=== PATIENT | male | born 1955 | race African-American/Black ===

== ENCOUNTER → 2017-03-20 | Outpatient (CLI) | payer OTHER ==
[2014-09-29 11:47] VITALS: BP 117/74
[~2017-03-20] MED LIST: AMLO10TA2 PO; GLIP5TAB10 PO; HYDR12.53 PO; carvedilol
--- NOTE | 2017-03-20 08:59 | RAD ---
Indication: Hepatitis C. Technique: Ultrasound of the abdomen was performed. No comparison is available. Findings: Visualized pancreas is unremarkable. Aorta and IVC are patent. Liver is normal in size and echogenicity without discrete mass. There is no surface nodularity. Gallbladder is absent. Common bile duct measures 6 mm. This is within normal limits for age postcholecystectomy. Kidneys are without hydronephrosis or solid mass. There is a simple cyst in the superior pole of the right kidney measuring 2.1 cm. Spleen is not enlarged. Impression: 1. No acute abdominal findings. 2. Prior cholecystectomy. 3. Simple cyst right kidney.
== END | disposition home or self-care (01) ==
LOC: US 06:39
PROVIDERS: ATTEND Internal Medicine Gastroenterology
DX: B19.20 Unspecified viral hepatitis C without hepatic coma (principal); N28.1 Cyst of kidney, acquired; Z90.49 Acquired absence of other specified parts of digestive tract
CPT/HCPCS: 76700

== ENCOUNTER → 2018-03-28 | Outpatient (CLI) | payer OTHER ==
[2014-09-29 11:47] VITALS: BP 117/74
[~2018-03-28] MED LIST changes: -AMLO10TA2 PO; +AMLO10TA6 PO; +CARV25TA PO; +DOXY100T9 PO; +FLUT1DIS3 IH; +LOSA1TAB25 PO; +PRED50TA PO; +TIOT18CA IH
--- NOTE | 2018-03-28 10:46 | RAD ---
CT scan of the chest without IV contrast compared to similar study dated April 27, 2015 for shortness of air wheezing for 4 weeks. TECHNIQUE: Contiguous helical 5 mm axial images are obtained from the thoracic inlet to the base of the diaphragm. Sagittal and coronal reformations are evaluated. FINDINGS: There is a large infiltrating spiculated right hilar mass measuring 7.6 x 3.8 x 7.2 cm, encasing the right upper, middle, and lower lobar bronchi, resulting in significant narrowing of the right lower lobar bronchus. There is some patchy atelectasis in the right lung base, and there is airspace disease and tree-in-bud opacification of the medial aspect of the right middle lobe, possibly representing area of active infection. No segmental atelectasis is present. There is a satellite 1.3 cm abnormality within the right upper lobe seen best on axial image #32, with a groundglass halo. This could be infectious, inflammatory, or neoplastic. Also within the right upper lobe are smooth areas of interstitial thickening particularly near the apex, which could reflect interstitial edema or inflammation from obstructive pathology but could also reflect lymphangitic carcinomatosis. The left lung is clear. There are large right hilar and mediastinal lymph nodes, with subcarinal lymph node measuring 3.4 x 3.9 cm and a right paratracheal lymph node measuring 3.6 x 4.1 cm. Other lymph nodes in the pretracheal and AP window are noted. Also seen are several suspicious subcentimeter lymph nodes in the left axilla and subcutaneous tissues of the left chest wall on axial image 41 and 44. Similar chest wall nodule is seen on the right axillary region were 39. There is a 2.3 x 1.7 cm suspicious for a right axillary lymph node. Evaluation of the upper abdominal organs is limited by lack of IV contrast, however no gross morphologic abnormalities of the visualized organs are identified. There is been a prior cholecystectomy. No suspicious osteoblastic or osteolytic bone lesions are seen. IMPRESSION: 1. Large infiltrating right hilar mass consistent with malignancy. There is a satellite nodule in the right upper lobe, as well as multiple axillary and chest wall nodules suspicious for metastatic disease. There is also focal smooth interstitial thickening in the right upper lobe which could reflect lymphangitic carcinomatosis. Numerous mediastinal and hilar lymph nodes are also identified and markedly enlarged consistent with metastatic disease. Findings were called to Dr. Myrick's office immediately upon interpretation of the examination. Electronically signed by: Marc Pope MD (03/28/2018 10:43 AM) [id number]
== END | disposition home or self-care (01) ==
LOC: CT 07:57
PROVIDERS: ATTEND Family Medicine
DX: R06.00 Dyspnea, unspecified (principal); J45.41 Moderate persistent asthma with (acute) exacerbation; R91.1 Solitary pulmonary nodule
CPT/HCPCS: 71250

== ENCOUNTER → 2018-04-05 | Day surgery (SDC) | payer OTHER ==
[~2018-04-05] MED LIST changes: +0.9 % SODIUM CHLORIDE 10 ML DISP.SYRIN. IV PRN; +ALBUTEROL SULFATE 2.5 MG/3 ML NEBU. NEB PRN; +EPINEPHrine 1 MG/ML VIAL INJ PRN; +IV RINGERS,LACTATED 1000ML 1,000 ML IV SCH; +LIDOCAINE 1% Multi-Dose 50 ML VIAL. INJ PRN; +LIDOCAINE 2% VISCOUS 100 ML BOTTLE. MM PRN; +LIDOCAINE 4% TOPICAL 50 ML SOLUTION. MM PRN; +PROPOFOL 40 ML IV ONE
[2018-04-05 10:49] LABS: BASO % 0 % (0-3); EOS # 0.2 x10^3/uL (0.0-0.7); EOS % 2 % (0-3); HEMATOCRIT 31.4 % (39.0-53.0); HEMOGLOBIN 10.6 g/dL (13.0-17.5); LYMPH % 10 % (24-48); MEAN CORPUSCULAR HEMOGLOBIN 30 pg (25-35); MEAN CORPUSCULAR HGB CONC 34 g/dL (31-37); MEAN CORPUSCULAR VOLUME 90 fL (79-100); MONO # 0.8 x10^3/uL (0.0-1.1); MONO % 8 % (0-9); NEUT # 7.7 x10^3uL (1.8-7.7); NEUT % 79 % (31-73); PLATELET COUNT 168 x10^3/uL (140-400); RED BLOOD COUNT 3.51 x10^6/uL (4.30-5.70); RED CELL DISTRIBUTION WIDTH 15.1 % (11.5-14.5); WHITE BLOOD COUNT 9.7 x10^3/uL (4.0-11.0)
[2018-04-05 11:07] LABS: PROTHROMBIN TIME PATIENT 13.7 SEC (11.7-14.0)
[2018-04-05 12:29] VITALS: BP 136/81
--- NOTE | 2018-04-05 13:01 | OP ---
DATE OF SURGERY: 04/05/2018 PROCEDURE: Bronchoscopy with biopsy. INDICATIONS FOR PROCEDURE: Abnormal CT scan with mass noted on the right. The risk and benefits of the procedure were explained to the patient and he was agreeable. Anesthesia was provided by nurse community liaison officer. Please refer to that note. DICTATION ENDS HERE LAI HAWKINS MD DR: APOORVA/mayra JOB#: [id number] / [id number]
--- NOTE | 2018-04-05 13:03 | OP ---
DATE OF SURGERY: 04/05/2018 PROCEDURE: Bronchoscopy with biopsy. INDICATION FOR PROCEDURE: Abnormal CT with right lung mass. The benefits and risks of the procedure were explained to the patient and he was agreeable. Anesthesia was provided via the nurse offset assistant press operator. Please refer to her note for details. A timeout procedure was performed prior to the initiation of sedation. The bronchoscope was entered through the right side of the nose. The vocal cords were inspected. DICTATION ENDS HERE LAI HAWKINS MD DR: APOORVA/mayra JOB#: [id number] / [id number]
--- NOTE | 2018-04-05 13:13 | OP ---
DATE OF SURGERY: 04/05/2018 PROCEDURE: Bronchoscopy with bronchial biopsy and brushing. INDICATION: Abnormal CT exam with a right lung mass. The indications and risks were explained to the patient and he was agreeable. A timeout procedure was performed. Anesthesia service provided conscious sedation with propofol. Please refer to their note for details of that. DESCRIPTION OF PROCEDURE: The bronchoscope was introduced through the right side of the nose. The vocal cords were inspected. The left vocal cord was deviated but did move. There also was a slight mucosal abnormality on the left vocal cord. 5 mL of 2% lidocaine was instilled directly on the vocal cords. The bronchoscope was introduced through the vocal cords and into the trachea. Another 5 mL of 1% lidocaine was distilled into the right lower lobe bronchus. The left lung airways were inspected to the segmental levels and were without lesions. On the right side, there was a diffusely infiltrating abnormality beginning at the right upper lobe bronchus and extending into the middle lobe and right lower lobe. The thickening of the airways prevented inspection of the segmental bronchi of the right middle lobe and the right lower lobe. The right bronchus intermedius was biopsied x 4. Also, a brushing sample was taken from the right lower lobe. Washings from the right bronchus were obtained and sent for cytology. In addition, the fluid will be sent for fungal and AFB studies. The patient had minimal bleeding throughout the procedure. His total blood loss was less than 5 mL. There was a transient lowering of the oxygen saturation reading, but that occurred when the oximeter had fallen off. When the oximeter was restored, his oxygen saturation was well above 90%. I believe that was an erroneous reading. He tolerated the procedure well. IMPRESSION AND PLAN: Infiltrating tumor of the right upper lobe, right bronchus intermedius, right middle lobe and right lower lobe airways. He will follow up with me in the office next week. LAI HAWKINS MD DR: APOORVA/mayra JOB#: [id number] / [id number] [place]
--- NOTE | 2018-04-08 18:06 | PATHOLOGY ---
Note [facility] Accession Number: [id number] TESTS RESULT FLAG UNITS REF RANGE LAB Clinician Provided Cytology Information No. of containers..01 Slide Source: R BRONCH INTERMEDIUS DIAGNOSIS: BR BRONCH INTERMEDIUS INCONCLUSIVE. RARE ATYPICAL CELLS PRESENT ALONG WITH BENIGN BRONCHIAL CELLS PULMONARY MACROPHAGES (DUST CELLS) ARE PRESENT. Signed out by: 02 Dariel Crockett MD, Pathologist NPI- [id number] Performed by: Vitor Damon, Energy Administrator ([facility]) FLAG LEGEND: L-Low Normal,H-High Normal,LL-Alert Low,HH-Alert High <-Panic Low,>-Panic High,A-Abnormal,AA-Critical Abnormal Performed at: [address] [place] [address] Yobany Dobson MD, 02 [facility] [address] [place] [address] Logan Hamilton MD, Specimen Comment: A courtesy copy of this report has been sent to Specimen Comment: [phone], . Specimen Comment: Report sent to DR SLOAN / DR VELÁZQUEZ Specimen Comment: A duplicate report has been generated due to demographic updates. Performed at: [address] [place] [address] [address], [place], [place] [id number] MD Yobany Dobson MD Phone: [phone]
--- NOTE | 2018-04-08 18:06 | PATHOLOGY ---
Note [facility] Accession Number: [id number] TESTS RESULT FLAG UNITS REF RANGE LAB Clinician Provided Cytology Information No. of containers..01 Other (Miscellaneous) Source: R BRONCH INTER B.T DIAGNOSIS: R BRONCH INTER B.T INCONCLUSIVE. ATYPICAL CELLS PRESENT ALONG WITH BENIGN BRONCHIAL CELLS. PULMONARY MACROPHAGES (DUST CELLS) ARE PRESENT. Signed out by: 02 Dariel Crockett MD, Pathologist NPI- [id number] Performed by: Vitor Damon, Charge Rn ([facility]) FLAG LEGEND: L-Low Normal,H-High Normal,LL-Alert Low,HH-Alert High <-Panic Low,>-Panic High,A-Abnormal,AA-Critical Abnormal Performed at: [address] [place] [address] Yobany Dobson MD, 02 [facility] [address] [place] [address] Logan Hamilton MD, Specimen Comment: A courtesy copy of this report has been sent to Specimen Comment: [phone], . Specimen Comment: Report sent to DR SLOAN / DR VELÁZQUEZ Specimen Comment: A duplicate report has been generated due to demographic updates. Performed at: [address] [place] [address] [address], [place], [place] [id number] MD Yobany Dobson MD Phone: [phone]
--- NOTE | 2018-04-08 18:06 | PATHOLOGY ---
Note [facility] Accession Number: [id number] TESTS RESULT FLAG UNITS REF RANGE LAB Clinician Provided Cytology Information No. of containers..01 Other (Miscellaneous) Source: R BRONCH INTERMEDIUS DIAGNOSIS: R BRONCH INTERMEDIUS INCONCLUSIVE. RARE ATYPICAL CELLS PRESENT ALONG WITH BRNIGN BRONCHIAL CELLS. PULMONARY MACROPHAGES (DUST CELLS) ARE PRESENT. Signed out by: Dariel Crockett MD, Pathologist NPI- [id number] Performed by: Vitor Damon, Guide Dog Instructor ([facility]) Gross description: 01 16ML, RED, CLOUDY /LCS FLAG LEGEND: L-Low Normal,H-High Normal,LL-Alert Low,HH-Alert High <-Panic Low,>-Panic High,A-Abnormal,AA-Critical Abnormal Performed at: [address] [place] [address] Yobany Dobson MD, 02 [facility] [address] [place] [address] Logan Hamilton MD, Specimen Comment: A courtesy copy of this report has been sent to Specimen Comment: [phone]. Specimen Comment: Report sent to Performed at: [address], [place], [place] [id number] MD Yobany Dobson MD Phone: [phone]
--- NOTE | 2018-04-13 09:09 | PATHOLOGY ---
[facility] Accession Number: [id number] . 01 Material submitted: . RIGHT BRONCHUS INTERMEDIUS . 01 Clinical history: . Lung mass . 02 Diagnosis: [id number] Keira Lung mass, right bronchus intermedius, core needle biopsy: - Small cell carcinoma. (Please see comment). . (SKM:at;04/12/2018) QTA/04/13/2018 . 02 Comment: The findings in this case were relayed to Kareen at Dr. Lang's office on 04/12/2018. . The tumor cells are hyperchromatic and exhibit crush artifact. The tumor cells are negative for chromogranin and CD45. The tumor cells are positive for synaptophysin and cytokeratin AE1/3. . This case has also been reviewed by Dr. Meet Obregon M.D. who agrees with the diagnosis. . (SKM:at;04/09/2018) . 02 Electronically signed: . Dariel Crockett MD, Pathologist NPI- [id number] . 01 Gross description: . Received in formalin labeled "Tunley, Juvenal, bronch intermedius," are multiple minute fragments of ji soft tissue measuring 0.4 x 0.2 x 0.1 cm in aggregate dimensions. The specimen is filtered and entirely submitted in cassette A1. (TSD; 04/05/2018) TOB/TOB . 02 Pathologist provided ICD-10: C34.91 . 02 CPT . 102627, P36934, M48365 Specimen Comment: A courtesy copy of this report has been sent to Specimen Comment: [phone], , . Specimen Comment: Report sent to ,DR GALVEZ / DR SLOAN Specimen Comment: A duplicate report has been generated due to demographic update Specimen Comment: of the patient's Date of , Age, Gender, and/or Specimen Date. Specimen Comment: Please review patient results, reference intervals, and calculated Specimen Comment: results that may have been affected by this change. Performed at: 01 [facility] [address] [id number] MD Yobany Dobson MD Phone: [phone] Performed at: 02 [facility] [address] [id number] MD Chago Justice MD Phone: [phone]
== END | disposition home or self-care (01) ==
LOC: SURG 09:38
PROVIDERS: ATTEND Internal Medicine Critical Care Medicine
DX: C34.91 Malignant neoplasm of unspecified part of right bronchus or lung (principal); Z91.010 Allergy to peanuts; Z79.01 Long term (current) use of anticoagulants; M19.90 Unspecified osteoarthritis, unspecified site; F17.210 Nicotine dependence, cigarettes, uncomplicated; Z83.6 Family history of other diseases of the respiratory system
CPT/HCPCS: 31623; 31625; 36415; 85025; 85610; 85730; 87102; 87116; 88104; 88112; 88305; 88341; 88342; 94640; J0171; J2704; J7613; 31622

== ENCOUNTER 2018-04-12 06:58 | Outpatient (CLI) | payer OTHER ==
[~2018-04-12] VITALS: Ht 175.3 cm; Wt 107.0 kg
[~2018-04-12 06:58] MED LIST changes: -0.9 % SODIUM CHLORIDE 10 ML DISP.SYRIN. IV PRN; -ALBUTEROL SULFATE 2.5 MG/3 ML NEBU. NEB PRN; -EPINEPHrine 1 MG/ML VIAL INJ PRN; -IV RINGERS,LACTATED 1000ML 1,000 ML IV SCH; -LIDOCAINE 1% Multi-Dose 50 ML VIAL. INJ PRN; -LIDOCAINE 2% VISCOUS 100 ML BOTTLE. MM PRN; -LIDOCAINE 4% TOPICAL 50 ML SOLUTION. MM PRN; -PRED50TA PO; -PROPOFOL 40 ML IV ONE
[2018-04-12] MEDS ORDERED: PRED50TA PO (07:12)
[2018-04-12 07:28] VITALS: BP 140/87
[2018-04-12 07:53] LABS: BASO # 0.1 x10^3/uL (0.0-0.2); BASO % 1 % (0-3); EOS # 0.1 x10^3/uL (0.0-0.7); EOS % 1 % (0-3); HEMATOCRIT 31.1 % (39.0-53.0); HEMOGLOBIN 10.7 g/dL (13.0-17.5); LYMPH # 0.8 x10^3/uL (1.0-4.8); LYMPH % 8 % (24-48); MEAN CORPUSCULAR HEMOGLOBIN 31 pg (25-35); MEAN CORPUSCULAR HGB CONC 35 g/dL (31-37); MEAN CORPUSCULAR VOLUME 89 fL (79-100); MONO # 0.7 x10^3/uL (0.0-1.1); MONO % 7 % (0-9); NEUT # 8.1 x10^3uL (1.8-7.7); NEUT % 83 % (31-73); PLATELET COUNT 195 x10^3/uL (140-400); RED BLOOD COUNT 3.51 x10^6/uL (4.30-5.70); RED CELL DISTRIBUTION WIDTH 15.3 % (11.5-14.5); WHITE BLOOD COUNT 9.8 x10^3/uL (4.0-11.0)
[2018-04-12 07:55] LABS: CREATININE 1.6 mg/dL (0.7-1.3); GFR 52.9; POTASSIUM 3.8 mmol/L (3.5-5.1)
[2018-04-12 08:02] LABS: ALBUMIN 2.4 g/dL (3.4-5.0); ALBUMIN/GLOBULIN RATIO 0.5 (1.0-1.7); TOTAL BILIRUBIN 0.2 mg/dL (0.2-1.0); TOTAL PROTEIN 7.3 g/dL (6.4-8.2)
[2018-04-12] MEDS ORDERED: MIDAZOLAM HCL/PF 2 MG/2 ML VIAL. ONE (08:12)
[2018-04-12] MEDS ORDERED: fentaNYL PF VIAL 100 MCG/2 ML VIAL ONE (08:12)
[2018-04-12] MEDS ORDERED: LIDOCAINE WITH 8.4% SOD BICARB 3 ML DISP.SYRIN. ONE (08:13)
[2018-04-12] MEDS ORDERED: LIDOCAINE WITH 8.4% SOD BICARB 3 ML DISP.SYRIN. IJ ONE (08:30)
[2018-04-12 08:40] LABS: PROTHROMBIN TIME PATIENT 13.5 SEC (11.7-14.0)
[2018-04-12 08:53] VITALS: BP 153/87
[2018-04-12 09:08] VITALS: BP 154/92
--- NOTE | 2018-04-13 14:12 | PATHOLOGY ---
[facility] Accession Number: [id number] . 01 Material submitted: . RIGHT AXILLARY NODE BIOPSY . 01 Clinical history: . Right axillary enlarged lymph node . 02 Diagnosis: "RT axillary node biopsy", excisional biopsy: - FIBROADIPOSE CONNECTIVE TISSUE WITH METASTATIC SMALL CELL CARCINOMA (SEE COMMENT). . (CLW:mm; 04/13/18) [facility]/04/13/2018 . 02 Comment: No background lymph node architecture is present for evaluation. The patient has a history of "small cell carcinoma" from a lung mass - right bronchus intermedius, needle core biopsy ([id number]). Clinical and radiographic correlation is recommended. . (CLW:mm; 04/13/18) . 02 Electronically signed: . Oneyda Obregon MD, Pathologist NPI- [id number] . 01 Gross description: . Received in formalin labeled "Juvenal Nichols, right lymph node BX axillary," are multiple fragments of needle cores of ji soft tissue measuring 1.1 x 0.5 x 0.1 cm in aggregate dimensions. The specimen is filtered and entirely submitted in cassette A1. (TSD; 04/12/2018) TOB/TOB . 02 Pathologist provided ICD-10: C77.3 . 02 CPT . 211389 Specimen Comment: A courtesy copy of this report has been sent to Specimen Comment: [phone], . Specimen Comment: Report sent to ,DR HAWKINS / DR SLOAN Specimen Comment: A duplicate report has been generated due to demographic updates. Performed at: [address], [place] [id number] MD Yobany Dobson MD Phone: [phone] Performed at: [address] [id number] MD Logan Hamilton MD Phone: [phone]
--- NOTE | 2018-04-13 15:29 | RAD ---
Ultrasound-guided biopsy, right axillary lymph node 04/13/2018 Indication: The patient is a 62-year-old male with a large mediastinal and right hilar lung mass tube presents for biopsy of axillary adenopathy which could reflect metastatic disease. Largest axillary lymph node is seen on the right. The risks and benefits of the procedure were discussed the patient. Informed consent was obtained. A timeout procedure was performed. The right axilla was prepped and draped using sterile barrier technique. 1% lidocaine without epinephrine was administered for local anesthesia. Ultrasound evaluation demonstrates a mildly enlarged lymph node in the right axilla measuring 1.7 x 1.4 cm. This is consistent with the largest axillary lymph node seen on prior CT scan. Small fatty hilum does appear to be retained. Cortical thickening is noted. Overlying skin was anesthetized with 1% lidocaine. Under direct ultrasound guidance multiple 18-gauge core biopsy samples were obtained which were divided amongst formalin and RPMI fluid. Manual pressure was held. Sterile dressings were applied. Impression: Ultrasound-guided biopsy of mildly enlarged, and mildly abnormal appearing lymph node in the right axilla.
== END 2018-04-12 09:19 | disposition home or self-care (01) ==
LOC: INTRAD 06:58
PROVIDERS: ATTEND Internal Medicine Pulmonary Disease
DX: C77.3 Secondary and unspecified malignant neoplasm of axilla and upper limb lymph nodes (principal); C34.91 Malignant neoplasm of unspecified part of right bronchus or lung; Z91.010 Allergy to peanuts; Z79.899 Other long term (current) drug therapy; Z79.01 Long term (current) use of anticoagulants
CPT/HCPCS: 36415; 38505; 76942; 80053; 85025; 85610; 88305

== ENCOUNTER 2018-04-20 07:11 | Outpatient (CLI) | payer OTHER ==
[~2018-04-20] VITALS: Ht 175.3 cm; Wt 107.5 kg
[2018-04-20] VITALS (7 sets, daily range): BP systolic 142–162; BP diastolic 86–93
[~2018-04-20 07:11] MED LIST changes: +PRED50TA PO
[2018-04-20] MEDS ORDERED: PROAIR HFA8.5 GM INH (07:51)
[2018-04-20] MEDS ORDERED: [UNRECOGNIZED DRUG - OTHER] PO (07:51)
[2018-04-20] MEDS ORDERED: ALBU2.5V5 NEB (07:51)
[2018-04-20] MEDS ORDERED: BUDE10.2 IH (07:51)
[2018-04-20] MEDS ORDERED: HEPARIN PF 500 UNIT/5 ML DISP.SYRIN. IV ONE (08:15)
[2018-04-20] MEDS ORDERED: LIDOCAINE 1%/EPI 1:100,000 20 ML VIAL. ONE (08:16)
[2018-04-20] MEDS ORDERED: MIDAZOLAM HCL/PF 2 MG/2 ML VIAL. ONE (08:34)
[2018-04-20] MEDS ORDERED: fentaNYL PF VIAL 100 MCG/2 ML VIAL ONE (08:34)
[2018-04-20] MEDS ORDERED: fentaNYL PF VIAL 100 MCG/2 ML VIAL IV ONE (09:00)
[2018-04-20] MEDS ORDERED: MIDAZOLAM HCL/PF 2 MG/2 ML VIAL. IV ONE (09:00)
[2018-04-20] MEDS ORDERED: LIDOCAINE 1%/EPI 1:100,000 20 ML VIAL. INJ ONE (09:00)
--- NOTE | 2018-04-20 16:38 | RAD ---
Procedure: Ultrasound and fluoroscopically guided placement of left internal jugular power port.. 04/20/2018 4:33 PM Clinical Indication: Lung adenocarcinoma Sedation: Conscious sedation was administered for 30 minutes. The patient was monitored by a qualified independent observer throughout the time of sedation. Please refer to the medical record for exact doses of medications utilized to achieve moderate sedation. Fluoroscopy time 0.9 minutes. Dose area product: [id number] Consent: The procedure was explained in its entirety to the patient or the patients designated shipping services sales representative by a member of the treatment team, including a discussion of the risks, benefits and commonly accepted alternatives to the procedure, as well as the expected consequences of no therapy whatsoever. Discussion of the risks included, but was not limited to, those that are most frequent and those that are rare but possibly severe or life-threatening, as well as the possibility of unforeseen complications. Technique and Findings: All elements of maximal sterile barrier technique including the use of a cap, mask, sterile gown, sterile gloves, large sterile sheet, appropriate hand hygiene, and 2% chlorhexidine for cutaneous antisepsis (or acceptable alternative antiseptic per current guidelines) were followed for this procedure. Following informed consent, and a timeout procedure, the patient was prepped and draped in the usual sterile fashion. Ultrasound interrogation of the left neck revealed patency and compressibility of the left internal jugular vein. A 21-gauge micropuncture was then used to gain access to this vein under ultrasound guidance. A hard copy ultrasound image was recorded. The needle was exchanged over a wire for a sheath. A 1 inch incision was made several centimeters inferior to the venotomy site. A catheter was tunneled from this site dermatotomy site in the neck. Catheter was advanced through peel-away sheath such that its tip was in the proximal right atrium with the patient supine. The catheter was trimmed to length and connected to the port reservoir. The port was found to flush and aspirate normally. The wound was closed in layers using 4-0 Vicryl suture. Sterile dressings were applied. Impression: Successful ultrasound and fluoroscopically guided placement of a left internal jugular PowerPort
== END 2018-04-20 10:30 | disposition home or self-care (01) ==
LOC: INTRAD 07:11
PROVIDERS: ATTEND Internal Medicine Hematology & Oncology
DX: C34.90 Malignant neoplasm of unspecified part of unspecified bronchus or lung (principal); Z91.010 Allergy to peanuts; I10 Essential (primary) hypertension; F17.200 Nicotine dependence, unspecified, uncomplicated; J44.9 Chronic obstructive pulmonary disease, unspecified
CPT/HCPCS: 36561; 76937; 77001; 99152; 99153; C1788; C1892; J0690; J2250; J3010; J3490; C1751

== ENCOUNTER → 2018-06-21 | Outpatient (CLI) | payer MEDICARE, OTHER ==
[~2018-06-21] MED LIST changes: +ACETAMINOPHEN 325 MG TABLET. PO PRN; +ALBU2.5V5 NEB; +ALBU2.5V8 INH; +BUDE10.2 IH; +BUSP5TAB PO; +CARV25TA2 PO; +FLUT1BLS3 IH; +HEPARIN PF 500 UNIT/5 ML DISP.SYRIN. IV ONE; +HYDR-2761 PO; -HYDR12.53 PO; +HYDR12.575 PO; +LEVO250T7 PO; +PANT20TA2 PO; +[UNRECOGNIZED DRUG - OTHER] PO; +diphenhydrAMINE HCL 25 MG CAPSULE PO PRN
[2018-06-21 09:24] VITALS: BP 133/81
[2018-06-21 09:38] LABS: HEMATOCRIT 18.5 % (39.0-53.0); HEMOGLOBIN 6.1 g/dL (13.0-17.5)
[2018-06-21 10:47] VITALS: BP 123/63
[2018-06-21 11:47] VITALS: BP 134/69
[2018-06-21 12:32] VITALS: BP 140/69
== END ==
LOC: OPS 08:45
PROVIDERS: ATTEND Internal Medicine Hematology & Oncology
DX: D64.9 Anemia, unspecified (principal); C34.90 Malignant neoplasm of unspecified part of unspecified bronchus or lung; I12.9 Hypertensive chronic kidney disease with stage 1 through stage 4 chronic kidney disease, or unspecified chronic kidney disease; N18.3 Chronic kidney disease, stage 3 (moderate); F41.9 Anxiety disorder, unspecified; J44.9 Chronic obstructive pulmonary disease, unspecified; K57.90 Diverticulosis of intestine, part unspecified, without perforation or abscess without bleeding; K21.9 Gastro-esophageal reflux disease without esophagitis; E78.5 Hyperlipidemia, unspecified; E11.22 Type 2 diabetes mellitus with diabetic chronic kidney disease; G40.909 Epilepsy, unspecified, not intractable, without status epilepticus; M19.90 Unspecified osteoarthritis, unspecified site; B19.20 Unspecified viral hepatitis C without hepatic coma; Z87.891 Personal history of nicotine dependence; Z85.89 Personal history of malignant neoplasm of other organs and systems; Z79.01 Long term (current) use of anticoagulants; Z79.899 Other long term (current) drug therapy
CPT/HCPCS: 36415; 36430; 85014; 85018; 86850; 86900; 86901; 86920; P9016; Q0163

== ENCOUNTER 2018-08-11 19:07 | Inpatient (IN) | payer OTHER ==
[~2018-08-11] VITALS: Ht 177.8 cm; Wt 108.5 kg
[~2018-08-11 19:07] MED LIST changes: -ACETAMINOPHEN 325 MG TABLET. PO PRN; -AMLO10TA6 PO; +AMLO10TA8 PO; -HEPARIN PF 500 UNIT/5 ML DISP.SYRIN. IV ONE; +LEVO500T59 PO; -diphenhydrAMINE HCL 25 MG CAPSULE PO PRN
[2018-08-11] MEDS ORDERED: IV NORMAL SALINE 1000ML BAG 1,000 ML IV ONE (19:45)
[2018-08-11 20:11] LABS: BASO # 0.1 x10^3/uL (0.0-0.2); BASO % 1 % (0-3); EOS # 1.4 x10^3/uL (0.0-0.7); EOS % 15 % (0-3); HEMATOCRIT 26.7 % (39.0-53.0); HEMOGLOBIN 8.7 g/dL (13.0-17.5); LYMPH # 0.8 x10^3/uL (1.0-4.8); LYMPH % 8 % (24-48); MEAN CORPUSCULAR HEMOGLOBIN 28 pg (25-35); MEAN CORPUSCULAR HGB CONC 33 g/dL (31-37); MEAN CORPUSCULAR VOLUME 87 fL (79-100); MONO # 0.8 x10^3/uL (0.0-1.1); MONO % 9 % (0-9); NEUT # 6.4 x10^3uL (1.8-7.7); NEUT % 67 % (31-73); PLATELET COUNT 200 x10^3/uL (140-400); RED BLOOD COUNT 3.09 x10^6/uL (4.30-5.70); RED CELL DISTRIBUTION WIDTH 19.5 % (11.5-14.5); WHITE BLOOD COUNT 9.5 x10^3/uL (4.0-11.0)
[2018-08-11] MEDS ORDERED: methylPREDNISolone SOD SUCC PF 125 MG/2 ML VIAL. IV ONE (20:15)
[2018-08-11] MEDS ORDERED: ALBUTEROL SULFATE 2.5 MG/3 ML NEBU. CONT NEB ONE (20:15)
[2018-08-11 20:19] LABS: PROTHROMBIN TIME PATIENT 15.2 SEC (11.7-14.0)
[2018-08-11 20:26] LABS: CALCIUM 8.1 mg/dL (8.5-10.1); CREATININE 1.8 mg/dL (0.7-1.3); POTASSIUM 3.9 mmol/L (3.5-5.1)
[2018-08-11 20:29] LABS: INFLUENZA A PATIENT NEGATIVE (NEGATIVE); INFLUENZA B PATIENT NEGATIVE (NEGATIVE)
[2018-08-11 20:38] LABS: % BASOS 1 % (0-3); % EOS 16 % (0-5); % LYMPHS 10 % (24-48); % MONOS 6 % (0-10); % SEGS 67 % (35-66)
[2018-08-11 20:40] LABS: ALBUMIN 2.4 g/dL (3.4-5.0); ALBUMIN/GLOBULIN RATIO 0.5 (1.0-1.7); PLT ESTIMATE ADEQUATE (ADEQUATE); TOTAL BILIRUBIN 0.2 mg/dL (0.2-1.0); TOTAL PROTEIN 6.9 g/dL (6.4-8.2)
--- NOTE | 2018-08-11 20:46 | RAD ---
PORTABLE CHEST 1V History: FEVER. COUGH. . Heart size is stable. Mild increase in interstitial opacities in both lungs greatest in the bases. Small right pleural effusion, slightly greater. No evidence of pneumothorax. Left chest wall port identified with tip overlying the cavoatrial junction. IMPRESSION: Mild worsening of predominantly interstitial infiltrate or edema, greatest in the bases. Mild increase in vascular congestion, compatible with congestive failure. Increase in small right pleural effusion. Electronically signed by: Victoriano Morin MD (08/11/2018 8:43 PM) [facility]
--- NOTE | 2018-08-11 20:56 | PHYS DOC ---
Past Medical History Past Medical History: COPD, Hypertension Additional Past Medical Histor: STAGE 4 LUNG CANCER LAST CHEMO TREATMENT 07/24 Past Surgical History: Cholecystectomy Alcohol Use: None Drug Use: None Adult General Chief Complaint Chief Complaint: SHORTNESS OF BREATH HPI HPI Patient is a 63 year old male who presents with sob, chills, and a non- productive cough. He has active stage 4 small cell lung carcinoma, with his last treatment being 07/24. He reports onset of cough 3 to 4 days ago that progressed to chills and fever with SOB, fatigue, and generalized weakness. Today (08/11/18) his home O2 reading was 84% on room air and this is what prompted him to visit the ED. His cough causes him to have syncopal symptoms but he denies passing out. Yesterday he had new onset n/v, but denies diarrhea, constipation, and blood in stool. He has received a flu vaccination this year. He has been around his grandson who is sick with similar symptoms. He had a recent stay in the hospital 07/18/18 for similar symptoms and was diagnosed w/ pneumonia and was treated successfully per pt. Review of Systems Review of Systems Constitutional: Admits fever, chills, fatigue, and generalized weakness. Eyes: Denies change in visual acuity, redness, or eye pain HENT: Denies nasal congestion or sore throat Respiratory: Admits cough or shortness of breath Cardiovascular: No additional information not addressed in HPI GI: Admits nausea, vomiting. Denies bloody stools or diarrhea : Denies dysuria or hematuria Musculoskeletal: Denies back pain or joint pain Integument: Denies rash or skin lesions Neurologic: Denies headache, focal weakness or sensory changes Current Medications Current Medications Current Medications Medications (Trade) Dose Ordered Sig/Precious Start Time Stop Time Status Last Admin Dose Admin Albuterol Sulfate (Ventolin Neb Soln) 10 mg 1X ONCE 08/11/18 20:15 08/11/18 20:16 DC 08/11/18 20:27 10 MG Furosemide (Lasix) 20 mg 1X ONCE 08/11/18 21:30 08/11/18 21:31 DC Methylprednisolone Sodium Succinate (SOLU-Medrol 125MG VIAL) 125 mg 1X ONCE 08/11/18 20:15 08/11/18 20:16 DC 08/11/18 20:13 125 MG Piperacillin Sod/ Tazobactam Sod (Zosyn Per Pharmacy) 1 each PRN DAILY PRN 08/11/18 21:30 UNV Piperacillin Sod/ Tazobactam Sod 3.375 gm/Sodium Chloride 50 ml @ 100 mls/hr 1X ONCE 08/11/18 21:45 08/11/18 22:14 08/11/18 21:40 100 MLS/HR Sodium Chloride 1,000 ml @ 1,000 mls/hr 1X ONCE 08/11/18 19:45 08/11/18 20:44 DC 08/11/18 20:06 1,000 MLS/HR Vancomycin HCl (Vanco Per Pharmacy) 1 each PRN DAILY PRN 08/11/18 21:30 UNV Vancomycin HCl 2 gm/Sodium Chloride 500 ml @ 250 mls/hr 1X ONCE 08/11/18 22:00 08/11/18 23:59 Allergies Allergies Allergies Coded Allergies Type Severity Reaction Last Updated Verified chocolate flavor Allergy Intermediate 07/16/18 Yes peanut Allergy Intermediate HIVES 07/16/18 Yes Physical Exam Physical Exam Constitutional: Well developed, well nourished, MILD distress, ill-appearing HENT: Normocephalic, atraumatic, bilateral external ears normal, oropharynx moist, no oral exudates, nose normal. Eyes: PERRLA, EOMI, conjunctiva normal, no discharge. Neck: Normal range of motion, no tenderness, supple, no stridor. Cardiovascular:Heart rate regular rhythm, no murmur Lungs & Thorax: Scattered expiratory wheezes b/l, rhonci b/l but more prominent on the left. Skin: Warm, dry, no erythema, no rash. Back: No tenderness, no CVA tenderness. Extremities: No tenderness Neurologic: Alert and oriented X 3, normal motor function, normal sensory function, no focal deficits noted. Psychologic: Affect normal, judgement normal, mood normal. Current Patient Data Vital Signs Vital Signs Date Time Temp Pulse Resp B/P (MAP) Pulse Ox O2 Delivery O2 Flow Rate FiO2 08/11/18 20:25 93 Room Air 08/11/18 19:30 98.4 98 22 151/79 (103) 98.4 Lab Values Laboratory Tests Test 08/11/18 19:25 08/11/18 19:50 08/11/18 21:00 Influenza Type A Antigen Negative (NEGATIVE) Influenza Type B Antigen Negative (NEGATIVE) White Blood Count 9.5 x10^3/uL (4.0-11.0) Red Blood Count 3.09 x10^6/uL (4.30-5.70) L Hemoglobin 8.7 g/dL (13.0-17.5) L Hematocrit 26.7 % (39.0-53.0) L Mean Corpuscular Volume 87 fL (79-100) Mean Corpuscular Hemoglobin 28 pg (25-35) Mean Corpuscular Hemoglobin Concent 33 g/dL (31-37) Red Cell Distribution Width 19.5 % (11.5-14.5) H Platelet Count 200 x10^3/uL (140-400) Neutrophils (%) (Auto) 67 % (31-73) Lymphocytes (%) (Auto) 8 % (24-48) L Monocytes (%) (Auto) 9 % (0-9) Eosinophils (%) (Auto) 15 % (0-3) H Basophils (%) (Auto) 1 % (0-3) Neutrophils # (Auto) 6.4 x10^3uL (1.8-7.7) Lymphocytes # (Auto) 0.8 x10^3/uL (1.0-4.8) L Monocytes # (Auto) 0.8 x10^3/uL (0.0-1.1) Eosinophils # (Auto) 1.4 x10^3/uL (0.0-0.7) H Basophils # (Auto) 0.1 x10^3/uL (0.0-0.2) Segmented Neutrophils % 67 % (35-66) H Lymphocytes % 10 % (24-48) L Monocytes % 6 % (0-10) Eosinophils % 16 % (0-5) H Basophils % 1 % (0-3) Platelet Estimate Adequate (ADEQUATE) Prothrombin Time 15.2 SEC (11.7-14.0) H Prothrombin Time INR 1.2 (0.8-1.1) H Sodium Level 143 mmol/L (136-145) Potassium Level 3.9 mmol/L (3.5-5.1) Chloride Level 105 mmol/L (98-107) Carbon Dioxide Level 26 mmol/L (21-32) Anion Gap 12 (6-14) Blood Urea Nitrogen 22 mg/dL (8-26) Creatinine 1.8 mg/dL (0.7-1.3) H Estimated GFR (Cockcroft-Gault) 46.0 BUN/Creatinine Ratio 12 (6-20) Glucose Level 156 mg/dL (70-99) H Lactic Acid Level 1.6 mmol/L (0.4-2.0) Calcium Level 8.1 mg/dL (8.5-10.1) L Total Bilirubin 0.2 mg/dL (0.2-1.0) Aspartate Amino Transferase (AST) 20 U/L (15-37) Alanine Aminotransferase (ALT) 12 U/L (16-63) L Alkaline Phosphatase 86 U/L (46-116) Troponin I Quantitative 0.281 ng/mL (0.000-0.055) PL-Aex-W-Type Natriuretic Peptide 2582 pg/mL (0-124) H Total Protein 6.9 g/dL (6.4-8.2) Albumin 2.4 g/dL (3.4-5.0) L Albumin/Globulin Ratio 0.5 (1.0-1.7) L Procalcitonin 4.11 ng/mL (0.00-0.10) H Urine Collection Type Unknown Urine Color Yellow Urine Clarity Clear Urine pH 6.5 Urine Specific [place] 1.015 Urine Protein >=300 mg/dL (NEG-TRACE) Urine Glucose (UA) Negative mg/dL (NEG) Urine Ketones (Stick) Negative mg/dL (NEG) Urine Blood Small (NEG) Urine Nitrite Negative (NEG) Urine Bilirubin Negative (NEG) Urine Urobilinogen Dipstick 1.0 mg/dL (0.2 mg/dL) Urine Leukocyte Esterase Negative (NEG) Urine RBC 3-5 /HPF (0-2) Urine WBC 1-4 /HPF (0-4) Urine Squamous Epithelial Cells Few /LPF Urine Bacteria 0 /HPF (0-FEW) Laboratory Tests 08/11/18 19:50 Laboratory Tests 08/11/18 19:50 EKG EKG NSR RBBB V3 NOT INTERPRETEABLE But other than that no definite STEMI was identified.[] Radiology/Procedures Radiology/Procedures CXR (08/11/18) IMPRESSION: Mild worsening of predominantly interstitial infiltrate or edema, greatest in the bases. Mild increase in vascular congestion, compatible with congestive failure. Increase in small right pleural effusion. Course & Med Decision Making Course & Med Decision Making Patient is a 63 year old male with active stage 4 small cell lung carcinoma with recent sick contacts who presents with sob, chills, non productive cough, fatigue, and generalized weakness. B/l wheezes and rhonci appreciated on auscultation. Today (08/11/18) his home O2 reading was 84% on room air and this is what prompted him to visit the ED. Yesterday he had new onset n/v, but denies diarrhea, constipation, and blood in stool. He has received a flu vaccination this year. He has been around his grandson who is sick with similar symptoms. He had a recent stay in the hospital 07/18/18 for similar symptoms and was diagnosed w/ pneumonia and was treated successfully per pt. Ddx: Influenza Pneumonia CHF Workup CXR, 2 blood cultures, lactic acid, procalcitonin, CMP, CBC, respiratory treatments, IV fluids, Influenza swab. FINAL PLAN CXR SUGGESTIVE OF PNA COUDL BE CHF GIVEN LAB TESTS BUT ALSO PROCALCITONIN IS ELEVATED. COULD BE BOTH D/W ELVA ADMIT, PULM CONSULT. ABX BROAD SPECTRUM LASIX GIVEN Dragon Disclaimer Dragon Disclaimer This electronic medical record was generated, in whole or in part, using a voice recognition dictation system. Departure Departure Impression: Primary Impression: Pneumonia Additional Impression: CHF (congestive heart failure) Disposition: ADMITTED INPATIENT Admitting Physician: Johnnie Viveros Condition: STABLE Referrals: SHERRIE SLOAN (PCP) Problem Qualifiers OLE MONROY MD Aug 11, 2018 20:56
[2018-08-11 21:10] LABS: BILIRUBIN,URINE NEGATIVE (NEG); CLARITY,URINE CLEAR; COLOR,URINE YELLOW; NITRITE,URINE NEGATIVE (NEG); PH,URINE 6.5; PROTEIN,URINE >=300 mg/dL (NEG-TRACE)
[2018-08-11 21:19] LABS: BACTERIA,URINE 0 /HPF (0-FEW); SQUAMOUS EPITHELIAL CELL,UR FEW /LPF
[2018-08-11] MEDS ORDERED: FUROSEMIDE 20 MG/2 ML VIAL. IVP ONE (21:30)
[2018-08-11] MEDS ORDERED: PIP/TAZO PER PHARMACY MC PRN (21:30)
[2018-08-11] MEDS ORDERED: PIPERACILLIN/TAZOBACTAM 3.375 GM in IV NORMAL SALINE 50ML 50 ML IV ONE (21:45)
[2018-08-11] MEDS ORDERED: VANCOMYCIN 2 GM in IV NORMAL SALINE 500ML BAG 500 ML IV ONE (22:00)
[2018-08-11] MEDS ORDERED: ASPIRIN CHEWABLE 81 MG TABLET. PO ONE (22:15)
[2018-08-11 22:26] VITALS: BP 125/69
[2018-08-11] MEDS: VANCOMYCIN PER PHARMACY MC PRN (23:25)
--- NOTE | 2018-08-11 23:28 | NUR ---
Pharmacy Vancomycin Dosing Note S:Consulted to monitor and dose vancomycin started 08/11/18. O:JESSICA MEDINA is a 63 year old M with Pneumonia . Height: 5 feet, 10 inches Weight: 106.589000 kg [place] Body Weight: 73.00 Adjusted Body Weight: 86.28 Dosing Weight: Actual Other Antibiotics: ZOSYN 3.375GM IV Q6H LABS: Last BUN: 22 Last Creatinine: 1.8 Creatinine Clearance: 50 mL/min Last WBC: 9.5 Last Procalcitonin: 4.11 Tmax (past 24 hours): Microbiology: I/O: Drug Levels: Last level: on at Last dose given at Vancomycin Dosing: Loading Dose: 2000 mg x1 08/11/180 Dosing Weight: Actual Target Trough: 15-20 A: Based on: Actual Wt and CrCl P: 1. 08/12/18 2200 Vancomycin 1500 mg IV q24h 2. Follow up Trough level on 08/13/18 at 2130 3. Pharmacy will continue to monitor, follow and adjust therapy as needed. LAI MANRIQUE RPH, 08/11/18 2328 Signed: 08/11/18 at 2329 by LAI MANRIQUE RPH PHA
[2018-08-11] MEDS ORDERED: ALBUTEROL SULFATE 2.5 MG/3 ML NEBU. NEB PRN ×2 (23:45)
[2018-08-11] MEDS ORDERED: ALBUTEROL SULFATE 2.5 MG/3 ML NEBU. INH PRN (23:45)
[2018-08-11] MEDS ORDERED: NON FORMULARY ITEM (Fluticasone/Umeclidin/Vilanter (Trelegy Ellipta 100-62.5-25) 1 EACH) IH PRN (23:45)
[2018-08-11] MEDS ORDERED: BUDESONIDE 0.5 MG/2 ML NEBU. NEB PRN (23:45)
[2018-08-11] MEDS ORDERED: busPIRone 5 MG TABLET. PO ONE (23:45)
[2018-08-12 03:00] VITALS: BP 141/77
[2018-08-12 06:08] LABS: CREATININE 1.8 mg/dL (0.7-1.3)
[2018-08-12] MEDS: PIPERACILLIN/TAZOBACTAM 3.375 GM in IV NORMAL SALINE 50ML 50 ML IV SCH ×3 (06:21→17:23)
[2018-08-12 07:21] VITALS: BP 147/84
[2018-08-12] MEDS: busPIRone 5 MG TABLET. PO SCH ×2 (08:23→20:26)
[2018-08-12] MEDS: HYDROcodone/APAP 5/325MG 1 TAB TABLET PO PRN ×3 (08:23→20:27)
[2018-08-12] MEDS: CARVEDILOL 12.5 MG TABLET. PO SCH ×2 (08:23→17:23)
[2018-08-12] MEDS: amLODIPine BESYLATE 10 MG TABLET PO SCH (08:23)
[2018-08-12] MEDS: IPRATRPIUM/ALBUTEROL 0.5/2.5MG 3 ML NEBU. NEB SCH ×4 (09:00→20:10)
[2018-08-12] MEDS: BUDESONIDE 0.5 MG/2 ML NEBU. NEB SCH ×2 (09:00→20:10)
--- NOTE | 2018-08-12 09:03 | PDOC ---
Provider Note Provider Note [id number] acute on chronic resp fail ae of copd acute bronchitis vs pneumonia ? chf, ? nstemi see orders, ? cardiology consult MARGARET VALADEZ MD Aug 12, 2018 09:03
[2018-08-12] MEDS ORDERED: PANTOPRAZOLE 40 MG TABLET.DR. PO ONE (09:15)
[2018-08-12] MEDS: ENOXAPARIN 40 MG/0.4 ML SYRINGE. SQ SCH (09:44)
[2018-08-12] MEDS: methylPREDNISolone SOD SUCC PF 40 MG/ML VIAL. IV SCH ×2 (09:44→20:27)
--- NOTE | 2018-08-12 09:58 | CONS ---
DATE OF CONSULTATION: 08/12/2018 I was asked to see this 63-year-old gentleman for [id number]-[id number] respiratory failure. HISTORY OF PRESENT ILLNESS: He has history of 29-lnyp-lgan smoking, continues to smoke a few cigarettes here and there. He does have COPD. He is on nocturnal oxygen 2 liters per minute via nasal cannula. He has a stage 4 small cell lung cancer and receiving immunotherapy. He started to have increased shortness of breath, cough with yellow sputum production, fever, chills and wheezing 3-4 days ago. In the Emergency Room, his O2 saturation was 84%. He is now on oxygen. His influenza A and B are negative. He has been around his grandson who has similar symptoms. He denies diarrhea, but has had a runny nose. PAST MEDICAL HISTORY: COPD, stage 4 small cell lung cancer, on immunotherapy now. Hypertension. ALLERGIES: CHOCOLATE, PEANUTS. MEDICATIONS: Currently, he is on vancomycin, Zosyn, BuSpar, Norvasc, albuterol and budesonide p.r.n. SOCIAL HISTORY: History of 59-chnv-lcaq smoking, continues to smoke a few cigarettes here and there. FAMILY HISTORY: Hypertension. REVIEW OF SYSTEMS: As mentioned as above. He has had a right lower extremity edema. Other systems are otherwise negative. PHYSICAL EXAMINATION: VITAL SIGNS: His O2 saturation on 2 liters of oxygen 94%, respiratory rate 22, heart rate 77, blood pressure 147/84, temperature 98.3. HEENT: Normocephalic, atraumatic. Pupils equal, round, reactive to light. Throat is clear. Nose: There is inflamed mucosa. NECK: There is no lymphadenopathy or thyromegaly. CARDIOVASCULAR: Regular rate and rhythm. PMI is nondisplaced. CHEST: Inspection is normal. LUNGS: Coarse breath sounds and expiratory wheezing, dullness at right base. ABDOMEN: Soft. Bowel sounds are good. There is no mass. EXTREMITIES: There is lower extremity edema, right more than left. LYMPHATICS: There is no lymphadenopathy. SKIN: Chronic changes. NEUROLOGIC: Alert and oriented. LABORATORY DATA: I reviewed the following lab data: Chest x-ray shows increased vascular marking, small right pleural effusion, question right hilar infiltrate/mass. WBC 9.5, hemoglobin 8.7, platelet 200. Troponin 0.28, 0.27, 0.22. Procalcitonin 4.11. Sodium 143, potassium 3.9, chloride 105, CO2 of 26. Lactic acid 1.6, BUN 23, creatinine 1.8. BNP 2582. IMPRESSION: 1. Acute on chronic respiratory failure, multifactorial in etiology including acute bronchitis versus pneumonia, acute exacerbation of chronic obstructive pulmonary disease, ?congestive heart failure, ?non-ST elevation myocardial infarction versus others. 2. Abnormal chest x-ray. 3. Acute bronchitis versus pneumonia. 4. Acute exacerbation of chronic obstructive pulmonary disease. 5. ?non-ST elevation myocardial infarction. 6. ? congestive heart failure. 7. Tobacco habituation. 8. Small cell lung cancer, stage 4, on immunotherapy. 9. Immunocompromised. 10. Anemia. 11. Acute on chronic kidney disease. PLAN AND RECOMMENDATIONS: 1. Titrate FiO2 to keep O2 saturation 92%. 2. Start bronchodilator. 3. Start Pulmicort b.i.d. 4. Solu-Medrol 40 mg IV every 12 hours. 5. Continue antibiotic. 6. Echocardiogram. 7. Lower extremity venous Doppler. 8. I do recommend cardiology consultation. 9. Monitor respiratory status very closely. 10. Lovenox for DVT prophylaxis. 11. Protonix for stress ulcer prophylaxis. Thank you very much for allowing me to participate in care of this very nice gentleman. The findings and recommendations were discussed with the patient. He understood and agreed to proceed with the plan. MARGARET VALADEZ M.D. DR: ED/mayra JOB#: [id number] / [id number] [place]
[2018-08-12] MEDS: VANCOMYCIN PER PHARMACY MC PRN (10:22)
--- NOTE | 2018-08-12 10:43 | RAD ---
Bilateral lower extremity venous ultrasound: History: Bilateral lower extremity edema Sonographic evaluation including grayscale, color flow and spectral Doppler analysis of the deep veins of the lower extremities was performed. The femoral and popliteal veins demonstrate normal compressibility and normal responses to distal augmentation maneuvers. Color imaging of those vessels shows no evidence of intraluminal clot. The visualized deep veins in both calves are patent. IMPRESSION: There is no sonographic evidence of deep vein thrombosis in either lower extremity. Electronically signed by: Herve Wright MD (08/12/2018 10:40 AM) [facility]
[2018-08-12 10:55] VITALS: BP 137/85
--- NOTE | 2018-08-12 12:48 | PDOC2 ---
CARDIOLOGY CONSULT NOTE CHEIF COMPLAINT: Coughing and chest discomfort HPI: 63-year-old man coming into the hospital in the setting of worsening coughing and discomfort related to his coughing. He was incidentally noted to have an elevated troponin and cardiology was asked to evaluate him. In speaking with the patient he has chronic dyspnea related to his lung cancer issues but denies any chest pain or prior cardiac interventions. No syncope or palpitations. Since arrival he's been struggling with significant wheezing has been treated with nebulizer therapies. He was admitted for similar complaints in May 2018 at which time an echocardiogram revealed normal LV function without any significant valvular abnormalities with expected moderate pulmonary hypertension. PMHX: 1. Lung cancer 2. Diastolic dysfunction and pulmonary hypertension secondary 3. Hypertension SOCHX: He denies any significant illicit drug use. Occasionally smokes. FAMHX: Noncontributory. CURRENT MEDS: Current Medications Medications (Trade) Dose Ordered Sig/Precious Start Time Stop Time Status Last Admin Dose Admin Acetaminophen/ Hydrocodone Bitart (Lortab 5/325) 1 tab PRN Q6HRS PRN 08/11/18 23:45 08/12/18 08:23 1 TAB Albuterol Sulfate (Ventolin Neb Soln) 2.5 mg PRN QHS PRN 08/11/18 23:45 08/12/18 09:02 DC Albuterol/ Ipratropium (Duoneb) 3 ml RTQID 08/12/18 09:00 Amlodipine Besylate (Norvasc) 10 mg DAILY 08/12/18 09:00 08/12/18 08:23 10 MG Aspirin (Children'S Aspirin) 324 mg 1X ONCE 08/11/18 22:15 08/11/18 22:16 DC 08/11/18 23:26 324 MG Budesonide (Pulmicort) 0.5 mg RTBID 08/12/18 09:00 Buspirone HCl (Buspar) 5 mg 1X ONCE 08/11/18 23:45 08/11/18 23:47 DC 08/11/18 23:54 5 MG Carvedilol (Coreg) 12.5 mg BIDWMEALS 08/12/18 08:00 08/12/18 08:23 12.5 MG Enoxaparin Sodium (Lovenox 40mg Syringe) 40 mg Q24H 08/12/18 10:00 08/12/18 09:44 40 MG Furosemide (Lasix) 20 mg 1X ONCE 08/11/18 21:30 08/11/18 21:31 DC Methylprednisolone Sodium Succinate (SOLU-Medrol 40MG VIAL) 40 mg Q12HR 08/12/18 09:00 08/12/18 09:44 40 MG Methylprednisolone Sodium Succinate (SOLU-Medrol 125MG VIAL) 125 mg 1X ONCE 08/11/18 20:15 08/11/18 20:16 DC 08/11/18 20:13 125 MG Non-Formulary Medication (Fluticasone/ Umeclidin/ Vilanter (Trelegy Ellipta 100-62.5-25)) 1 each QHS PRN 08/11/18 23:45 UNV Pantoprazole Sodium (Protonix) 40 mg 1X ONCE 08/12/18 09:15 08/12/18 09:16 DC 08/12/18 09:44 40 MG Piperacillin Sod/ Tazobactam Sod (Zosyn Per Pharmacy) 1 each PRN DAILY PRN 08/11/18 21:30 Piperacillin Sod/ Tazobactam Sod 3.375 gm/Sodium Chloride 50 ml @ 100 mls/hr Q6HRS 08/12/18 06:00 08/12/18 06:21 100 MLS/HR Sodium Chloride 1,000 ml @ 1,000 mls/hr 1X ONCE 08/11/18 19:45 08/11/18 20:44 DC 08/11/18 20:06 1,000 MLS/HR Vancomycin HCl (Vanco Per Pharmacy) 1 each PRN DAILY PRN 08/11/18 21:30 08/12/18 10:22 1 EACH Vancomycin HCl (Vancomycin Trough Level) 1 each 1X ONCE 08/13/18 21:30 08/13/18 21:31 Vancomycin HCl 1.5 gm/Sodium Chloride 500 ml @ 250 mls/hr Q24H 08/12/18 22:00 Vancomycin HCl 2 gm/Sodium Chloride 500 ml @ 250 mls/hr 1X ONCE 08/11/18 22:00 08/11/18 23:59 DC 08/11/18 22:00 250 MLS/HR ALLERGIES: Allergies Coded Allergies Type Severity Reaction Last Updated Verified chocolate flavor Allergy Intermediate 07/16/18 Yes peanut Allergy Intermediate HIVES 07/16/18 Yes ROS: Negative for 10 out of 14 systems reviewed unless otherwise mentioned above in history of present illness. PHYSICAL EXAM: Vital Signs: Vital Signs Date Time Temp Pulse Resp B/P (MAP) Pulse Ox O2 Delivery O2 Flow Rate FiO2 08/12/18 10:55 98.0 82 18 137/85 (102) 97 Nasal Cannula 2.0 98.0 I & O Intake and Output 08/12/18 06:59 Intake Total 600 ml Output Total 750 ml Balance -150 ml IV Total 600 ml Output Urine Total 750 ml Physical Exam: On examination he is in bed but has significant coughing. Lungs are notable for diffuse severe wheezing Heart tones are regular without any obvious murmurs Abdomen is soft Lower extremities are notable for trace edema. No focal neurologic deficits. DIAGNOSTIC TESTING: EKG unremarkable. Minimally elevated troponin at 0.25. Echocardiogram is noted above. ASSESSMENT: 1. Acute on chronic diastolic HF, likely related to URI 2. Anemia of chronic disease 3. Elevated troponin likely secondary to 1 and 2 4. Stage IV lung cancer PLAN: 1. Continue home blood pressure medications. Will defer aggressive diuresis given possibility of underlying sepsis. 2. Suspect based on examination that this is mostly pulmonary in etiology. Continue aggressive treatment for his severe wheezing and COPD issues. No further cardiac testing necessary at this time. If after aggressive pulmonary treatment he continues to have symptoms good at that time consider repeat echocardiogram depending on patient wishes. Thank you kindly for this consultation. We will follow along. SHIRLEY PORTILLO MD Aug 12, 2018 12:48
[2018-08-12] MEDS ORDERED: FUROSEMIDE 20 MG/2 ML VIAL. IVP ONE (13:00)
[2018-08-12] MEDS ORDERED: ENOXAPARIN 40 MG/0.4 ML SYRINGE. SQ SCH (13:30)
--- NOTE | 2018-08-12 13:32 | PDOC ---
Provider Note Provider Note Pt seen.H&P dictated. #[id number]. IZAIAH STEVENSON MD Aug 12, 2018 13:32
--- NOTE | 2018-08-12 14:37 | RAD ---
PA and lateral chest. HISTORY: Productive cough, follow-up CHF PA and lateral views were taken of the chest. Comparison is made with a study from July 16. There is a right pleural effusion which has worsened since the prior exam. Heart is upper normal in size. The aorta is tortuous. Port-A-Cath is unchanged. There are mild right lung infiltrates posterior to the hilum on the lateral view. There is mild vascular congestion. IMPRESSION: 1. Increased right pleural effusion. 2. Right lower lobe infiltrates possible pneumonia. 3. Mild vascular congestion. Electronically signed by: Herve Wright MD (08/12/2018 2:34 PM) [facility]
[2018-08-12 14:42] VITALS: BP 118/69
--- NOTE | 2018-08-12 17:18 | HP ---
ADMIT DATE: 08/11/2018 LOCATION: 248. REASON FOR ADMISSION TO THE HOSPITAL: Pneumonia, congestive heart failure. HISTORY OF PRESENT ILLNESS: The patient is a 63-year-old male patient known to me, has history of lung cancer, small cell, had chemotherapy, is getting immune treatment. Last chemo a year ago. He also has a history of hepatitis C, renal insufficiency, questionable seizures. He was having cough, short of breath, came to the Emergency Room. Has elevated procalcitonin. Chest x-ray, infiltrate in the lung and CHF. Troponin was borderline elevated, was admitted to the hospital and started on broad-spectrum antibiotic. PAST MEDICAL HISTORY: As mentioned above, small cell lung cancer stage 4, had completed chemotherapy, is getting immune treatment every 2 weeks, last chemo was one month ago. Hepatitis C, renal insufficiency, COPD. PAST SURGICAL HISTORY: Gallbladder surgery, had a lung biopsy, catheter for chemo. ALLERGIES: ALLERGIC TO PEANUTS AND CHOCOLATE. FAMILY HISTORY: Positive for coronary artery disease, hypertension. SOCIAL HISTORY: Ex-smoker, denies alcohol, drug abuse. MEDICATIONS: Albuterol 2 puffs 4 times daily, nebulizer at home. Amlodipine 10 mg daily, buspirone 5 mg twice a day, Coreg 25 mg twice a day, Trelegy Ellipta 1 daily, hydrocodone for pain. REVIEW OF SYMPTOMS: Complains of shortness of breath, has some cough, yellow sputum. GASTROINTESTINAL: No nausea or vomiting. Rest of 14-system was reviewed and negative. PHYSICAL EXAMINATION: VITAL SIGNS: Temperature 98, pulse 98, respirations 22, blood pressure 150/80, 93 on room air. HEENT: Head is atraumatic. Pupils equal. Oral cavity, slight congestion. NECK: Supple. Thyroid not enlarged. JVD not elevated CHEST: Symmetrical, has a Port-A-Cath, left side of chest. CARDIOVASCULAR: S1, S2. LUNGS: Few crackles at the bases. Occasional wheezing. ABDOMEN: Soft, bowel sounds present, no mass palpable. EXTERNAL GENITALIA: No Contreras. RECTAL: Deferred. EXTREMITIES: No calf tenderness. No edema. Pulses 1+. NEUROLOGIC: Moving all extremities. No focal deficits noted. LABORATORY DATA: White count 9, hemoglobin 8.7, platelets 200. INR 1.2. Electrolytes show sodium 143, potassium 3.9, chloride 105, bicarbonate 26, BUN 22, creatinine 1.8. Lactic acid 1.6. LFTs were normal. ProBNP 2582. Procalcitonin was 4.1. Troponin 0.27. Urine was negative. Influenza was negative. Doppler negative for DVT. Chest x-ray shows interstitial infiltrates, pneumonia versus lung infiltrates. FINAL IMPRESSION: 1. Pneumonia. The patient is immune compromised secondary to his chemotherapy for lung cancer, small cell. 2. Small cell lung carcinoma. 3. Congestive heart failure. 4. Elevated troponin. 5. Chronic kidney disease stage 3. 6. Hypertension. 7. Chronic obstructive pulmonary disease. 8. Ex-smoker. PLAN: At this time, admit to hospital after sputum and blood cultures. Broad-spectrum antibiotic, vancomycin, Zosyn. Pulmonary consult and also will have Cardiology see the patient because of elevated troponin and chest x-ray: CHF, may need echocardiogram. IZAIAH STEVENSON MD DR: CHRIS/mayra JOB#: [id number] / [id number]
[2018-08-12 18:55] VITALS: BP 132/67
[2018-08-12] MEDS ORDERED: VANCOMYCIN 1.5 GM in IV NORMAL SALINE 500ML BAG 500 ML IV SCH (22:00)
[2018-08-12 22:45] VITALS: BP 146/76
[2018-08-13] MEDS: PIPERACILLIN/TAZOBACTAM 3.375 GM in IV NORMAL SALINE 50ML 50 ML IV SCH ×4 (00:04→18:17)
[2018-08-13 03:05] VITALS: BP 144/75
--- NOTE | 2018-08-13 04:22 | NUR ---
I have reviewed the notes, assessment, and/or procedures performed by Kaorl leonardo and concur with her documentation unless otherwise noted.
[2018-08-13 06:42] LABS: BASO % 0 % (0-3); EOS % 0 % (0-3); HEMATOCRIT 22.8 % (39.0-53.0); HEMOGLOBIN 7.1 g/dL (13.0-17.5); LYMPH # 0.4 x10^3/uL (1.0-4.8); LYMPH % 2 % (24-48); MEAN CORPUSCULAR HEMOGLOBIN 27 pg (25-35); MEAN CORPUSCULAR HGB CONC 31 g/dL (31-37); MEAN CORPUSCULAR VOLUME 87 fL (79-100); MONO # 0.6 x10^3/uL (0.0-1.1); MONO % 3 % (0-9); NEUT # 18.2 x10^3uL (1.8-7.7); NEUT % 95 % (31-73); PLATELET COUNT 213 x10^3/uL (140-400); RED BLOOD COUNT 2.62 x10^6/uL (4.30-5.70); RED CELL DISTRIBUTION WIDTH 19.5 % (11.5-14.5); WHITE BLOOD COUNT 19.3 x10^3/uL (4.0-11.0)
[2018-08-13 07:00] VITALS: BP 148/87
[2018-08-13 07:01] LABS: CALCIUM 8.3 mg/dL (8.5-10.1); GFR 40.8; POTASSIUM 4.7 mmol/L (3.5-5.1)
[2018-08-13] MEDS: IPRATRPIUM/ALBUTEROL 0.5/2.5MG 3 ML NEBU. NEB SCH ×4 (07:42→20:19)
[2018-08-13] MEDS: BUDESONIDE 0.5 MG/2 ML NEBU. NEB SCH ×2 (07:44→20:19)
[2018-08-13] MEDS: ENOXAPARIN 40 MG/0.4 ML SYRINGE. SQ SCH (08:19)
[2018-08-13] MEDS: methylPREDNISolone SOD SUCC PF 40 MG/ML VIAL. IV SCH ×2 (08:19→21:00)
[2018-08-13] MEDS: amLODIPine BESYLATE 10 MG TABLET PO SCH (08:20)
[2018-08-13] MEDS: PANTOPRAZOLE 40 MG TABLET.DR. PO SCH (08:20)
[2018-08-13] MEDS: busPIRone 5 MG TABLET. PO SCH ×2 (08:20→20:59)
[2018-08-13] MEDS: CARVEDILOL 12.5 MG TABLET. PO SCH ×2 (08:20→17:09)
[2018-08-13] MEDS: NICOTINE 14MG PATCH. TD SCH (09:18)
--- NOTE | 2018-08-13 10:24 | PDOC ---
PROGRESS NOTES Subjective Subjective feels better today Objective Objective Vital Signs Date Time Temp Pulse Resp B/P (MAP) Pulse Ox O2 Delivery O2 Flow Rate FiO2 08/13/18 08:20 81 08/13/18 08:00 Nasal Cannula 2.0 08/13/18 07:44 98 08/13/18 07:00 97.8 20 148/87 (107) 97.8 Intake and Output 08/13/18 07:00 Intake Total 3080 ml Output Total 200 ml Balance 2880 ml Intake Oral 3080 ml Output Urine Total 200 ml Physical Exam Abdomen: Normal bowel sounds, Soft Heart: Regular rate, Normal S1 Extremities: No clubbing General: Alert HEENT: Atraumatic Lungs: Other (crackes at bases) MUSCULOSKELETAL: No deformity Neck: Supple Neuro: Normal speech Psych/Mental Status: Mental status NL Skin: No breakdown Diagnosis Problem List Problems Medical Problems: (1) Pneumonia Status: Acute Assessment Assessment Problems Medical Problems: (1) Pneumonia Status: Acute FINAL IMPRESSION: 1. Pneumonia. The patient is immune compromised secondary to his chemotherapy for lung cancer, small cell. 2. Small cell lung carcinoma stage 4. 3. Congestive heart failure.New onset 4. Elevated troponin. 5. Chronic kidney disease stage 3. 6. Hypertension. 7. Chronic obstructive pulmonary disease. 8. Ex-smoker. PLAN: seen by cardiology ECHO done in may 2018. iv antibiotics wbc 19 inc due to steroids. vanco+zosyn. At this time, admit to hospital after sputum and blood cultures. Broad-spectrum antibiotic, vancomycin, Zosyn. Pulmonary consult and also will have Cardiology see the patient because of elevated troponin and chest x-ray: CHF, may need echocardiogram. Plan Plan of Care Problems Medical Problems: (1) Pneumonia Status: Acute Comment Review of Relevant I have reviewed the following items nayana (where applicable) has been applied. Labs Laboratory Tests Test 08/13/18 06:17 White Blood Count 19.3 x10^3/uL (4.0-11.0) Red Blood Count 2.62 x10^6/uL (4.30-5.70) Hemoglobin 7.1 g/dL (13.0-17.5) Hematocrit 22.8 % (39.0-53.0) Mean Corpuscular Volume 87 fL (79-100) Mean Corpuscular Hemoglobin 27 pg (25-35) Mean Corpuscular Hemoglobin Concent 31 g/dL (31-37) Red Cell Distribution Width 19.5 % (11.5-14.5) Platelet Count 213 x10^3/uL (140-400) Neutrophils (%) (Auto) 95 % (31-73) Lymphocytes (%) (Auto) 2 % (24-48) Monocytes (%) (Auto) 3 % (0-9) Eosinophils (%) (Auto) 0 % (0-3) Basophils (%) (Auto) 0 % (0-3) Neutrophils # (Auto) 18.2 x10^3uL (1.8-7.7) Lymphocytes # (Auto) 0.4 x10^3/uL (1.0-4.8) Monocytes # (Auto) 0.6 x10^3/uL (0.0-1.1) Eosinophils # (Auto) 0.0 x10^3/uL (0.0-0.7) Basophils # (Auto) 0.0 x10^3/uL (0.0-0.2) Sodium Level 143 mmol/L (136-145) Potassium Level 4.7 mmol/L (3.5-5.1) Chloride Level 106 mmol/L (98-107) Carbon Dioxide Level 25 mmol/L (21-32) Anion Gap 12 (6-14) Blood Urea Nitrogen 32 mg/dL (8-26) Creatinine 2.0 mg/dL (0.7-1.3) Estimated GFR (Cockcroft-Gault) 40.8 Glucose Level 166 mg/dL (70-99) Calcium Level 8.3 mg/dL (8.5-10.1) Microbiology 08/12/18 Blood Culture - Preliminary, Resulted NO GROWTH AFTER 1 DAY Medications Current Medications Enoxaparin Sodium (Lovenox 40mg Syringe) 40 mg Q24H SQ ; Start 08/12/18 at 13:30 ; Status UNV Furosemide (Lasix) 20 mg 1X ONCE IVP Last administered on 08/12/18at 13:56; Start 08/12/18 at 13:00; Stop 08/12/18 at 13:01; Status DC Nicotine (Nicoderm Cq 14mg) 1 patch DAILY TD Last administered on 08/13/18at 09: 18; Start 08/13/18 at 10:00 Pantoprazole Sodium (Protonix) 40 mg DAILYAC PO Last administered on 08/13/18at 08:20; Start 08/13/18 at 07:30 Vancomycin HCl (Vancomycin Trough Level) 1 each 1X ONCE MC ; Start 08/13/18 at 21:30; Stop 08/13/18 at 21:31 Vancomycin HCl 1.5 gm/Sodium Chloride 500 ml @ 250 mls/hr Q24H IV Last administered on 08/12/18at 21:42; Start 08/12/18 at 22:00 Vitals/I & O Vital Sign - Last 24 Hours 08/12/18 08/12/18 08/12/18 08/12/18 10:55 13:56 14:42 14:55 Temp 98.0 98.1 98.0 98.1 Pulse 82 88 Resp 18 18 B/P (MAP) 137/85 (102) 118/69 (85) Pulse Ox 97 97 94 94 O2 Delivery Nasal Cannula Nasal Cannula Nasal Cannula O2 Flow Rate 2.0 2.0 2.0 08/12/18 08/12/18 08/12/18 08/12/18 16:28 17:23 18:55 20:00 Temp 97.6 97.6 Pulse 88 90 Resp 18 B/P (MAP) 118/69 132/67 (88) Pulse Ox 96 98 O2 Delivery Nasal Cannula Room Air Nasal Cannula O2 Flow Rate 2.0 2.0 08/12/18 08/12/18 08/12/18 08/12/18 20:12 20:27 21:27 22:45 Temp 97.9 97.9 Pulse 82 Resp 20 20 20 B/P (MAP) 146/76 (99) Pulse Ox 100 92 O2 Delivery Nasal Cannula Nasal Cannula Nasal Cannula Room Air O2 Flow Rate 2.0 2.0 2.0 08/13/18 08/13/18 08/13/18 08/13/18 03:05 07:00 07:44 08:00 Temp 97.8 97.8 97.8 97.8 Pulse 82 78 Resp 20 20 B/P (MAP) 144/75 (98) 148/87 (107) Pulse Ox 93 95 98 O2 Delivery Room Air Room Air Nasal Cannula Nasal Cannula O2 Flow Rate 2.0 2.0 08/13/18 08/13/18 08:20 08:20 Pulse 80 81 Intake and Output 08/12/18 08/12/18 08/13/18 15:00 23:00 07:00 Intake Total 780 ml 1200 ml 1100 ml Output Total 200 ml Balance 780 ml 1200 ml 900 ml IZAIAH STEVENSON MD Aug 13, 2018 10:24
[2018-08-13 10:42] VITALS: BP 137/75
--- NOTE | 2018-08-13 11:50 | CARD ---
MR#: [id number] Date of Study: 08/13/2018 Ordering Physician: MARGARET VALADEZ, Referring Physician: IZAIAH STEVENSON Tech: Madalyn Sanchez RDCS APPROVED REPORT EXAM: Two-dimensional and M-mode echocardiogram with Doppler and color Doppler. Other Information Quality : Good INDICATION Dyspnea Lung Cancer 2D DIMENSIONS RVDd3.0 (2.9-3.5cm)Left Atrium(2D)4.7 (1.6-4.0cm) IVSd1.6 (0.7-1.1cm)Aortic Root(2D)2.8 (2.0-3.7cm) LVDd6.0 (3.9-5.9cm)LVOT Diameter2.1 (1.8-2.4cm) PWd1.7 (0.7-1.1cm)LVDs4.5 (2.5-4.0cm) FS (%) 25.6 %SV89.8 ml LVEF(%)50.0 (>50%) Aortic Valve AoV Peak Luc.146.5cm/sAoV VTI26.1cm AO Peak GR.8.6mmHgLVOT Peak Luc.135.4cm/s AO Mean GR.5mmHgAVA (VMAX)3.23cm2 DEE DEE (VTI)3.00cm2 Mitral Valve MV E Iruxrwpj581.6cm/sMV DECEL [id number] MV A Wufssedy39.4cm/sE/A Ratio1.4 Tricuspid Valve TR P. Smbfrdfu838bv/sRAP VDQBYAFR7zoSh TR Peak Gr.99lgNiCDBO49qbHy Pulmonary Vein S1 Qeunwxwy33.2cm/sD2 Rhlsbbku51.7cm/s LEFT VENTRICLE The left ventricle is normal size. There is mild to moderate concentric left ventricular hypertrophy. Left ventricle systolic function is normal. The Ejection Fraction is 55%. There is normal LV segment al wall motion. Transmitral Doppler flow pattern is Grade II-pseudonormal filling dynamics. RIGHT VENTRICLE The right ventricle is normal size. There is normal right ventricular wall thickness. The right ventr icular systolic function is normal. ATRIA The left atrium is mildly dilated. The right atrium size is normal. The interatrial septum is intact with no evidence for an atrial septal defect or patent foramen ovale as noted on 2-D or Doppler imagi ng. AORTIC VALVE The aortic valve is calcified but opens well. Doppler and Color Flow revealed no significant aortic r egurgitation. There is no significant aortic valvular stenosis. MITRAL VALVE The mitral valve is calcified but opens well. There is no evidence of mitral valve prolapse. There is no mitral valve stenosis. Doppler and Color-flow revealed mild mitral regurgitation. TRICUSPID VALVE The tricuspid valve is normal in structure and function. Doppler and Color Flow revealed mild tricusp id regurgitation. There is severe pulmonary hypertension. The PA pressure was estimated at 71 mmHg. T here is no tricuspid valve stenosis. PULMONIC VALVE The pulmonic valve is not well visualized. Doppler and Color Flow revealed trace pulmonic valvular re gurgitation. There is no pulmonic valvular stenosis. GREAT VESSELS The aortic root is normal in size. The ascending aorta is normal in size. The IVC is dilated and refugio apses >50% with inspiration. PERICARDIAL EFFUSION There is no evidence of significant pericardial effusion. Critical Notification Critical Value: No <Conclusion> Left ventricle systolic function is normal. The Ejection Fraction is 55%. There is normal LV segmental wall motion. Mild mitral regurgitation. Mild tricuspid regurgitation. The PA pressure was estimated at 71 mmHg. There is no evidence of significant pericardial effusion. Signed by : Brando Carpio, Electronically Approved : 08/13/2018 11:50:08
--- NOTE | 2018-08-13 12:02 | RAD ---
CT of the chest without contrast, 03/28/2018: HISTORY: Shortness of breath, wheezing, lung cancer, pneumonia Noncontrast scans were obtained and compared to a study from 03/28/2018. A left Port-A-Cath extends into the superior vena cava. A 3.2 cm mediastinal lymph node previously evident along anterior aspect of the proximal right main bronchus on the previous study has regressed, now measuring 2.4 cm. Subcarinal adenopathy has also improved. Several other lymph nodes such as a node along the lateral aspect of the AP window are unchanged. A small to moderate volume of right-sided pleural fluid has developed. There are increasing patchy right lung infiltrates which are most prominent in the lower lobe. Infiltrates partially obscure the patient's known right hilar mass. There is persistent narrowing of the right lower lobe bronchus. There is moderate persistent interlobular septal thickening on the right which may be due to a component of central venous obstruction or lymphangitic metastatic spread. There are minimal streaky and groundglass opacities as well as mild interlobular septal thickening in the left base. No left-sided pleural fluid is seen. A mildly enlarged right axillary lymph node evident on the previous study has regressed. There are mild scattered degenerative changes in the spine. Several patchy sclerotic foci are now evident in the thoracic vertebral bodies raising possibility of osseous metastatic disease. IMPRESSION: 1. Persistent right hilar mass with worsening patchy right lung infiltrates suggesting superimposed pneumonia. 2. Interlobular septal thickening on the right may represent edema due to central venous obstruction versus lymphangitic spread of tumor, with a new small right pleural effusion. 3. Improving mediastinal adenopathy. 4. Possible developing blastic osseous metastatic disease. PQRS Compliance Statement: One or more of the following individualized dose reduction techniques were utilized for this examination: 1. Automated exposure control 2. Adjustment of the mA and/or kV according to patient size 3. Use of iterative reconstruction technique Electronically signed by: Jack Conroy MD (08/13/2018 12:00 PM) [facility]
--- NOTE | 2018-08-13 12:14 | PDOC ---
PULMONARY PROGRESS NOTES Subjective less soa Vitals Vital Signs Date Time Temp Pulse Resp B/P (MAP) Pulse Ox O2 Delivery O2 Flow Rate FiO2 08/13/18 11:58 99 Nasal Cannula 2.0 08/13/18 10:42 98.0 75 18 137/75 (95) 98.0 General: Alert, No acute distress Lungs: Clear Cardiovascular: S1, S2 Abdomen: Soft Neuro Exam: Alert Extremities: No Edema Skin: Warm Labs Laboratory Tests Test 08/11/18 19:25 08/11/18 19:50 08/11/18 21:00 08/12/18 01:15 Influenza Type A Antigen Negative (NEGATIVE) Influenza Type B Antigen Negative (NEGATIVE) White Blood Count 9.5 x10^3/uL (4.0-11.0) Red Blood Count 3.09 x10^6/uL (4.30-5.70) Hemoglobin 8.7 g/dL (13.0-17.5) Hematocrit 26.7 % (39.0-53.0) Mean Corpuscular Volume 87 fL (79-100) Mean Corpuscular Hemoglobin 28 pg (25-35) Mean Corpuscular Hemoglobin Concent 33 g/dL (31-37) Red Cell Distribution Width 19.5 % (11.5-14.5) Platelet Count 200 x10^3/uL (140-400) Neutrophils (%) (Auto) 67 % (31-73) Lymphocytes (%) (Auto) 8 % (24-48) Monocytes (%) (Auto) 9 % (0-9) Eosinophils (%) (Auto) 15 % (0-3) Basophils (%) (Auto) 1 % (0-3) Neutrophils # (Auto) 6.4 x10^3uL (1.8-7.7) Lymphocytes # (Auto) 0.8 x10^3/uL (1.0-4.8) Monocytes # (Auto) 0.8 x10^3/uL (0.0-1.1) Eosinophils # (Auto) 1.4 x10^3/uL (0.0-0.7) Basophils # (Auto) 0.1 x10^3/uL (0.0-0.2) Segmented Neutrophils % 67 % (35-66) Lymphocytes % 10 % (24-48) Monocytes % 6 % (0-10) Eosinophils % 16 % (0-5) Basophils % 1 % (0-3) Platelet Estimate Adequate (ADEQUATE) Prothrombin Time 15.2 SEC (11.7-14.0) Prothromb Time International Ratio 1.2 (0.8-1.1) Sodium Level 143 mmol/L (136-145) Potassium Level 3.9 mmol/L (3.5-5.1) Chloride Level 105 mmol/L (98-107) Carbon Dioxide Level 26 mmol/L (21-32) Anion Gap 12 (6-14) Blood Urea Nitrogen 22 mg/dL (8-26) Creatinine 1.8 mg/dL (0.7-1.3) Estimated GFR (Cockcroft-Gault) 46.0 BUN/Creatinine Ratio 12 (6-20) Glucose Level 156 mg/dL (70-99) Lactic Acid Level 1.6 mmol/L (0.4-2.0) Calcium Level 8.1 mg/dL (8.5-10.1) Total Bilirubin 0.2 mg/dL (0.2-1.0) Aspartate Amino Transf (AST/SGOT) 20 U/L (15-37) Alanine Aminotransferase (ALT/SGPT) 12 U/L (16-63) Alkaline Phosphatase 86 U/L (46-116) Troponin I Quantitative 0.281 ng/mL (0.000-0.055) 0.271 ng/mL (0.000-0.055) UO-Ogy-Z-Type Natriuretic Peptide 2582 pg/mL (0-124) Total Protein 6.9 g/dL (6.4-8.2) Albumin 2.4 g/dL (3.4-5.0) Albumin/Globulin Ratio 0.5 (1.0-1.7) Procalcitonin 4.11 ng/mL (0.00-0.10) Urine Collection Type Unknown Urine Color Yellow Urine Clarity Clear Urine pH 6.5 Urine Specific [place] 1.015 Urine Protein >=300 mg/dL (NEG-TRACE) Urine Glucose (UA) Negative mg/dL (NEG) Urine Ketones (Stick) Negative mg/dL (NEG) Urine Blood Small (NEG) Urine Nitrite Negative (NEG) Urine Bilirubin Negative (NEG) Urine Urobilinogen Dipstick 1.0 mg/dL (0.2 mg/dL) Urine Leukocyte Esterase Negative (NEG) Urine RBC 3-5 /HPF (0-2) Urine WBC 1-4 /HPF (0-4) Urine Squamous Epithelial Cells Few /LPF Urine Bacteria 0 /HPF (0-FEW) Test 08/12/18 05:30 08/13/18 06:17 Blood Urea Nitrogen 23 mg/dL (8-26) 32 mg/dL (8-26) Creatinine 1.8 mg/dL (0.7-1.3) 2.0 mg/dL (0.7-1.3) Estimated GFR (Cockcroft-Gault) 46.0 40.8 Troponin I Quantitative 0.224 ng/mL (0.000-0.055) White Blood Count 19.3 x10^3/uL (4.0-11.0) Red Blood Count 2.62 x10^6/uL (4.30-5.70) Hemoglobin 7.1 g/dL (13.0-17.5) Hematocrit 22.8 % (39.0-53.0) Mean Corpuscular Volume 87 fL (79-100) Mean Corpuscular Hemoglobin 27 pg (25-35) Mean Corpuscular Hemoglobin Concent 31 g/dL (31-37) Red Cell Distribution Width 19.5 % (11.5-14.5) Platelet Count 213 x10^3/uL (140-400) Neutrophils (%) (Auto) 95 % (31-73) Lymphocytes (%) (Auto) 2 % (24-48) Monocytes (%) (Auto) 3 % (0-9) Eosinophils (%) (Auto) 0 % (0-3) Basophils (%) (Auto) 0 % (0-3) Neutrophils # (Auto) 18.2 x10^3uL (1.8-7.7) Lymphocytes # (Auto) 0.4 x10^3/uL (1.0-4.8) Monocytes # (Auto) 0.6 x10^3/uL (0.0-1.1) Eosinophils # (Auto) 0.0 x10^3/uL (0.0-0.7) Basophils # (Auto) 0.0 x10^3/uL (0.0-0.2) Sodium Level 143 mmol/L (136-145) Potassium Level 4.7 mmol/L (3.5-5.1) Chloride Level 106 mmol/L (98-107) Carbon Dioxide Level 25 mmol/L (21-32) Anion Gap 12 (6-14) Glucose Level 166 mg/dL (70-99) Calcium Level 8.3 mg/dL (8.5-10.1) Laboratory Tests Test 08/13/18 06:17 White Blood Count 19.3 x10^3/uL (4.0-11.0) Red Blood Count 2.62 x10^6/uL (4.30-5.70) Hemoglobin 7.1 g/dL (13.0-17.5) Hematocrit 22.8 % (39.0-53.0) Mean Corpuscular Volume 87 fL (79-100) Mean Corpuscular Hemoglobin 27 pg (25-35) Mean Corpuscular Hemoglobin Concent 31 g/dL (31-37) Red Cell Distribution Width 19.5 % (11.5-14.5) Platelet Count 213 x10^3/uL (140-400) Neutrophils (%) (Auto) 95 % (31-73) Lymphocytes (%) (Auto) 2 % (24-48) Monocytes (%) (Auto) 3 % (0-9) Eosinophils (%) (Auto) 0 % (0-3) Basophils (%) (Auto) 0 % (0-3) Neutrophils # (Auto) 18.2 x10^3uL (1.8-7.7) Lymphocytes # (Auto) 0.4 x10^3/uL (1.0-4.8) Monocytes # (Auto) 0.6 x10^3/uL (0.0-1.1) Eosinophils # (Auto) 0.0 x10^3/uL (0.0-0.7) Basophils # (Auto) 0.0 x10^3/uL (0.0-0.2) Sodium Level 143 mmol/L (136-145) Potassium Level 4.7 mmol/L (3.5-5.1) Chloride Level 106 mmol/L (98-107) Carbon Dioxide Level 25 mmol/L (21-32) Anion Gap 12 (6-14) Blood Urea Nitrogen 32 mg/dL (8-26) Creatinine 2.0 mg/dL (0.7-1.3) Estimated GFR (Cockcroft-Gault) 40.8 Glucose Level 166 mg/dL (70-99) Calcium Level 8.3 mg/dL (8.5-10.1) Medications Active Scripts Medications Dose Route/Sig Max Daily Dose Days Date Category Levaquin (Levofloxacin) 500 Mg Tablet 1 Tab PO DAILY 07/18/18 Rx Hydrocodone-Apap 5-325 (Hydrocodone Bit/Acetaminophen) 1 Tab Tablet 1 Tab PO PRN Q6HRS PRN 05/25/18 Reported Buspirone Hcl 5 Mg Tablet 1 Tab PO BID 05/25/18 Reported Trelegy Ellipta 100-62.5-25 (Fluticasone/Umeclidin/Vilanter) 1 Each Blst.w.dev 1 Each IH QHS PRN 05/16/18 Reported Carvedilol 25 Mg Tablet 12.5 Mg PO BIDWMEALS 05/16/18 Reported Proair Hfa Inhaler (Albuterol Sulfate) 8.5 Gm Hfa.aer.ad 1 Puff INH PRN Q6HRS PRN 04/20/18 Reported Albuterol Sulfate Neb Soln (Albuterol Sulfate) 2.5 Mg/3 Ml Vial.neb 1 Vial NEB PRN Q4HRS 04/20/18 Reported Amlodipine Besylate 10 Mg Tablet 10 Mg PO DAILY 04/05/18 Reported Impression . 1. Acute on chronic respiratory failure, multifactorial in etiology including RUL pneumonia, acute exacerbation of chronic obstructive pulmonary disease, ?congestive heart failure, ?non-ST elevation myocardial infarction 2. Abnormal chest x-ray. 3. Acute pneumonia. 4. Acute exacerbation of chronic obstructive pulmonary disease. 5. ?non-ST elevation myocardial infarction. 6. ? congestive heart failure. Rt effusion / ? metastatic 7. Tobacco habituation. 8. Small cell lung cancer, stage 4, on immunotherapy. 9. Immunocompromised. 10. Anemia. 11. Acute on chronic kidney disease. Plan . 1. Titrate FiO2 to keep O2 saturation 92%. 2. bronchodilator. 3. Pulmicort b.i.d. 4. Solu-Medrol 5. Continue antibiotic. 6. Echocardiogram done, await report 7. Lower extremity venous Doppler. 8. cardiology consultation. 9. ct chest reviewed. Rt hilar mass, bony lesions, likely metastatic. Small right effusion ? malignant 10. Lovenox for DVT prophylaxis. 11. Protonix for stress ulcer prophylaxis. 12. Oncology rec MARIOLA VELÁZQUEZ MD Aug 13, 2018 12:14
--- NOTE | 2018-08-13 13:00 | PDOC ---
CARDIO Progress Notes Date and Time Date of Service 08/13/18 Time of Evaluation 1220 Subjective Subjective: No Chest Pain, No Palpitations, Other (breathing improved) Vitals Vitals Vital Signs Date Time Temp Pulse Resp B/P (MAP) Pulse Ox O2 Delivery O2 Flow Rate FiO2 08/13/18 11:58 99 Nasal Cannula 2.0 08/13/18 10:42 98.0 75 18 137/75 (95) 98.0 Weight Weight [ ] Input and Output Intake and Output Intake and Output 08/13/18 06:59 Intake Total 3080 ml Output Total 200 ml Balance 2880 ml Intake Oral 3080 ml Output Urine Total 200 ml Laboratory Labs Laboratory Tests Test 08/13/18 06:17 White Blood Count 19.3 x10^3/uL (4.0-11.0) Red Blood Count 2.62 x10^6/uL (4.30-5.70) Hemoglobin 7.1 g/dL (13.0-17.5) Hematocrit 22.8 % (39.0-53.0) Mean Corpuscular Volume 87 fL (79-100) Mean Corpuscular Hemoglobin 27 pg (25-35) Mean Corpuscular Hemoglobin Concent 31 g/dL (31-37) Red Cell Distribution Width 19.5 % (11.5-14.5) Platelet Count 213 x10^3/uL (140-400) Neutrophils (%) (Auto) 95 % (31-73) Lymphocytes (%) (Auto) 2 % (24-48) Monocytes (%) (Auto) 3 % (0-9) Eosinophils (%) (Auto) 0 % (0-3) Basophils (%) (Auto) 0 % (0-3) Neutrophils # (Auto) 18.2 x10^3uL (1.8-7.7) Lymphocytes # (Auto) 0.4 x10^3/uL (1.0-4.8) Monocytes # (Auto) 0.6 x10^3/uL (0.0-1.1) Eosinophils # (Auto) 0.0 x10^3/uL (0.0-0.7) Basophils # (Auto) 0.0 x10^3/uL (0.0-0.2) Sodium Level 143 mmol/L (136-145) Potassium Level 4.7 mmol/L (3.5-5.1) Chloride Level 106 mmol/L (98-107) Carbon Dioxide Level 25 mmol/L (21-32) Anion Gap 12 (6-14) Blood Urea Nitrogen 32 mg/dL (8-26) Creatinine 2.0 mg/dL (0.7-1.3) Estimated GFR (Cockcroft-Gault) 40.8 Glucose Level 166 mg/dL (70-99) Calcium Level 8.3 mg/dL (8.5-10.1) Microbiology Micro Microbiology 08/12/18 Blood Culture - Preliminary, Resulted NO GROWTH AFTER 1 DAY Physical Exam HEENT: Neck Supple W Full Motion Chest: Symmetric LUNGS: Other (diminihsed bases) Heart: S1S2, RRR, murmurs (2/6 systolic murmur ) Abdomen: Soft N/T Extremities: Other (1+ RLE ad trace LLE edema ) Neurology: alert, oriented, follow commands Assessment Assessment 1. Acute on chronic diastolic HF; Echo showed LVEF 55% with no WMA. better compensated 2. Mild troponin elevation; peak 0.281. most probably type II, demand ischemia in the setting of a/c HF, probable PNA, USAMA, and anemia. CP free 3. Anemia, chronic. Hgb down to 7.1 4. USAMA on CKD; Cr trended up following lasix 5. Leukocytosis; steroid induced 6. Stage IV lung cancer. CT chest with right hilar mass- possible metastatic disease 7. Severe pulmonary HTN; PAP 71 mmHG Recommendations Hold off on ASA given hgb drop and history of anemia requiring transfusions. Continue BB Diuresis PRN Lung optimization Supportive care from a CV standpoint KENNA FRIEDMAN APRN Aug 13, 2018 13:00
--- NOTE | 2018-08-13 13:31 | EKG ---
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
--- NOTE | 2018-08-13 13:32 | NUR ---
SS following for discharge planning. SS reviewed pt chart. Pt is from home and is currently requiring oxygen. No discharge needs noted at this time. SS will continue to follow for pending discharge needs.
[2018-08-13 13:33] LABS: CHOLESTEROL/HDL RATIO 3.6
[2018-08-13] MEDS ORDERED: ASPIRIN ENTERIC COATED 81 MG TABLET.DR. PO SCH (14:00)
[2018-08-13 14:46] VITALS: BP 140/70
[2018-08-13] MEDS: VANCOMYCIN PER PHARMACY MC PRN ×2 (15:10→23:03)
[2018-08-13 19:13] VITALS: BP 148/79
[2018-08-13] MEDS: HYDROcodone/APAP 5/325MG 1 TAB TABLET PO PRN (21:03)
[2018-08-13 21:32] LABS: VANC TR 13.2 mcg/mL (10.0-20.0)
[2018-08-13] MEDS: VANCOMYCIN 1.75 GM in IV NORMAL SALINE 500ML BAG 500 ML IV SCH (22:11)
--- NOTE | 2018-08-13 23:04 | NUR ---
Pharmacy Vancomycin Dosing Note S: Consulted to monitor and dose vancomycin started 08/11/18. O: JESSICA MEDINA is a 63 year old M with Pneumonia, . Other Antibiotics: ZOSYN 3.375GM IV Q6H LABS: Last BUN: 32 Last Creatinine: 2.0 Creatinine Clearance: 45 mL/min Last WBC: 19.3 Last Procalcitonin: 4.11 Tmax (past 24 hours): 98.4 Microbiology: 08/13 08/11 BCX NGTD I/O: 3080/200 Drug Levels: Last Trough level: 13.2 on 08/13/18 at 2110 Last dose given 08/11/18 at 2200 Vancomycin Dosing: Dosing Weight: Actual Target Trough: 15-20 A: Based on: Trough, Updated Actual Wt and CrCl P: 1. 08/13/180 Vancomycin 1750 mg IV q24h 2. Follow up Trough level on 08/15/18 at 2130 3. Pharmacy will continue to monitor, follow and adjust therapy as needed. LAI MANRIQUE RPH, 08/13/18 2304 Signed: 08/13/18 at 2306 by LAI MANRIQUE RPH PHA
[2018-08-13 23:12] VITALS: BP 141/80
[2018-08-14] VITALS (8 sets, daily range): BP systolic 136–158; BP diastolic 71–89
[2018-08-14] MEDS: PIPERACILLIN/TAZOBACTAM 3.375 GM in IV NORMAL SALINE 50ML 50 ML IV SCH ×5 (00:14→23:27)
[2018-08-14 06:05] LABS: BASO % 0 % (0-3); EOS % 0 % (0-3); HEMATOCRIT 22.9 % (39.0-53.0); HEMOGLOBIN 7.1 g/dL (13.0-17.5); LYMPH # 0.3 x10^3/uL (1.0-4.8); LYMPH % 2 % (24-48); MEAN CORPUSCULAR HEMOGLOBIN 27 pg (25-35); MEAN CORPUSCULAR HGB CONC 31 g/dL (31-37); MEAN CORPUSCULAR VOLUME 86 fL (79-100); MONO # 0.6 x10^3/uL (0.0-1.1); MONO % 3 % (0-9); NEUT # 16.5 x10^3uL (1.8-7.7); NEUT % 95 % (31-73); PLATELET COUNT 221 x10^3/uL (140-400); RED BLOOD COUNT 2.66 x10^6/uL (4.30-5.70); RED CELL DISTRIBUTION WIDTH 19.4 % (11.5-14.5); WHITE BLOOD COUNT 17.4 x10^3/uL (4.0-11.0)
[2018-08-14 06:13] LABS: CALCIUM 8.1 mg/dL (8.5-10.1); GFR 40.8; POTASSIUM 4.5 mmol/L (3.5-5.1)
[2018-08-14] MEDS: IPRATRPIUM/ALBUTEROL 0.5/2.5MG 3 ML NEBU. NEB SCH ×4 (07:27→18:50)
[2018-08-14] MEDS: BUDESONIDE 0.5 MG/2 ML NEBU. NEB SCH ×2 (07:27→18:50)
[2018-08-14] MEDS: CARVEDILOL 12.5 MG TABLET. PO SCH ×2 (07:53→17:05)
[2018-08-14] MEDS: amLODIPine BESYLATE 10 MG TABLET PO SCH (07:53)
[2018-08-14] MEDS: busPIRone 5 MG TABLET. PO SCH ×2 (07:53→20:47)
[2018-08-14] MEDS: PANTOPRAZOLE 40 MG TABLET.DR. PO SCH (07:53)
[2018-08-14] MEDS: methylPREDNISolone SOD SUCC PF 40 MG/ML VIAL. IV SCH ×2 (07:54→20:47)
[2018-08-14] MEDS: NICOTINE 14MG PATCH. TD SCH (07:54)
--- NOTE | 2018-08-14 09:53 | CONS ---
DATE OF CONSULTATION: 08/13/2018 REQUESTING PHYSICIAN: Dr. Ronald Lang. REASON FOR CONSULTATION: Small cell lung cancer, on chemotherapy. HISTORY OF PRESENT ILLNESS: The patient is a 63-year-old gentleman who was diagnosed with small cell lung cancer involving the right upper lobe on 04/05/2018. He has a stage 4 lung cancer with metastatic disease to the hilar lymph nodes, multiple mediastinal lymph nodes, bilateral axillary lymph nodes, subcutaneous metastatic nodules, widespread abdominal metastasis. He was started on palliative chemotherapy with carboplatin and etoposide and nivolumab under a clinical trial on 05/02/2018. He completed 4 cycles of chemotherapy on 07/06/2018. CT scan after completion of chemotherapy on 07/24/2018 revealed improvement in the lung mass and stable lymph node metastasis and stable abdominal metastasis and decreased and scattered subcutaneous metastasis. He was then started on maintenance treatment with nivolumab on 07/25/2018, given every 2 weeks, with the most recent dose completed on 08/08/2018. He was admitted to [facility] on 08/11/2018 with worsening shortness of breath, cough with yellow sputum production, fever, chills and wheezing of 3-4 days' duration. He underwent a chest x-ray on 08/11/2018 that revealed worsening infiltrate in the bases. CT scan on 08/13/2018 revealed persistent right hilar mass with patchy lung infiltrates suggesting superimposed pneumonia. Mediastinal lymphadenopathy has improved, and there is evidence of blastic osseous metastatic disease. Pulmonary Medicine was consulted, and he was started on treatment for pneumonia and COPD. I was asked to see the patient for management of lung cancer. PAST MEDICAL HISTORY: COPD, arthritis, back pain, diabetes mellitus, GERD, hypertension. FAMILY HISTORY: Father had colon cancer and prostate cancer. Sister had breast cancer. SOCIAL HISTORY: Continues to smoke cigarettes. He has a history of smoking since the age of 13. REVIEW OF SYSTEMS: A 12-point review of system was performed. Pertinent positives are mentioned in the history of present illness. Rest of the system review is negative. PHYSICAL EXAMINATION: GENERAL APPEARANCE: The patient is a 63-year-old gentleman who is in no acute cardiorespiratory distress. VITAL SIGNS: Blood pressure 140/70, temperature 97.8. HEENT: Head atraumatic, normocephalic. Eyes: No icterus. NECK: Supple. CHEST: Bilaterally symmetrical. HEART: S1, S2 normal. ABDOMEN: Soft, nontender. CENTRAL NERVOUS SYSTEM: No focal deficits. LYMPHATICS: No lymphadenopathy. SKIN: No rashes. LABORATORY DATA: WBC 19.3, hemoglobin 7.1, platelet count 213. Creatinine 2.0. IMPRESSION AND PLAN: 1. T4 N2 M1C, stage 4 small cell lung cancer with metastasis to multiple lymph nodes in the chest and abdomen. The most recent CT scan also reveals evidence of bone metastasis. He has completed 4 cycles of chemotherapy with carboplatin and etoposide along with nivolumab under a clinical trial and a CT revealed response to treatment, and hence, he was started on maintenance treatment with nivolumab. He has received 2 cycles so far with the second cycle given on 08/08/2018. He will receive the next cycle on 08/22/2018. I have advised him to follow up with me upon discharge. 2. Pneumonia. I discussed with Dr. Ronald Lang. Continue current management. 3. Chronic obstructive pulmonary disease. Continue management per Dr. Ronald Lang. DANIELLE BURNETT MD DR: VIKASH/nts JOB#: [id number] / [id number] UASTIN
--- NOTE | 2018-08-14 09:53 | PDOC ---
PROGRESS NOTES Subjective Subjective feeling better today Objective Objective Vital Signs Date Time Temp Pulse Resp B/P (MAP) Pulse Ox O2 Delivery O2 Flow Rate FiO2 08/14/18 08:00 Nasal Cannula 2.0 08/14/18 07:58 73 143/76 (98) 08/14/18 07:28 98 08/14/18 07:00 98.2 18 98.2 Intake and Output 08/14/18 07:00 Intake Total 1880 ml Output Total 1000 ml Balance 880 ml Intake Oral 1880 ml Output Urine Total 1000 ml Physical Exam Abdomen: Normal bowel sounds, Soft Heart: Regular rate, Normal S1 Extremities: No clubbing General: Alert HEENT: Atraumatic Lungs: Other (crackes at bases) MUSCULOSKELETAL: No deformity Neck: Supple Neuro: Normal speech Psych/Mental Status: Mental status NL Skin: No breakdown Diagnosis Problem List Problems Medical Problems: (1) Pneumonia Status: Acute Assessment Assessment Problems Medical Problems: (1) Pneumonia Status: Acute FINAL IMPRESSION: 1. Pneumonia post obstructive. The patient is immune compromised secondary to his chemotherapy for lung cancer, small cell. 2. Small cell lung carcinoma stage 4. 3. Congestive heart failure.New onset 4. Elevated troponin. 5. Chronic kidney disease stage 3. 6. Hypertension. 7. Chronic obstructive pulmonary disease. 8. Ex-smoker. PLAN: CT chest: 1. Persistent right hilar mass with worsening patchy right lung infiltrates suggesting superimposed pneumonia. 2. Interlobular septal thickening on the right may represent edema due to central venous obstruction versus lymphangitic spread of tumor, with a new small right pleural effusion. 3. Improving mediastinal adenopathy. 4. Possible developing blastic osseous metastatic disease. seen by cardiology ECHO Good lvf ,PA pressures high. iv antibiotics wbc 17 inc due to steroids. vanco+zosyn. At this time, admit to hospital after sputum and blood cultures. Broad-spectrum antibiotic, vancomycin, Zosyn. Pulmonary consult and also will have Cardiology see the patient because of elevated troponin and chest x-ray: CHF, may need echocardiogram. Plan Plan of Care Problems Medical Problems: (1) Pneumonia Status: Acute Comment Review of Relevant I have reviewed the following items nayana (where applicable) has been applied. Labs Laboratory Tests Test 08/13/18 21:10 08/14/18 05:50 Vancomycin Level Trough 13.2 mcg/mL (10.0-20.0) Vancomycin Last Dose Date Vancomycin Last Dose Time 2200 White Blood Count 17.4 x10^3/uL (4.0-11.0) Red Blood Count 2.66 x10^6/uL (4.30-5.70) Hemoglobin 7.1 g/dL (13.0-17.5) Hematocrit 22.9 % (39.0-53.0) Mean Corpuscular Volume 86 fL (79-100) Mean Corpuscular Hemoglobin 27 pg (25-35) Mean Corpuscular Hemoglobin Concent 31 g/dL (31-37) Red Cell Distribution Width 19.4 % (11.5-14.5) Platelet Count 221 x10^3/uL (140-400) Neutrophils (%) (Auto) 95 % (31-73) Lymphocytes (%) (Auto) 2 % (24-48) Monocytes (%) (Auto) 3 % (0-9) Eosinophils (%) (Auto) 0 % (0-3) Basophils (%) (Auto) 0 % (0-3) Neutrophils # (Auto) 16.5 x10^3uL (1.8-7.7) Lymphocytes # (Auto) 0.3 x10^3/uL (1.0-4.8) Monocytes # (Auto) 0.6 x10^3/uL (0.0-1.1) Eosinophils # (Auto) 0.0 x10^3/uL (0.0-0.7) Basophils # (Auto) 0.0 x10^3/uL (0.0-0.2) Sodium Level 143 mmol/L (136-145) Potassium Level 4.5 mmol/L (3.5-5.1) Chloride Level 107 mmol/L (98-107) Carbon Dioxide Level 25 mmol/L (21-32) Anion Gap 11 (6-14) Blood Urea Nitrogen 33 mg/dL (8-26) Creatinine 2.0 mg/dL (0.7-1.3) Estimated GFR (Cockcroft-Gault) 40.8 Glucose Level 154 mg/dL (70-99) Calcium Level 8.1 mg/dL (8.5-10.1) Procalcitonin 4.39 ng/mL (0.00-0.10) Microbiology 08/12/18 Blood Culture - Preliminary, Resulted NO GROWTH AFTER 2 DAYS Medications Current Medications Aspirin (Ecotrin) 81 mg DAILYWBKFT PO Last administered on 08/13/18at 15:43; Start 08/13/18 at 14:00; Stop 08/13/18 at 15:52; Status DC Nicotine (Nicoderm Cq 14mg) 1 patch DAILY TD Last administered on 08/14/18at 07: 54; Start 08/13/18 at 10:00 Vancomycin HCl (Vancomycin Trough Level) 1 each 1X ONCE MC Last administered on 08/13/18at 21:30; Start 08/13/18 at 21:30; Stop 08/13/18 at 21:31; Status DC Vancomycin HCl (Vancomycin Trough Level) 1 each 1X ONCE MC ; Start 08/15/18 at 21:30; Stop 08/15/18 at 21:31 Vancomycin HCl 1.75 gm/Sodium Chloride 500 ml @ 250 mls/hr Q24H IV Last administered on 08/13/18at 22:11; Start 08/13/18 at 22:00 Vitals/I & O Vital Sign - Last 24 Hours 08/13/18 08/13/18 08/13/18 08/13/18 10:42 11:58 14:46 16:06 Temp 98.0 97.8 98.0 97.8 Pulse 75 80 Resp 18 20 B/P (MAP) 137/75 (95) 140/70 (93) Pulse Ox 94 99 96 98 O2 Delivery Nasal Cannula Nasal Cannula Room Air Nasal Cannula O2 Flow Rate 2.0 2.0 2.0 08/13/18 08/13/18 08/13/18 08/13/18 17:09 19:13 20:00 20:21 Temp 98.3 98.3 Pulse 85 80 Resp 20 B/P (MAP) 148/79 (102) Pulse Ox 93 92 O2 Delivery Room Air Nasal Cannula Room Air O2 Flow Rate 2.0 08/13/18 08/13/18 08/13/18 08/14/18 20:21 21:03 23:12 02:47 Temp 98.0 98.0 Pulse 77 Resp 18 20 B/P (MAP) 141/80 (100) Pulse Ox 92 95 O2 Delivery Room Air Nasal Cannula Room Air Nasal Cannula O2 Flow Rate 2.0 2.0 08/14/18 08/14/18 08/14/1808/14/19 03:03 07:00 07:28 07:53 Temp 97.9 98.2 97.9 98.2 Pulse 73 76 73 Resp 20 18 B/P (MAP) 140/79 (99) 143/76 (98) 140/79 Pulse Ox 92 95 98 O2 Delivery Room Air Nasal Cannula Nasal Cannula O2 Flow Rate 2.0 2.0 08/14/18 08/14/18 08/14/18 07:53 07:58 08:00 Pulse 73 73 B/P (MAP) 140/79 143/76 (98) O2 Delivery Nasal Cannula O2 Flow Rate 2.0 Intake and Output 08/13/18 08/13/18 08/14/18 15:00 23:00 07:00 Intake Total 480 ml 800 ml 600 ml Output Total 500 ml 500 ml Balance 480 ml 300 ml 100 ml IZAIAH STEVENSON MD Aug 14, 2018 09:53
--- NOTE | 2018-08-14 10:36 | PDOC ---
PULMONARY PROGRESS NOTES Subjective less soa Vitals Vital Signs Date Time Temp Pulse Resp B/P (MAP) Pulse Ox O2 Delivery O2 Flow Rate FiO2 08/14/18 08:00 Nasal Cannula 2.0 08/14/18 07:58 73 143/76 (98) 08/14/18 07:28 98 08/14/18 07:00 98.2 18 98.2 General: Alert, No acute distress Lungs: Clear Cardiovascular: S1, S2 Abdomen: Soft Neuro Exam: Alert Extremities: No Edema Skin: Warm Labs Laboratory Tests Test 08/13/18 06:17 08/13/18 21:10 08/14/18 05:50 White Blood Count 19.3 x10^3/uL (4.0-11.0) 17.4 x10^3/uL (4.0-11.0) Red Blood Count 2.62 x10^6/uL (4.30-5.70) 2.66 x10^6/uL (4.30-5.70) Hemoglobin 7.1 g/dL (13.0-17.5) 7.1 g/dL (13.0-17.5) Hematocrit 22.8 % (39.0-53.0) 22.9 % (39.0-53.0) Mean Corpuscular Volume 87 fL (79-100) 86 fL (79-100) Mean Corpuscular Hemoglobin 27 pg (25-35) 27 pg (25-35) Mean Corpuscular Hemoglobin Concent 31 g/dL (31-37) 31 g/dL (31-37) Red Cell Distribution Width 19.5 % (11.5-14.5) 19.4 % (11.5-14.5) Platelet Count 213 x10^3/uL (140-400) 221 x10^3/uL (140-400) Neutrophils (%) (Auto) 95 % (31-73) 95 % (31-73) Lymphocytes (%) (Auto) 2 % (24-48) 2 % (24-48) Monocytes (%) (Auto) 3 % (0-9) 3 % (0-9) Eosinophils (%) (Auto) 0 % (0-3) 0 % (0-3) Basophils (%) (Auto) 0 % (0-3) 0 % (0-3) Neutrophils # (Auto) 18.2 x10^3uL (1.8-7.7) 16.5 x10^3uL (1.8-7.7) Lymphocytes # (Auto) 0.4 x10^3/uL (1.0-4.8) 0.3 x10^3/uL (1.0-4.8) Monocytes # (Auto) 0.6 x10^3/uL (0.0-1.1) 0.6 x10^3/uL (0.0-1.1) Eosinophils # (Auto) 0.0 x10^3/uL (0.0-0.7) 0.0 x10^3/uL (0.0-0.7) Basophils # (Auto) 0.0 x10^3/uL (0.0-0.2) 0.0 x10^3/uL (0.0-0.2) Sodium Level 143 mmol/L (136-145) 143 mmol/L (136-145) Potassium Level 4.7 mmol/L (3.5-5.1) 4.5 mmol/L (3.5-5.1) Chloride Level 106 mmol/L (98-107) 107 mmol/L (98-107) Carbon Dioxide Level 25 mmol/L (21-32) 25 mmol/L (21-32) Anion Gap 12 (6-14) 11 (6-14) Blood Urea Nitrogen 32 mg/dL (8-26) 33 mg/dL (8-26) Creatinine 2.0 mg/dL (0.7-1.3) 2.0 mg/dL (0.7-1.3) Estimated GFR (Cockcroft-Gault) 40.8 40.8 Glucose Level 166 mg/dL (70-99) 154 mg/dL (70-99) Calcium Level 8.3 mg/dL (8.5-10.1) 8.1 mg/dL (8.5-10.1) Triglycerides Level 128 mg/dL (0-150) Cholesterol Level 89 mg/dL (0-200) LDL Cholesterol, Calculated 38 mg/dL (0-100) VLDL Cholesterol, Calculated 26 mg/dL (0-40) Non-HDL Cholesterol Calculated 64 mg/dL (0-129) HDL Cholesterol 25 mg/dL (40-60) Cholesterol/HDL Ratio 3.6 Vancomycin Level Trough 13.2 mcg/mL (10.0-20.0) Vancomycin Last Dose Date Vancomycin Last Dose Time 2199 Procalcitonin 4.39 ng/mL (0.00-0.10) Laboratory Tests Test 08/13/18 21:10 08/14/18 05:50 Vancomycin Level Trough 13.2 mcg/mL (10.0-20.0) Vancomycin Last Dose Date Vancomycin Last Dose Time 2199 White Blood Count 17.4 x10^3/uL (4.0-11.0) Red Blood Count 2.66 x10^6/uL (4.30-5.70) Hemoglobin 7.1 g/dL (13.0-17.5) Hematocrit 22.9 % (39.0-53.0) Mean Corpuscular Volume 86 fL (79-100) Mean Corpuscular Hemoglobin 27 pg (25-35) Mean Corpuscular Hemoglobin Concent 31 g/dL (31-37) Red Cell Distribution Width 19.4 % (11.5-14.5) Platelet Count 221 x10^3/uL (140-400) Neutrophils (%) (Auto) 95 % (31-73) Lymphocytes (%) (Auto) 2 % (24-48) Monocytes (%) (Auto) 3 % (0-9) Eosinophils (%) (Auto) 0 % (0-3) Basophils (%) (Auto) 0 % (0-3) Neutrophils # (Auto) 16.5 x10^3uL (1.8-7.7) Lymphocytes # (Auto) 0.3 x10^3/uL (1.0-4.8) Monocytes # (Auto) 0.6 x10^3/uL (0.0-1.1) Eosinophils # (Auto) 0.0 x10^3/uL (0.0-0.7) Basophils # (Auto) 0.0 x10^3/uL (0.0-0.2) Sodium Level 143 mmol/L (136-145) Potassium Level 4.5 mmol/L (3.5-5.1) Chloride Level 107 mmol/L (98-107) Carbon Dioxide Level 25 mmol/L (21-32) Anion Gap 11 (6-14) Blood Urea Nitrogen 33 mg/dL (8-26) Creatinine 2.0 mg/dL (0.7-1.3) Estimated GFR (Cockcroft-Gault) 40.8 Glucose Level 154 mg/dL (70-99) Calcium Level 8.1 mg/dL (8.5-10.1) Procalcitonin 4.39 ng/mL (0.00-0.10) Medications Active Scripts Medications Dose Route/Sig Max Daily Dose Days Date Category Levaquin (Levofloxacin) 500 Mg Tablet 1 Tab PO DAILY 07/18/18 Rx Hydrocodone-Apap 5-325 (Hydrocodone Bit/Acetaminophen) 1 Tab Tablet 1 Tab PO PRN Q6HRS PRN 05/25/18 Reported Buspirone Hcl 5 Mg Tablet 1 Tab PO BID 05/25/18 Reported Trelegy Ellipta 100-62.5-25 (Fluticasone/Umeclidin/Vilanter) 1 Each Blst.w.dev 1 Each IH QHS PRN 05/16/18 Reported Carvedilol 25 Mg Tablet 12.5 Mg PO BIDWMEALS 05/16/18 Reported Proair Hfa Inhaler (Albuterol Sulfate) 8.5 Gm Hfa.aer.ad 1 Puff INH PRN Q6HRS PRN 04/20/18 Reported Albuterol Sulfate Neb Soln (Albuterol Sulfate) 2.5 Mg/3 Ml Vial.neb 1 Vial NEB PRN Q4HRS 04/20/18 Reported Amlodipine Besylate 10 Mg Tablet 10 Mg PO DAILY 04/05/18 Reported Impression . 1. Acute on chronic respiratory failure, multifactorial in etiology including RUL pneumonia, acute exacerbation of chronic obstructive pulmonary disease, ?congestive heart failure, ?non-ST elevation myocardial infarction 2. Abnormal chest x-ray. 3. Acute pneumonia. 4. Acute exacerbation of chronic obstructive pulmonary disease. 5. ?non-ST elevation myocardial infarction. 6. ? congestive heart failure. Rt effusion / ? metastatic 7. Tobacco habituation. 8. Small cell lung cancer, stage 4, on immunotherapy. 9. Immunocompromised. 10. Anemia. 11. Acute on chronic kidney disease. Plan . 1. Titrate FiO2 to keep O2 saturation 92%. 2. bronchodilator. 3. Pulmicort b.i.d. 4. Solu-Medrol taper 5. Continue antibiotic. 6. Echocardiogram reviewed. secondary pulmonary HTN 7. Lower extremity venous Doppler neg 8. cardiology rec 9. ct chest reviewed. Rt hilar mass, bony lesions, likely metastatic. Small right effusion ? malignant, need to monitor closely for increase 10. Lovenox for DVT prophylaxis. 11. Protonix for stress ulcer prophylaxis. 12. Oncology rec MARIOLA VELÁZQUEZ MD Aug 14, 2018 10:36
[2018-08-14] MEDS: VANCOMYCIN PER PHARMACY MC PRN (11:10)
[2018-08-14] MEDS: ENOXAPARIN 40 MG/0.4 ML SYRINGE. SQ SCH (11:29)
[2018-08-14] MEDS: HYDROcodone/APAP 5/325MG 1 TAB TABLET PO PRN (15:44)
[2018-08-14] MEDS: guaiFENesin/CODEINE 100mg/10mg 5 ML LIQUID PO PRN (17:05)
[2018-08-14] MEDS: VANCOMYCIN 1.75 GM in IV NORMAL SALINE 500ML BAG 500 ML IV SCH (20:47)
[2018-08-15] MEDS: guaiFENesin/CODEINE 100mg/10mg 5 ML LIQUID PO PRN (00:19)
[2018-08-15] MEDS: HYDROcodone/APAP 5/325MG 1 TAB TABLET PO PRN (00:19)
[2018-08-15 03:05] VITALS: BP 165/91
[2018-08-15 04:30] LABS: BASO % 0 % (0-3); EOS % 0 % (0-3); HEMATOCRIT 23.8 % (39.0-53.0); HEMOGLOBIN 7.4 g/dL (13.0-17.5); LYMPH # 0.3 x10^3/uL (1.0-4.8); LYMPH % 2 % (24-48); MEAN CORPUSCULAR HEMOGLOBIN 27 pg (25-35); MEAN CORPUSCULAR HGB CONC 31 g/dL (31-37); MEAN CORPUSCULAR VOLUME 87 fL (79-100); MONO # 0.7 x10^3/uL (0.0-1.1); MONO % 4 % (0-9); NEUT # 16.1 x10^3uL (1.8-7.7); NEUT % 94 % (31-73); PLATELET COUNT 229 x10^3/uL (140-400); RED BLOOD COUNT 2.75 x10^6/uL (4.30-5.70); RED CELL DISTRIBUTION WIDTH 19.6 % (11.5-14.5); WHITE BLOOD COUNT 17.1 x10^3/uL (4.0-11.0)
[2018-08-15 04:49] LABS: CALCIUM 8.2 mg/dL (8.5-10.1); CREATININE 2.2 mg/dL (0.7-1.3); GFR 36.5; POTASSIUM 4.4 mmol/L (3.5-5.1)
[2018-08-15] MEDS: PIPERACILLIN/TAZOBACTAM 3.375 GM in IV NORMAL SALINE 50ML 50 ML IV SCH (05:29)
[2018-08-15 07:37] VITALS: BP 148/92
[2018-08-15] MEDS: IPRATRPIUM/ALBUTEROL 0.5/2.5MG 3 ML NEBU. NEB SCH ×2 (07:45→11:51)
[2018-08-15] MEDS: BUDESONIDE 0.5 MG/2 ML NEBU. NEB SCH (07:45)
[2018-08-15] MEDS: busPIRone 5 MG TABLET. PO SCH (08:17)
[2018-08-15] MEDS: PANTOPRAZOLE 40 MG TABLET.DR. PO SCH (08:17)
[2018-08-15] MEDS: amLODIPine BESYLATE 10 MG TABLET PO SCH (08:17)
[2018-08-15] MEDS: CARVEDILOL 12.5 MG TABLET. PO SCH (08:18)
[2018-08-15] MEDS: NICOTINE 14MG PATCH. TD SCH (08:18)
[2018-08-15] MEDS: methylPREDNISolone SOD SUCC PF 40 MG/ML VIAL. IV SCH (08:18)
[2018-08-15] MEDS: ENOXAPARIN 40 MG/0.4 ML SYRINGE. SQ SCH ×2 (10:00→11:47)
--- NOTE | 2018-08-15 10:07 | PDOC ---
PROGRESS NOTES Subjective Subjective want to go home Objective Objective Vital Signs Date Time Temp Pulse Resp B/P (MAP) Pulse Ox O2 Delivery O2 Flow Rate FiO2 08/15/18 08:18 74 148/92 08/15/18 07:45 97 Nasal Cannula 2.0 08/15/18 07:37 98.0 18 98.0 Intake and Output 08/15/18 06:59 Intake Total 1920 ml Output Total 700 ml Balance 1220 ml Intake Oral 1920 ml Output Urine Total 700 ml # Voids 2 Physical Exam Abdomen: Normal bowel sounds, Soft Heart: Regular rate, Normal S1 Extremities: No clubbing General: Alert HEENT: Atraumatic Lungs: Other (crackes at bases) MUSCULOSKELETAL: No deformity Neck: Supple Neuro: Normal speech Psych/Mental Status: Mental status NL Skin: No breakdown Diagnosis Problem List Problems Medical Problems: (1) Pneumonia Status: Acute Assessment Assessment Problems Medical Problems: (1) Pneumonia Status: Acute FINAL IMPRESSION: 1. Pneumonia post obstructive. The patient is immune compromised secondary to his chemotherapy for lung cancer, small cell. 2. Small cell lung carcinoma stage 4. 3. Congestive heart failure.New onset 4. Elevated troponin. 5. Chronic kidney disease stage 3. 6. Hypertension. 7. Chronic obstructive pulmonary disease. 8. Ex-smoker. PLAN: d/c home today oral antibiotics doxy for 10 days po prednisone 50 mg daily for 5 days f/u pulmonary in 1 week f/u oncology in 2 weeks pcp in 1 week cr 2.2, baseline CT chest: 1. Persistent right hilar mass with worsening patchy right lung infiltrates suggesting superimposed pneumonia. 2. Interlobular septal thickening on the right may represent edema due to central venous obstruction versus lymphangitic spread of tumor, with a new small right pleural effusion. 3. Improving mediastinal adenopathy. 4. Possible developing blastic osseous metastatic disease. seen by cardiology ECHO Good lvf ,PA pressures high. iv antibiotics wbc 17 inc due to steroids. vanco+zosyn. At this time, admit to hospital after sputum and blood cultures. Broad-spectrum antibiotic, vancomycin, Zosyn. Pulmonary consult and also will have Cardiology see the patient because of elevated troponin and chest x-ray: CHF, may need echocardiogram. Plan Plan of Care Problems Medical Problems: (1) Pneumonia Status: Acute Comment Review of Relevant I have reviewed the following items nayana (where applicable) has been applied. Labs Laboratory Tests Test 08/15/18 04:15 White Blood Count 17.1 x10^3/uL (4.0-11.0) Red Blood Count 2.75 x10^6/uL (4.30-5.70) Hemoglobin 7.4 g/dL (13.0-17.5) Hematocrit 23.8 % (39.0-53.0) Mean Corpuscular Volume 87 fL (79-100) Mean Corpuscular Hemoglobin 27 pg (25-35) Mean Corpuscular Hemoglobin Concent 31 g/dL (31-37) Red Cell Distribution Width 19.6 % (11.5-14.5) Platelet Count 229 x10^3/uL (140-400) Neutrophils (%) (Auto) 94 % (31-73) Lymphocytes (%) (Auto) 2 % (24-48) Monocytes (%) (Auto) 4 % (0-9) Eosinophils (%) (Auto) 0 % (0-3) Basophils (%) (Auto) 0 % (0-3) Neutrophils # (Auto) 16.1 x10^3uL (1.8-7.7) Lymphocytes # (Auto) 0.3 x10^3/uL (1.0-4.8) Monocytes # (Auto) 0.7 x10^3/uL (0.0-1.1) Eosinophils # (Auto) 0.0 x10^3/uL (0.0-0.7) Basophils # (Auto) 0.0 x10^3/uL (0.0-0.2) Sodium Level 143 mmol/L (136-145) Potassium Level 4.4 mmol/L (3.5-5.1) Chloride Level 107 mmol/L (98-107) Carbon Dioxide Level 24 mmol/L (21-32) Anion Gap 12 (6-14) Blood Urea Nitrogen 32 mg/dL (8-26) Creatinine 2.2 mg/dL (0.7-1.3) Estimated GFR (Cockcroft-Gault) 36.5 Glucose Level 227 mg/dL (70-99) Calcium Level 8.2 mg/dL (8.5-10.1) Microbiology 08/12/18 Blood Culture - Preliminary, Resulted NO GROWTH AFTER 3 DAYS Medications Current Medications Guaifenesin/ Codeine Phosphate (Robitussin Ac) 5 ml PRN Q6HRS PRN PO COUGH Last administered on 08/15/18at 00:19; Start 08/14/18 at 16:45 Vancomycin HCl (Vancomycin Trough Level) 1 each 1X ONCE MC ; Start 08/15/18 at 21:30; Stop 08/15/18 at 21:31 Vitals/I & O Vital Sign - Last 24 Hours 08/14/18 08/14/18 08/14/18 08/14/18 11:17 11:19 14:30 15:02 Temp 98.0 98.3 98.0 98.3 Pulse 78 82 Resp 18 18 B/P (MAP) 150/89 (109) 136/71 (92) 140/77 (98) Pulse Ox 99 93 94 O2 Delivery Nasal Cannula Nasal Cannula Nasal Cannula O2 Flow Rate 2.0 2.0 2.0 08/14/18 08/14/18 08/14/18 08/14/18 15:29 15:44 16:44 17:05 Pulse 82 Resp 20 20 B/P (MAP) 140/77 Pulse Ox 98 O2 Delivery Nasal Cannula O2 Flow Rate 2.0 08/14/18 08/14/18 08/14/18 08/14/18 18:51 19:35 20:00 22:55 Temp 98.0 97.8 98.0 97.8 Pulse 81 86 Resp 18 20 B/P (MAP) 154/81 (105) 158/89 (112) Pulse Ox 98 96 96 O2 Delivery Nasal Cannula Nasal Cannula Nasal Cannula Nasal Cannula O2 Flow Rate 2.0 2.0 2.0 2.0 08/15/18 08/15/18 08/15/18 08/15/18 03:05 07:37 07:45 08:17 Temp 97.8 98.0 97.8 98.0 Pulse 78 74 74 Resp 18 18 B/P (MAP) 165/91 (115) 148/92 (110) 148/92 Pulse Ox 96 94 97 O2 Delivery Nasal Cannula Nasal Cannula Nasal Cannula O2 Flow Rate 2.0 2.0 2.0 08/15/18 08:18 Pulse 74 B/P (MAP) 148/92 Intake and Output 08/14/18 08/14/18 08/15/18 14:59 22:59 06:59 Intake Total 440 ml 240 ml 1240 ml Output Total 400 ml 300 ml Balance 440 ml -160 ml 940 ml IZAIAH STEVENSON MD Aug 15, 2018 10:07
[2018-08-15] MEDS ORDERED: PRED50TA PO (10:23)
[2018-08-15] MEDS ORDERED: DOXY100C14 PO (10:23)
[2018-08-15 10:50] VITALS: BP 153/94
[2018-08-15] MEDS ORDERED: ENOXAPARIN 30 MG/0.3 ML SYRINGE. SQ ONE (11:00)
--- NOTE | 2018-08-15 11:05 | PDOC ---
PULMONARY PROGRESS NOTES Subjective less soa Vitals Vital Signs Date Time Temp Pulse Resp B/P (MAP) Pulse Ox O2 Delivery O2 Flow Rate FiO2 08/15/18 10:50 98.0 78 18 153/94 (113) 95 Nasal Cannula 2.0 98.0 General: Alert, No acute distress Lungs: Clear Cardiovascular: S1, S2 Abdomen: Soft Neuro Exam: Alert Extremities: No Edema Skin: Warm Labs Laboratory Tests Test 08/13/18 21:10 08/14/18 05:50 08/15/18 04:15 Vancomycin Level Trough 13.2 mcg/mL (10.0-20.0) Vancomycin Last Dose Date Vancomycin Last Dose Time 2200 White Blood Count 17.4 x10^3/uL (4.0-11.0) 17.1 x10^3/uL (4.0-11.0) Red Blood Count 2.66 x10^6/uL (4.30-5.70) 2.75 x10^6/uL (4.30-5.70) Hemoglobin 7.1 g/dL (13.0-17.5) 7.4 g/dL (13.0-17.5) Hematocrit 22.9 % (39.0-53.0) 23.8 % (39.0-53.0) Mean Corpuscular Volume 86 fL (79-100) 87 fL (79-100) Mean Corpuscular Hemoglobin 27 pg (25-35) 27 pg (25-35) Mean Corpuscular Hemoglobin Concent 31 g/dL (31-37) 31 g/dL (31-37) Red Cell Distribution Width 19.4 % (11.5-14.5) 19.6 % (11.5-14.5) Platelet Count 221 x10^3/uL (140-400) 229 x10^3/uL (140-400) Neutrophils (%) (Auto) 95 % (31-73) 94 % (31-73) Lymphocytes (%) (Auto) 2 % (24-48) 2 % (24-48) Monocytes (%) (Auto) 3 % (0-9) 4 % (0-9) Eosinophils (%) (Auto) 0 % (0-3) 0 % (0-3) Basophils (%) (Auto) 0 % (0-3) 0 % (0-3) Neutrophils # (Auto) 16.5 x10^3uL (1.8-7.7) 16.1 x10^3uL (1.8-7.7) Lymphocytes # (Auto) 0.3 x10^3/uL (1.0-4.8) 0.3 x10^3/uL (1.0-4.8) Monocytes # (Auto) 0.6 x10^3/uL (0.0-1.1) 0.7 x10^3/uL (0.0-1.1) Eosinophils # (Auto) 0.0 x10^3/uL (0.0-0.7) 0.0 x10^3/uL (0.0-0.7) Basophils # (Auto) 0.0 x10^3/uL (0.0-0.2) 0.0 x10^3/uL (0.0-0.2) Sodium Level 143 mmol/L (136-145) 143 mmol/L (136-145) Potassium Level 4.5 mmol/L (3.5-5.1) 4.4 mmol/L (3.5-5.1) Chloride Level 107 mmol/L (98-107) 107 mmol/L (98-107) Carbon Dioxide Level 25 mmol/L (21-32) 24 mmol/L (21-32) Anion Gap 11 (6-14) 12 (6-14) Blood Urea Nitrogen 33 mg/dL (8-26) 32 mg/dL (8-26) Creatinine 2.0 mg/dL (0.7-1.3) 2.2 mg/dL (0.7-1.3) Estimated GFR (Cockcroft-Gault) 40.8 36.5 Glucose Level 154 mg/dL (70-99) 227 mg/dL (70-99) Calcium Level 8.1 mg/dL (8.5-10.1) 8.2 mg/dL (8.5-10.1) Procalcitonin 4.39 ng/mL (0.00-0.10) Laboratory Tests Test 08/15/18 04:15 White Blood Count 17.1 x10^3/uL (4.0-11.0) Red Blood Count 2.75 x10^6/uL (4.30-5.70) Hemoglobin 7.4 g/dL (13.0-17.5) Hematocrit 23.8 % (39.0-53.0) Mean Corpuscular Volume 87 fL (79-100) Mean Corpuscular Hemoglobin 27 pg (25-35) Mean Corpuscular Hemoglobin Concent 31 g/dL (31-37) Red Cell Distribution Width 19.6 % (11.5-14.5) Platelet Count 229 x10^3/uL (140-400) Neutrophils (%) (Auto) 94 % (31-73) Lymphocytes (%) (Auto) 2 % (24-48) Monocytes (%) (Auto) 4 % (0-9) Eosinophils (%) (Auto) 0 % (0-3) Basophils (%) (Auto) 0 % (0-3) Neutrophils # (Auto) 16.1 x10^3uL (1.8-7.7) Lymphocytes # (Auto) 0.3 x10^3/uL (1.0-4.8) Monocytes # (Auto) 0.7 x10^3/uL (0.0-1.1) Eosinophils # (Auto) 0.0 x10^3/uL (0.0-0.7) Basophils # (Auto) 0.0 x10^3/uL (0.0-0.2) Sodium Level 143 mmol/L (136-145) Potassium Level 4.4 mmol/L (3.5-5.1) Chloride Level 107 mmol/L (98-107) Carbon Dioxide Level 24 mmol/L (21-32) Anion Gap 12 (6-14) Blood Urea Nitrogen 32 mg/dL (8-26) Creatinine 2.2 mg/dL (0.7-1.3) Estimated GFR (Cockcroft-Gault) 36.5 Glucose Level 227 mg/dL (70-99) Calcium Level 8.2 mg/dL (8.5-10.1) Medications Active Scripts Medications Dose Route/Sig Max Daily Dose Days Date Category Levaquin (Levofloxacin) 500 Mg Tablet 1 Tab PO DAILY 07/18/18 Rx Hydrocodone-Apap 5-325 (Hydrocodone Bit/Acetaminophen) 1 Tab Tablet 1 Tab PO PRN Q6HRS PRN 05/25/18 Reported Buspirone Hcl 5 Mg Tablet 1 Tab PO BID 05/25/18 Reported Trelegy Ellipta 100-62.5-25 (Fluticasone/Umeclidin/Vilanter) 1 Each Blst.w.dev 1 Each IH QHS PRN 05/16/18 Reported Carvedilol 25 Mg Tablet 12.5 Mg PO BIDWMEALS 05/16/18 Reported Proair Hfa Inhaler (Albuterol Sulfate) 8.5 Gm Hfa.aer.ad 1 Puff INH PRN Q6HRS PRN 04/20/18 Reported Albuterol Sulfate Neb Soln (Albuterol Sulfate) 2.5 Mg/3 Ml Vial.neb 1 Vial NEB PRN Q4HRS 04/20/18 Reported Amlodipine Besylate 10 Mg Tablet 10 Mg PO DAILY 04/05/18 Reported Impression . 1. Acute on chronic respiratory failure, multifactorial in etiology including RUL pneumonia, acute exacerbation of chronic obstructive pulmonary disease, ?congestive heart failure, ?non-ST elevation myocardial infarction 2. Abnormal chest x-ray. 3. Acute pneumonia. 4. Acute exacerbation of chronic obstructive pulmonary disease. 5. ?non-ST elevation myocardial infarction. 6. ? congestive heart failure. Rt effusion / ? metastatic 7. Tobacco habituation. 8. Small cell lung cancer, stage 4, on immunotherapy. 9. Immunocompromised. 10. Anemia. 11. Acute on chronic kidney disease. Plan . 1. Titrate FiO2 to keep O2 saturation 92%. 2. bronchodilator. 3. Pulmicort b.i.d. 4. Solu-Medrol taper 5. Continue antibiotic. 6. Echocardiogram reviewed. secondary pulmonary HTN 7. Lower extremity venous Doppler neg 8. cardiology rec 9. ct chest reviewed. Rt hilar mass, bony lesions, likely metastatic. Small right effusion ? malignant, need to monitor closely for increase 10. Lovenox for DVT prophylaxis. 11. Protonix for stress ulcer prophylaxis. 12. Oncology rec ok with MARIOLA Plasencia MD Aug 15, 2018 11:05
[2018-08-15] MEDS ORDERED: HEPARIN PF 500 UNIT/5 ML DISP.SYRIN. IV ONE (11:15)
--- NOTE | 2018-08-15 12:14 | NUR ---
Discharge Note: JESSICA MEDINA [address] [place] [address] Discharge instructions and discharge home medications reviewed with patient and a copy given. All questions have been answered and understanding verbalized. The following instructions and handouts were given: CHF, new script, folow up information. Discontinued lines and drains: left chest port heparinized and deaccessed. Patient discharged to home with family via wheelchair.
--- NOTE | 2018-08-16 12:10 | PDOC ---
Provider Note Provider Note Discharge summary dictated.#[id number] IZAIAH STEVENSON MD Aug 16, 2018 12:10
--- NOTE | 2018-08-16 13:25 | DS ---
DATE OF DISCHARGE: 08/15/2018 REASON FOR ADMISSION TO THE HOSPITAL: 1. Postobstructive pneumonia. 2. History of lung cancer. 3. Mild heart failure. CONSULTATIONS: Dr. Leavitt, Dr. Bartlett and Dr. Lang. PROCEDURES DONE: 1. Echocardiogram. 2. CT of the chest. HOSPITAL COURSE: The patient is a 63-year-old male with a history of small cell lung cancer stage IV. The patient was getting chemotherapy. He has developed cough, sputum with shortness of breath, came to the Emergency Room as combination of postobstructive pneumonia as well as mild congestive heart failure. White count was 9. Procalcitonin was high at 4.3. Troponin was 0.2, creatinine 1.8. BNP 2582. The patient was seen by Cardiology. Echo shows 55% ejection fraction, PA pressure was high at 75. Recommended medical treatment, may be outpatient stress test. Borderline troponin 0.2. Could be just from demand ischemia. The patient was seen by Pulmonology. CT of the chest shows postobstructive pneumonitis and a small cell lung CA and also developing osteoblastic lesions in the skeletal system. The patient was followed by Dr. Bartlett, Oncology. The patient had completed 4 cycles of chemotherapy and a CT showed some improvement. So started on maintenance chemotherapy. His next chemo is in 2 weeks. The patient was feeling better. He has home oxygen and he was anxious to go home. DISCHARGE MEDICATIONS: The patient was discharged on doxycycline 100 mg twice daily for 10 days and prednisone 50 mg daily for 5 days. FOLLOWUP: Follow up with Pulmonary, Dr. Vines, Dr. Lang and Dr. Bartlett. LABORATORY DATA: Blood culture was negative. Influenza test was negative. His creatinine went up to 2.2 while he was in the hospital. We will monitor kidney function outpatient. IZAIAH STEVENSON MD DR: CHRIS/mayra JOB#: [id number] / [id number]
== END 2018-08-15 12:00 | disposition home or self-care (01) | DRG 871 ==
LOC: ER 19:07 → 2 SOUTH 21:20
PROVIDERS: ADMIT Internal Medicine; ATTEND Internal Medicine
DX: A41.9 Sepsis, unspecified organism (principal); I50.33 Acute on chronic diastolic (congestive) heart failure; J96.20 Acute and chronic respiratory failure, unspecified whether with hypoxia or hypercapnia; J18.9 Pneumonia, unspecified organism; N17.9 Acute kidney failure, unspecified; J44.0 Chronic obstructive pulmonary disease with (acute) lower respiratory infection; C34.00 Malignant neoplasm of unspecified main bronchus; C77.9 Secondary and unspecified malignant neoplasm of lymph node, unspecified; C79.51 Secondary malignant neoplasm of bone; C79.89 Secondary malignant neoplasm of other specified sites; I13.0 Hypertensive heart and chronic kidney disease with heart failure and stage 1 through stage 4 chronic kidney disease, or unspecified chronic kidney disease; J44.1 Chronic obstructive pulmonary disease with (acute) exacerbation; I24.8 Other forms of acute ischemic heart disease; D63.8 Anemia in other chronic diseases classified elsewhere; E11.22 Type 2 diabetes mellitus with diabetic chronic kidney disease; F17.210 Nicotine dependence, cigarettes, uncomplicated; I27.20 Pulmonary hypertension, unspecified; K21.9 Gastro-esophageal reflux disease without esophagitis; M19.90 Unspecified osteoarthritis, unspecified site; N18.3 Chronic kidney disease, stage 3 (moderate); T38.0X5A Adverse effect of glucocorticoids and synthetic analogues, initial encounter; T45.1X5A Adverse effect of antineoplastic and immunosuppressive drugs, initial encounter; Z80.3 Family history of malignant neoplasm of breast; Z80.42 Family history of malignant neoplasm of prostate; Z82.49 Family history of ischemic heart disease and other diseases of the circulatory system; Z85.118 Personal history of other malignant neoplasm of bronchus and lung; Z99.81 Dependence on supplemental oxygen; Z80.0 Family history of malignant neoplasm of digestive organs; Y92.89 Other specified places as the place of occurrence of the external cause; Z91.010 Allergy to peanuts; Z91.018 Allergy to other foods; Z92.21 Personal history of antineoplastic chemotherapy
CPT/HCPCS: 36415; 71045; 71046; 71250; 80048; 80053; 80061; 80202; 81001; 82565; 83605; 83880; 84145; 84484; 84520; 85007; 85025; 85610; 87040; 87804; 93005; 93306; 93970; 94640; 94644; 94760; 96374; 96375; J1650; J1940; J2543; J2920; J2930; J3370; J7030; J7040; J7613; J7620; J7626; 99285-25

== ENCOUNTER 2018-09-15 17:32 | Inpatient (IN) | payer OTHER ==
[~2018-09-15] VITALS: Ht 177.8 cm; Wt 106.1 kg
[~2018-09-15 17:32] MED LIST changes: +DOXY100C14 PO
[2018-09-15] MEDS ORDERED: methylPREDNISolone SOD SUCC PF 125 MG/2 ML VIAL. IV ONE (17:45)
[2018-09-15] MEDS ORDERED: IPRATRPIUM/ALBUTEROL 0.5/2.5MG 3 ML NEBU. NEB ONE (17:45)
[2018-09-15] MEDS ORDERED: 0.9 % SOD CHL for STERILE FIELD 10 ML DISP.SYRIN. ONE (17:45)
[2018-09-15 18:26] LABS: BASO % 1 % (0-3); EOS # 0.3 x10^3/uL (0.0-0.7); EOS % 4 % (0-3); HEMATOCRIT 23.9 % (39.0-53.0); HEMOGLOBIN 7.7 g/dL (13.0-17.5); LYMPH # 0.5 x10^3/uL (1.0-4.8); LYMPH % 6 % (24-48); MEAN CORPUSCULAR HEMOGLOBIN 26 pg (25-35); MEAN CORPUSCULAR HGB CONC 32 g/dL (31-37); MEAN CORPUSCULAR VOLUME 81 fL (79-100); MONO # 0.8 x10^3/uL (0.0-1.1); MONO % 10 % (0-9); NEUT # 6.4 x10^3uL (1.8-7.7); NEUT % 80 % (31-73); PLATELET COUNT 314 x10^3/uL (140-400); RED BLOOD COUNT 2.96 x10^6/uL (4.30-5.70)
[2018-09-15 18:37] LABS: CALCIUM 8.6 mg/dL (8.5-10.1); CREATININE 1.9 mg/dL (0.7-1.3); GFR 43.3; POTASSIUM 4.1 mmol/L (3.5-5.1)
--- NOTE | 2018-09-15 18:37 | PHYS DOC ---
Past Medical History Past Medical History: Cancer, COPD, Diabetes-Type II, Hypertension Additional Past Medical Histor: STAGE 4 LUNG CANCER LAST CHEMO TREATMENT 07/24 (JEREL MEDEL APRN) Past Surgical History: Cholecystectomy Additional Past Surgical Histo: L knee, power port L chest for chemo (JEREL MEDEL APRN) Alcohol Use: None Drug Use: None (JEREL MEDEL APRN) Adult General Chief Complaint Chief Complaint: SHORTNESS OF BREATH HPI HPI 63-year-old male presents to ER via EMS from his home for respiratory distress. EMS reports patient is O2 dependent with history of lung cancer. Patient on arrival has labored respirations and is speaking in fragmented sentences. Patient is on 3 L O2 via nasal cannula. Patient is afebrile. Patient is not providing a lot of information during initial encounter. (JEREL MEDEL APRN) Review of Systems Review of Systems Constitutional: Denies fever or chills [] Eyes: Denies change in visual acuity, redness, or eye pain [] HENT: Denies nasal congestion or sore throat [] Respiratory: Denies cough. Reports SOA/labored breathing Cardiovascular: Denies CP GI: Denies abdominal pain, nausea, vomiting, bloody stools or diarrhea [] : Denies dysuria or hematuria [] Musculoskeletal: Denies back/neck pain or joint pain [] Integument: Denies rash or skin lesions [] Neurologic: Denies headache, focal weakness or sensory changes [] Endocrine: Denies polyuria or polydipsia [] All other systems were reviewed and found to be within normal limits, except as documented in this note. (JEREL MEDEL APRN) Current Medications Current Medications Current Medications Medications (Trade) Dose Ordered Sig/Precious Start Time Stop Time Status Last Admin Dose Admin Albuterol/ Ipratropium (Duoneb) 3 ml 1X ONCE 09/15/18 17:45 09/15/18 17:48 DC 09/15/18 18:08 3 ML Methylprednisolone Sodium Succinate (SOLU-Medrol 125MG VIAL) 125 mg 1X ONCE 09/15/18 17:45 09/15/18 17:48 DC 09/15/18 17:20 125 MG Piperacillin Sod/ Tazobactam Sod (Zosyn Per Pharmacy) 1 each PRN DAILY PRN 09/15/18 18:45 Sodium Chloride (NORMAL SALINE FLUSH for STERILE FIELD) 10 ml STK-MED ONCE 09/15/18 17:45 09/15/18 17:46 DC Vancomycin HCl (Vanco Per Pharmacy) 1 each PRN DAILY PRN 09/15/18 18:45 09/17/18 12:21 DC 09/16/18 09:42 1 EACH (OLE KOCH MD) Allergies Allergies Allergies Coded Allergies Type Severity Reaction Last Updated Verified chocolate flavor Allergy Intermediate 07/16/18 Yes peanut Allergy Intermediate HIVES 07/16/18 Yes (OLE KOCH MD) Physical Exam Physical Exam Constitutional: Well developed, well nourished, moderate distress, non-toxic appearance. [] HENT: Normocephalic, atraumatic, bilateral external ears normal, oropharynx moist, no oral exudates, nose normal. [] Eyes: Pupils equal, conjunctiva normal, no discharge. [] Neck: Normal range of motion, no tenderness, supple, no stridor. Trachea midline - no crepitus Cardiovascular: Tachycardic heart rate regular rhythm, no murmur [] Lungs & Thorax: Labored resp. effort with moderate resp. distress. Diminished air movement throughout all lung aparicio. Speaking in fragmented sentences. Port a Cath lt subclav. chest- no swelling/erythema at site Abdomen: Bowel sounds normal, soft, no tenderness, no masses, no pulsatile masses. [] Skin: Warm, dry, no erythema, no rash. [] Back: No tenderness, no CVA tenderness. [] Extremities: No tenderness, no cyanosis, no clubbing, ROM intact, no edema. [] Neurologic: Alert and oriented X 3, normal motor function, normal sensory function, no focal deficits noted. [] Psychologic: Affect normal, judgement normal, mood normal. [] (REFFITT,JEREL Long APRN) Current Patient Data Vital Signs Vital Signs Date Time Temp Pulse Resp B/P (MAP) Pulse Ox O2 Delivery O2 Flow Rate FiO2 09/15/18 18:10 Nasal Cannula 4.0 09/15/18 18:05 96 22 174/78 (110) 97 09/15/18 17:45 99.2 99.2 (OLE KCOH MD) Lab Values Laboratory Tests Test 09/15/18 18:05 09/15/18 18:30 White Blood Count 8.0 x10^3/uL (4.0-11.0) Red Blood Count 2.96 x10^6/uL (4.30-5.70) L Hemoglobin 7.7 g/dL (13.0-17.5) L Hematocrit 23.9 % (39.0-53.0) L Mean Corpuscular Volume 81 fL (79-100) Mean Corpuscular Hemoglobin 26 pg (25-35) Mean Corpuscular Hemoglobin Concent 32 g/dL (31-37) Red Cell Distribution Width 20.0 % (11.5-14.5) H Platelet Count 314 x10^3/uL (140-400) Neutrophils (%) (Auto) 80 % (31-73) H Lymphocytes (%) (Auto) 6 % (24-48) L Monocytes (%) (Auto) 10 % (0-9) H Eosinophils (%) (Auto) 4 % (0-3) H Basophils (%) (Auto) 1 % (0-3) Neutrophils # (Auto) 6.4 x10^3uL (1.8-7.7) Lymphocytes # (Auto) 0.5 x10^3/uL (1.0-4.8) L Monocytes # (Auto) 0.8 x10^3/uL (0.0-1.1) Eosinophils # (Auto) 0.3 x10^3/uL (0.0-0.7) Basophils # (Auto) 0.0 x10^3/uL (0.0-0.2) Sodium Level 142 mmol/L (136-145) Potassium Level 4.1 mmol/L (3.5-5.1) Chloride Level 104 mmol/L (98-107) Carbon Dioxide Level 30 mmol/L (21-32) Anion Gap 8 (6-14) Blood Urea Nitrogen 23 mg/dL (8-26) Creatinine 1.9 mg/dL (0.7-1.3) H Estimated GFR (Cockcroft-Gault) 43.3 BUN/Creatinine Ratio 12 (6-20) Glucose Level 148 mg/dL (70-99) H Lactic Acid Level 1.1 mmol/L (0.4-2.0) Calcium Level 8.6 mg/dL (8.5-10.1) Magnesium Level 1.8 mg/dL (1.8-2.4) Total Bilirubin 0.1 mg/dL (0.2-1.0) L Aspartate Amino Transferase (AST) 18 U/L (15-37) Alanine Aminotransferase (ALT) 10 U/L (16-63) L Alkaline Phosphatase 82 U/L (46-116) Troponin I Quantitative 0.260 ng/mL (0.000-0.055) WU-Wgw-M-Type Natriuretic Peptide 2993 pg/mL (0-124) H Total Protein 7.5 g/dL (6.4-8.2) Albumin 2.0 g/dL (3.4-5.0) L Albumin/Globulin Ratio 0.4 (1.0-1.7) L Influenza Type A Antigen Negative (NEGATIVE) Influenza Type B Antigen Negative (NEGATIVE) Laboratory Tests 09/15/18 18:05 Laboratory Tests 09/15/18 18:05 (OLE KOCH MD) EKG EKG Initial EKG obtained on pt's arrival at 1754- tracing with artifact poor quality on reading SR Ltward axis Rate 97 No STEMI- will repeat after pt's condition stabilizes Repeat EKG obtained after pt's breathing improved Obtained 09/12/18 at [address] Koch Sinus rhythm Rt BBB Rate 90 No STEMI (JEREL MEDEL APRN) Radiology/Procedures Radiology/Procedures [] (JEREL MEDEL APRN) Course & Med Decision Making Course & Med Decision Making Pertinent Labs and Imaging studies reviewed. (See chart for details) 1825: Following DuoNeb treatment patient reports he has had significant improvement in shortness of air. Patient has increased air movement in all lung aparicio still remains diminished in bases. Respirations are equal and nonlabored. Patient is speaking in full sentences. Vital signs have improved her pressure 177/86 respirations 22 heart rate 90 O2 saturation 98% on 3 L via nasal cannula. RN is at bedside to administer Solu Medrol 125 mg IV. Family is at bedside. Patient was able to provide additional information now that his breathing has improved-he states this morning around 9 AM he became increasingly short of air and throughout the day symptoms worsen. He denies fever. He states he was feeling fine up until 9 AM when his breathing became labored. Patient states he is due to start chemotherapy again for lung cancer on Monday. Pt at this time is denying any chest pain and states shortness of air significantly improved. Discussed admission for further monitoring and care he is agreeable with this plan. Will admit to hospitalist services with consult to his oncologist Dr. Bartlett and pulmonology. Chest xray viewed by Dr. Koch moderate to lg pleural effusion on rt side. 1900: Spoke with Dr. Chen, hospitalist and discussed pt's case and admit plan. Pt had blood cultures obtained and with imaging and discussed patient's case with Dr. Koch. Orders placed for IV Zosyn and vancomycin. Patient had slightly elevated troponin compared to last him his records at 0.260. Repeat EKG has been obtained as initial EKG was mostly artifact and poor tracing. Will place order for serial cardiac enzymes. WBCs were NL at 8.0 with lactic acid NL 1.1. Patient's chest x-ray Dr. Koch recommended ICU. (JEREL MEDEL APRN) Course & Med Decision Making Staff Physician Addendum: I was working in the ER during the course of this patient's visit. I was available for consultation as needed, but I was not directly involved in the care of this patient. (OLE KOCH MD) Dragon Disclaimer Dragon Disclaimer This electronic medical record was generated, in whole or in part, using a voice recognition dictation system. (JEREL MEDEL APRN) Departure Departure Disposition: 09 ADMITTED INPATIENT Admitting Physician: Hermilo Santiago (JEREL MEDEL APRN) Condition: GUARDED Referrals: SHERRIE SLOAN (PCP) JEREL MEDEL APRN Sep 15, 2018 18:37 OLE KOCH MD Sep 19, 2018 19:55
[2018-09-15 18:44] LABS: ALBUMIN/GLOBULIN RATIO 0.4 (1.0-1.7); MAGNESIUM 1.8 mg/dL (1.8-2.4); TOTAL BILIRUBIN 0.1 mg/dL (0.2-1.0); TOTAL PROTEIN 7.5 g/dL (6.4-8.2)
[2018-09-15] MEDS ORDERED: PIP/TAZO PER PHARMACY MC PRN (18:45)
[2018-09-15 19:00] LABS: INFLUENZA A PATIENT NEGATIVE (NEGATIVE); INFLUENZA B PATIENT NEGATIVE (NEGATIVE)
[2018-09-15] MEDS ORDERED: VANCOMYCIN 2 GM in IV NORMAL SALINE 500ML BAG 500 ML IV ONE (19:00)
[2018-09-15] MEDS ORDERED: PIPERACILLIN/TAZOBACTAM 4.5 GM in IV NORMAL SALINE 100ML 100 ML IV ONE (19:00)
[2018-09-15] MEDS ORDERED: ACETAMINOPHEN 325 MG TABLET. PO PRN (19:00)
[2018-09-15 19:35] VITALS: BP 156/81
--- NOTE | 2018-09-15 19:35 | NUR ---
pt admitted to room 110 from ED at this time. alert and oriented x4, VSS stable on 4L/NC which pt wears at home. able to answer all of admission questions without difficulty. pt reports that Dr Viveros is his primary doctor, requesting to switch to him from Dr Chen. Dr English monument carver for Dr Viveros, he was paged to report pt's admission, current status and to start home medications. waiting for return call. pt oriented to room, call light, plan of care and unit routines; verbalizes understanding. will pass on in report, will continue to closely monitor.
[2018-09-15] MEDS ORDERED: IPRATRPIUM/ALBUTEROL 0.5/2.5MG 3 ML NEBU. NEB SCH (20:00)
--- NOTE | 2018-09-15 20:07 | PDOC1 ---
History and Physical Date of Admission Date of Admission DATE: 09/15/18 TIME: 20:07 Identification/Chief Complaint Chief Complaint 63-year-old male presents to ER via EMS from his home for respiratory distress. EMS reports patient is O2 dependent with history of lung cancer. Patient on arrival has labored respirations, NOW IN ICU LESS DYSPNEA NOTED, mild inc troponin i noted Past Medical History Past Medical History Past Medical History Past Medical History Past Medical History: Cancer, COPD, Diabetes-Type II, Hypertension Additional Past Medical Histor: STAGE 4 LUNG CANCER LAST CHEMO TREATMENT Past Surgical History: Cholecystectomy Additional Past Surgical Histo: L knee, power port L chest for chemo Alcohol Use: None Drug Use: None family hx COPD Cardiovascular: HTN Pulmonary: Bronchitis, COPD, Pneumonia GI: Diverticulosis, GERD, Other Heme/Onc: Cancer Psych: Anxiety Musculoskeletal: Osteoarthritis Endocrine: Diabetes Past Surgical History Past Surgical History: Cholecystectomy, Other Family History Family History: Hypertension Social History Smoke: <1 pack per day ALCOHOL: none Drugs: None Current Medications Current Medications Current Medications Albuterol/ Ipratropium (Duoneb) 3 ml 1X ONCE NEB Last administered on at 18:08; Start 09/15/18 at 17:45; Stop 09/15/18 at 17:48; Status DC Methylprednisolone Sodium Succinate (SOLU-Medrol 125MG VIAL) 125 mg 1X ONCE IV Last administered on 09/15/18at 17:20; Start 09/15/18 at 17:45; Stop 09/15/18 at 17:48; Status DC Sodium Chloride (NORMAL SALINE FLUSH for STERILE FIELD) 10 ml STK-MED ONCE .ROUTE ; Start 09/15/18 at 17:45; Stop 09/15/18 at 17:46; Status DC Vancomycin HCl (Vanco Per Pharmacy) 1 each PRN DAILY PRN [facility] SEE COMMENTS; Start 09/15/18 at 18:45; Status UNV Piperacillin Sod/ Tazobactam Sod (Zosyn Per Pharmacy) 1 each PRN DAILY PRN MC SEE COMMENTS; Start 09/15/18 at 18:45; Status UNV Vancomycin HCl 2 gm/Sodium Chloride 500 ml @ 250 mls/hr 1X ONCE IV ; Start at 19:00; Stop 09/15/18 at 20:59 Piperacillin Sod/ Tazobactam Sod 4.5 gm/Sodium Chloride 100 ml @ 200 mls/hr 1X ONCE IV Last administered on 09/15/18at 19:04; Start 09/15/18 at 19:00; Stop 09/15/18 at 19:29; Status DC Acetaminophen (Tylenol) 650 mg PRN Q4HRS PRN PO FEVER; Start 09/15/18 at 19:00 ; Stop 09/16/18 at 18:59 Albuterol/ Ipratropium (Duoneb) 3 ml RTQID NEB ; Start 09/15/18 at 20:00; Stop 09/16/18 at 19:59 Active Scripts Active Prednisone 50 Mg Tablet 1 Tab PO DAILY Doxycycline Monohydrate 100 Mg Capsule 1 Cap PO BID Reported Hydrocodone-Apap 5-325 (Hydrocodone Bit/Acetaminophen) 1 Tab Tablet 1 Tab PO PRN Q6HRS PRN Buspirone Hcl 5 Mg Tablet 1 Tab PO BID Trelegy Ellipta 100-62.5-25 (Fluticasone/Umeclidin/Vilanter) 1 Each Blst.w.dev 1 Each IH QHS PRN Carvedilol 25 Mg Tablet 12.5 Mg PO BIDWMEALS Proair Hfa Inhaler (Albuterol Sulfate) 8.5 Gm Hfa.aer.ad 1 Puff INH PRN Q6HRS PRN Albuterol Sulfate Neb Soln (Albuterol Sulfate) 2.5 Mg/3 Ml Vial.neb 1 Vial NEB PRN Q4HRS Amlodipine Besylate 10 Mg Tablet 10 Mg PO DAILY Allergies Allergies: Coded Allergies: chocolate flavor (Verified Allergy, Intermediate, 07/16/18) patient states he is allergic to chocolate not just chocolate flavor peanut (Verified Allergy, Intermediate, HIVES, 07/16/18) ROS Review of System Review of Systems Review of Systems Constitutional: Denies fever or chills [] Eyes: Denies change in visual acuity, redness, or eye pain [] HENT: Denies nasal congestion or sore throat [] Respiratory: Denies cough. Reports SOA/labored breathing, LESS IN ICU Cardiovascular: Denies CP GI: Denies abdominal pain, nausea, vomiting, bloody stools or diarrhea [] : Denies dysuria or hematuria [] Musculoskeletal: Denies back/neck pain or joint pain [] Integument: Denies rash or skin lesions [] Neurologic: Denies headache, focal weakness or sensory changes [] Endocrine: Denies polyuria or polydipsia [] 14 PT systems were reviewed and found to be within normal limits, except as documented Respiratory: YES: Shortness of breath, SOB with excertion Gastrointestinal: No Nausea, No Vomiting, No Abdominal Pain, No Diarrhea, No Constipation, No Melena, No Hematochezia, No Other Musculoskeletal: Yes Joint Stiffness Physical Exam Physical Exam Physical Exam Physical Exam Constitutional: Well developed, well nourished, MILD- moderate distress, non- toxic appearance. [] HENT: Normocephalic, atraumatic, bilateral external ears normal, oropharynx moist, no oral exudates, nose normal. [] Eyes: Pupils equal, conjunctiva normal, no discharge. [] Neck: Normal range of motion, no tenderness, supple, no stridor. Trachea midline - no crepitus Cardiovascular: Tachycardic heart rate regular rhythm, no murmur [] Lungs & Thorax: Labored resp. effort with moderate resp. distress. RLL CRACKLES Port a Cath lt subclav. chest- no swelling/erythema at site Abdomen: Bowel sounds normal, soft, no tenderness, no masses, no pulsatile masses. [] Skin: Warm, dry, no erythema, no rash. [] Back: No tenderness, no CVA tenderness. [] Extremities: No tenderness, no cyanosis, no clubbing, ROM intact, no edema. [] Neurologic: Alert and oriented X 3, normal motor function, normal sensory function, no focal deficits noted. [] Psychologic: Affect normal, judgement normal, mood normal. [] General: Alert, Oriented X3, Cooperative, mild distress HEENT: Atraumatic Heart: S1S2, RRR, no murmurs Breasts: Not examined Abdomen: Soft Rectal Exam: not examined Extremities: No cyanosis Neuro: Normal speech, Cranial nerves 3-12 NL Psych/Mental Status: Mental status NL, Mood NL Vitals Vitals Vital Signs Date Time Temp Pulse Resp B/P (MAP) Pulse Ox O2 Delivery O2 Flow Rate FiO2 09/15/18 19:00 91 20 177/86 (116) 98 Nasal Cannula 4.0 09/15/18 17:45 99.2 99.2 Labs Labs Diagnosis: "RT axillary node biopsy", excisional biopsy: - FIBROADIPOSE CONNECTIVE TISSUE WITH METASTATIC SMALL CELL CARCINOMA (SEE COMMENT). . ([facility]; 04/13/18) [facility]/04/13/2018 . 02 Comment: No background lymph node architecture is present for evaluation. The patient has a history of "small cell carcinoma" from a lung mass - right bronchus intermedius, needle core biopsy ([id number]). Clinical and radiographic correlation is recommended. . ([facility]; 04/13/18) Laboratory Tests Test 09/15/18 18:05 09/15/18 18:30 White Blood Count 8.0 x10^3/uL (4.0-11.0) Red Blood Count 2.96 x10^6/uL (4.30-5.70) Hemoglobin 7.7 g/dL (13.0-17.5) Hematocrit 23.9 % (39.0-53.0) Mean Corpuscular Volume 81 fL (79-100) Mean Corpuscular Hemoglobin 26 pg (25-35) Mean Corpuscular Hemoglobin Concent 32 g/dL (31-37) Red Cell Distribution Width 20.0 % (11.5-14.5) Platelet Count 314 x10^3/uL (140-400) Neutrophils (%) (Auto) 80 % (31-73) Lymphocytes (%) (Auto) 6 % (24-48) Monocytes (%) (Auto) 10 % (0-9) Eosinophils (%) (Auto) 4 % (0-3) Basophils (%) (Auto) 1 % (0-3) Neutrophils # (Auto) 6.4 x10^3uL (1.8-7.7) Lymphocytes # (Auto) 0.5 x10^3/uL (1.0-4.8) Monocytes # (Auto) 0.8 x10^3/uL (0.0-1.1) Eosinophils # (Auto) 0.3 x10^3/uL (0.0-0.7) Basophils # (Auto) 0.0 x10^3/uL (0.0-0.2) Sodium Level 142 mmol/L (136-145) Potassium Level 4.1 mmol/L (3.5-5.1) Chloride Level 104 mmol/L (98-107) Carbon Dioxide Level 30 mmol/L (21-32) Anion Gap 8 (6-14) Blood Urea Nitrogen 23 mg/dL (8-26) Creatinine 1.9 mg/dL (0.7-1.3) Estimated GFR (Cockcroft-Gault) 43.3 BUN/Creatinine Ratio 12 (6-20) Glucose Level 148 mg/dL (70-99) Lactic Acid Level 1.1 mmol/L (0.4-2.0) Calcium Level 8.6 mg/dL (8.5-10.1) Magnesium Level 1.8 mg/dL (1.8-2.4) Total Bilirubin 0.1 mg/dL (0.2-1.0) Aspartate Amino Transf (AST/SGOT) 18 U/L (15-37) Alanine Aminotransferase (ALT/SGPT) 10 U/L (16-63) Alkaline Phosphatase 82 U/L (46-116) Troponin I Quantitative 0.260 ng/mL (0.000-0.055) EJ-Qaa-F-Type Natriuretic Peptide 2993 pg/mL (0-124) Total Protein 7.5 g/dL (6.4-8.2) Albumin 2.0 g/dL (3.4-5.0) Albumin/Globulin Ratio 0.4 (1.0-1.7) Influenza Type A Antigen Negative (NEGATIVE) Influenza Type B Antigen Negative (NEGATIVE) Laboratory Tests Test 09/15/18 18:05 09/15/18 18:30 White Blood Count 8.0 x10^3/uL (4.0-11.0) Red Blood Count 2.96 x10^6/uL (4.30-5.70) Hemoglobin 7.7 g/dL (13.0-17.5) Hematocrit 23.9 % (39.0-53.0) Mean Corpuscular Volume 81 fL (79-100) Mean Corpuscular Hemoglobin 26 pg (25-35) Mean Corpuscular Hemoglobin Concent 32 g/dL (31-37) Red Cell Distribution Width 20.0 % (11.5-14.5) Platelet Count 314 x10^3/uL (140-400) Neutrophils (%) (Auto) 80 % (31-73) Lymphocytes (%) (Auto) 6 % (24-48) Monocytes (%) (Auto) 10 % (0-9) Eosinophils (%) (Auto) 4 % (0-3) Basophils (%) (Auto) 1 % (0-3) Neutrophils # (Auto) 6.4 x10^3uL (1.8-7.7) Lymphocytes # (Auto) 0.5 x10^3/uL (1.0-4.8) Monocytes # (Auto) 0.8 x10^3/uL (0.0-1.1) Eosinophils # (Auto) 0.3 x10^3/uL (0.0-0.7) Basophils # (Auto) 0.0 x10^3/uL (0.0-0.2) Sodium Level 142 mmol/L (136-145) Potassium Level 4.1 mmol/L (3.5-5.1) Chloride Level 104 mmol/L (98-107) Carbon Dioxide Level 30 mmol/L (21-32) Anion Gap 8 (6-14) Blood Urea Nitrogen 23 mg/dL (8-26) Creatinine 1.9 mg/dL (0.7-1.3) Estimated GFR (Cockcroft-Gault) 43.3 BUN/Creatinine Ratio 12 (6-20) Glucose Level 148 mg/dL (70-99) Lactic Acid Level 1.1 mmol/L (0.4-2.0) Calcium Level 8.6 mg/dL (8.5-10.1) Magnesium Level 1.8 mg/dL (1.8-2.4) Total Bilirubin 0.1 mg/dL (0.2-1.0) Aspartate Amino Transf (AST/SGOT) 18 U/L (15-37) Alanine Aminotransferase (ALT/SGPT) 10 U/L (16-63) Alkaline Phosphatase 82 U/L (46-116) Troponin I Quantitative 0.260 ng/mL (0.000-0.055) VX-Sgz-P-Type Natriuretic Peptide 2993 pg/mL (0-124) Total Protein 7.5 g/dL (6.4-8.2) Albumin 2.0 g/dL (3.4-5.0) Albumin/Globulin Ratio 0.4 (1.0-1.7) Influenza Type A Antigen Negative (NEGATIVE) Influenza Type B Antigen Negative (NEGATIVE) VTE Prophylaxis Ordered VTE Prophylaxis Devices: Yes VTE Pharmacological Prophylaxi: Yes Assessment/Plan Assessment/Plan IMPRESSION 1. Postobstructive pneumonia. 2. History of lung cancer.,METASTATIC SMALL CELL CARCINOMA has completed 4 cycles of chemotherapy with carboplatin and etoposide along with nivolumab under a clinical trial and a CT revealed response to treatment, 3. Mild heart failure. 4. Right pleural effusion/ infiltrate/ PNEUMONIA 5. Acute hypoxic resp failure 6. COPD 7, Tobacco abuse 8. diabetes 9. hypertension 10. inc troponin i 11. anemia, cytopenia on chemotherapy plan icu bed consult pulm consult Dr BURNETT emperic iv antibiotics, zosyn, vancomycin blood cult o2 support dvt prophylaxis consult cardiology serial troponin i accuchecks am labs 36 min cc time DANIEL UGALDE MD Sep 15, 2018 20:07
[2018-09-15] MEDS ORDERED: ALBUTEROL SULFATE 2.5 MG/3 ML NEBU. NEB PRN (20:30)
[2018-09-15 21:00] VITALS: BP 168/86
[2018-09-15] MEDS: VANCOMYCIN PER PHARMACY MC PRN (21:01)
--- NOTE | 2018-09-15 21:07 | NUR ---
Pharmacy Vancomycin Dosing Note S:Consulted to monitor and dose vancomycin started 09/15/18. O:JESSICA MEDINA is a 63 year old M with Pneumonia . Height: 5 feet, 10 inches Weight: 106.775907 kg Eunice Body Weight: 73.00 Adjusted Body Weight: 86.24 Dosing Weight: Actual Other Antibiotics: zOSYN LABS: Last BUN: 23 Last Creatinine: 1.9 Creatinine Clearance: 47.3 mL/min Last WBC: 8.0 Last Procalcitonin: Tmax (past 24 hours): 99.2 Microbiology: I/O: Drug Levels: Last level: on at Last dose given 09/15/18 at 2043 Vancomycin Dosing: Loading Dose: 2000 mg x1 Dosing Weight: Actual Target Trough: 15-20 A: Based on weight and est. CrCl: P: 1. Vancomycin 2000mg, followed by Vancomycin 1500 mg IV q24h. 2. Follow up Trough level on 09/17/18 at 2030. 3. Pharmacy will continue to monitor, follow and adjust therapy as needed. Berhane Vo [facility], 09/15/18 [id number]
[2018-09-15] MEDS: busPIRone 5 MG TABLET. PO SCH (21:21)
--- NOTE | 2018-09-15 21:31 | RAD ---
AP chest. HISTORY: Short of air AP view was taken of the chest. The heart is enlarged. There is pulmonary vascular congestion suggesting heart failure. Port-A-Cath on the left is unchanged. There is a large right pleural effusion. There is right basilar atelectasis or infiltrate. IMPRESSION: 1. Cardiomegaly with vascular congestion. 2. Large right pleural effusion with right basilar atelectasis or infiltrate with worsening compared to August 12. Electronically signed by: Herve Wright MD (09/15/2018 9:28 PM) [id number]
[2018-09-15 22:00] VITALS: BP 156/89
[2018-09-15 23:00] VITALS: BP 149/83
--- NOTE | 2018-09-15 23:30 | NUR ---
Dr English reached by phone at home and given update on pt condition as well as his request to change physician from Gustavo to Felice, Dr English approves this at this time. registration notified. will pass on in report.
[2018-09-15] MEDS: PIPERACILLIN/TAZOBACTAM 4.5 GM in IV NORMAL SALINE 100ML 100 ML IV SCH (23:59)
[2018-09-16] VITALS (18 sets, daily range): BP systolic 140–162; BP diastolic 71–96
[2018-09-16] MEDS: PIPERACILLIN/TAZOBACTAM 4.5 GM in IV NORMAL SALINE 100ML 100 ML IV SCH ×3 (05:47→18:10)
[2018-09-16 06:09] LABS: BASO % 0 % (0-3); EOS % 0 % (0-3); HEMOGLOBIN 7.6 g/dL (13.0-17.5); LYMPH # 0.2 x10^3/uL (1.0-4.8); LYMPH % 3 % (24-48); MEAN CORPUSCULAR HEMOGLOBIN 26 pg (25-35); MEAN CORPUSCULAR HGB CONC 32 g/dL (31-37); MEAN CORPUSCULAR VOLUME 81 fL (79-100); MONO # 0.1 x10^3/uL (0.0-1.1); MONO % 1 % (0-9); NEUT # 6.2 x10^3uL (1.8-7.7); NEUT % 96 % (31-73); PLATELET COUNT 299 x10^3/uL (140-400); RED BLOOD COUNT 2.94 x10^6/uL (4.30-5.70); RED CELL DISTRIBUTION WIDTH 19.5 % (11.5-14.5); WHITE BLOOD COUNT 6.4 x10^3/uL (4.0-11.0)
[2018-09-16 06:28] LABS: ALBUMIN/GLOBULIN RATIO 0.4 (1.0-1.7); ALK PHOS 74 U/L (46-116); ANION GAP 10 (6-14); AST (SGOT) 15 U/L (15-37); BLOOD UREA NITROGEN 24 mg/dL (8-26); BUN/CREATININE RATIO 13 (6-20); CALCIUM 8.7 mg/dL (8.5-10.1); CARBON DIOXIDE 25 mmol/L (21-32); CHLORIDE 104 mmol/L (98-107); CREATININE 1.9 mg/dL (0.7-1.3); GFR 43.3; GLUCOSE 183 mg/dL (70-99); POTASSIUM 4.8 mmol/L (3.5-5.1); SODIUM 139 mmol/L (136-145); TOTAL BILIRUBIN 0.1 mg/dL (0.2-1.0); TOTAL PROTEIN 7.6 g/dL (6.4-8.2)
[2018-09-16 06:29] LABS: ALT (SGPT) < 6 U/L (16-63)
--- NOTE | 2018-09-16 07:20 | PDOC ---
Provider Note Provider Note [id number] acute on chronic resp fail abnl cxr, infil, effusion,atelectasis ae copd acute bronchitis vs post obs pneumonia see orders MARGARET VALADEZ MD Sep 16, 2018 07:20
[2018-09-16] MEDS: PANTOPRAZOLE 40 MG TABLET.DR. PO SCH (08:28)
[2018-09-16] MEDS: busPIRone 5 MG TABLET. PO SCH ×2 (08:28→20:54)
[2018-09-16] MEDS: methylPREDNISolone SOD SUCC PF 40 MG/ML VIAL. IV SCH ×3 (08:28→21:57)
[2018-09-16] MEDS: CARVEDILOL 12.5 MG TABLET. PO SCH ×2 (08:30→18:10)
[2018-09-16] MEDS: amLODIPine BESYLATE 10 MG TABLET PO SCH (08:32)
[2018-09-16] MEDS: NICOTINE 14MG PATCH. TD SCH (08:33)
--- NOTE | 2018-09-16 08:34 | CONS ---
DATE OF CONSULTATION: 09/16/2018 I was asked to see this 63-year-old gentleman for [id number] respiratory failure. HISTORY OF PRESENT ILLNESS: He has a history of [id number] smoking, smoking a few cigarettes here and there. He is on oxygen 2 liters per minute via nasal cannula. He has a stage 4 small cell lung cancer with mets to multiple lymph nodes in chest and abdomen. He was on immunotherapy, it was stopped and he was going to get chemotherapy today. He is under the care of Dr. Bartlett. He started to have increased shortness of breath yesterday. He did not have cough, but he has cough now. He denied chest pain. He denies fever or chills. He has occasional runny nose, but denies gastroesophageal reflux symptoms or diarrhea. He was brought to the Emergency Room via EMS and was treated with antibiotic and steroids and bronchodilator. His respiratory status did improve. He was transferred to ICU for further treatment. He is currently in ICU. PAST MEDICAL HISTORY: COPD, stage 4 small cell lung cancer, diabetes mellitus, gastroesophageal reflux disease, hypertension, diastolic CHF. ALLERGIES: CHOCOLATE AND PEANUTS. MEDICATIONS: Currently is on Zosyn, vancomycin, DuoNeb. SOCIAL HISTORY: History of [id number] smoking, continues to smoke a few cigarettes here and there. FAMILY HISTORY: Hypertension. REVIEW OF SYSTEMS: As mentioned above, he has had increased lower extremity edema. Other systems are otherwise negative. PHYSICAL EXAMINATION: GENERAL: This is an elderly gentleman. VITAL SIGNS: His O2 saturation on 4 liters of oxygen is 98%, respiratory rate 15, heart rate 84, blood pressure 155/92, temperature 98.4. In the Emergency Room, his temperature was 99.2. HEENT: Normocephalic, atraumatic. Pupils equal, round, reactive to light. Throat is clear. Nose is clear. NECK: There is no thyromegaly. There is no lymphadenopathy. CARDIOVASCULAR: Regular rate and rhythm. Distant heart sounds. CHEST: Inspection is normal. LUNGS: There is end expiratory wheezing, right basilar crackles, and dullness at the right base. ABDOMEN: Soft. Bowel sounds are good. There is no mass. EXTREMITIES: There is 1+ edema. NEUROLOGIC: Alert and oriented. SKIN: Chronic changes. LABORATORY AND DIAGNOSTIC DATA: I reviewed the following lab data: Sodium 139, potassium 4.8, chloride 104, CO2 of 25, glucose 183, BUN 24, creatinine 1.9, lactic acid 1.1, troponin 0.26 and 0.299. BNP 2993. Chest x-ray shows right hilar mass, right infiltrates/atelectasis/effusion. Influenza A and B negative. IMPRESSION: 1. Acute on chronic respiratory failure secondary to acute exacerbation of chronic obstructive pulmonary disease, acute bronchitis versus pneumonia, progressing lung cancer, acute diastolic congestive heart failure versus others. 2. Abnormal chest x-ray. Chest x-ray showed right hilar mass with right lower lobe infiltrate/atelectasis/effusion. His heart is not shifted to the left, so I suspect most of his chest x-ray abnormality is secondary to atelectasis probably secondary to progressing lung cancer and endobronchial lesion, he may have postobstructive pneumonia versus others. 3. Stage 4 small cell lung cancer, progressing. 4. Chronic kidney disease. 5. Hypertension. 6. Elevated troponin? non-ST elevation myocardial infarction. 7. Tobacco habituation. 8. Acute exacerbation of chronic obstructive pulmonary disease. 9. Acute bronchitis versus pneumonia. 10. Anemia. PLAN AND RECOMMENDATIONS: 1. Titrate FiO2 to keep O2 saturation 92%. 2. Continue bronchodilator. 3. Add Solu-Medrol 40 mg IV every 8 hours. 4. Continue Rocephin and vancomycin. 5. Protonix for stress ulcer prophylaxis. 6. I will do a CT of the chest without contrast to have a better look at his abnormal chest x-ray. If there is enough pleural fluid, he will require ultrasound-guided thoracentesis. 7. Cardiology is consulted. Suspect his elevated troponin is secondary to demand ischemia. 8. Lower extremity venous Doppler. 9. Monitor respiratory status very closely in ICU. 10. The findings and recommendations were discussed with the patient and RN. He understood and agreed to proceed with the plan. I have answered all of his questions. Thank you very much for allowing me to participate in care of this very nice gentleman. MARGARET VALADEZ M.D. : DE/mayra JOB#: [id number] / [id number] [place]
[2018-09-16] MEDS: IPRATRPIUM/ALBUTEROL 0.5/2.5MG 3 ML NEBU. NEB SCH ×4 (08:42→20:01)
[2018-09-16] MEDS: BUDESONIDE 0.5 MG/2 ML NEBU. NEB SCH ×2 (08:42→20:01)
--- NOTE | 2018-09-16 08:42 | RAD ---
Bilateral lower extremity venous ultrasound: History: Bilateral lower extremity edema Sonographic evaluation including grayscale, color flow and spectral Doppler analysis of the deep veins of the lower extremities was performed. The femoral and popliteal veins demonstrate normal compressibility and normal responses to distal augmentation maneuvers. Color imaging of those vessels shows no evidence of intraluminal clot. The visualized deep veins in both calves are patent. IMPRESSION: There is no sonographic evidence of deep vein thrombosis in either lower extremity. Electronically signed by: Herve Wright MD (09/16/2018 8:39 AM) [facility]
[2018-09-16 09:30] LABS: % BANDS 11 % (0-9); % LYMPHS 2 % (24-48); % MONOS 1 % (0-10); % SEGS 86 % (35-66)
[2018-09-16 09:32] LABS: ANISOCYTOSIS SLIGHT; HYPOCHROMIA SLIGHT; MICROCYTOSIS SLIGHT; PLT ESTIMATE ADEQUATE (ADEQUATE); POIKILOCYTOSIS SLIGHT
[2018-09-16] MEDS: VANCOMYCIN PER PHARMACY MC PRN (09:42)
--- NOTE | 2018-09-16 11:02 | PDOC ---
IM PROGRESS NOTES- Subjective Subjective Dyspnea is improving. No complaints of her chest pains, palpitations or dizziness. Cough is improving. Objective Vitals Vital Signs Date Time Temp Pulse Resp B/P (MAP) Pulse Ox O2 Delivery O2 Flow Rate FiO2 09/16/18 10:00 79 18 160/84 (109) 95 Nasal Cannula 4.0 09/16/18 07:00 98.2 98.2 Input & Output Intake and Output 09/16/18 07:00 Intake Total 1100 ml Output Total 450 ml Balance 650 ml Intake Oral 500 ml IV Total 600 ml Output Urine Total 450 ml Physical Exam Physical Exam General appearance - alert,ill appearing, and in mild distress and oriented to person, place, and time Mental Status - alert, oriented to person, place, and time, affect appropriate to mood Head - normal Chest - clear to auscultation, no wheezes, rales or rhonchi, symmetric air entry Heart - S1 and S2 normal in moderate distress with decreased breath sounds at bases more on the right side. Abdomen - soft, nontender, nondistended, no masses or organomegaly Neurological - alert and oriented, very weak Musculoskeletal - no muscular tenderness noted Extremities - no pedal edema Skin - warm and dry Labs Laboratory Tests Test 09/15/18 18:05 09/15/18 18:30 09/16/18 00:00 09/16/18 05:50 White Blood Count 8.0 x10^3/uL (4.0-11.0) 6.4 x10^3/uL (4.0-11.0) Red Blood Count 2.96 x10^6/uL (4.30-5.70) 2.94 x10^6/uL (4.30-5.70) Hemoglobin 7.7 g/dL (13.0-17.5) 7.6 g/dL (13.0-17.5) Hematocrit 23.9 % (39.0-53.0) 24.0 % (39.0-53.0) Mean Corpuscular Volume 81 fL (79-100) 81 fL (79-100) Mean Corpuscular Hemoglobin 26 pg (25-35) 26 pg (25-35) Mean Corpuscular Hemoglobin Concent 32 g/dL (31-37) 32 g/dL (31-37) Red Cell Distribution Width 20.0 % (11.5-14.5) 19.5 % (11.5-14.5) Platelet Count 314 x10^3/uL (140-400) 299 x10^3/uL (140-400) Neutrophils (%) (Auto) 80 % (31-73) 96 % (31-73) Lymphocytes (%) (Auto) 6 % (24-48) 3 % (24-48) Monocytes (%) (Auto) 10 % (0-9) 1 % (0-9) Eosinophils (%) (Auto) 4 % (0-3) 0 % (0-3) Basophils (%) (Auto) 1 % (0-3) 0 % (0-3) Neutrophils # (Auto) 6.4 x10^3uL (1.8-7.7) 6.2 x10^3uL (1.8-7.7) Lymphocytes # (Auto) 0.5 x10^3/uL (1.0-4.8) 0.2 x10^3/uL (1.0-4.8) Monocytes # (Auto) 0.8 x10^3/uL (0.0-1.1) 0.1 x10^3/uL (0.0-1.1) Eosinophils # (Auto) 0.3 x10^3/uL (0.0-0.7) 0.0 x10^3/uL (0.0-0.7) Basophils # (Auto) 0.0 x10^3/uL (0.0-0.2) 0.0 x10^3/uL (0.0-0.2) Sodium Level 142 mmol/L (136-145) 139 mmol/L (136-145) Potassium Level 4.1 mmol/L (3.5-5.1) 4.8 mmol/L (3.5-5.1) Chloride Level 104 mmol/L (98-107) 104 mmol/L (98-107) Carbon Dioxide Level 30 mmol/L (21-32) 25 mmol/L (21-32) Anion Gap 8 (6-14) 10 (6-14) Blood Urea Nitrogen 23 mg/dL (8-26) 24 mg/dL (8-26) Creatinine 1.9 mg/dL (0.7-1.3) 1.9 mg/dL (0.7-1.3) Estimated GFR (Cockcroft-Gault) 43.3 43.3 BUN/Creatinine Ratio 12 (6-20) 13 (6-20) Glucose Level 148 mg/dL (70-99) 183 mg/dL (70-99) Lactic Acid Level 1.1 mmol/L (0.4-2.0) Calcium Level 8.6 mg/dL (8.5-10.1) 8.7 mg/dL (8.5-10.1) Magnesium Level 1.8 mg/dL (1.8-2.4) Total Bilirubin 0.1 mg/dL (0.2-1.0) 0.1 mg/dL (0.2-1.0) Aspartate Amino Transf (AST/SGOT) 18 U/L (15-37) 15 U/L (15-37) Alanine Aminotransferase (ALT/SGPT) 10 U/L (16-63) < 6 U/L (16-63) Alkaline Phosphatase 82 U/L (46-116) 74 U/L (46-116) Troponin I Quantitative 0.260 ng/mL (0.000-0.055) 0.299 ng/mL (0.000-0.055) VA-Viz-M-Type Natriuretic Peptide 2993 pg/mL (0-124) Total Protein 7.5 g/dL (6.4-8.2) 7.6 g/dL (6.4-8.2) Albumin 2.0 g/dL (3.4-5.0) 2.0 g/dL (3.4-5.0) Albumin/Globulin Ratio 0.4 (1.0-1.7) 0.4 (1.0-1.7) Influenza Type A Antigen Negative (NEGATIVE) Influenza Type B Antigen Negative (NEGATIVE) Segmented Neutrophils % 86 % (35-66) Band Neutrophils % 11 % (0-9) Lymphocytes % 2 % (24-48) Monocytes % 1 % (0-10) Platelet Estimate Adequate (ADEQUATE) Hypochromasia Slight Poikilocytosis Slight Anisocytosis Slight Microcytosis Slight Procalcitonin 20.34 ng/mL (0.00-0.10) Laboratory Tests Test 09/15/18 18:05 09/15/18 18:30 4/14/19 00:00 09/16/18 05:50 White Blood Count 8.0 x10^3/uL (4.0-11.0) 6.4 x10^3/uL (4.0-11.0) Red Blood Count 2.96 x10^6/uL (4.30-5.70) 2.94 x10^6/uL (4.30-5.70) Hemoglobin 7.7 g/dL (13.0-17.5) 7.6 g/dL (13.0-17.5) Hematocrit 23.9 % (39.0-53.0) 24.0 % (39.0-53.0) Mean Corpuscular Volume 81 fL (79-100) 81 fL (79-100) Mean Corpuscular Hemoglobin 26 pg (25-35) 26 pg (25-35) Mean Corpuscular Hemoglobin Concent 32 g/dL (31-37) 32 g/dL (31-37) Red Cell Distribution Width 20.0 % (11.5-14.5) 19.5 % (11.5-14.5) Platelet Count 314 x10^3/uL (140-400) 299 x10^3/uL (140-400) Neutrophils (%) (Auto) 80 % (31-73) 96 % (31-73) Lymphocytes (%) (Auto) 6 % (24-48) 3 % (24-48) Monocytes (%) (Auto) 10 % (0-9) 1 % (0-9) Eosinophils (%) (Auto) 4 % (0-3) 0 % (0-3) Basophils (%) (Auto) 1 % (0-3) 0 % (0-3) Neutrophils # (Auto) 6.4 x10^3uL (1.8-7.7) 6.2 x10^3uL (1.8-7.7) Lymphocytes # (Auto) 0.5 x10^3/uL (1.0-4.8) 0.2 x10^3/uL (1.0-4.8) Monocytes # (Auto) 0.8 x10^3/uL (0.0-1.1) 0.1 x10^3/uL (0.0-1.1) Eosinophils # (Auto) 0.3 x10^3/uL (0.0-0.7) 0.0 x10^3/uL (0.0-0.7) Basophils # (Auto) 0.0 x10^3/uL (0.0-0.2) 0.0 x10^3/uL (0.0-0.2) Sodium Level 142 mmol/L (136-145) 139 mmol/L (136-145) Potassium Level 4.1 mmol/L (3.5-5.1) 4.8 mmol/L (3.5-5.1) Chloride Level 104 mmol/L (98-107) 104 mmol/L (98-107) Carbon Dioxide Level 30 mmol/L (21-32) 25 mmol/L (21-32) Anion Gap 8 (6-14) 10 (6-14) Blood Urea Nitrogen 23 mg/dL (8-26) 24 mg/dL (8-26) Creatinine 1.9 mg/dL (0.7-1.3) 1.9 mg/dL (0.7-1.3) Estimated GFR (Cockcroft-Gault) 43.3 43.3 BUN/Creatinine Ratio 12 (6-20) 13 (6-20) Glucose Level 148 mg/dL (70-99) 183 mg/dL (70-99) Lactic Acid Level 1.1 mmol/L (0.4-2.0) Calcium Level 8.6 mg/dL (8.5-10.1) 8.7 mg/dL (8.5-10.1) Magnesium Level 1.8 mg/dL (1.8-2.4) Total Bilirubin 0.1 mg/dL (0.2-1.0) 0.1 mg/dL (0.2-1.0) Aspartate Amino Transf (AST/SGOT) 18 U/L (15-37) 15 U/L (15-37) Alanine Aminotransferase (ALT/SGPT) 10 U/L (16-63) < 6 U/L (16-63) Alkaline Phosphatase 82 U/L (46-116) 74 U/L (46-116) Troponin I Quantitative 0.260 ng/mL (0.000-0.055) 0.299 ng/mL (0.000-0.055) GH-Une-H-Type Natriuretic Peptide 2993 pg/mL (0-124) Total Protein 7.5 g/dL (6.4-8.2) 7.6 g/dL (6.4-8.2) Albumin 2.0 g/dL (3.4-5.0) 2.0 g/dL (3.4-5.0) Albumin/Globulin Ratio 0.4 (1.0-1.7) 0.4 (1.0-1.7) Influenza Type A Antigen Negative (NEGATIVE) Influenza Type B Antigen Negative (NEGATIVE) Segmented Neutrophils % 86 % (35-66) Band Neutrophils % 11 % (0-9) Lymphocytes % 2 % (24-48) Monocytes % 1 % (0-10) Platelet Estimate Adequate (ADEQUATE) Hypochromasia Slight Poikilocytosis Slight Anisocytosis Slight Microcytosis Slight Procalcitonin 20.34 ng/mL (0.00-0.10) Meds Current Medications Acetaminophen (Tylenol) 650 mg PRN Q4HRS PRN PO FEVER; Start 09/15/18 at 19:00 ; Stop 09/16/18 at 18:59 Acetaminophen/ Hydrocodone Bitart (Lortab 5/325) 1 tab PRN Q6HRS PRN PO MODERATE PAIN; Start 09/15/18 at 20:30 Albuterol Sulfate (Ventolin Neb Soln) 2.5 mg PRN Q4HRS PRN NEB SHORTNESS OF BREATH; Start 09/15/18 at 20:30 Albuterol/ Ipratropium (Duoneb) 3 ml 1X ONCE NEB Last administered on at 18:08; Start 09/15/18 at 17:45; Stop 09/15/18 at 17:48; Status DC Albuterol/ Ipratropium (Duoneb) 3 ml RTQID NEB Last administered on 09/15/18at 20:22; Start 09/15/18 at 20:00; Stop 09/15/18 at 21:08; Status DC Albuterol/ Ipratropium (Duoneb) 3 ml RTQID NEB Last administered on 09/16/18at 08:42; Start 09/16/18 at 08:00 Amlodipine Besylate (Norvasc) 10 mg DAILY PO Last administered on 09/16/18 08: 32; Start 09/16/18 at 09:00 Budesonide (Pulmicort) 0.5 mg RTBID NEB Last administered on 09/16/18 08:42; Start 09/16/18 at 08:00 Buspirone HCl (Buspar) 5 mg BID PO Last administered on 09/16/18 08:28; Start 09/15/18 at 21:00 Carvedilol (Coreg) 12.5 mg BIDWMEALS PO Last administered on 09/16/18 08:30; Start 09/16/18 at 08:00 Heparin Sodium (Porcine) (Heparin Sodium) 5,000 unit Q12HR SQ ; Start 09/16/18 at 21:00 Methylprednisolone Sodium Succinate (SOLU-Medrol 40MG VIAL) 40 mg Q8HRS IV Last administered on 09/16/18 08:28; Start 09/16/18 at 07:30 Methylprednisolone Sodium Succinate (SOLU-Medrol 125MG VIAL) 125 mg 1X ONCE IV Last administered on 09/15/18 17:20; Start 09/15/18 at 17:45; Stop 09/15/18 at 17:48; Status DC Nicotine (Nicoderm Cq 14mg) 1 patch DAILY TD Last administered on 09/16/18 08: 33; Start 09/16/18 at 09:00 Pantoprazole Sodium (Protonix) 40 mg DAILYAC PO Last administered on 09/16/18 08:28; Start 09/16/18 at 07:30 Piperacillin Sod/ Tazobactam Sod (Zosyn Per Pharmacy) 1 each PRN DAILY PRN MC SEE COMMENTS; Start 09/15/18 at 18:45 Piperacillin Sod/ Tazobactam Sod 4.5 gm/Sodium Chloride 100 ml @ 200 mls/hr 1X ONCE IV Last administered on 09/15/18 19:04; Start 09/15/18 at 19:00; Stop 09/15/18 at 19:29; Status DC Piperacillin Sod/ Tazobactam Sod 4.5 gm/Sodium Chloride 100 ml @ 200 mls/hr Q6HRS IV Last administered on 09/16/18at 05:47; Start 09/16/18 at 00:00 Sodium Chloride (NORMAL SALINE FLUSH for STERILE FIELD) 10 ml STK-MED ONCE .ROUTE ; Start 09/15/18 at 17:45; Stop 09/15/18 at 17:46; Status DC Vancomycin HCl (Vanco Per Pharmacy) 1 each PRN DAILY PRN MC SEE COMMENTS Last administered on 09/16/18at 09:42; Start 09/15/18 at 18:45 Vancomycin HCl (Vancomycin Trough Level) 1 each 1X ONCE MC ; Start 09/17/18 at 20:30; Stop 09/17/18 at 20:31 Vancomycin HCl 1.5 gm/Sodium Chloride 500 ml @ 250 mls/hr Q24H IV ; Start 09/16 at 21:00 Vancomycin HCl 2 gm/Sodium Chloride 500 ml @ 250 mls/hr 1X ONCE IV Last administered on 09/15/18at 20:43; Start 09/15/18 at 19:00; Stop 09/15/18 at 20:59 ; Status DC Assessment Assessment 1. Postobstructive pneumonia. 2. History of lung cancer.,METASTATIC SMALL CELL CARCINOMA has completed 4 cycles of chemotherapy with carboplatin and etoposide along with nivolumab under a clinical trial and a CT revealed response to treatment, 3. Mild heart failure. 4. Right pleural effusion/ infiltrate/ PNEUMONIA 5. Acute hypoxic resp failure 6. COPD 7, Tobacco abuse 8. diabetes 9. hypertension 10. inc troponin i 11. anemia, cytopenia on chemotherapy Plan- continue breathing treatment, IV vancomycin and Zosyn. Judie Bartlett and Dr. Vines has been consulted. Transfer to ICU. Check labs in a.m. Prognosis is very poor due to multiple medical problems and cancer of the lung. Chronic kidney disease. Creatinine is 1.9. Continue to monitor. Sepsis- pro-calcitonin and level is 20.34 Plan Plan For more details regarding further plans, please refer to the orders. RONNA RENO MD Sep 16, 2018 11:01
--- NOTE | 2018-09-16 11:27 | PDOC ---
CARDIOLOGY PROGRESS NOTE SUBJECTIVE: Please see full consult note from Aug 2018. 63 y.o male with Lung CA presenting with dyspnea and mildly elevated troponin. Denies any angina. No syncope or palpitations. OBJECTIVE: Vital SIgns: Vital Signs Date Time Temp Pulse Resp B/P (MAP) Pulse Ox O2 Delivery O2 Flow Rate FiO2 09/16/18 10:00 79 18 160/84 (109) 95 Nasal Cannula 4.0 09/16/18 07:00 98.2 98.2 I & O Intake and Output 09/16/18 07:00 Intake Total 1100 ml Output Total 450 ml Balance 650 ml Intake Oral 500 ml IV Total 600 ml Output Urine Total 450 ml Objective: Severely decreased breath sounds bilaterally. 1+ edema in the LE normal heart tones. CURRENT MEDICATIONS: Current Medications Medications (Trade) Dose Ordered Sig/Precious Start Time Stop Time Status Last Admin Dose Admin Acetaminophen (Tylenol) 650 mg PRN Q4HRS PRN 09/15/18 19:00 09/16/18 18:59 Acetaminophen/ Hydrocodone Bitart (Lortab 5/325) 1 tab PRN Q6HRS PRN 09/15/18 20:30 Albuterol Sulfate (Ventolin Neb Soln) 2.5 mg PRN Q4HRS PRN 09/15/18 20:30 Albuterol/ Ipratropium (Duoneb) 3 ml RTQID 09/16/18 08:00 09/16/18 08:42 3 ML Amlodipine Besylate (Norvasc) 10 mg DAILY 09/16/18 09:00 09/16/18 08:32 10 MG Budesonide (Pulmicort) 0.5 mg RTBID 09/16/18 08:00 09/16/18 08:42 0.5 MG Buspirone HCl (Buspar) 5 mg BID 09/15/18 21:00 09/16/18 08:28 5 MG Carvedilol (Coreg) 12.5 mg BIDWMEALS 09/16/18 08:00 09/16/18 08:30 12.5 MG Heparin Sodium (Porcine) (Heparin Sodium) 5,000 unit Q12HR 09/16/18 21:00 Methylprednisolone Sodium Succinate (SOLU-Medrol 40MG VIAL) 40 mg Q8HRS 09/16/18 07:30 09/16/18 08:28 40 MG Methylprednisolone Sodium Succinate (SOLU-Medrol 125MG VIAL) 125 mg 1X ONCE 09/15/18 17:45 09/15/18 17:48 DC 09/15/18 17:20 125 MG Nicotine (Nicoderm Cq 14mg) 1 patch DAILY 09/16/18 09:00 09/16/18 08:33 1 PATCH Pantoprazole Sodium (Protonix) 40 mg DAILYAC 09/16/18 07:30 09/16/18 08:28 40 MG Piperacillin Sod/ Tazobactam Sod (Zosyn Per Pharmacy) 1 each PRN DAILY PRN 09/15/18 18:45 Piperacillin Sod/ Tazobactam Sod 4.5 gm/Sodium Chloride 100 ml @ 200 mls/hr Q6HRS 09/16/18 00:00 09/16/18 05:47 200 MLS/HR Sodium Chloride (NORMAL SALINE FLUSH for STERILE FIELD) 10 ml STK-MED ONCE 09/15/18 17:45 09/15/18 17:46 DC Vancomycin HCl (Vanco Per Pharmacy) 1 each PRN DAILY PRN 09/15/18 18:45 09/16/18 09:42 1 EACH Vancomycin HCl (Vancomycin Trough Level) 1 each 1X ONCE 09/17/18 20:30 09/17/18 20:31 Vancomycin HCl 1.5 gm/Sodium Chloride 500 ml @ 250 mls/hr Q24H 09/16/18 21:00 Vancomycin HCl 2 gm/Sodium Chloride 500 ml @ 250 mls/hr 1X ONCE 09/15/18 19:00 09/15/18 20:59 DC 09/15/18 20:43 250 MLS/HR DIAGNOSTIC TESTING: CXR with large pleural effusion. Prior echo wnl. Echo with severe pulmonary HTN and normal EF in 08/2018 ASSESSMENT: 1. Dyspnea - secondary to p. HTN from lung CA and probable PNA 2. HTN 3. Elevated troponin - Type 2 NSTEMI. PLAN: 1. Continue treatment for PNA/Ca. 2. Start hydralazine 25mg bid and uptitrate. 3. Start Lasix 20mg IVP Diuresis as tolerated. LE edema due to pulmonary HTN. Supportive care. Thanks. SHIRLEY PORTILLO MD Sep 16, 2018 11:27
[2018-09-16] MEDS ORDERED: FUROSEMIDE 20 MG/2 ML VIAL. IVP ONE (11:30)
[2018-09-16] MEDS: HYDROcodone/APAP 5/325MG 1 TAB TABLET PO PRN (14:23)
--- NOTE | 2018-09-16 14:45 | NUR ---
Patient transferred to room 660 from ICU. He was transported by wheelchair. Pt was stand by assist with transfer to bed. Gait was slow but steady. Pt instructed to call for assistance prior to getting up. Pt verbalized understanding.
[2018-09-16] MEDS: hydrALAZINE 25 MG TABLET PO SCH (20:53)
[2018-09-16] MEDS: SENNOSIDES/DOCUSATE 8.6/50MG TABLET. PO SCH (20:54)
[2018-09-16] MEDS ORDERED: VANCOMYCIN 1.5 GM in IV NORMAL SALINE 500ML BAG 500 ML IV SCH (21:00)
[2018-09-16] MEDS: HEPARIN for SUB-Q USE 5,000 UNIT/ML VIAL. SQ SCH (21:01)
[2018-09-16] MEDS: MORPHINE SULFATE 2 MG/ML VIAL. IV PRN (21:54)
[2018-09-17] MEDS: PIPERACILLIN/TAZOBACTAM 4.5 GM in IV NORMAL SALINE 100ML 100 ML IV SCH ×2 (00:42→06:39)
[2018-09-17] MEDS: MORPHINE SULFATE 2 MG/ML VIAL. IV PRN ×3 (01:51→20:12)
[2018-09-17 03:30] VITALS: BP 153/86
[2018-09-17] MEDS: methylPREDNISolone SOD SUCC PF 40 MG/ML VIAL. IV SCH ×3 (06:39→21:09)
[2018-09-17 07:00] VITALS: BP 131/92
[2018-09-17] MEDS: BUDESONIDE 0.5 MG/2 ML NEBU. NEB SCH ×2 (07:22→19:48)
[2018-09-17] MEDS: IPRATRPIUM/ALBUTEROL 0.5/2.5MG 3 ML NEBU. NEB SCH ×4 (07:22→19:48)
--- NOTE | 2018-09-17 07:43 | EKG ---
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
--- NOTE | 2018-09-17 08:50 | RAD ---
Examination: CT CHEST WO CONTRAST History: ABNORMAL CHEST X-RAY
PREVIOUS Comparison/Correlation: 08/13/2018 CT chest without contrast, 09/15/2018 frontal view chest Findings: Axial images of chest were obtained without contrast. Left-sided infusion port is present with catheter terminating within the superior vena cava. Moderate to large right pleural effusion is present. Significant right lower lobe ectatic consolidation is present. Large right hilar mass noted with circumferential encasement and obliteration of the lumen of the right lower lobe. The mass measures up to 5.5 cm on axial image 38 but the mass from adjacent atelectasis is somewhat limited. Interstitial thickening about the mass which is concerning for lymphangitic involvement is increased. Multiple right upper and mid thoracic level pulmonary nodules are again noted. These measure up to 1.5 cm diameter at the right mid thoracic level best seen on axial image 28 of series 3. This finding is identified in the interval. Interval development of right middle lobe postobstructive atelectasis also is seen. Left lung field is unremarkable. Increase in size of precarinal lymphadenopathy is notable. Largest of the precarinal lymph nodes measures 3.3 cm x 5.4 cm transverse on axial image 28. Smaller right paratracheal and pretracheal lymph nodes are present but these are also significantly increased in size measuring up to 2.7 cm in diameter on axial image 22. Enlarged right lower axillary lymph node in the interval has increased in size measuring up to 2.0 cm. Extensive osteoblastic lesions involving bony structures are noted with particular involvement of the spine Right glenohumeral joint degenerative remodeling is present. Impression: Right hilar mass is increase in size in the interval. New right pulmonary nodules. Increased size of pulmonary nodules. Marked increase in right pleural effusion and atelectasis. Marked increase in superior mediastinal and right axillary lymphadenopathy. Extensive osseous metastases. PQRS Compliance Statement: One or more of the following individualized dose reduction techniques were utilized for this examination: 1. Automated exposure control 2. Adjustment of the mA and/or kV according to patient size 3. Use of iterative reconstruction technique Electronically signed by: Scar Renteria MD (09/17/2018 8:47 AM) [id number]
[2018-09-17] MEDS: hydrALAZINE 25 MG TABLET PO SCH ×2 (09:24→20:08)
[2018-09-17] MEDS: PANTOPRAZOLE 40 MG TABLET.DR. PO SCH (09:24)
[2018-09-17] MEDS: busPIRone 5 MG TABLET. PO SCH ×2 (09:24→20:08)
[2018-09-17] MEDS: amLODIPine BESYLATE 10 MG TABLET PO SCH (09:25)
[2018-09-17] MEDS: CARVEDILOL 12.5 MG TABLET. PO SCH ×2 (09:25→18:19)
[2018-09-17] MEDS: HEPARIN for SUB-Q USE 5,000 UNIT/ML VIAL. SQ SCH ×2 (09:25→20:08)
[2018-09-17] MEDS: NICOTINE 14MG PATCH. TD SCH (09:27)
--- NOTE | 2018-09-17 09:52 | PDOC ---
PROGRESS NOTES Subjective Subjective feels ok today Objective Objective Vital Signs Date Time Temp Pulse Resp B/P (MAP) Pulse Ox O2 Delivery O2 Flow Rate FiO2 09/17/18 09:25 110 131/92 09/17/18 07:23 96 Nasal Cannula 5.0 09/17/18 07:00 98.0 20 98.0 Intake and Output 09/17/18 07:00 Intake Total 1300 ml Output Total 1050 ml Balance 250 ml Intake Oral 700 ml IV Total 600 ml Output Urine Total 1050 ml Physical Exam Abdomen: Soft Heart: Regular rate Extremities: No cyanosis, Other (leg swelling) General: Alert, Oriented X3, Cooperative, mild distress HEENT: Atraumatic Lungs: Other (dec breath sounds) MUSCULOSKELETAL: No deformity Neuro: Normal speech, Cranial nerves 3-12 NL Psych/Mental Status: Mental status NL, Mood NL Diagnosis Problem List Problems Medical Problems: (1) Pleural effusion Status: Acute Assessment Assessment 1. Postobstructive pneumonia. 2. History of lung cancer.,METASTATIC SMALL CELL CARCINOMA,stage 4 has completed 4 cycles of chemotherapy with carboplatin and etoposide along with nivolumab under a clinical trial and a CT revealed response to treatment, 3. Mild heart failure. 4. Right pleural effusion/ infiltrate/ PNEUMONIA 5. Acute hypoxic resp failure 6. COPD 7, Tobacco abuse 8. diabetes 9. hypertension 10. inc troponin i 11. anemia, cytopenia on chemotherapy Plan- CT chest today. continue breathing treatment, IV vancomycin and Zosyn. bllod c/s neg venous doppler neg procalcitonin high 20 lactic acid down 1.0. crf stage 3 ,cr 1.9. spoke with cardiology. Judie Bartlett and Dr. Vines has been consulted. Transfer to ICU. Check labs in a.m. Prognosis is very poor due to multiple medical problems and cancer of the lung. Chronic kidney disease. Creatinine is 1.9. Continue to monitor. Sepsis- pro-calcitonin and level is 20.34 Plan Plan of Care Problems Medical Problems: (1) Pleural effusion Status: Acute Comment Review of Relevant I have reviewed the following items nayana (where applicable) has been applied. Labs Microbiology 09/16/18 Blood Culture - Preliminary, Resulted NO GROWTH AFTER 1 DAY Medications Current Medications Acetaminophen/ Hydrocodone Bitart (Lortab 7.5/325) 1 tab PRN Q6HRS PRN PO SEVER PAIN; Start 09/16/18 at 21:45 Furosemide (Lasix) 20 mg 1X ONCE IVP Last administered on 09/16/18 12:56; Start 09/16/18 at 11:30; Stop 09/16/18 at 11:31; Status DC Heparin Sodium (Porcine) (Heparin Sodium) 5,000 unit Q12HR SQ Last administered on 09/16/18 21:01; Start 09/16/18 at 21:00 Hydralazine HCl (Apresoline) 25 mg BID PO Last administered on 09/17/18 09:24 ; Start 09/16/18 at 21:00 Morphine Sulfate (Morphine Sulfate) 2 mg PRN Q4HRS PRN IV SEVERE PAIN Last administered on 09/17/18 01:51; Start 09/16/18 at 21:45 Senna/Docusate Sodium (Senna Plus) 2 tab HS PO Last administered on 09/16/18at 20:54; Start 09/16/18 at 21:00 Vancomycin HCl (Vancomycin Trough Level) 1 each 1X ONCE MC ; Start 09/17/18 at 20:30; Stop 09/17/18 at 20:31 Vancomycin HCl 1.5 gm/Sodium Chloride 500 ml @ 250 mls/hr Q24H IV Last administered on 09/16/18 21:54; Start 09/16/18 at 21:00 Vitals/I & O Vital Sign - Last 24 Hours 09/16/18 09/16/18 09/16/18 09/16/18 10:00 11:29 12:00 12:00 Pulse 79 80 81 Resp 18 16 22 B/P (MAP) 160/84 (109) 142/81 (101) 148/84 (105) Pulse Ox 95 95 96 O2 Delivery Nasal Cannula Nasal Cannula Nasal Cannula Nasal Cannula O2 Flow Rate 4.0 4.0 4.0 4.0 09/16/18 09/16/18 09/16/18 09/16/18 12:37 13:33 14:18 14:23 Pulse 92 89 Resp 24 24 24 B/P (MAP) 157/80 (105) 160/86 (110) Pulse Ox 98 96 98 98 O2 Delivery Nasal Cannula Nasal Cannula Nasal Cannula Nasal Cannula O2 Flow Rate 3.0 4.0 4.0 4.0 09/16/18 09/16/18 09/16/18 09/16/18 15:00 15:23 16:08 17:07 Temp 98.2 98.2 98.2 98.2 Pulse 89 89 Resp 21 18 21 B/P (MAP) 140/71 (94) 140/71 (94) Pulse Ox 98 98 98 O2 Delivery Room Air Nasal Cannula Room Air Nasal Cannula O2 Flow Rate 4.0 3.0 09/16/18 09/16/18 09/16/18 09/16/18 18:10 19:25 20:00 20:02 Temp 98.5 98.5 Pulse 89 87 Resp 18 B/P (MAP) 140/71 151/77 (101) Pulse Ox 98 O2 Delivery Nasal Cannula Nasal Cannula Nasal Cannula O2 Flow Rate 3.5 4.0 09/16/18 09/16/18 09/16/18 09/16/18 20:03 20:53 21:54 22:24 Pulse 87 Resp 22 20 B/P (MAP) 151/77 O2 Delivery Nasal Cannula Nasal Cannula 09/17/18 09/17/18 09/17/18 09/17/18 01:51 02:21 03:30 03:37 Temp 98.8 98.8 Pulse 81 Resp 18 B/P (MAP) 153/86 (108) Pulse Ox 98 98 98 O2 Delivery Nasal Cannula Nasal Cannula Nasal Cannula Nasal Cannula O2 Flow Rate 3.5 4.0 4.0 09/17/18 09/17/18 09/17/18 09/17/18 07:00 07:23 09:24 09:25 Temp 98.0 98.0 Pulse 110 110 110 Resp 20 B/P (MAP) 131/92 (105) 131/92 131/92 Pulse Ox 99 96 O2 Delivery Nasal Cannula Nasal Cannula O2 Flow Rate 4.0 5.0 09/17/18 09:25 Pulse 110 B/P (MAP) 131/92 Intake and Output 09/16/18 09/16/18 09/17/18 15:00 23:00 07:00 Intake Total 400 ml 900 ml Output Total 300 ml 550 ml 200 ml Balance -300 ml -150 ml 700 ml IZAIAH STEVENSON MD Sep 17, 2018 09:52
--- NOTE | 2018-09-17 09:59 | EKG ---
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
[2018-09-17 10:33] LABS: CALCIUM 8.6 mg/dL (8.5-10.1); GFR 40.8; POTASSIUM 4.5 mmol/L (3.5-5.1)
[2018-09-17 10:35] LABS: BASO % 0 % (0-3); EOS % 0 % (0-3); HEMATOCRIT 24.3 % (39.0-53.0); HEMOGLOBIN 7.6 g/dL (13.0-17.5); LYMPH # 0.2 x10^3/uL (1.0-4.8); LYMPH % 1 % (24-48); MEAN CORPUSCULAR HEMOGLOBIN 26 pg (25-35); MEAN CORPUSCULAR HGB CONC 31 g/dL (31-37); MEAN CORPUSCULAR VOLUME 82 fL (79-100); MONO # 0.5 x10^3/uL (0.0-1.1); MONO % 3 % (0-9); NEUT # 17.6 x10^3uL (1.8-7.7); NEUT % 96 % (31-73); PLATELET COUNT 315 x10^3/uL (140-400); RED BLOOD COUNT 2.97 x10^6/uL (4.30-5.70); RED CELL DISTRIBUTION WIDTH 19.8 % (11.5-14.5); WHITE BLOOD COUNT 18.4 x10^3/uL (4.0-11.0)
[2018-09-17 10:45] VITALS: BP 137/93
[2018-09-17 12:03] LABS: % BANDS 2 % (0-9); % EOS 1 % (0-5); % LYMPHS 2 % (24-48); % SEGS 95 % (35-66)
[2018-09-17 12:04] LABS: PLT ESTIMATE ADEQUATE (ADEQUATE)
--- NOTE | 2018-09-17 12:26 | PDOC ---
Provider Note Provider Note Pt seen and examined ID Consult dictated [id number] IMP Acute resp failure Leucocytosis Postobstructive Pneumonia Progressive metastatic small lung ca Stage 4 Lt chestwall florecita cath in place CKD DM COPD on home O2 Rt Pleural effusion REC Cont zosyn add levaquin dc vanc, zyvox f/u c/s awaiting thoracocentesis D/W ALCIDES NOGUEIRA MD Sep 17, 2018 12:26
[2018-09-17] MEDS: PIPERACILLIN/TAZOBACTAM 3.375 GM in IV NORMAL SALINE 100ML 100 ML IV SCH ×2 (12:39→18:20)
--- NOTE | 2018-09-17 13:09 | PDOC ---
CARDIO Progress Notes Date and Time Date of Service 09/17/18 Time of Evaluation 1155 Subjective Subjective: Other (JULIEN at rest. LE edema persists) Vitals Vitals Vital Signs Date Time Temp Pulse Resp B/P (MAP) Pulse Ox O2 Delivery O2 Flow Rate FiO2 09/17/18 12:38 20 100 Nasal Cannula 4.0 09/17/18 10:45 99.1 118 137/93 (108) 99.1 Weight Weight [ ] Input and Output Intake and Output Intake and Output 09/17/18 07:00 Intake Total 1300 ml Output Total 1050 ml Balance 250 ml Intake Oral 700 ml IV Total 600 ml Output Urine Total 1050 ml Laboratory Labs Laboratory Tests Test 09/17/18 09:55 White Blood Count 18.4 x10^3/uL (4.0-11.0) Red Blood Count 2.97 x10^6/uL (4.30-5.70) Hemoglobin 7.6 g/dL (13.0-17.5) Hematocrit 24.3 % (39.0-53.0) Mean Corpuscular Volume 82 fL (79-100) Mean Corpuscular Hemoglobin 26 pg (25-35) Mean Corpuscular Hemoglobin Concent 31 g/dL (31-37) Red Cell Distribution Width 19.8 % (11.5-14.5) Platelet Count 315 x10^3/uL (140-400) Neutrophils (%) (Auto) 96 % (31-73) Lymphocytes (%) (Auto) 1 % (24-48) Monocytes (%) (Auto) 3 % (0-9) Eosinophils (%) (Auto) 0 % (0-3) Basophils (%) (Auto) 0 % (0-3) Neutrophils # (Auto) 17.6 x10^3uL (1.8-7.7) Lymphocytes # (Auto) 0.2 x10^3/uL (1.0-4.8) Monocytes # (Auto) 0.5 x10^3/uL (0.0-1.1) Eosinophils # (Auto) 0.0 x10^3/uL (0.0-0.7) Basophils # (Auto) 0.0 x10^3/uL (0.0-0.2) Segmented Neutrophils % 95 % (35-66) Band Neutrophils % 2 % (0-9) Lymphocytes % 2 % (24-48) Eosinophils % 1 % (0-5) Platelet Estimate Adequate (ADEQUATE) Sodium Level 141 mmol/L (136-145) Potassium Level 4.5 mmol/L (3.5-5.1) Chloride Level 106 mmol/L (98-107) Carbon Dioxide Level 25 mmol/L (21-32) Anion Gap 10 (6-14) Blood Urea Nitrogen 29 mg/dL (8-26) Creatinine 2.0 mg/dL (0.7-1.3) Estimated GFR (Cockcroft-Gault) 40.8 Glucose Level 179 mg/dL (70-99) Calcium Level 8.6 mg/dL (8.5-10.1) Microbiology Micro Microbiology 09/16/18 Blood Culture - Preliminary, Resulted NO GROWTH AFTER 1 DAY Physical Exam HEENT: Neck Supple W Full Motion Chest: Symmetric LUNGS: Other (crackles ) Heart: S1S2, RRR Assessment Assessment 1. Acute respiratory failure; multifactorial given lung CA, pulm HTN, probably PNA, and mild a/c diastolic HF 2. Lung CA, stage IV; CT chest with increasing right hilar mass and pulmonary nodules and new right pulmonary nodules. 3. Mild acute on chronic diastolic HF; LVEF 55% per recent echo 4. Elevated troponin; highest 0.299 5. Pulmonary HTN; PAP 71 mmHg. 6. Leukocytosis, PNA 7. Anemia 8. USAMA Recommendations Lasix IV x1 Thoracentesis as per pulm Ongoing antibiotic therapy for PNA Supportive care. KENNA FRIEDMAN APRN Sep 17, 2018 13:09
--- NOTE | 2018-09-17 13:22 | PDOC ---
PULMONARY PROGRESS NOTES Subjective NO SOA Vitals Vital Signs Date Time Temp Pulse Resp B/P (MAP) Pulse Ox O2 Delivery O2 Flow Rate FiO2 09/17/18 12:38 20 100 Nasal Cannula 4.0 09/17/18 10:45 99.1 118 137/93 (108) 99.1 General: Alert, Oriented X4, No acute distress Lungs: Other (decrease bs right) Cardiovascular: S1, S2 Abdomen: Soft Extremities: No Edema Skin: Warm Labs Laboratory Tests Test 09/15/18 18:05 09/15/18 18:30 09/15/18 19:35 09/16/18 00:00 White Blood Count 8.0 x10^3/uL (4.0-11.0) Red Blood Count 2.96 x10^6/uL (4.30-5.70) Hemoglobin 7.7 g/dL (13.0-17.5) Hematocrit 23.9 % (39.0-53.0) Mean Corpuscular Volume 81 fL (79-100) Mean Corpuscular Hemoglobin 26 pg (25-35) Mean Corpuscular Hemoglobin Concent 32 g/dL (31-37) Red Cell Distribution Width 20.0 % (11.5-14.5) Platelet Count 314 x10^3/uL (140-400) Neutrophils (%) (Auto) 80 % (31-73) Lymphocytes (%) (Auto) 6 % (24-48) Monocytes (%) (Auto) 10 % (0-9) Eosinophils (%) (Auto) 4 % (0-3) Basophils (%) (Auto) 1 % (0-3) Neutrophils # (Auto) 6.4 x10^3uL (1.8-7.7) Lymphocytes # (Auto) 0.5 x10^3/uL (1.0-4.8) Monocytes # (Auto) 0.8 x10^3/uL (0.0-1.1) Eosinophils # (Auto) 0.3 x10^3/uL (0.0-0.7) Basophils # (Auto) 0.0 x10^3/uL (0.0-0.2) Sodium Level 142 mmol/L (136-145) Potassium Level 4.1 mmol/L (3.5-5.1) Chloride Level 104 mmol/L (98-107) Carbon Dioxide Level 30 mmol/L (21-32) Anion Gap 8 (6-14) Blood Urea Nitrogen 23 mg/dL (8-26) Creatinine 1.9 mg/dL (0.7-1.3) Estimated GFR (Cockcroft-Gault) 43.3 BUN/Creatinine Ratio 12 (6-20) Glucose Level 148 mg/dL (70-99) Lactic Acid Level 1.1 mmol/L (0.4-2.0) Calcium Level 8.6 mg/dL (8.5-10.1) Magnesium Level 1.8 mg/dL (1.8-2.4) Total Bilirubin 0.1 mg/dL (0.2-1.0) Aspartate Amino Transf (AST/SGOT) 18 U/L (15-37) Alanine Aminotransferase (ALT/SGPT) 10 U/L (16-63) Alkaline Phosphatase 82 U/L (46-116) Troponin I Quantitative 0.260 ng/mL (0.000-0.055) 0.299 ng/mL (0.000-0.055) XN-Xth-J-Type Natriuretic Peptide 2993 pg/mL (0-124) Total Protein 7.5 g/dL (6.4-8.2) Albumin 2.0 g/dL (3.4-5.0) Albumin/Globulin Ratio 0.4 (1.0-1.7) Influenza Type A Antigen Negative (NEGATIVE) Influenza Type B Antigen Negative (NEGATIVE) Nasal Screen MRSA (PCR) Negative (Negative) Test 09/16/18 05:50 09/17/18 09:55 White Blood Count 6.4 x10^3/uL (4.0-11.0) 18.4 x10^3/uL (4.0-11.0) Red Blood Count 2.94 x10^6/uL (4.30-5.70) 2.97 x10^6/uL (4.30-5.70) Hemoglobin 7.6 g/dL (13.0-17.5) 7.6 g/dL (13.0-17.5) Hematocrit 24.0 % (39.0-53.0) 24.3 % (39.0-53.0) Mean Corpuscular Volume 81 fL (79-100) 82 fL (79-100) Mean Corpuscular Hemoglobin 26 pg (25-35) 26 pg (25-35) Mean Corpuscular Hemoglobin Concent 32 g/dL (31-37) 31 g/dL (31-37) Red Cell Distribution Width 19.5 % (11.5-14.5) 19.8 % (11.5-14.5) Platelet Count 299 x10^3/uL (140-400) 315 x10^3/uL (140-400) Neutrophils (%) (Auto) 96 % (31-73) 96 % (31-73) Lymphocytes (%) (Auto) 3 % (24-48) 1 % (24-48) Monocytes (%) (Auto) 1 % (0-9) 3 % (0-9) Eosinophils (%) (Auto) 0 % (0-3) 0 % (0-3) Basophils (%) (Auto) 0 % (0-3) 0 % (0-3) Neutrophils # (Auto) 6.2 x10^3uL (1.8-7.7) 17.6 x10^3uL (1.8-7.7) Lymphocytes # (Auto) 0.2 x10^3/uL (1.0-4.8) 0.2 x10^3/uL (1.0-4.8) Monocytes # (Auto) 0.1 x10^3/uL (0.0-1.1) 0.5 x10^3/uL (0.0-1.1) Eosinophils # (Auto) 0.0 x10^3/uL (0.0-0.7) 0.0 x10^3/uL (0.0-0.7) Basophils # (Auto) 0.0 x10^3/uL (0.0-0.2) 0.0 x10^3/uL (0.0-0.2) Segmented Neutrophils % 86 % (35-66) 95 % (35-66) Band Neutrophils % 11 % (0-9) 2 % (0-9) Lymphocytes % 2 % (24-48) 2 % (24-48) Monocytes % 1 % (0-10) Platelet Estimate Adequate (ADEQUATE) Adequate (ADEQUATE) Hypochromasia Slight Poikilocytosis Slight Anisocytosis Slight Microcytosis Slight Sodium Level 139 mmol/L (136-145) 141 mmol/L (136-145) Potassium Level 4.8 mmol/L (3.5-5.1) 4.5 mmol/L (3.5-5.1) Chloride Level 104 mmol/L (98-107) 106 mmol/L (98-107) Carbon Dioxide Level 25 mmol/L (21-32) 25 mmol/L (21-32) Anion Gap 10 (6-14) 10 (6-14) Blood Urea Nitrogen 24 mg/dL (8-26) 29 mg/dL (8-26) Creatinine 1.9 mg/dL (0.7-1.3) 2.0 mg/dL (0.7-1.3) Estimated GFR (Cockcroft-Gault) 43.3 40.8 BUN/Creatinine Ratio 13 (6-20) Glucose Level 183 mg/dL (70-99) 179 mg/dL (70-99) Calcium Level 8.7 mg/dL (8.5-10.1) 8.6 mg/dL (8.5-10.1) Total Bilirubin 0.1 mg/dL (0.2-1.0) Aspartate Amino Transf (AST/SGOT) 15 U/L (15-37) Alanine Aminotransferase (ALT/SGPT) < 6 U/L (16-63) Alkaline Phosphatase 74 U/L (46-116) Total Protein 7.6 g/dL (6.4-8.2) Albumin 2.0 g/dL (3.4-5.0) Albumin/Globulin Ratio 0.4 (1.0-1.7) Procalcitonin 20.34 ng/mL (0.00-0.10) Eosinophils % 1 % (0-5) Laboratory Tests Test 09/17/18 09:55 White Blood Count 18.4 x10^3/uL (4.0-11.0) Red Blood Count 2.97 x10^6/uL (4.30-5.70) Hemoglobin 7.6 g/dL (13.0-17.5) Hematocrit 24.3 % (39.0-53.0) Mean Corpuscular Volume 82 fL (79-100) Mean Corpuscular Hemoglobin 26 pg (25-35) Mean Corpuscular Hemoglobin Concent 31 g/dL (31-37) Red Cell Distribution Width 19.8 % (11.5-14.5) Platelet Count 315 x10^3/uL (140-400) Neutrophils (%) (Auto) 96 % (31-73) Lymphocytes (%) (Auto) 1 % (24-48) Monocytes (%) (Auto) 3 % (0-9) Eosinophils (%) (Auto) 0 % (0-3) Basophils (%) (Auto) 0 % (0-3) Neutrophils # (Auto) 17.6 x10^3uL (1.8-7.7) Lymphocytes # (Auto) 0.2 x10^3/uL (1.0-4.8) Monocytes # (Auto) 0.5 x10^3/uL (0.0-1.1) Eosinophils # (Auto) 0.0 x10^3/uL (0.0-0.7) Basophils # (Auto) 0.0 x10^3/uL (0.0-0.2) Segmented Neutrophils % 95 % (35-66) Band Neutrophils % 2 % (0-9) Lymphocytes % 2 % (24-48) Eosinophils % 1 % (0-5) Platelet Estimate Adequate (ADEQUATE) Sodium Level 141 mmol/L (136-145) Potassium Level 4.5 mmol/L (3.5-5.1) Chloride Level 106 mmol/L (98-107) Carbon Dioxide Level 25 mmol/L (21-32) Anion Gap 10 (6-14) Blood Urea Nitrogen 29 mg/dL (8-26) Creatinine 2.0 mg/dL (0.7-1.3) Estimated GFR (Cockcroft-Gault) 40.8 Glucose Level 179 mg/dL (70-99) Calcium Level 8.6 mg/dL (8.5-10.1) Medications Active Scripts Medications Dose Route/Sig Max Daily Dose Days Date Category Prednisone 50 Mg Tablet 1 Tab PO DAILY 08/15/18 Rx Doxycycline Monohydrate 100 Mg Capsule 1 Cap PO BID 08/15/18 Rx Hydrocodone-Apap 5-325 (Hydrocodone Bit/Acetaminophen) 1 Tab Tablet 1 Tab PO PRN Q6HRS PRN 05/25/18 Reported Buspirone Hcl 5 Mg Tablet 1 Tab PO BID 05/25/18 Reported Trelegy Ellipta 100-62.5-25 (Fluticasone/Umeclidin/Vilanter) 1 Each Blst.w.dev 1 Each IH QHS PRN 05/16/18 Reported Carvedilol 25 Mg Tablet 12.5 Mg PO BIDWMEALS 05/16/18 Reported Proair Hfa Inhaler (Albuterol Sulfate) 8.5 Gm Hfa.aer.ad 1 Puff INH PRN Q6HRS PRN 04/20/18 Reported Albuterol Sulfate Neb Soln (Albuterol Sulfate) 2.5 Mg/3 Ml Vial.neb 1 Vial NEB PRN Q4HRS 04/20/18 Reported Amlodipine Besylate 10 Mg Tablet 10 Mg PO DAILY 04/05/[address] CHEST Impression: Right hilar mass is increase in size in the interval. New right pulmonary nodules. Increased size of pulmonary nodules. Marked increase in right pleural effusion and atelectasis. Marked increase in superior mediastinal and right axillary lymphadenopathy. Extensive osseous metastases. Impression . 1. Acute on chronic respiratory failure secondary to acute exacerbation of chronic obstructive pulmonary disease, Post-obstructive pneumonia, progressing lung cancer, acute diastolic congestive heart failure 2. Abnormal chest x-ray. Chest x-ray showed right hilar mass with right lower lobe infiltrate/atelectasis/effusion. His heart is not shifted to the left, so I suspect most of his chest x-ray abnormality is secondary to atelectasis probably secondary to progressing lung cancer and endobronchial lesion, he may have postobstructive pneumonia 3. Stage 4 small cell lung cancer, progressing. 4. Chronic kidney disease. 5. Hypertension. 6. Elevated troponin? non-ST elevation myocardial infarction. 7. Tobacco habituation. 8. Acute exacerbation of chronic obstructive pulmonary disease. 9. Acute bronchitis versus pneumonia. 10. Anemia. Plan . 1. Titrate FiO2 to keep O2 saturation 92%. 2. Continue bronchodilator. 3. Solu-Medrol 40 mg IV every 8 hours. 4. Continue Rocephin and vancomycin. 5. Protonix for stress ulcer prophylaxis. 6. CT of the chest reviewed. Progressive right hilar mass, increase adenopathy , increase right effusion and increase nodules.there is enough pleural fluid, he will require thoracentesis first before any pleurodesis to see if lung expands 7. Cardiology is consulted. Suspect his elevated troponin is secondary to demand ischemia. 8. Lower extremity venous Doppler.neg 9. Monitor respiratory status 10. The findings and recommendations were discussed with the patient and RN. IR consult MARIOLA VELÁZQUEZ MD Sep 17, 2018 13:22
[2018-09-17 14:29] LABS: PROTHROMBIN TIME PATIENT 13.7 SEC (11.7-14.0)
[2018-09-17 14:58] VITALS: BP 157/97
[2018-09-17] MEDS ORDERED: FUROSEMIDE 20 MG/2 ML VIAL. IVP ONE (15:00)
--- NOTE | 2018-09-17 16:23 | NUR ---
[facility] following pt for anticipated dc needs. Chart reviewed and FELECIA RN. PT/OT recommends SNU. Spoke with pt about SNU options and insurance coverage. [facility] phoned and faxed referral to [facility]. Pt acceptance and admission pending. FELECIA RN.
[2018-09-17 19:43] VITALS: BP 159/88
[2018-09-17] MEDS: SENNOSIDES/DOCUSATE 8.6/50MG TABLET. PO SCH (20:07)
[2018-09-17 23:37] VITALS: BP 174/97
[2018-09-18] VITALS (8 sets, daily range): BP systolic 151–176; BP diastolic 93–102
--- NOTE | 2018-09-18 04:40 | CONS ---
DATE OF CONSULTATION: 09/17/2018 REFERRING PHYSICIAN: Dr. Viveros REASON FOR CONSULTATION: Antibiotic management HISTORY OF PRESENT ILLNESS: A 63-year-old male with a history of metastatic small cell right lung CA since April 2018 who had completed chemotherapy in July 2018, presented to the ER via EMS from his home for respiratory distress. The patient is O2 dependent at 2 liters with underlying history of lung CA as above. The patient was afebrile. He has stage 4 small cell lung CA with mets to the multiple lymph nodes in the chest and abdomen. He was on immunotherapy prior, but that was discontinued and he was supposed to start chemotherapy starting today through the Port-A-Cath. He has cough, brings up phlegm, also has chest pain with deep breathing. Denies any fevers or chills, has some nausea, no vomiting, no diarrhea, no abdominal pain. He was started on IV vancomycin and Zosyn and was admitted to ICU and later was transferred to the medical floor. Today, the patient had a CT of the chest, which shows a right hilar mass that is increasing in size, new right pulmonary nodules, increased size of pulmonary nodules, marked increase in right pleural effusion, atelectasis, moderate increase in the superior mediastinal and right axillary lymphadenopathy, extensive osseous metastasis. The patient is awaiting thoracocentesis, which is scheduled for later today. Venous Doppler of both lower extremities was negative for DVT. Today, the patient is eating lunch, says feels okay. Still has chest pain with deep breathing. Cough, brings up some phlegm and leg swelling. PAST MEDICAL HISTORY: Metastatic small cell CA of the right lung diagnosed in 2017, status post chemotherapy and immunotherapy, which he completed in July 2018. Now was scheduled to start chemotherapy on 09/17/2018 through Port-A-Cath. COPD, oxygen dependent; hypertension; hyperlipidemia; chronic kidney disease; GERD; diverticulosis; type 2 diabetes mellitus; polyclonal gammopathy; hepatitis C, status post Harvoni treatment; history of GI bleed; adenomatous polyp; arthritis; pneumonia, which was treated with Levaquin in July 2018. PAST SURGICAL HISTORY: Port-A-Cath placement, cholecystectomy, left rotator cuff repair. SOCIAL HISTORY: Lives at home. History of smoking a 50-year pack history, continues to smoke a few cigarettes here and there. FAMILY HISTORY: As per HPI. REVIEW OF SYSTEMS: Negative except for above in HPI. PHYSICAL EXAMINATION: GENERAL: Alert, oriented x 3. Male sitting in chair, in no acute distress, eating breakfast. VITAL SIGNS: Temperature 99.1, pulse 118, respiratory rate 20, blood pressure 137/93, oxygen saturation 100% on 4 liters. HEENT: Pupils are equal and reactive to light. Extraocular movements intact. No lesions, no thrush. NECK: Supple. LUNGS: Decreased breath sounds. A few expiratory wheezes. HEART: S1, S2. ABDOMEN: Soft, nontender, nondistended, no rebound or guarding. EXTREMITIES: 1+ pedal edema bilaterally. DERMATOLOGIC: Warm, dry, no generalized rash. NEUROLOGIC: Alert and oriented x 3, grossly nonfocal. LINES: Left chest wall Port-A-Cath access without signs of any complications. LABORATORY DATA: WBC 18.4, hemoglobin 7.6, hematocrit 24.3, platelets 315, bands 2. Sodium 141, potassium 4.5, chloride 106, bicarb 25, creatinine 2.0, BUN 29, glucose 176, calcium 8.6. Troponin 0.299. Nasal screen MRSA PCR negative. Influenza screen negative. Microbiology: Blood culture negative so far from 09/15 to 09/16. DIAGNOSTICS: CT chest without contrast, right hilar mass has increased in size in the interval, new right pulmonary nodules, increased size of pulmonary nodules, marked increase in right pleural effusion, atelectasis, marked increase in superior mediastinal and right axillary lymph node extensive osseous metastasis. Lower extremity ultrasound Doppler venous negative. Chest x-ray shows cardiomegaly with vascular congestion, large right pleural effusion with right basilar atelectasis or infiltrate with worsening compared to August 12. IMPRESSION: 1. Acute on chronic respiratory failure secondary to progressive lung cancer with likely postobstructive pneumonia and right pleural effusion. 2. Progressive metastatic small cell carcinoma stage [address] chest today. 3. Mild cardiac failure. 4. Right pleural effusion, could have underlying infiltrate. 5. Chronic obstructive pulmonary disease, oxygen dependent. 6. Tobacco abuse. 7. Diabetes mellitus type 2. 8. Polyclonal gammopathy. 9. Chronic kidney disease. 10. History of seizures. RECOMMENDATIONS: 1. Discontinue IV vancomycin due to USAMA with underlying CKD and start the patient on linezolid.Add empiric levofloxacin. 2. Modify Zosyn with dose due to underlying CKD. 3. Awaiting thoracocentesis. 4. Follow up cultures and lab in a.m. 5. Continue supportive care. 6. Prognosis is very poor due to progressive stage IV metastatic lung CA. Thank you, Dr. Viveros, for consulting Infectious Disease to participate in this patient's care. We will follow along with you. Discussed with RN. ALCIDES CERVANTES MD DR: JOANA/nts JOB#: [id number] / [id number] [place]
[2018-09-18] MEDS: PIPERACILLIN/TAZOBACTAM 3.375 GM in IV NORMAL SALINE 100ML 100 ML IV SCH ×5 (05:14→17:16)
[2018-09-18] MEDS: methylPREDNISolone SOD SUCC PF 40 MG/ML VIAL. IV SCH ×3 (05:14→20:53)
[2018-09-18 05:46] LABS: BASO % 0 % (0-3); EOS % 0 % (0-3); HEMATOCRIT 25.4 % (39.0-53.0); LYMPH # 0.2 x10^3/uL (1.0-4.8); LYMPH % 1 % (24-48); MEAN CORPUSCULAR HEMOGLOBIN 25 pg (25-35); MEAN CORPUSCULAR HGB CONC 31 g/dL (31-37); MEAN CORPUSCULAR VOLUME 81 fL (79-100); MONO # 0.6 x10^3/uL (0.0-1.1); MONO % 3 % (0-9); NEUT # 17.1 x10^3uL (1.8-7.7); NEUT % 95 % (31-73); PLATELET COUNT 319 x10^3/uL (140-400); RED BLOOD COUNT 3.15 x10^6/uL (4.30-5.70); RED CELL DISTRIBUTION WIDTH 20.3 % (11.5-14.5)
[2018-09-18 06:02] LABS: CALCIUM 8.8 mg/dL (8.5-10.1); CREATININE 2.3 mg/dL (0.7-1.3); GFR 34.7; POTASSIUM 4.7 mmol/L (3.5-5.1)
--- NOTE | 2018-09-18 06:15 | CONS ---
DATE OF CONSULTATION: 09/17/2018 MEDICAL ONCOLOGY CONSULTATION CONSULTATION REQUESTED BY: Dr. Johnnie Viveros REASON FOR CONSULTATION: Stage 4 lung cancer, small cell type. HISTORY OF PRESENT ILLNESS: The patient is a 63-year-old gentleman who was diagnosed with small cell lung cancer by bronchoscopy on 04/05/2018, which revealed infiltrating tumor of the right upper lobe, right bronchus intermedius. He also underwent a right axillary lymph node biopsy on 04/12/2018, which revealed metastatic small cell carcinoma. He had evidence of metastatic disease to the hilar lymph nodes, multiple mediastinal lymph nodes, bilateral axillary lymph nodes, subcutaneous metastatic nodules, widespread metastasis in the hepatic, splenic, left adrenal and perinephric metastasis in addition to lymphadenopathy in the florecita hepatis and retroperitoneum and evidence of anterior omental metastatic disease. He was started on palliative chemotherapy with carboplatin and etoposide and nivolumab under a clinical trial on 05/02/2018. After cycle #4, it was completed on 07/06/2018. A CT scan revealed worsening and progressive malignancy. Hence, the chemotherapy was discontinued and he was taken off of the clinical trial. Plan was to start topotecan on 09/17/2018. However, he was admitted to [facility] with worsening shortness of breath. He underwent chest x-ray on 09/15/2018 that revealed cardiomegaly with congestion and large right-sided pleural effusion. CT scan of the chest on 09/17/2018 reveals right hilar mass, which has increased in size with new right pulmonary nodules and increased size of pulmonary nodules, marked increase in the right pleural effusion and worsening mediastinal and axillary lymphadenopathy and extensive osseous metastatic disease. Pulmonary Medicine and Cardiology were consulted. He was thought to have dyspnea due to COPD, pulmonary hypertension, lung cancer and possible pneumonia. PAST MEDICAL HISTORY: Arthritis, back pain, diabetes mellitus, GERD, hypertension. FAMILY HISTORY: Positive for colon cancer, prostate and breast cancer. SOCIAL HISTORY: He has a history of cigarette smoking 2 packs a day. REVIEW OF SYSTEMS: A 12-point review of systems was performed. Pertinent positives are mentioned in the history of present illness. Rest of the system review is negative. PHYSICAL EXAMINATION: GENERAL APPEARANCE: The patient is a 63-year-old gentleman who is in no acute cardiorespiratory distress. VITAL SIGNS: Blood pressure 137/90, sat 93%, temperature 99.1. HEENT: Head: Atraumatic, normocephalic. Eyes: No icterus. NECK: Supple. CHEST: Bilaterally symmetrical. HEART: S1, S2 normal. ABDOMEN: Soft, nontender. CENTRAL NERVOUS SYSTEM: No focal deficits. LYMPHATICS: No lymphadenopathy. SKIN: No rashes. PSYCHOLOGIC: Mood and affect are appropriate. LABORATORY DATA: WBC 18.4, hemoglobin 7.6, platelet count 315. Creatinine 1.9. BNP was 2993. IMPRESSION AND PLAN: 1. Stage 4 small cell lung cancer with extensive metastatic disease as described above. Plan to start him on chemotherapy using topotecan after he is discharged. I discussed in detail with the patient regarding the role of palliative chemotherapy and the risks and benefits. I also discussed the role of best supportive care, but he prefers to proceed with chemotherapy. 2. Dyspnea secondary to chronic obstructive pulmonary disease/pneumonia and pulmonary hypertension and lung cancer. Appreciate Cardiology and Pulmonary management. 3. Pleural effusion. Management per Pulmonary Medicine. DANIELLE BURNETT MD DR: VIKASH/mayra JOB#: [id number] / [id number] [place]
[2018-09-18] MEDS: BUDESONIDE 0.5 MG/2 ML NEBU. NEB SCH ×2 (07:21→19:14)
[2018-09-18] MEDS: IPRATRPIUM/ALBUTEROL 0.5/2.5MG 3 ML NEBU. NEB SCH ×4 (07:21→19:14)
[2018-09-18] MEDS: hydrALAZINE 25 MG TABLET PO SCH ×2 (08:21→20:52)
[2018-09-18] MEDS: amLODIPine BESYLATE 10 MG TABLET PO SCH (08:21)
[2018-09-18] MEDS: busPIRone 5 MG TABLET. PO SCH ×2 (08:21→20:51)
[2018-09-18] MEDS: PANTOPRAZOLE 40 MG TABLET.DR. PO SCH (08:21)
[2018-09-18] MEDS: HYDROcodone/APAP 5/325MG 1 TAB TABLET PO PRN (08:22)
[2018-09-18] MEDS: CARVEDILOL 12.5 MG TABLET. PO SCH ×2 (08:22→17:16)
[2018-09-18] MEDS: NICOTINE 14MG PATCH. TD SCH (08:23)
[2018-09-18] MEDS: HEPARIN for SUB-Q USE 5,000 UNIT/ML VIAL. SQ SCH ×2 (08:24→21:06)
--- NOTE | 2018-09-18 08:49 | NUR ---
SW following. Pt has been accepted at [facility] pending insurance approval. Insurance auth pending. Will continue to follow.
--- NOTE | 2018-09-18 09:21 | PDOC ---
PROGRESS NOTES Subjective Subjective HPI - f/u of Stage 4 small cell lung cancer with extensive metastatic disease ROS - dyspnea better Objective Objective Vital Signs Date Time Temp Pulse Resp B/P (MAP) Pulse Ox O2 Delivery O2 Flow Rate FiO2 09/18/18 08:22 84 167/99 09/18/18 07:35 98.1 20 97 Nasal Cannula 4.0 98.1 Intake and Output 09/18/18 07:00 Intake Total 1740 ml Output Total 1450 ml Balance 290 ml Intake Oral 1740 ml Output Urine Total 1450 ml Physical Exam Heart: Normal S1, Normal S2 General: Alert, Oriented X3 Lungs: Clear to auscultation Neuro: Normal speech Psych/Mental Status: Mental status NL Assessment Assessment Problems Medical Problems: (1) Pleural effusion Status: Acute IMPRESSION AND PLAN: 1. Stage 4 small cell lung cancer with extensive metastatic disease as described above. Plan to start him on chemotherapy using topotecan after he is discharged. I discussed in detail with the patient regarding the role of palliative chemotherapy and the risks and benefits. I also discussed the role of best supportive care, but he prefers to proceed with chemotherapy. 2. Dyspnea secondary to chronic obstructive pulmonary disease/pneumonia and pulmonary hypertension and lung cancer. Appreciate Cardiology and Pulmonary management. 3. Pleural effusion. Management per Pulmonary Medicine. I d/w Dr Lang who recommended thoracentesis. I d/w Dr Viveros. Comment Review of Relevant I have reviewed the following items nayana (where applicable) has been applied. Labs Laboratory Tests Test 09/17/18 09:55 09/17/18 14:15 09/18/18 05:15 White Blood Count 18.4 x10^3/uL (4.0-11.0) 18.0 x10^3/uL (4.0-11.0) Red Blood Count 2.97 x10^6/uL (4.30-5.70) 3.15 x10^6/uL (4.30-5.70) Hemoglobin 7.6 g/dL (13.0-17.5) 8.0 g/dL (13.0-17.5) Hematocrit 24.3 % (39.0-53.0) 25.4 % (39.0-53.0) Mean Corpuscular Volume 82 fL (79-100) 81 fL (79-100) Mean Corpuscular Hemoglobin 26 pg (25-35) 25 pg (25-35) Mean Corpuscular Hemoglobin Concent 31 g/dL (31-37) 31 g/dL (31-37) Red Cell Distribution Width 19.8 % (11.5-14.5) 20.3 % (11.5-14.5) Platelet Count 315 x10^3/uL (140-400) 319 x10^3/uL (140-400) Neutrophils (%) (Auto) 96 % (31-73) 95 % (31-73) Lymphocytes (%) (Auto) 1 % (24-48) 1 % (24-48) Monocytes (%) (Auto) 3 % (0-9) 3 % (0-9) Eosinophils (%) (Auto) 0 % (0-3) 0 % (0-3) Basophils (%) (Auto) 0 % (0-3) 0 % (0-3) Neutrophils # (Auto) 17.6 x10^3uL (1.8-7.7) 17.1 x10^3uL (1.8-7.7) Lymphocytes # (Auto) 0.2 x10^3/uL (1.0-4.8) 0.2 x10^3/uL (1.0-4.8) Monocytes # (Auto) 0.5 x10^3/uL (0.0-1.1) 0.6 x10^3/uL (0.0-1.1) Eosinophils # (Auto) 0.0 x10^3/uL (0.0-0.7) 0.0 x10^3/uL (0.0-0.7) Basophils # (Auto) 0.0 x10^3/uL (0.0-0.2) 0.0 x10^3/uL (0.0-0.2) Segmented Neutrophils % 95 % (35-66) Band Neutrophils % 2 % (0-9) Lymphocytes % 2 % (24-48) Eosinophils % 1 % (0-5) Platelet Estimate Adequate (ADEQUATE) Sodium Level 141 mmol/L (136-145) 142 mmol/L (136-145) Potassium Level 4.5 mmol/L (3.5-5.1) 4.7 mmol/L (3.5-5.1) Chloride Level 106 mmol/L (98-107) 106 mmol/L (98-107) Carbon Dioxide Level 25 mmol/L (21-32) 27 mmol/L (21-32) Anion Gap 10 (6-14) 9 (6-14) Blood Urea Nitrogen 29 mg/dL (8-26) 34 mg/dL (8-26) Creatinine 2.0 mg/dL (0.7-1.3) 2.3 mg/dL (0.7-1.3) Estimated GFR (Cockcroft-Gault) 40.8 34.7 Glucose Level 179 mg/dL (70-99) 241 mg/dL (70-99) Calcium Level 8.6 mg/dL (8.5-10.1) 8.8 mg/dL (8.5-10.1) Prothrombin Time 13.7 SEC (11.7-14.0) Prothromb Time International Ratio 1.1 (0.8-1.1) Laboratory Tests Test 09/17/18 09:55 09/17/18 14:15 09/18/18 05:15 White Blood Count 18.4 x10^3/uL (4.0-11.0) 18.0 x10^3/uL (4.0-11.0) Red Blood Count 2.97 x10^6/uL (4.30-5.70) 3.15 x10^6/uL (4.30-5.70) Hemoglobin 7.6 g/dL (13.0-17.5) 8.0 g/dL (13.0-17.5) Hematocrit 24.3 % (39.0-53.0) 25.4 % (39.0-53.0) Mean Corpuscular Volume 82 fL (79-100) 81 fL (79-100) Mean Corpuscular Hemoglobin 26 pg (25-35) 25 pg (25-35) Mean Corpuscular Hemoglobin Concent 31 g/dL (31-37) 31 g/dL (31-37) Red Cell Distribution Width 19.8 % (11.5-14.5) 20.3 % (11.5-14.5) Platelet Count 315 x10^3/uL (140-400) 319 x10^3/uL (140-400) Neutrophils (%) (Auto) 96 % (31-73) 95 % (31-73) Lymphocytes (%) (Auto) 1 % (24-48) 1 % (24-48) Monocytes (%) (Auto) 3 % (0-9) 3 % (0-9) Eosinophils (%) (Auto) 0 % (0-3) 0 % (0-3) Basophils (%) (Auto) 0 % (0-3) 0 % (0-3) Neutrophils # (Auto) 17.6 x10^3uL (1.8-7.7) 17.1 x10^3uL (1.8-7.7) Lymphocytes # (Auto) 0.2 x10^3/uL (1.0-4.8) 0.2 x10^3/uL (1.0-4.8) Monocytes # (Auto) 0.5 x10^3/uL (0.0-1.1) 0.6 x10^3/uL (0.0-1.1) Eosinophils # (Auto) 0.0 x10^3/uL (0.0-0.7) 0.0 x10^3/uL (0.0-0.7) Basophils # (Auto) 0.0 x10^3/uL (0.0-0.2) 0.0 x10^3/uL (0.0-0.2) Segmented Neutrophils % 95 % (35-66) Band Neutrophils % 2 % (0-9) Lymphocytes % 2 % (24-48) Eosinophils % 1 % (0-5) Platelet Estimate Adequate (ADEQUATE) Sodium Level 141 mmol/L (136-145) 142 mmol/L (136-145) Potassium Level 4.5 mmol/L (3.5-5.1) 4.7 mmol/L (3.5-5.1) Chloride Level 106 mmol/L (98-107) 106 mmol/L (98-107) Carbon Dioxide Level 25 mmol/L (21-32) 27 mmol/L (21-32) Anion Gap 10 (6-14) 9 (6-14) Blood Urea Nitrogen 29 mg/dL (8-26) 34 mg/dL (8-26) Creatinine 2.0 mg/dL (0.7-1.3) 2.3 mg/dL (0.7-1.3) Estimated GFR (Cockcroft-Gault) 40.8 34.7 Glucose Level 179 mg/dL (70-99) 241 mg/dL (70-99) Calcium Level 8.6 mg/dL (8.5-10.1) 8.8 mg/dL (8.5-10.1) Prothrombin Time 13.7 SEC (11.7-14.0) Prothromb Time International Ratio 1.1 (0.8-1.1) Microbiology 09/16/18 Blood Culture - Preliminary, Resulted NO GROWTH AFTER 2 DAYS Medications Current Medications Albuterol/ Ipratropium (Duoneb) 3 ml 1X ONCE NEB Last administered on at 18:08; Start 09/15/18 at 17:45; Stop 09/15/18 at 17:48; Status DC Methylprednisolone Sodium Succinate (SOLU-Medrol 125MG VIAL) 125 mg 1X ONCE IV Last administered on 09/15/18at 17:20; Start 09/15/18 at 17:45; Stop 09/15/18 at 17:48; Status DC Sodium Chloride (NORMAL SALINE FLUSH for STERILE FIELD) 10 ml STK-MED ONCE .ROUTE ; Start 09/15/18 at 17:45; Stop 09/15/18 at 17:46; Status DC Vancomycin HCl (Vanco Per Pharmacy) 1 each PRN DAILY PRN MC SEE COMMENTS Last administered on 09/16/18at 09:42; Start 09/15/18 at 18:45; Stop 09/17/18 at 12:21 ; Status DC Piperacillin Sod/ Tazobactam Sod (Zosyn Per Pharmacy) 1 each PRN DAILY PRN MC SEE COMMENTS; Start 09/15/18 at 18:45 Vancomycin HCl 2 gm/Sodium Chloride 500 ml @ 250 mls/hr 1X ONCE IV Last administered on 09/15/18at 20:43; Start 09/15/18 at 19:00; Stop 09/15/18 at 20:59 ; Status DC Piperacillin Sod/ Tazobactam Sod 4.5 gm/Sodium Chloride 100 ml @ 200 mls/hr 1X ONCE IV Last administered on 09/15/18at 19:04; Start 09/15/18 at 19:00; Stop 09/15/18 at 19:29; Status DC Acetaminophen (Tylenol) 650 mg PRN Q4HRS PRN PO FEVER; Start 09/15/18 at 19:00 ; Stop 09/16/18 at 18:59; Status DC Albuterol/ Ipratropium (Duoneb) 3 ml RTQID NEB Last administered on 09/15/18 20:22; Start 09/15/18 at 20:00; Stop 09/15/18 at 21:08; Status DC Albuterol Sulfate (Ventolin Neb Soln) 2.5 mg PRN Q4HRS PRN NEB SHORTNESS OF BREATH Last administered on 09/17/18at 03:37; Start 09/15/18 at 20:30 Amlodipine Besylate (Norvasc) 10 mg DAILY PO Last administered on 09/18/18 08: 21; Start 09/16/18 at 09:00 Buspirone HCl (Buspar) 5 mg BID PO Last administered on 09/18/18 08:21; Start 09/15/18 at 21:00 Acetaminophen/ Hydrocodone Bitart (Lortab 5/325) 1 tab PRN Q6HRS PRN PO MODERATE PAIN Last administered on 09/18/18 08:22; Start 09/15/18 at 20:30 Carvedilol (Coreg) 12.5 mg BIDWMEALS PO Last administered on 09/18/18 08:22; Start 09/16/18 at 08:00 Albuterol/ Ipratropium (Duoneb) 3 ml RTQID NEB Last administered on 09/18/18 07:21; Start 09/16/18 at 08:00 Piperacillin Sod/ Tazobactam Sod 4.5 gm/Sodium Chloride 100 ml @ 200 mls/hr Q6HRS IV Last administered on 09/17/18 06:39; Start 09/16/18 at 00:00; Stop at 12:24; Status DC Vancomycin HCl 1.5 gm/Sodium Chloride 500 ml @ 250 mls/hr Q24H IV Last administered on 09/16/18at 21:54; Start 09/16/18 at 21:00; Stop 09/17/18 at 12:21 ; Status DC Vancomycin HCl (Vancomycin Trough Level) 1 each 1X ONCE MC ; Start 09/17/18 at 20:30; Stop 09/17/18 at 20:30; Status DC Budesonide (Pulmicort) 0.5 mg RTBID NEB Last administered on 09/18/18 07:21; Start 09/16/18 at 08:00 Nicotine (Nicoderm Cq 14mg) 1 patch DAILY TD Last administered on 09/18/18 08: 23; Start 09/16/18 at 09:00 Methylprednisolone Sodium Succinate (SOLU-Medrol 40MG VIAL) 40 mg Q8HRS IV Last administered on 09/18/18 05:14; Start 09/16/18 at 07:30 Pantoprazole Sodium (Protonix) 40 mg DAILYAC PO Last administered on 09/18/18 08:21; Start 09/16/18 at 07:30 Heparin Sodium (Porcine) (Heparin Sodium) 5,000 unit Q12HR SQ Last administered on 09/17/18 09:25; Start 09/16/18 at 21:00 Hydralazine HCl (Apresoline) 25 mg BID PO Last administered on 09/18/18 08:21 ; Start 09/16/18 at 21:00 Furosemide (Lasix) 20 mg 1X ONCE IVP Last administered on 09/16/18 12:56; Start 09/16/18 at 11:30; Stop 09/16/18 at 11:31; Status DC Senna/Docusate Sodium (Senna Plus) 2 tab HS PO Last administered on 09/17/18 20:07; Start 09/16/18 at 21:00 Morphine Sulfate (Morphine Sulfate) 2 mg PRN Q4HRS PRN IV SEVERE PAIN Last administered on 09/17/18at 20:12; Start 09/16/18 at 21:45 Acetaminophen/ Hydrocodone Bitart (Lortab 7.5/325) 1 tab PRN Q6HRS PRN PO SEVERE PAIN; Start 09/16/18 at 21:45 Linezolid/Dextrose 300 ml @ 300 mls/hr Q12HR IV Last administered on 08:24; Start 09/17/18 at 21:00 Piperacillin Sod/ Tazobactam Sod 3.375 gm/Sodium Chloride 100 ml @ 200 mls/hr Q6HRS IV Last administered on 09/18/18 05:14; Start 09/17/18 at 13:00 Levofloxacin (Levaquin) 500 mg DAILY06 PO Last administered on 09/18/18at 06:27 ; Start 09/17/18 at 13:00 Furosemide (Lasix) 20 mg 1X ONCE IVP Last administered on 09/17/18at 14:58; Start 09/17/18 at 15:00; Stop 09/17/18 at 15:01; Status DC Active Scripts Active Prednisone 50 Mg Tablet 1 Tab PO DAILY Doxycycline Monohydrate 100 Mg Capsule 1 Cap PO BID Reported Hydrocodone-Apap 5-325 (Hydrocodone Bit/Acetaminophen) 1 Tab Tablet 1 Tab PO PRN Q6HRS PRN Buspirone Hcl 5 Mg Tablet 1 Tab PO BID Trelegy Ellipta 100-62.5-25 (Fluticasone/Umeclidin/Vilanter) 1 Each Blst.w.dev 1 Each IH QHS PRN Carvedilol 25 Mg Tablet 12.5 Mg PO BIDWMEALS Proair Hfa Inhaler (Albuterol Sulfate) 8.5 Gm Hfa.aer.ad 1 Puff INH PRN Q6HRS PRN Albuterol Sulfate Neb Soln (Albuterol Sulfate) 2.5 Mg/3 Ml Vial.neb 1 Vial NEB PRN Q4HRS Amlodipine Besylate 10 Mg Tablet 10 Mg PO DAILY Vitals/I & O Vital Sign - Last 24 Hours 09/17/18 09/17/18 09/17/18 09/17/18 09:24 09:25 09:25 10:45 Temp 99.1 99.1 Pulse 110 110 110 118 Resp 20 B/P (MAP) 131/92 131/92 131/92 137/93 (108) Pulse Ox 99 O2 Delivery Nasal Cannula O2 Flow Rate 4.0 09/17/18 09/17/18 09/17/18 09/17/18 11:12 12:38 13:10 14:58 Temp 98.9 98.9 Pulse 97 Resp 20 20 20 B/P (MAP) 157/97 (117) Pulse Ox 100 100 100 95 O2 Delivery Nasal Cannula Nasal Cannula Nasal Cannula O2 Flow Rate 4.0 4.0 4.0 4.0 09/17/18 09/17/18 09/17/18 09/17/18 15:34 18:19 19:43 19:50 Temp 98.4 98.4 Pulse 97 92 Resp 18 B/P (MAP) 157/97 159/88 (111) Pulse Ox 97 96 95 O2 Delivery Nasal Cannula Nasal Cannula Nasal Cannula O2 Flow Rate 3.0 4.0 3.0 09/17/18 09/17/18 09/17/18 09/17/18 20:00 20:08 20:12 20:43 Pulse 92 B/P (MAP) 159/88 O2 Delivery Nasal Cannula Nasal Cannula Room Air O2 Flow Rate 3.0 3.0 09/17/18 09/18/18 09/18/18 09/18/18 23:37 03:36 07:22 07:35 Temp 98.1 98.1 98.1 98.1 98.1 98.1 Pulse 92 85 84 Resp 18 20 20 B/P (MAP) 174/97 (122) 174/101 (125) 167/99 (121) Pulse Ox 97 99 97 O2 Delivery Nasal Cannula Nasal Cannula Nasal Cannula Nasal Cannula O2 Flow Rate 4.0 4.0 3.0 4.0 09/18/18 09/18/18 09/18/18 08:21 08:21 08:22 Pulse 84 84 84 B/P (MAP) 167/99 167/99 167/99 Intake and Output 09/17/18 09/17/18 09/18/18 15:00 23:00 07:00 Intake Total 600 ml 300 ml 840 ml Output Total 1450 ml Balance 600 ml 300 ml -610 ml DANIELLE BURNETT MD Sep 18, 2018 09:21
--- NOTE | 2018-09-18 10:08 | PDOC ---
PROGRESS NOTES Subjective Subjective no complaints Objective Objective Vital Signs Date Time Temp Pulse Resp B/P (MAP) Pulse Ox O2 Delivery O2 Flow Rate FiO2 09/18/18 08:22 84 167/99 09/18/18 07:35 98.1 20 97 Nasal Cannula 4.0 98.1 Intake and Output 09/18/18 07:00 Intake Total 1740 ml Output Total 1450 ml Balance 290 ml Intake Oral 1740 ml Output Urine Total 1450 ml Physical Exam Abdomen: Soft Heart: Normal S1, Normal S2 Extremities: No cyanosis, Other (leg swelling) General: Alert, Oriented X3 HEENT: Atraumatic Lungs: Other (dec breath sounds) MUSCULOSKELETAL: No deformity Neuro: Normal speech Psych/Mental Status: Mental status NL Diagnosis Problem List Problems Medical Problems: (1) Pleural effusion Status: Acute Assessment Assessment 1. Postobstructive pneumonia. 2. History of lung cancer.,METASTATIC SMALL CELL CARCINOMA,stage 4 has completed 4 cycles of chemotherapy 3. Mild heart failure.55% ejf 4. Right pleural effusion/ infiltrate/ PNEUMONIA 5. Acute hypoxic resp failure 6. COPD 7, Tobacco abuse 8. diabetes 9. hypertension 10. inc troponin 1, demand ischemia 11. anemia, cytopenia on chemotherapy 12. worsening kidney failure, cr 2.4 Plan- spoke with oncology CT chest reviewed , worsening lesions continue breathing treatment, IV vancomycin and Zosyn. renal consult venous doppler neg procalcitonin high 20 lactic acid down 1.0. crf stage 3 ,cr 2.4 spoke with cardiology. poor prognosis thoracocentesis today? Plan Plan of Care Problems Medical Problems: (1) Pleural effusion Status: Acute Comment Review of Relevant I have reviewed the following items nayana (where applicable) has been applied. Labs Laboratory Tests Test 09/17/18 14:15 09/18/18 05:15 Prothrombin Time 13.7 SEC (11.7-14.0) Prothromb Time International Ratio 1.1 (0.8-1.1) White Blood Count 18.0 x10^3/uL (4.0-11.0) Red Blood Count 3.15 x10^6/uL (4.30-5.70) Hemoglobin 8.0 g/dL (13.0-17.5) Hematocrit 25.4 % (39.0-53.0) Mean Corpuscular Volume 81 fL (79-100) Mean Corpuscular Hemoglobin 25 pg (25-35) Mean Corpuscular Hemoglobin Concent 31 g/dL (31-37) Red Cell Distribution Width 20.3 % (11.5-14.5) Platelet Count 319 x10^3/uL (140-400) Neutrophils (%) (Auto) 95 % (31-73) Lymphocytes (%) (Auto) 1 % (24-48) Monocytes (%) (Auto) 3 % (0-9) Eosinophils (%) (Auto) 0 % (0-3) Basophils (%) (Auto) 0 % (0-3) Neutrophils # (Auto) 17.1 x10^3uL (1.8-7.7) Lymphocytes # (Auto) 0.2 x10^3/uL (1.0-4.8) Monocytes # (Auto) 0.6 x10^3/uL (0.0-1.1) Eosinophils # (Auto) 0.0 x10^3/uL (0.0-0.7) Basophils # (Auto) 0.0 x10^3/uL (0.0-0.2) Sodium Level 142 mmol/L (136-145) Potassium Level 4.7 mmol/L (3.5-5.1) Chloride Level 106 mmol/L (98-107) Carbon Dioxide Level 27 mmol/L (21-32) Anion Gap 9 (6-14) Blood Urea Nitrogen 34 mg/dL (8-26) Creatinine 2.3 mg/dL (0.7-1.3) Estimated GFR (Cockcroft-Gault) 34.7 Glucose Level 241 mg/dL (70-99) Calcium Level 8.8 mg/dL (8.5-10.1) Microbiology 09/16/18 Blood Culture - Preliminary, Resulted NO GROWTH AFTER 2 DAYS Medications Current Medications Furosemide (Lasix) 20 mg 1X ONCE IVP Last administered on 09/17/18at 14:58; Start 09/17/18 at 15:00; Stop 09/17/18 at 15:01; Status DC Levofloxacin (Levaquin) 500 mg DAILY06 PO Last administered on 09/18/18at 06:27 ; Start 09/17/18 at 13:00 Linezolid/Dextrose 300 ml @ 300 mls/hr Q12HR IV Last administered on at 08:24; Start 09/17/18 at 21:00 Piperacillin Sod/ Tazobactam Sod 3.375 gm/Sodium Chloride 100 ml @ 200 mls/hr Q6HRS IV Last administered on 09/18/18at 05:14; Start 09/17/18 at 13:00 Vancomycin HCl (Vancomycin Trough Level) 1 each 1X ONCE MC ; Start 09/17/18 at 20:30; Stop 09/17/18 at 20:30; Status DC Vitals/I & O Vital Sign - Last 24 Hours 09/17/18 09/17/18 09/17/18 09/17/18 10:45 11:12 12:38 13:10 Temp 99.1 99.1 Pulse 118 Resp 20 20 20 B/P (MAP) 137/93 (108) Pulse Ox 99 100 100 100 O2 Delivery Nasal Cannula Nasal Cannula Nasal Cannula O2 Flow Rate 4.0 4.0 4.0 4.0 09/17/18 09/17/18 09/17/18 09/17/18 14:58 15:34 18:19 19:43 Temp 98.9 98.4 98.9 98.4 Pulse 97 97 92 Resp 20 18 B/P (MAP) 157/97 (117) 157/97 159/88 (111) Pulse Ox 95 97 96 O2 Delivery Nasal Cannula Nasal Cannula Nasal Cannula O2 Flow Rate 4.0 3.0 4.0 09/17/18 09/17/18 09/17/18 09/17/18 19:50 20:00 20:08 20:12 Pulse 92 B/P (MAP) 159/88 Pulse Ox 95 O2 Delivery Nasal Cannula Nasal Cannula Nasal Cannula O2 Flow Rate 3.0 3.0 3.0 09/17/18 09/17/18 09/18/18 09/18/18 20:43 23:37 03:36 07:22 Temp 98.1 98.1 98.1 98.1 Pulse 92 85 Resp 18 20 B/P (MAP) 174/97 (122) 174/101 (125) Pulse Ox 97 99 O2 Delivery Room Air Nasal Cannula Nasal Cannula Nasal Cannula O2 Flow Rate 4.0 4.0 3.0 09/18/18 09/18/18 09/18/18 09/18/18 07:35 08:21 08:21 08:22 Temp 98.1 98.1 Pulse 84 84 84 84 Resp 20 B/P (MAP) 167/99 (121) 167/99 167/99 167/99 Pulse Ox 97 O2 Delivery Nasal Cannula O2 Flow Rate 4.0 Intake and Output 09/17/18 09/17/18 09/18/18 15:00 23:00 07:00 Intake Total 600 ml 300 ml 840 ml Output Total 1450 ml Balance 600 ml 300 ml -610 ml IZAIAH STEVENSON MD Sep 18, 2018 10:08
--- NOTE | 2018-09-18 10:32 | RAD ---
Ultrasound-guided right-sided thoracentesis 09/18/2018 10:28 AM Indication: Right Pleural Effusion Procedure: Informed consent was obtained. A timeout procedure was performed. Sonographic evaluation of the right chest was performed demonstrating moderate pleural effusion. The right posterior chest was prepped and draped in sterile fashion. 1% lidocaine without epinephrine was administered for local anesthesia. Real-time ultrasonographic guidance was used in passing a 5 [place] [employer] catheter into the right pleural space. 1.1 L of serosanguineous pleural fluid was removed. Samples of fluid were sent to the lab for further evaluation per ordering physician request. The catheter was removed and pressure held to achieve hemostasis. A sterile dressing was applied. No immediate complications were identified. The patient tolerated the procedure well. Impression: Right sided ultrasound-guided thoracentesis
--- NOTE | 2018-09-18 10:50 | PDOC2 ---
CONSULT Date of Consult Date of Consult DATE: 09/18/18 TIME: 10:28 Reason for Consult Reason for Consult: Renal failure Source Source: Chart review, Patient History of Present Illness Reason for Visit: The patient is a 63-year-old male admitted with Shorness of breath on 09/15/2018 , he was diagnosed with small cell lung cancer by bronchoscopy on 04/05/2018, which revealed infiltrating tumor of the right upper lobe, right bronchus with extensive metastasis. He was started on palliative chemotherapy with carboplatin and etoposide and nivolumab on 05/02/2018 completed on 07/06/2018. A CT scan revealed worsening and progressive malignancy,hence, the chemotherapy was discontinued . Plan was to start topotecan on 09/17/2018 but on hold as Pt hospitalized Past Medical History Cardiovascular: HTN Pulmonary: Bronchitis, COPD, Pneumonia GI: Diverticulosis, GERD, Other Heme/Onc: Cancer Psych: Anxiety Musculoskeletal: Osteoarthritis Endocrine: Diabetes Past Surgical History Past Surgical History: Cholecystectomy, Other Family History Family History: Hypertension Social History <1 pack per day ALCOHOL: none Drugs: None Current Problem List Problem List Problems Medical Problems: (1) Pleural effusion Status: Acute Current Medications Current Medications Current Medications Albuterol/ Ipratropium (Duoneb) 3 ml 1X ONCE NEB Last administered on at 18:08; Start 09/15/18 at 17:45; Stop 09/15/18 at 17:48; Status DC Methylprednisolone Sodium Succinate (SOLU-Medrol 125MG VIAL) 125 mg 1X ONCE IV Last administered on 09/15/18at 17:20; Start 09/15/18 at 17:45; Stop 09/15/18 at 17:48; Status DC Sodium Chloride (NORMAL SALINE FLUSH for STERILE FIELD) 10 ml STK-MED ONCE .ROUTE ; Start 09/15/18 at 17:45; Stop 09/15/18 at 17:46; Status DC Vancomycin HCl (Vanco Per Pharmacy) 1 each PRN DAILY PRN MC SEE COMMENTS Last administered on 09/16/18at 09:42; Start 09/15/18 at 18:45; Stop 09/17/18 at 12:21 ; Status DC Piperacillin Sod/ Tazobactam Sod (Zosyn Per Pharmacy) 1 each PRN DAILY PRN MC SEE COMMENTS; Start 09/15/18 at 18:45 Vancomycin HCl 2 gm/Sodium Chloride 500 ml @ 250 mls/hr 1X ONCE IV Last administered on 09/15/18 20:43; Start 09/15/18 at 19:00; Stop 09/15/18 at 20:59 ; Status DC Piperacillin Sod/ Tazobactam Sod 4.5 gm/Sodium Chloride 100 ml @ 200 mls/hr 1X ONCE IV Last administered on 09/15/18 19:04; Start 09/15/18 at 19:00; Stop 09/15/18 at 19:29; Status DC Acetaminophen (Tylenol) 650 mg PRN Q4HRS PRN PO FEVER; Start 09/15/18 at 19:00 ; Stop 09/16/18 at 18:59; Status DC Albuterol/ Ipratropium (Duoneb) 3 ml RTQID NEB Last administered on 09/15/18 20:22; Start 09/15/18 at 20:00; Stop 09/15/18 at 21:08; Status DC Albuterol Sulfate (Ventolin Neb Soln) 2.5 mg PRN Q4HRS PRN NEB SHORTNESS OF BREATH Last administered on 09/17/18 03:37; Start 09/15/18 at 20:30 Amlodipine Besylate (Norvasc) 10 mg DAILY PO Last administered on 09/18/18 08: 21; Start 09/16/18 at 09:00 Buspirone HCl (Buspar) 5 mg BID PO Last administered on 09/18/18 08:21; Start 09/15/18 at 21:00 Acetaminophen/ Hydrocodone Bitart (Lortab 5/325) 1 tab PRN Q6HRS PRN PO MODERATE PAIN Last administered on 09/18/18 08:22; Start 09/15/18 at 20:30 Carvedilol (Coreg) 12.5 mg BIDWMEALS PO Last administered on 09/18/18 08:22; Start 09/16/18 at 08:00 Albuterol/ Ipratropium (Duoneb) 3 ml RTQID NEB Last administered on 09/18/18 07:21; Start 09/16/18 at 08:00 Piperacillin Sod/ Tazobactam Sod 4.5 gm/Sodium Chloride 100 ml @ 200 mls/hr Q6HRS IV Last administered on 09/17/18 06:39; Start 09/16/18 at 00:00; Stop at 12:24; Status DC Vancomycin HCl 1.5 gm/Sodium Chloride 500 ml @ 250 mls/hr Q24H IV Last administered on 09/16/18 21:54; Start 09/16/18 at 21:00; Stop 09/17/18 at 12:21 ; Status DC Vancomycin HCl (Vancomycin Trough Level) 1 each 1X ONCE MC ; Start 09/17/18 at 20:30; Stop 09/17/18 at 20:30; Status DC Budesonide (Pulmicort) 0.5 mg RTBID NEB Last administered on 09/18/18 07:21; Start 09/16/18 at 08:00 Nicotine (Nicoderm Cq 14mg) 1 patch DAILY TD Last administered on 09/18/18 08: 23; Start 09/16/18 at 09:00 Methylprednisolone Sodium Succinate (SOLU-Medrol 40MG VIAL) 40 mg Q8HRS IV Last administered on 09/18/18 05:14; Start 09/16/18 at 07:30 Pantoprazole Sodium (Protonix) 40 mg DAILYAC PO Last administered on 09/18/18 08:21; Start 09/16/18 at 07:30 Heparin Sodium (Porcine) (Heparin Sodium) 5,000 unit Q12HR SQ Last administered on 09/17/18 09:25; Start 09/16/18 at 21:00 Hydralazine HCl (Apresoline) 25 mg BID PO Last administered on 09/18/18 08:21 ; Start 09/16/18 at 21:00 Furosemide (Lasix) 20 mg 1X ONCE IVP Last administered on 09/16/18 12:56; Start 09/16/18 at 11:30; Stop 09/16/18 at 11:31; Status DC Senna/Docusate Sodium (Senna Plus) 2 tab HS PO Last administered on 09/17/18 20:07; Start 09/16/18 at 21:00 Morphine Sulfate (Morphine Sulfate) 2 mg PRN Q4HRS PRN IV SEVERE PAIN Last administered on 09/17/18 20:12; Start 09/16/18 at 21:45 Acetaminophen/ Hydrocodone Bitart (Lortab 7.5/325) 1 tab PRN Q6HRS PRN PO SEVERE PAIN; Start 09/16/18 at 21:45 Linezolid/Dextrose 300 ml @ 300 mls/hr Q12HR IV Last administered on at 08:24; Start 09/17/18 at 21:00 Piperacillin Sod/ Tazobactam Sod 3.375 gm/Sodium Chloride 100 ml @ 200 mls/hr Q6HRS IV Last administered on 09/18/18at 05:14; Start 09/17/18 at 13:00 Levofloxacin (Levaquin) 500 mg DAILY06 PO Last administered on 09/18/18at 06:27 ; Start 09/17/18 at 13:00 Furosemide (Lasix) 20 mg 1X ONCE IVP Last administered on 09/17/18at 14:58; Start 09/17/18 at 15:00; Stop 09/17/18 at 15:01; Status DC Active Scripts Active Prednisone 50 Mg Tablet 1 Tab PO DAILY Doxycycline Monohydrate 100 Mg Capsule 1 Cap PO BID Reported Hydrocodone-Apap 5-325 (Hydrocodone Bit/Acetaminophen) 1 Tab Tablet 1 Tab PO PRN Q6HRS PRN Buspirone Hcl 5 Mg Tablet 1 Tab PO BID Trelegy Ellipta 100-62.5-25 (Fluticasone/Umeclidin/Vilanter) 1 Each Blst.w.dev 1 Each IH QHS PRN Carvedilol 25 Mg Tablet 12.5 Mg PO BIDWMEALS Proair Hfa Inhaler (Albuterol Sulfate) 8.5 Gm Hfa.aer.ad 1 Puff INH PRN Q6HRS PRN Albuterol Sulfate Neb Soln (Albuterol Sulfate) 2.5 Mg/3 Ml Vial.neb 1 Vial NEB PRN Q4HRS Amlodipine Besylate 10 Mg Tablet 10 Mg PO DAILY Allergies Allergies: Coded Allergies: chocolate flavor (Verified Allergy, Intermediate, 07/16/18) patient states he is allergic to chocolate not just chocolate flavor peanut (Verified Allergy, Intermediate, HIVES, 07/16/18) ROS Review of System As per HPI Physical Exam Physical Exam GENERAL: no acute distress HEENT: OM moist NECK: Supple. LUNGS: Decreased breath sounds. A few expiratory wheezes. HEART: S1, S2. ABDOMEN: Soft, nontender, nondistended, EXTREMITIES: 1+ pedal edema bilaterally. DERMATOLOGIC: no generalized rash. NEUROLOGIC: Alert and oriented x 3, grossly nonfocal. - No watters, No SP or CVA tenderness Vital Signs Vital Signs Date Time Temp Pulse Resp B/P (MAP) Pulse Ox O2 Delivery O2 Flow Rate FiO2 09/18/18 10:23 92 20 97 Nasal Cannula 3.0 09/18/18 10:18 167/97 (120) 09/18/18 07:35 98.1 98.1 Assessment & Plan USAMA- ATN / AIN Check UA and renal US E-Lytes stable, Vol status stable Avoid nephrotoxins, Monitor CKD stage 3- based on the labs in [facility] Cr 1.6-1.8 since Apr 2018 HTN - On antihypertensives Anemia- Hgb stable Stage 4 small cell lung cancer with extensive metastatic disease Plan to start him on chemotherapy with topotecan after discharge . Dyspnea secondary to COPD /pneumonia /pulmonary hypertension and lung cancer. Pleural effusion- S/P thoracentesis this am 1 lts removed Post obstructive pneumonia - On Abx, Recd Vanc Now on zosyn and Linezolid Labs Labs Laboratory Tests Test 09/17/18 09:55 09/17/18 14:15 09/18/18 05:15 White Blood Count 18.4 x10^3/uL (4.0-11.0) 18.0 x10^3/uL (4.0-11.0) Red Blood Count 2.97 x10^6/uL (4.30-5.70) 3.15 x10^6/uL (4.30-5.70) Hemoglobin 7.6 g/dL (13.0-17.5) 8.0 g/dL (13.0-17.5) Hematocrit 24.3 % (39.0-53.0) 25.4 % (39.0-53.0) Mean Corpuscular Volume 82 fL (79-100) 81 fL (79-100) Mean Corpuscular Hemoglobin 26 pg (25-35) 25 pg (25-35) Mean Corpuscular Hemoglobin Concent 31 g/dL (31-37) 31 g/dL (31-37) Red Cell Distribution Width 19.8 % (11.5-14.5) 20.3 % (11.5-14.5) Platelet Count 315 x10^3/uL (140-400) 319 x10^3/uL (140-400) Neutrophils (%) (Auto) 96 % (31-73) 95 % (31-73) Lymphocytes (%) (Auto) 1 % (24-48) 1 % (24-48) Monocytes (%) (Auto) 3 % (0-9) 3 % (0-9) Eosinophils (%) (Auto) 0 % (0-3) 0 % (0-3) Basophils (%) (Auto) 0 % (0-3) 0 % (0-3) Neutrophils # (Auto) 17.6 x10^3uL (1.8-7.7) 17.1 x10^3uL (1.8-7.7) Lymphocytes # (Auto) 0.2 x10^3/uL (1.0-4.8) 0.2 x10^3/uL (1.0-4.8) Monocytes # (Auto) 0.5 x10^3/uL (0.0-1.1) 0.6 x10^3/uL (0.0-1.1) Eosinophils # (Auto) 0.0 x10^3/uL (0.0-0.7) 0.0 x10^3/uL (0.0-0.7) Basophils # (Auto) 0.0 x10^3/uL (0.0-0.2) 0.0 x10^3/uL (0.0-0.2) Segmented Neutrophils % 95 % (35-66) Band Neutrophils % 2 % (0-9) Lymphocytes % 2 % (24-48) Eosinophils % 1 % (0-5) Platelet Estimate Adequate (ADEQUATE) Sodium Level 141 mmol/L (136-145) 142 mmol/L (136-145) Potassium Level 4.5 mmol/L (3.5-5.1) 4.7 mmol/L (3.5-5.1) Chloride Level 106 mmol/L (98-107) 106 mmol/L (98-107) Carbon Dioxide Level 25 mmol/L (21-32) 27 mmol/L (21-32) Anion Gap 10 (6-14) 9 (6-14) Blood Urea Nitrogen 29 mg/dL (8-26) 34 mg/dL (8-26) Creatinine 2.0 mg/dL (0.7-1.3) 2.3 mg/dL (0.7-1.3) Estimated GFR (Cockcroft-Gault) 40.8 34.7 Glucose Level 179 mg/dL (70-99) 241 mg/dL (70-99) Calcium Level 8.6 mg/dL (8.5-10.1) 8.8 mg/dL (8.5-10.1) Prothrombin Time 13.7 SEC (11.7-14.0) Prothromb Time International Ratio 1.1 (0.8-1.1) Laboratory Tests Test 09/17/18 14:15 09/18/18 05:15 Prothrombin Time 13.7 SEC (11.7-14.0) Prothromb Time International Ratio 1.1 (0.8-1.1) White Blood Count 18.0 x10^3/uL (4.0-11.0) Red Blood Count 3.15 x10^6/uL (4.30-5.70) Hemoglobin 8.0 g/dL (13.0-17.5) Hematocrit 25.4 % (39.0-53.0) Mean Corpuscular Volume 81 fL (79-100) Mean Corpuscular Hemoglobin 25 pg (25-35) Mean Corpuscular Hemoglobin Concent 31 g/dL (31-37) Red Cell Distribution Width 20.3 % (11.5-14.5) Platelet Count 319 x10^3/uL (140-400) Neutrophils (%) (Auto) 95 % (31-73) Lymphocytes (%) (Auto) 1 % (24-48) Monocytes (%) (Auto) 3 % (0-9) Eosinophils (%) (Auto) 0 % (0-3) Basophils (%) (Auto) 0 % (0-3) Neutrophils # (Auto) 17.1 x10^3uL (1.8-7.7) Lymphocytes # (Auto) 0.2 x10^3/uL (1.0-4.8) Monocytes # (Auto) 0.6 x10^3/uL (0.0-1.1) Eosinophils # (Auto) 0.0 x10^3/uL (0.0-0.7) Basophils # (Auto) 0.0 x10^3/uL (0.0-0.2) Sodium Level 142 mmol/L (136-145) Potassium Level 4.7 mmol/L (3.5-5.1) Chloride Level 106 mmol/L (98-107) Carbon Dioxide Level 27 mmol/L (21-32) Anion Gap 9 (6-14) Blood Urea Nitrogen 34 mg/dL (8-26) Creatinine 2.3 mg/dL (0.7-1.3) Estimated GFR (Cockcroft-Gault) 34.7 Glucose Level 241 mg/dL (70-99) Calcium Level 8.8 mg/dL (8.5-10.1) Review All relevant outside records, renal labs, imaging studies, telemetry/EKG's were reviewed. Images Images Chest x-ray on 09/15/2018 that revealed cardiomegaly with congestion and large right-sided pleural effusion. CT scan of the chest w/o Contrast -- 09/17/2018 reveals right hilar mass, which has increased in size with new right pulmonary nodules and increased size of pulmonary nodules, marked increase in the right pleural effusion and worsening mediastinal and axillary lymphadenopathy and extensive osseous metastatic disease. MARTHA BRASWELL MD Sep 18, 2018 10:50
[2018-09-18] MEDS: MORPHINE SULFATE 2 MG/ML VIAL. IV PRN (11:04)
--- NOTE | 2018-09-18 11:48 | PDOC ---
PULMONARY PROGRESS NOTES Subjective NO SOA Vitals Vital Signs Date Time Temp Pulse Resp B/P (MAP) Pulse Ox O2 Delivery O2 Flow Rate FiO2 09/18/18 11:22 98 Nasal Cannula 3.0 09/18/18 11:19 98.0 83 22 157/97 (117) 98.0 General: Alert, Oriented X4, No acute distress Lungs: Other (decrease bs right) Cardiovascular: S1, S2 Abdomen: Soft Extremities: No Edema Skin: Warm Labs Laboratory Tests Test 09/17/18 09:55 09/17/18 14:15 09/18/18 05:15 White Blood Count 18.4 x10^3/uL (4.0-11.0) 18.0 x10^3/uL (4.0-11.0) Red Blood Count 2.97 x10^6/uL (4.30-5.70) 3.15 x10^6/uL (4.30-5.70) Hemoglobin 7.6 g/dL (13.0-17.5) 8.0 g/dL (13.0-17.5) Hematocrit 24.3 % (39.0-53.0) 25.4 % (39.0-53.0) Mean Corpuscular Volume 82 fL (79-100) 81 fL (79-100) Mean Corpuscular Hemoglobin 26 pg (25-35) 25 pg (25-35) Mean Corpuscular Hemoglobin Concent 31 g/dL (31-37) 31 g/dL (31-37) Red Cell Distribution Width 19.8 % (11.5-14.5) 20.3 % (11.5-14.5) Platelet Count 315 x10^3/uL (140-400) 319 x10^3/uL (140-400) Neutrophils (%) (Auto) 96 % (31-73) 95 % (31-73) Lymphocytes (%) (Auto) 1 % (24-48) 1 % (24-48) Monocytes (%) (Auto) 3 % (0-9) 3 % (0-9) Eosinophils (%) (Auto) 0 % (0-3) 0 % (0-3) Basophils (%) (Auto) 0 % (0-3) 0 % (0-3) Neutrophils # (Auto) 17.6 x10^3uL (1.8-7.7) 17.1 x10^3uL (1.8-7.7) Lymphocytes # (Auto) 0.2 x10^3/uL (1.0-4.8) 0.2 x10^3/uL (1.0-4.8) Monocytes # (Auto) 0.5 x10^3/uL (0.0-1.1) 0.6 x10^3/uL (0.0-1.1) Eosinophils # (Auto) 0.0 x10^3/uL (0.0-0.7) 0.0 x10^3/uL (0.0-0.7) Basophils # (Auto) 0.0 x10^3/uL (0.0-0.2) 0.0 x10^3/uL (0.0-0.2) Segmented Neutrophils % 95 % (35-66) Band Neutrophils % 2 % (0-9) Lymphocytes % 2 % (24-48) Eosinophils % 1 % (0-5) Platelet Estimate Adequate (ADEQUATE) Sodium Level 141 mmol/L (136-145) 142 mmol/L (136-145) Potassium Level 4.5 mmol/L (3.5-5.1) 4.7 mmol/L (3.5-5.1) Chloride Level 106 mmol/L (98-107) 106 mmol/L (98-107) Carbon Dioxide Level 25 mmol/L (21-32) 27 mmol/L (21-32) Anion Gap 10 (6-14) 9 (6-14) Blood Urea Nitrogen 29 mg/dL (8-26) 34 mg/dL (8-26) Creatinine 2.0 mg/dL (0.7-1.3) 2.3 mg/dL (0.7-1.3) Estimated GFR (Cockcroft-Gault) 40.8 34.7 Glucose Level 179 mg/dL (70-99) 241 mg/dL (70-99) Calcium Level 8.6 mg/dL (8.5-10.1) 8.8 mg/dL (8.5-10.1) Prothrombin Time 13.7 SEC (11.7-14.0) Prothromb Time International Ratio 1.1 (0.8-1.1) Laboratory Tests Test 09/17/18 14:15 09/18/18 05:15 Prothrombin Time 13.7 SEC (11.7-14.0) Prothromb Time International Ratio 1.1 (0.8-1.1) White Blood Count 18.0 x10^3/uL (4.0-11.0) Red Blood Count 3.15 x10^6/uL (4.30-5.70) Hemoglobin 8.0 g/dL (13.0-17.5) Hematocrit 25.4 % (39.0-53.0) Mean Corpuscular Volume 81 fL (79-100) Mean Corpuscular Hemoglobin 25 pg (25-35) Mean Corpuscular Hemoglobin Concent 31 g/dL (31-37) Red Cell Distribution Width 20.3 % (11.5-14.5) Platelet Count 319 x10^3/uL (140-400) Neutrophils (%) (Auto) 95 % (31-73) Lymphocytes (%) (Auto) 1 % (24-48) Monocytes (%) (Auto) 3 % (0-9) Eosinophils (%) (Auto) 0 % (0-3) Basophils (%) (Auto) 0 % (0-3) Neutrophils # (Auto) 17.1 x10^3uL (1.8-7.7) Lymphocytes # (Auto) 0.2 x10^3/uL (1.0-4.8) Monocytes # (Auto) 0.6 x10^3/uL (0.0-1.1) Eosinophils # (Auto) 0.0 x10^3/uL (0.0-0.7) Basophils # (Auto) 0.0 x10^3/uL (0.0-0.2) Sodium Level 142 mmol/L (136-145) Potassium Level 4.7 mmol/L (3.5-5.1) Chloride Level 106 mmol/L (98-107) Carbon Dioxide Level 27 mmol/L (21-32) Anion Gap 9 (6-14) Blood Urea Nitrogen 34 mg/dL (8-26) Creatinine 2.3 mg/dL (0.7-1.3) Estimated GFR (Cockcroft-Gault) 34.7 Glucose Level 241 mg/dL (70-99) Calcium Level 8.8 mg/dL (8.5-10.1) Medications Active Scripts Medications Dose Route/Sig Max Daily Dose Days Date Category Prednisone 50 Mg Tablet 1 Tab PO DAILY 08/15/18 Rx Doxycycline Monohydrate 100 Mg Capsule 1 Cap PO BID 08/15/18 Rx Hydrocodone-Apap 5-325 (Hydrocodone Bit/Acetaminophen) 1 Tab Tablet 1 Tab PO PRN Q6HRS PRN 05/25/18 Reported Buspirone Hcl 5 Mg Tablet 1 Tab PO BID 05/25/18 Reported Trelegy Ellipta 100-62.5-25 (Fluticasone/Umeclidin/Vilanter) 1 Each Blst.w.dev 1 Each IH QHS PRN 05/16/18 Reported Carvedilol 25 Mg Tablet 12.5 Mg PO BIDWMEALS 05/16/18 Reported Proair Hfa Inhaler (Albuterol Sulfate) 8.5 Gm Hfa.aer.ad 1 Puff INH PRN Q6HRS PRN 04/20/18 Reported Albuterol Sulfate Neb Soln (Albuterol Sulfate) 2.5 Mg/3 Ml Vial.neb 1 Vial NEB PRN Q4HRS 04/20/18 Reported Amlodipine Besylate 10 Mg Tablet 10 Mg PO DAILY 04/05/[address] CHEST Impression: Right hilar mass is increase in size in the interval. New right pulmonary nodules. Increased size of pulmonary nodules. Marked increase in right pleural effusion and atelectasis. Marked increase in superior mediastinal and right axillary lymphadenopathy. Extensive osseous metastases. Impression . 1. Acute on chronic respiratory failure secondary to acute exacerbation of chronic obstructive pulmonary disease, Post-obstructive pneumonia, progressing lung cancer, acute diastolic congestive heart failure 2. Abnormal chest x-ray. Chest x-ray showed right hilar mass with right lower lobe infiltrate/atelectasis/effusion. His heart is not shifted to the left, so I suspect most of his chest x-ray abnormality is secondary to atelectasis probably secondary to progressing lung cancer and endobronchial lesion, he may have postobstructive pneumonia 3. Stage 4 small cell lung cancer, progressing. 4. Chronic kidney disease. 5. Hypertension. 6. Elevated troponin? non-ST elevation myocardial infarction. 7. Tobacco habituation. 8. Acute exacerbation of chronic obstructive pulmonary disease. 9. Acute bronchitis versus pneumonia. 10. Anemia. Plan . 1. Titrate FiO2 to keep O2 saturation 92%. 2. Continue bronchodilator. 3. TAPER STEROID 4. Continue Rocephin and vancomycin. 5. Protonix for stress ulcer prophylaxis. 6. CT of the chest reviewed. Progressive right hilar mass, increase adenopathy , increase right effusion and increase nodules.there is enough pleural fluid, S/ P RIGHT thoracentesis If fluid is confirmed malignant and re-accumulates, then pleurodesis provided lung expands 7. Cardiology is consulted. Suspect his elevated troponin is secondary to demand ischemia. 8. Lower extremity venous Doppler.neg 9. Monitor respiratory status 10. The findings and recommendations were discussed with the patient and RN. IR consult MARIOLA VELÁZQUEZ MD Sep 18, 2018 11:48
--- NOTE | 2018-09-18 12:03 | PDOC ---
Infectious Disease Note Subjective: Subjective Pt is feeling better less cough,sob and chestpain on the rt side no n/v/d Vital Signs: Vital Signs Vital Signs Date Time Temp Pulse Resp B/P (MAP) Pulse Ox O2 Delivery O2 Flow Rate FiO2 09/18/18 11:22 98 Nasal Cannula 3.0 09/18/18 11:19 98.0 83 22 157/97 (117) 98.0 Physical Exam: PHYSICAL EXAM HEENT: Pupils are equal and reactive to light. Extraocular movements intact. No lesions, no thrush. NECK: Supple. LUNGS: Decreased breath sounds. A few expiratory wheezes. HEART: S1, S2. ABDOMEN: Soft, nontender, nondistended, no rebound or guarding. EXTREMITIES: 1+ pedal edema bilaterally. DERMATOLOGIC: Warm, dry, no generalized rash. NEUROLOGIC: Alert and oriented x 3, grossly nonfocal. LINES: Left chest wall Port-A-Cath access without signs of any complications. Medications: Inpatient Meds: Current Medications Medications (Trade) Dose Ordered Sig/Precious Start Time Stop Time Status Last Admin Dose Admin Acetaminophen (Tylenol) 650 mg PRN Q4HRS PRN 09/15/18 19:00 09/16/18 18:59 DC Acetaminophen/ Hydrocodone Bitart (Lortab 5/325) 1 tab PRN Q6HRS PRN 09/15/18 20:30 09/18/18 08:22 1 TAB Acetaminophen/ Hydrocodone Bitart (Lortab 7.5/325) 1 tab PRN Q6HRS PRN 09/16/18 21:45 Albuterol Sulfate (Ventolin Neb Soln) 2.5 mg PRN Q4HRS PRN 09/15/18 20:30 09/17/18 03:37 2.5 MG Albuterol/ Ipratropium (Duoneb) 3 ml RTQID 09/16/18 08:00 09/18/18 11:21 3 ML Amlodipine Besylate (Norvasc) 10 mg DAILY 09/16/18 09:00 09/18/18 08:21 10 MG Budesonide (Pulmicort) 0.5 mg RTBID 09/16/18 08:00 09/18/18 07:21 0.5 MG Buspirone HCl (Buspar) 5 mg BID 09/15/18 21:00 09/18/18 08:21 5 MG Carvedilol (Coreg) 12.5 mg BIDWMEALS 09/16/18 08:00 09/18/18 08:22 12.5 MG Furosemide (Lasix) 20 mg 1X ONCE 09/17/18 15:00 09/17/18 15:01 DC 09/17/18 14:58 20 MG Heparin Sodium (Porcine) (Heparin Sodium) 5,000 unit Q12HR 09/16/18 21:00 09/17/18 09:25 5,000 UNIT Hydralazine HCl (Apresoline) 25 mg BID 09/16/18 21:00 09/18/18 08:21 25 MG Levofloxacin (Levaquin) 250 mg DAILY06 09/19/18 06:00 Linezolid/Dextrose 300 ml @ 300 mls/hr Q12HR 09/17/18 21:00 09/18/18 08:24 300 MLS/HR Methylprednisolone Sodium Succinate (SOLU-Medrol 40MG VIAL) 40 mg Q8HRS 09/16/18 07:30 09/18/18 05:14 40 MG Methylprednisolone Sodium Succinate (SOLU-Medrol 125MG VIAL) 125 mg 1X ONCE 09/15/18 17:45 09/15/18 17:48 DC 09/15/18 17:20 125 MG Morphine Sulfate (Morphine Sulfate) 2 mg PRN Q4HRS PRN 09/16/18 21:45 09/18/18 11:04 2 MG Nicotine (Nicoderm Cq 14mg) 1 patch DAILY 09/16/18 09:00 09/18/18 08:23 1 PATCH Pantoprazole Sodium (Protonix) 40 mg DAILYAC 09/16/18 07:30 09/18/18 08:21 40 MG Piperacillin Sod/ Tazobactam Sod (Zosyn Per Pharmacy) 1 each PRN DAILY PRN 09/15/18 18:45 Piperacillin Sod/ Tazobactam Sod 3.375 gm/Sodium Chloride 100 ml @ 200 mls/hr Q6HRS 09/17/18 13:00 09/18/18 05:14 200 MLS/HR Piperacillin Sod/ Tazobactam Sod 4.5 gm/Sodium Chloride 100 ml @ 200 mls/hr Q6HRS 09/16/18 00:00 09/17/18 12:24 DC 09/17/18 06:39 200 MLS/HR Senna/Docusate Sodium (Senna Plus) 2 tab HS 09/16/18 21:00 09/17/18 20:07 2 TAB Sodium Chloride (NORMAL SALINE FLUSH for STERILE FIELD) 10 ml STK-MED ONCE 09/15/18 17:45 09/15/18 17:46 DC Vancomycin HCl (Vanco Per Pharmacy) 1 each PRN DAILY PRN 09/15/18 18:45 09/17/18 12:21 DC 09/16/18 09:42 1 EACH Vancomycin HCl (Vancomycin Trough Level) 1 each 1X ONCE 09/17/18 20:30 09/17/18 20:30 DC Vancomycin HCl 1.5 gm/Sodium Chloride 500 ml @ 250 mls/hr Q24H 09/16/18 21:00 09/17/18 12:21 DC 09/16/18 21:54 250 MLS/HR Vancomycin HCl 2 gm/Sodium Chloride 500 ml @ 250 mls/hr 1X ONCE 09/15/18 19:00 09/15/18 20:59 DC 09/15/18 20:43 250 MLS/HR Labs: Lab Laboratory Tests Test 09/17/18 14:15 09/18/18 05:15 Prothrombin Time 13.7 SEC (11.7-14.0) Prothromb Time International Ratio 1.1 (0.8-1.1) White Blood Count 18.0 x10^3/uL (4.0-11.0) Red Blood Count 3.15 x10^6/uL (4.30-5.70) Hemoglobin 8.0 g/dL (13.0-17.5) Hematocrit 25.4 % (39.0-53.0) Mean Corpuscular Volume 81 fL (79-100) Mean Corpuscular Hemoglobin 25 pg (25-35) Mean Corpuscular Hemoglobin Concent 31 g/dL (31-37) Red Cell Distribution Width 20.3 % (11.5-14.5) Platelet Count 319 x10^3/uL (140-400) Neutrophils (%) (Auto) 95 % (31-73) Lymphocytes (%) (Auto) 1 % (24-48) Monocytes (%) (Auto) 3 % (0-9) Eosinophils (%) (Auto) 0 % (0-3) Basophils (%) (Auto) 0 % (0-3) Neutrophils # (Auto) 17.1 x10^3uL (1.8-7.7) Lymphocytes # (Auto) 0.2 x10^3/uL (1.0-4.8) Monocytes # (Auto) 0.6 x10^3/uL (0.0-1.1) Eosinophils # (Auto) 0.0 x10^3/uL (0.0-0.7) Basophils # (Auto) 0.0 x10^3/uL (0.0-0.2) Sodium Level 142 mmol/L (136-145) Potassium Level 4.7 mmol/L (3.5-5.1) Chloride Level 106 mmol/L (98-107) Carbon Dioxide Level 27 mmol/L (21-32) Anion Gap 9 (6-14) Blood Urea Nitrogen 34 mg/dL (8-26) Creatinine 2.3 mg/dL (0.7-1.3) Estimated GFR (Cockcroft-Gault) 34.7 Glucose Level 241 mg/dL (70-99) Calcium Level 8.8 mg/dL (8.5-10.1) Objective: Assessment: 1. Acute on chronic respiratory failure secondary to progressive lung cancer with likely postobstructive pneumonia and right pleural effusion. 2. Progressive metastatic small cell carcinoma stage [address] chest today. 3. Mild cardiac failure. 4. Right pleural effusion, could have underlying infiltrate. 5. Chronic obstructive pulmonary disease, oxygen dependent. 6. Tobacco abuse. 7. Diabetes mellitus type 2. 8. Polyclonal gammopathy. 9. Chronic kidney disease. 10. History of seizures. Plan: Plan of Care linezolid/ Zosyn/levoflox f/u thoracocentesis studies and cults. Follow up cultures and lab in a.m. Continue supportive care. ALCIDES CERVANTES MD Sep 18, 2018 12:03
--- NOTE | 2018-09-18 13:03 | RAD ---
Portable chest, 09/18/2018: HISTORY: Postthoracentesis evaluation Comparison is made to a study from 09/15/2018. A left Port-A-Cath extends to the level the atriocaval junction. The heart size is unchanged. There is mildly improved aeration of the right lower lung status post thoracentesis. There is moderate residual atelectasis/infiltrate in the right base surrounding a known right hilar mass. There is blunting of the costophrenic and vertebrophrenic angles on the right compatible with residual pleural fluid. No left-sided pleural fluid is seen. There is no evidence of pneumothorax. IMPRESSION: 1. Improved aeration of the right lower chest status post thoracentesis. 2. No evidence of pneumothorax. Electronically signed by: Jack Conroy MD (09/18/2018 1:00 PM) [facility]
--- NOTE | 2018-09-18 13:05 | RAD ---
Renal ultrasound, 09/18/2018: HISTORY: Renal failure The right kidney measures 12.1 cm in length while the left kidney measures 12.6 cm. There is a 2.1 cm cyst arising from the upper pole the right kidney. There is no evidence of hydronephrosis. The renal parenchymal echogenicity is mildly increased bilaterally suggesting nonspecific medical renal disease. Limited views of the urinary bladder show no abnormality. IMPRESSION: 1. Mildly increased renal parenchymal echogenicity compatible with medical renal disease. 2. Small right renal cyst. 3. No evidence of renal obstruction. Electronically signed by: Jack Conroy MD (09/18/2018 1:02 PM) [facility]
--- NOTE | 2018-09-18 14:44 | NUR ---
SW following pt. Insurance has approved SNU. Spoke with pt at bedside and pt reported he will be 'doing chemo for next 6 days'. SW confirmed with Kesha at [facility] that pt is not able to do chemo while in rehab. Pt stated he rather go home with home health instead so he can receive chemo tx. Pt agreeable with Yoan PIMENTEL. Pt also intersted in home care services and SW informed him those services need to be requested through the State. FELECIA GUEVARA.
--- NOTE | 2018-09-18 15:48 | PDOC ---
CARDIO Progress Notes Date and Time Date of Service 09/18/2018 Time of Evaluation 1530 Subjective Subjective: No Chest Pain, No shortness of breath, No Palpitations Vitals Vitals Vital Signs Date Time Temp Pulse Resp B/P (MAP) Pulse Ox O2 Delivery O2 Flow Rate FiO2 09/18/18 11:22 98 Nasal Cannula 3.0 09/18/18 11:19 98.0 83 22 157/97 (117) 98.0 Weight Weight [ ] Input and Output Intake and Output Intake and Output 09/18/18 07:00 Intake Total 1740 ml Output Total 1450 ml Balance 290 ml Intake Oral 1740 ml Output Urine Total 1450 ml Laboratory Labs Laboratory Tests Test 09/18/18 05:15 White Blood Count 18.0 x10^3/uL (4.0-11.0) Red Blood Count 3.15 x10^6/uL (4.30-5.70) Hemoglobin 8.0 g/dL (13.0-17.5) Hematocrit 25.4 % (39.0-53.0) Mean Corpuscular Volume 81 fL (79-100) Mean Corpuscular Hemoglobin 25 pg (25-35) Mean Corpuscular Hemoglobin Concent 31 g/dL (31-37) Red Cell Distribution Width 20.3 % (11.5-14.5) Platelet Count 319 x10^3/uL (140-400) Neutrophils (%) (Auto) 95 % (31-73) Lymphocytes (%) (Auto) 1 % (24-48) Monocytes (%) (Auto) 3 % (0-9) Eosinophils (%) (Auto) 0 % (0-3) Basophils (%) (Auto) 0 % (0-3) Neutrophils # (Auto) 17.1 x10^3uL (1.8-7.7) Lymphocytes # (Auto) 0.2 x10^3/uL (1.0-4.8) Monocytes # (Auto) 0.6 x10^3/uL (0.0-1.1) Eosinophils # (Auto) 0.0 x10^3/uL (0.0-0.7) Basophils # (Auto) 0.0 x10^3/uL (0.0-0.2) Sodium Level 142 mmol/L (136-145) Potassium Level 4.7 mmol/L (3.5-5.1) Chloride Level 106 mmol/L (98-107) Carbon Dioxide Level 27 mmol/L (21-32) Anion Gap 9 (6-14) Blood Urea Nitrogen 34 mg/dL (8-26) Creatinine 2.3 mg/dL (0.7-1.3) Estimated GFR (Cockcroft-Gault) 34.7 Glucose Level 241 mg/dL (70-99) Calcium Level 8.8 mg/dL (8.5-10.1) Microbiology Micro Microbiology 09/16/18 Blood Culture - Preliminary, Resulted NO GROWTH AFTER 2 DAYS Physical Exam HEENT: Neck Supple W Full Motion Chest: Symmetric LUNGS: Other (basilar crackles) Heart: S1S2, RRR (SR) Abdomen: Soft N/T Extremities: No Calf Tenderness, Other (2-3+ bilateral LE pitting edema) Neurology: alert, oriented, follow commands Assessment Assessment 1. Acute respiratory failure; multifactorial given lung CA, pulm HTN, PNA per pulmonary 2. Lung CA, stage IV with mets: S/P right thoracentesis. per Hemonc 3. Acute on chronic diastolic HF; LVEF 55%, Compensated 4. Elevated troponin; highest 0.299, type 2 demand mediated 5. Pulmonary HTN; PAP 71 mmHg. 6. Anemia of chronic disease: Hgb 8 7. USAMA: nephrology following Recommendations Laisx PRN provide with caution with increasing Cr. none need for today. BP controlled, continue coreg unless wheezy then may convert to metoprolol. Conservative measure, supportive care Replace Mg if low TYLER DILLON APRN Sep 18, 2018 15:48
[2018-09-18] MEDS: HYDROcodone/APAP 7.5/325MG 1 TAB TABLET PO PRN (17:31)
[2018-09-18 17:46] LABS: BILIRUBIN,URINE NEGATIVE (NEG); CLARITY,URINE CLEAR; COLOR,URINE YELLOW; NITRITE,URINE NEGATIVE (NEG); PROTEIN,URINE >=300 mg/dL (NEG-TRACE); UROBILINOGEN,URINE 0.2 mg/dL (0.2 mg/dL)
[2018-09-18 17:53] LABS: AMORPHOUS SEDIMENT,UR PRESENT /HPF; BACTERIA,URINE 0 /HPF (0-FEW); RBC,URINE OCC /HPF (0-2); SQUAMOUS EPITHELIAL CELL,UR OCC /LPF; WBC,URINE OCC /HPF (0-4)
[2018-09-18] MEDS: SENNOSIDES/DOCUSATE 8.6/50MG TABLET. PO SCH (20:51)
[2018-09-19] MEDS: PIPERACILLIN/TAZOBACTAM 3.375 GM in IV NORMAL SALINE 100ML 100 ML IV SCH ×5 (00:23→23:48)
[2018-09-19 03:00] VITALS: BP 159/100
[2018-09-19 05:01] LABS: CALCIUM 8.7 mg/dL (8.5-10.1); CREATININE 2.1 mg/dL (0.7-1.3); GFR 38.5; POTASSIUM 4.4 mmol/L (3.5-5.1)
[2018-09-19] MEDS: BUDESONIDE 0.5 MG/2 ML NEBU. NEB SCH ×2 (06:06→19:51)
[2018-09-19] MEDS: IPRATRPIUM/ALBUTEROL 0.5/2.5MG 3 ML NEBU. NEB SCH ×4 (06:06→19:50)
[2018-09-19] MEDS: methylPREDNISolone SOD SUCC PF 40 MG/ML VIAL. IV SCH ×3 (06:20→21:45)
[2018-09-19 07:00] VITALS: BP 168/97
--- NOTE | 2018-09-19 07:01 | NUR ---
Pt with 7 bts of Vtach noted during the noc. Pt asymptomatic. Pt resting in recliner with eyes closed. Pt with elevated diastolic bp noted during the noc. Called supervisor contingents Physician and received orders for labs and ekg. Notified message center for Dr. Leavitt of pt's Vtach during the noc. No further complaints noted. Will continue current plan of care.
--- NOTE | 2018-09-19 07:42 | EKG ---
[facility] [address] [place] [address] Test Date: 2018-09-19 Test Time: 04:13:58 Pat Name: JESSICA MEDINA Department: Room: [facility] Gender: M Contact Centre Supervisor: TERRI : 1955 Requested By: RONNA RENO Order Number: [id number] Reading MD: Brando Carpio Measurements Intervals [place] Rate: 75 P: 40 NV: 160 QRS: 37 QRSD: 154 T: -31 QT: 430 QTc: 483 Interpretive Statements SINUS RHYTHM RIGHT BUNDLE BRANCH BLOCK ABNORMAL ECG Electronically Signed On 09-24-2018 13:14:05 CDT by Brando Carpio
[2018-09-19] MEDS: HEPARIN for SUB-Q USE 5,000 UNIT/ML VIAL. SQ SCH ×2 (09:00→20:22)
[2018-09-19] MEDS: busPIRone 5 MG TABLET. PO SCH ×2 (09:14→20:12)
[2018-09-19] MEDS: PANTOPRAZOLE 40 MG TABLET.DR. PO SCH (09:15)
[2018-09-19] MEDS: NICOTINE 14MG PATCH. TD SCH (09:15)
[2018-09-19] MEDS: CARVEDILOL 12.5 MG TABLET. PO SCH ×2 (09:15→17:33)
[2018-09-19] MEDS: hydrALAZINE 25 MG TABLET PO SCH ×2 (09:15→20:12)
[2018-09-19] MEDS: amLODIPine BESYLATE 10 MG TABLET PO SCH (09:16)
--- NOTE | 2018-09-19 09:47 | PDOC ---
PROGRESS NOTES Subjective Subjective feels better today Objective Objective Vital Signs Date Time Temp Pulse Resp B/P (MAP) Pulse Ox O2 Delivery O2 Flow Rate FiO2 09/19/18 09:16 80 168/97 09/19/18 07:00 98.0 18 98 Nasal Cannula 3.0 98.0 Intake and Output 09/19/18 07:00 Intake Total 940 ml Output Total 675 ml Balance 265 ml Intake Oral 940 ml Output Urine Total 675 ml # Voids 1 Physical Exam Abdomen: Soft Heart: Normal S1, Normal S2 Extremities: No cyanosis, Other (leg swelling) General: Alert, Oriented X3 HEENT: Atraumatic Lungs: Other (dec breath sounds) MUSCULOSKELETAL: No deformity Neuro: Normal speech Psych/Mental Status: Mental status NL Diagnosis Problem List Problems Medical Problems: (1) Pleural effusion Status: Acute Assessment Assessment IMP:Pleural effusion rt 1. Postobstructive pneumonia. 2. History of lung cancer.,METASTATIC SMALL CELL CARCINOMA,stage 4 has completed 4 cycles of chemotherapy 3. Mild heart failure.55% ejf 4. Right pleural effusion/ infiltrate/ PNEUMONIA 5. Acute hypoxic resp failure 6. COPD 7, Tobacco abuse 8. diabetes 9. hypertension 10. inc troponin 1, demand ischemia 11. anemia, cytopenia on chemotherapy 12. worsening kidney failure, cr 2.4 Plan- 1 L fluid drained from rt pleura space spoke with pulmonary CT chest reviewed , worsening lesions continue breathing treatment, IV vancomycin and Zosyn. renal consult venous doppler neg procalcitonin high 20 lactic acid down 1.0. crf stage 3 ,cr 2.1 sono kidneys ,no obstruction poor prognosis Plan Plan of Care Problems Medical Problems: (1) Pleural effusion Status: Acute Comment Review of Relevant I have reviewed the following items nayana (where applicable) has been applied. Labs Laboratory Tests Test 09/18/18 17:26 09/19/18 04:20 Urine Color Yellow Urine Clarity Clear Urine pH 5.0 Urine Specific [place] 1.020 Urine Protein >=300 mg/dL (NEG-TRACE) Urine Glucose (UA) Negative mg/dL (NEG) Urine Ketones (Stick) Negative mg/dL (NEG) Urine Blood Negative (NEG) Urine Nitrite Negative (NEG) Urine Bilirubin Negative (NEG) Urine Urobilinogen Dipstick 0.2 mg/dL (0.2 mg/dL) Urine Leukocyte Esterase Negative (NEG) Urine RBC Occ /HPF (0-2) Urine WBC Occ /HPF (0-4) Urine Squamous Epithelial Cells Occ /LPF Urine Amorphous Sediment Present /HPF Urine Bacteria 0 /HPF (0-FEW) Sodium Level 141 mmol/L (136-145) Potassium Level 4.4 mmol/L (3.5-5.1) Chloride Level 106 mmol/L (98-107) Carbon Dioxide Level 27 mmol/L (21-32) Anion Gap 8 (6-14) Blood Urea Nitrogen 39 mg/dL (8-26) Creatinine 2.1 mg/dL (0.7-1.3) Estimated GFR (Cockcroft-Gault) 38.5 Glucose Level 224 mg/dL (70-99) Calcium Level 8.7 mg/dL (8.5-10.1) Magnesium Level 1.9 mg/dL (1.8-2.4) Microbiology 09/16/18 Blood Culture - Preliminary, Resulted NO GROWTH AFTER 3 DAYS Medications Current Medications Levofloxacin (Levaquin) 250 mg DAILY06 PO Last administered on 09/19/18at 06:21 ; Start 09/19/18 at 06:00 Vitals/I & O Vital Sign - Last 24 Hours 09/18/18 09/18/18 09/18/18 09/18/18 10:04 10:05 10:07 10:11 Pulse 89 91 87 84 Resp 18 20 20 18 B/P (MAP) 176/95 (122) Pulse Ox 93 97 96 O2 Delivery Nasal Cannula Nasal Cannula Nasal Cannula Nasal Cannula O2 Flow Rate 3.0 3.0 3.0 3.0 09/18/18 09/18/18 09/18/18 09/18/18 10:17 10:18 10:23 10:24 Pulse 82 84 92 90 Resp 18 18 20 20 B/P (MAP) 167/97 (120) Pulse Ox 98 97 97 97 O2 Delivery Nasal Cannula Nasal Cannula Nasal Cannula Nasal Cannula O2 Flow Rate 3.0 3.0 3.0 3.0 09/18/18 09/18/18 09/18/18 09/18/18 10:47 11:19 11:22 15:59 Temp 98.0 98.1 98.0 98.1 Pulse 83 80 Resp 22 18 B/P (MAP) 157/97 (117) 157/93 (114) Pulse Ox 97 98 98 96 O2 Delivery Nasal Cannula Nasal Cannula Nasal Cannula O2 Flow Rate 3.0 4.0 3.0 4.0 09/18/18 09/18/18 09/18/18 09/18/18 17:16 19:00 19:15 20:00 Temp 98.0 98.0 Pulse 80 83 Resp 20 B/P (MAP) 157/93 151/96 (114) Pulse Ox 92 97 O2 Delivery Nasal Cannula Nasal Cannula O2 Flow Rate 3.0 3.0 09/18/18 09/18/18 09/19/18 09/19/18 20:52 23:00 03:00 07:00 Temp 97.6 98.0 98.0 97.6 98.0 98.0 Pulse 81 83 80 Resp 20 18 18 B/P (MAP) 151/96 152/102 (119) 159/100 (119) 168/97 (120) Pulse Ox 97 97 98 O2 Delivery Nasal Cannula O2 Flow Rate 3.0 09/19/18 09/19/18 09/19/18 09:15 09:15 09:16 Pulse 80 80 80 B/P (MAP) 168/97 168/97 168/97 Intake and Output 09/18/18 09/18/18 09/19/18 15:00 23:00 07:00 Intake Total 500 ml 320 ml 120 ml Output Total 375 ml 300 ml Balance 125 ml 320 ml -180 ml IZAIAH STEVENSON MD Sep 19, 2018 09:47
--- NOTE | 2018-09-19 10:22 | PDOC ---
Infectious Disease Note Subjective: Subjective Pt is feeling better since thoracocentesis less cough,sob and chestpain on the rt side no n/v/d ROS: ROS Negative except for above. Vital Signs: Vital Signs Vital Signs Date Time Temp Pulse Resp B/P (MAP) Pulse Ox O2 Delivery O2 Flow Rate FiO2 09/19/18 09:16 80 168/97 09/19/18 07:00 98.0 18 98 Nasal Cannula 3.0 98.0 Physical Exam: PHYSICAL EXAM HEENT: Pupils are equal and reactive to light. Extraocular movements intact. No lesions, no thrush. NECK: Supple. LUNGS: Decreased breath sounds. A few expiratory wheezes. HEART: S1, S2. ABDOMEN: Soft, nontender, nondistended, no rebound or guarding. EXTREMITIES: 1+ pedal edema bilaterally. DERMATOLOGIC: Warm, dry, no generalized rash. NEUROLOGIC: Alert and oriented x 3, grossly nonfocal. LINES: Left chest wall Port-A-Cath access without signs of any complications. Medications: Inpatient Meds: Current Medications Medications (Trade) Dose Ordered Sig/Precious Start Time Stop Time Status Last Admin Dose Admin Acetaminophen (Tylenol) 650 mg PRN Q4HRS PRN 09/15/18 19:00 09/16/18 18:59 DC Acetaminophen/ Hydrocodone Bitart (Lortab 5/325) 1 tab PRN Q6HRS PRN 09/15/18 20:30 09/18/18 08:22 1 TAB Acetaminophen/ Hydrocodone Bitart (Lortab 7.5/325) 1 tab PRN Q6HRS PRN 09/16/18 21:45 09/18/18 17:31 1 TAB Albuterol Sulfate (Ventolin Neb Soln) 2.5 mg PRN Q4HRS PRN 09/15/18 20:30 09/17/18 03:37 2.5 MG Albuterol/ Ipratropium (Duoneb) 3 ml RTQID 09/16/18 08:00 09/19/18 06:06 3 ML Amlodipine Besylate (Norvasc) 10 mg DAILY 09/16/18 09:00 09/19/18 09:16 10 MG Budesonide (Pulmicort) 0.5 mg RTBID 09/16/18 08:00 09/19/18 06:06 0.5 MG Buspirone HCl (Buspar) 5 mg BID 09/15/18 21:00 09/19/18 09:14 5 MG Carvedilol (Coreg) 12.5 mg BIDWMEALS 09/16/18 08:00 09/19/18 09:15 12.5 MG Furosemide (Lasix) 20 mg 1X ONCE 09/17/18 15:00 09/17/18 15:01 DC 09/17/18 14:58 20 MG Heparin Sodium (Porcine) (Heparin Sodium) 5,000 unit Q12HR 09/16/18 21:00 09/19/18 09:00 5,000 UNIT Hydralazine HCl (Apresoline) 25 mg BID 09/16/18 21:00 09/19/18 09:15 25 MG Levofloxacin (Levaquin) 250 mg DAILY06 09/19/18 06:00 09/19/18 06:21 250 MG Linezolid/Dextrose 300 ml @ 300 mls/hr Q12HR 09/17/18 21:00 09/19/18 09:16 300 MLS/HR Methylprednisolone Sodium Succinate (SOLU-Medrol 40MG VIAL) 40 mg Q8HRS 09/16/18 07:30 09/19/18 06:20 40 MG Methylprednisolone Sodium Succinate (SOLU-Medrol 125MG VIAL) 125 mg 1X ONCE 09/15/18 17:45 09/15/18 17:48 DC 09/15/18 17:20 125 MG Morphine Sulfate (Morphine Sulfate) 2 mg PRN Q4HRS PRN 09/16/18 21:45 09/18/18 11:04 2 MG Nicotine (Nicoderm Cq 14mg) 1 patch DAILY 09/16/18 09:00 09/19/18 09:15 1 PATCH Pantoprazole Sodium (Protonix) 40 mg DAILYAC 09/16/18 07:30 09/19/18 09:15 40 MG Piperacillin Sod/ Tazobactam Sod (Zosyn Per Pharmacy) 1 each PRN DAILY PRN 09/15/18 18:45 Piperacillin Sod/ Tazobactam Sod 3.375 gm/Sodium Chloride 100 ml @ 200 mls/hr Q6HRS 09/17/18 13:00 09/19/18 06:22 200 MLS/HR Piperacillin Sod/ Tazobactam Sod 4.5 gm/Sodium Chloride 100 ml @ 200 mls/hr Q6HRS 09/16/18 00:00 09/17/18 12:24 DC 09/17/18 06:39 200 MLS/HR Senna/Docusate Sodium (Senna Plus) 2 tab HS 09/16/18 21:00 09/18/18 20:51 2 TAB Sodium Chloride (NORMAL SALINE FLUSH for STERILE FIELD) 10 ml STK-MED ONCE 09/15/18 17:45 09/15/18 17:46 DC Vancomycin HCl (Vanco Per Pharmacy) 1 each PRN DAILY PRN 09/15/18 18:45 09/17/18 12:21 DC 09/16/18 09:42 1 EACH Vancomycin HCl (Vancomycin Trough Level) 1 each 1X ONCE 09/17/18 20:30 09/17/18 20:30 DC Vancomycin HCl 1.5 gm/Sodium Chloride 500 ml @ 250 mls/hr Q24H 09/16/18 21:00 09/17/18 12:21 DC 09/16/18 21:54 250 MLS/HR Vancomycin HCl 2 gm/Sodium Chloride 500 ml @ 250 mls/hr 1X ONCE 09/15/18 19:00 09/15/18 20:59 DC 09/15/18 20:43 250 MLS/HR Labs: Lab Laboratory Tests Test 09/18/18 17:26 09/19/18 04:20 Urine Color Yellow Urine Clarity Clear Urine pH 5.0 Urine Specific [place] 1.020 Urine Protein >=300 mg/dL (NEG-TRACE) Urine Glucose (UA) Negative mg/dL (NEG) Urine Ketones (Stick) Negative mg/dL (NEG) Urine Blood Negative (NEG) Urine Nitrite Negative (NEG) Urine Bilirubin Negative (NEG) Urine Urobilinogen Dipstick 0.2 mg/dL (0.2 mg/dL) Urine Leukocyte Esterase Negative (NEG) Urine RBC Occ /HPF (0-2) Urine WBC Occ /HPF (0-4) Urine Squamous Epithelial Cells Occ /LPF Urine Amorphous Sediment Present /HPF Urine Bacteria 0 /HPF (0-FEW) Sodium Level 141 mmol/L (136-145) Potassium Level 4.4 mmol/L (3.5-5.1) Chloride Level 106 mmol/L (98-107) Carbon Dioxide Level 27 mmol/L (21-32) Anion Gap 8 (6-14) Blood Urea Nitrogen 39 mg/dL (8-26) Creatinine 2.1 mg/dL (0.7-1.3) Estimated GFR (Cockcroft-Gault) 38.5 Glucose Level 224 mg/dL (70-99) Calcium Level 8.7 mg/dL (8.5-10.1) Magnesium Level 1.9 mg/dL (1.8-2.4) Objective: Assessment: 1. Acute on chronic respiratory failure secondary to progressive lung cancer with likely postobstructive pneumonia and right pleural effusion. 2. Progressive metastatic small cell carcinoma stage [address] chest today. 3. Mild cardiac failure. 4. Right pleural effusion, could have underlying infiltrate. 5. Chronic obstructive pulmonary disease, oxygen dependent. 6. Tobacco abuse. 7. Diabetes mellitus type 2. 8. Polyclonal gammopathy. 9. Chronic kidney disease. 10. History of seizures. Plan: Plan of Care linezolid/ Zosyn/levoflox Follow up cultures and lab in a.m. Continue supportive care. ALCIDES CERVANTES MD Sep 19, 2018 10:22
[2018-09-19 11:00] VITALS: BP 162/91
--- NOTE | 2018-09-19 11:57 | PDOC ---
PULMONARY PROGRESS NOTES Subjective NO SOA Vitals Vital Signs Date Time Temp Pulse Resp B/P (MAP) Pulse Ox O2 Delivery O2 Flow Rate FiO2 09/19/18 11:30 Nasal Cannula 3.0 09/19/18 11:00 98.2 78 18 162/91 (114) 100 98.2 General: Alert, Oriented X4, No acute distress Lungs: Other (decrease bs right) Cardiovascular: S1, S2 Abdomen: Soft Extremities: No Edema Skin: Warm Labs Laboratory Tests Test 09/17/18 14:15 09/18/18 05:15 09/18/18 10:10 09/18/18 17:26 Prothrombin Time 13.7 SEC (11.7-14.0) Prothromb Time International Ratio 1.1 (0.8-1.1) White Blood Count 18.0 x10^3/uL (4.0-11.0) Red Blood Count 3.15 x10^6/uL (4.30-5.70) Hemoglobin 8.0 g/dL (13.0-17.5) Hematocrit 25.4 % (39.0-53.0) Mean Corpuscular Volume 81 fL (79-100) Mean Corpuscular Hemoglobin 25 pg (25-35) Mean Corpuscular Hemoglobin Concent 31 g/dL (31-37) Red Cell Distribution Width 20.3 % (11.5-14.5) Platelet Count 319 x10^3/uL (140-400) Neutrophils (%) (Auto) 95 % (31-73) Lymphocytes (%) (Auto) 1 % (24-48) Monocytes (%) (Auto) 3 % (0-9) Eosinophils (%) (Auto) 0 % (0-3) Basophils (%) (Auto) 0 % (0-3) Neutrophils # (Auto) 17.1 x10^3uL (1.8-7.7) Lymphocytes # (Auto) 0.2 x10^3/uL (1.0-4.8) Monocytes # (Auto) 0.6 x10^3/uL (0.0-1.1) Eosinophils # (Auto) 0.0 x10^3/uL (0.0-0.7) Basophils # (Auto) 0.0 x10^3/uL (0.0-0.2) Sodium Level 142 mmol/L (136-145) Potassium Level 4.7 mmol/L (3.5-5.1) Chloride Level 106 mmol/L (98-107) Carbon Dioxide Level 27 mmol/L (21-32) Anion Gap 9 (6-14) Blood Urea Nitrogen 34 mg/dL (8-26) Creatinine 2.3 mg/dL (0.7-1.3) Estimated GFR (Cockcroft-Gault) 34.7 Glucose Level 241 mg/dL (70-99) Calcium Level 8.8 mg/dL (8.5-10.1) Magnesium Level 2.0 mg/dL (1.8-2.4) Body Fluid Total Protein 3.6 g/dL (.) Body Fluid Lactate Dehydrogenase 119 IU/L (.) Urine Color Yellow Urine Clarity Clear Urine pH 5.0 Urine Specific [place] 1.020 Urine Protein >=300 mg/dL (NEG-TRACE) Urine Glucose (UA) Negative mg/dL (NEG) Urine Ketones (Stick) Negative mg/dL (NEG) Urine Blood Negative (NEG) Urine Nitrite Negative (NEG) Urine Bilirubin Negative (NEG) Urine Urobilinogen Dipstick 0.2 mg/dL (0.2 mg/dL) Urine Leukocyte Esterase Negative (NEG) Urine RBC Occ /HPF (0-2) Urine WBC Occ /HPF (0-4) Urine Squamous Epithelial Cells Occ /LPF Urine Amorphous Sediment Present /HPF Urine Bacteria 0 /HPF (0-FEW) Test 09/19/18 04:20 Sodium Level 141 mmol/L (136-145) Potassium Level 4.4 mmol/L (3.5-5.1) Chloride Level 106 mmol/L (98-107) Carbon Dioxide Level 27 mmol/L (21-32) Anion Gap 8 (6-14) Blood Urea Nitrogen 39 mg/dL (8-26) Creatinine 2.1 mg/dL (0.7-1.3) Estimated GFR (Cockcroft-Gault) 38.5 Glucose Level 224 mg/dL (70-99) Calcium Level 8.7 mg/dL (8.5-10.1) Magnesium Level 1.9 mg/dL (1.8-2.4) Laboratory Tests Test 09/18/18 17:26 09/19/18 04:20 Urine Color Yellow Urine Clarity Clear Urine pH 5.0 Urine Specific [place] 1.020 Urine Protein >=300 mg/dL (NEG-TRACE) Urine Glucose (UA) Negative mg/dL (NEG) Urine Ketones (Stick) Negative mg/dL (NEG) Urine Blood Negative (NEG) Urine Nitrite Negative (NEG) Urine Bilirubin Negative (NEG) Urine Urobilinogen Dipstick 0.2 mg/dL (0.2 mg/dL) Urine Leukocyte Esterase Negative (NEG) Urine RBC Occ /HPF (0-2) Urine WBC Occ /HPF (0-4) Urine Squamous Epithelial Cells Occ /LPF Urine Amorphous Sediment Present /HPF Urine Bacteria 0 /HPF (0-FEW) Sodium Level 141 mmol/L (136-145) Potassium Level 4.4 mmol/L (3.5-5.1) Chloride Level 106 mmol/L (98-107) Carbon Dioxide Level 27 mmol/L (21-32) Anion Gap 8 (6-14) Blood Urea Nitrogen 39 mg/dL (8-26) Creatinine 2.1 mg/dL (0.7-1.3) Estimated GFR (Cockcroft-Gault) 38.5 Glucose Level 224 mg/dL (70-99) Calcium Level 8.7 mg/dL (8.5-10.1) Magnesium Level 1.9 mg/dL (1.8-2.4) Medications Active Scripts Medications Dose Route/Sig Max Daily Dose Days Date Category Prednisone 50 Mg Tablet 1 Tab PO DAILY 08/15/18 Rx Doxycycline Monohydrate 100 Mg Capsule 1 Cap PO BID 08/15/18 Rx Hydrocodone-Apap 5-325 (Hydrocodone Bit/Acetaminophen) 1 Tab Tablet 1 Tab PO PRN Q6HRS PRN 05/25/18 Reported Buspirone Hcl 5 Mg Tablet 1 Tab PO BID 05/25/18 Reported Trelegy Ellipta 100-62.5-25 (Fluticasone/Umeclidin/Vilanter) 1 Each Blst.w.dev 1 Each IH QHS PRN 05/16/18 Reported Carvedilol 25 Mg Tablet 12.5 Mg PO BIDWMEALS 05/16/18 Reported Proair Hfa Inhaler (Albuterol Sulfate) 8.5 Gm Hfa.aer.ad 1 Puff INH PRN Q6HRS PRN 04/20/18 Reported Albuterol Sulfate Neb Soln (Albuterol Sulfate) 2.5 Mg/3 Ml Vial.neb 1 Vial NEB PRN Q4HRS 04/20/18 Reported Amlodipine Besylate 10 Mg Tablet 10 Mg PO DAILY 04/05/[address] CHEST Impression: Right hilar mass is increase in size in the interval. New right pulmonary nodules. Increased size of pulmonary nodules. Marked increase in right pleural effusion and atelectasis. Marked increase in superior mediastinal and right axillary lymphadenopathy. Extensive osseous metastases. Impression . 1. Acute on chronic respiratory failure secondary to acute exacerbation of chronic obstructive pulmonary disease, Post-obstructive pneumonia, progressing lung cancer, acute diastolic congestive heart failure 2. Abnormal chest x-ray. Chest x-ray showed right hilar mass with right lower lobe infiltrate/atelectasis/effusion. His heart is not shifted to the left, so I suspect most of his chest x-ray abnormality is secondary to atelectasis probably secondary to progressing lung cancer and endobronchial lesion, he may have postobstructive pneumonia 3. Stage 4 small cell lung cancer, progressing. 4. Chronic kidney disease. 5. Hypertension. 6. Elevated troponin? non-ST elevation myocardial infarction. 7. Tobacco habituation. 8. Acute exacerbation of chronic obstructive pulmonary disease. Plan . 1. Titrate FiO2 to keep O2 saturation 92%. 2. Continue bronchodilator. 3. TAPER STEROID 4. Continue Rocephin and vancomycin. 5. Protonix for stress ulcer prophylaxis. 6. CT of the chest reviewed. Progressive right hilar mass, increase adenopathy , increase right effusion and increase nodules.there is enough pleural fluid, S/ P RIGHT thoracentesis If fluid is confirmed malignant and re-accumulates, then pleurodesis 7. dc plans per PCP MARIOLA VELÁZQUEZ MD Sep 19, 2018 11:57
--- NOTE | 2018-09-19 14:33 | PDOC ---
SUBJECTIVE ROS states feeling pretty good OBJECTIVE Vital Signs Vital Signs Date Time Temp Pulse Resp B/P (MAP) Pulse Ox O2 Delivery O2 Flow Rate FiO2 09/19/18 11:30 Nasal Cannula 3.0 09/19/18 11:00 98.2 78 18 162/91 (114) 100 98.2 I & 0 Intake and Output 09/19/18 06:59 Intake Total 940 ml Output Total 675 ml Balance 265 ml Intake Oral 940 ml Output Urine Total 675 ml # Voids 1 PHYSICAL EXAM Physical Exam GENERAL: no acute distress HEENT: OM moist NECK: Supple. LUNGS: Decreased breath sounds. A few expiratory wheezes. HEART: S1, S2. ABDOMEN: Soft, nontender, nondistended, EXTREMITIES: 1+ pedal edema bilaterally. DERMATOLOGIC: no generalized rash. NEUROLOGIC: Alert and oriented x 3, grossly nonfocal. - No watters, No SP or CVA tenderness USAMA DIAGNOSIS/ASSESSMENT Assessment & Plan USAMA- ATN UA unremarkable , renal US cw chr Med disease E-Lytes stable, Vol status stable Renal function stabilized, monitor CKD stage 3- based on the labs in [facility] Cr 1.6-1.8 since Apr 2018 HTN - On antihypertensives Anemia- Hgb stable Stage 4 small cell lung cancer with extensive metastatic disease Plan to start him on chemotherapy with topotecan after discharge . Dyspnea secondary to COPD /pneumonia /pulmonary hypertension and lung cancer. Pleural effusion- S/P thoracentesis 1 lts removed Post obstructive pneumonia - On Abx, Recd Vanc Now on zosyn and Linezolid COMMENT/RELEVANT DATA Meds Current Medications Medications (Trade) Dose Ordered Sig/Precious Start Time Stop Time Status Last Admin Dose Admin Acetaminophen (Tylenol) 650 mg PRN Q4HRS PRN 09/15/18 19:00 09/16/18 18:59 DC Acetaminophen/ Hydrocodone Bitart (Lortab 5/325) 1 tab PRN Q6HRS PRN 09/15/18 20:30 09/18/18 08:22 1 TAB Acetaminophen/ Hydrocodone Bitart (Lortab 7.5/325) 1 tab PRN Q6HRS PRN 09/16/18 21:45 09/18/18 17:31 1 TAB Albuterol Sulfate (Ventolin Neb Soln) 2.5 mg PRN Q4HRS PRN 09/15/18 20:30 09/17/18 03:37 2.5 MG Albuterol/ Ipratropium (Duoneb) 3 ml RTQID 09/16/18 08:00 09/19/18 11:30 3 ML Amlodipine Besylate (Norvasc) 10 mg DAILY 09/16/18 09:00 09/19/18 09:16 10 MG Budesonide (Pulmicort) 0.5 mg RTBID 09/16/18 08:00 09/19/18 06:06 0.5 MG Buspirone HCl (Buspar) 5 mg BID 09/15/18 21:00 09/19/18 09:14 5 MG Carvedilol (Coreg) 12.5 mg BIDWMEALS 09/16/18 08:00 09/19/18 09:15 12.5 MG Furosemide (Lasix) 20 mg 1X ONCE 09/17/18 15:00 09/17/18 15:01 DC 09/17/18 14:58 20 MG Heparin Sodium (Porcine) (Heparin Sodium) 5,000 unit Q12HR 09/16/18 21:00 09/19/18 09:00 5,000 UNIT Hydralazine HCl (Apresoline) 25 mg BID 09/16/18 21:00 09/19/18 09:15 25 MG Levofloxacin (Levaquin) 250 mg DAILY06 09/19/18 06:00 09/19/18 06:21 250 MG Linezolid/Dextrose 300 ml @ 300 mls/hr Q12HR 09/17/18 21:00 09/19/18 09:16 300 MLS/HR Methylprednisolone Sodium Succinate (SOLU-Medrol 40MG VIAL) 40 mg Q8HRS 09/16/18 07:30 09/19/18 06:20 40 MG Methylprednisolone Sodium Succinate (SOLU-Medrol 125MG VIAL) 125 mg 1X ONCE 09/15/18 17:45 09/15/18 17:48 DC 09/15/18 17:20 125 MG Morphine Sulfate (Morphine Sulfate) 2 mg PRN Q4HRS PRN 09/16/18 21:45 09/18/18 11:04 2 MG Nicotine (Nicoderm Cq 14mg) 1 patch DAILY 09/16/18 09:00 09/19/18 09:15 1 PATCH Pantoprazole Sodium (Protonix) 40 mg DAILYAC 09/16/18 07:30 09/19/18 09:15 40 MG Piperacillin Sod/ Tazobactam Sod (Zosyn Per Pharmacy) 1 each PRN DAILY PRN 09/15/18 18:45 Piperacillin Sod/ Tazobactam Sod 3.375 gm/Sodium Chloride 100 ml @ 200 mls/hr Q6HRS 09/17/18 13:00 09/19/18 12:23 200 MLS/HR Piperacillin Sod/ Tazobactam Sod 4.5 gm/Sodium Chloride 100 ml @ 200 mls/hr Q6HRS 09/16/18 00:00 09/17/18 12:24 DC 09/17/18 06:39 200 MLS/HR Senna/Docusate Sodium (Senna Plus) 2 tab HS 09/16/18 21:00 09/18/18 20:51 2 TAB Sodium Chloride (NORMAL SALINE FLUSH for STERILE FIELD) 10 ml STK-MED ONCE 09/15/18 17:45 09/15/18 17:46 DC Vancomycin HCl (Vanco Per Pharmacy) 1 each PRN DAILY PRN 09/15/18 18:45 09/17/18 12:21 DC 09/16/18 09:42 1 EACH Vancomycin HCl (Vancomycin Trough Level) 1 each 1X ONCE 09/17/18 20:30 09/17/18 20:30 DC Vancomycin HCl 1.5 gm/Sodium Chloride 500 ml @ 250 mls/hr Q24H 09/16/18 21:00 09/17/18 12:21 DC 09/16/18 21:54 250 MLS/HR Vancomycin HCl 2 gm/Sodium Chloride 500 ml @ 250 mls/hr 1X ONCE 09/15/18 19:00 09/15/18 20:59 DC 09/15/18 20:43 250 MLS/HR Lab Laboratory Tests Test 09/18/18 17:26 09/19/18 04:20 Urine Color Yellow Urine Clarity Clear Urine pH 5.0 Urine Specific [place] 1.020 Urine Protein >=300 mg/dL (NEG-TRACE) Urine Glucose (UA) Negative mg/dL (NEG) Urine Ketones (Stick) Negative mg/dL (NEG) Urine Blood Negative (NEG) Urine Nitrite Negative (NEG) Urine Bilirubin Negative (NEG) Urine Urobilinogen Dipstick 0.2 mg/dL (0.2 mg/dL) Urine Leukocyte Esterase Negative (NEG) Urine RBC Occ /HPF (0-2) Urine WBC Occ /HPF (0-4) Urine Squamous Epithelial Cells Occ /LPF Urine Amorphous Sediment Present /HPF Urine Bacteria 0 /HPF (0-FEW) Sodium Level 141 mmol/L (136-145) Potassium Level 4.4 mmol/L (3.5-5.1) Chloride Level 106 mmol/L (98-107) Carbon Dioxide Level 27 mmol/L (21-32) Anion Gap 8 (6-14) Blood Urea Nitrogen 39 mg/dL (8-26) Creatinine 2.1 mg/dL (0.7-1.3) Estimated GFR (Cockcroft-Gault) 38.5 Glucose Level 224 mg/dL (70-99) Calcium Level 8.7 mg/dL (8.5-10.1) Magnesium Level 1.9 mg/dL (1.8-2.4) Results All relevant outside records, renal labs, imaging studies, telemetry/EKG's were reviewed. Other 1. Mildly increased renal parenchymal echogenicity compatible with medical renal disease. 2. Small right renal cyst. 3. No evidence of renal obstruction. MARTHA BRASWELL MD Sep 19, 2018 14:33
[2018-09-19] MEDS: MORPHINE SULFATE 2 MG/ML VIAL. IV PRN (14:36)
[2018-09-19 15:00] VITALS: BP 173/95
--- NOTE | 2018-09-19 15:06 | NUR ---
Pt voicing concerns with BP being 173/95, HR 86. Paged Dr. Viveros, received orders to switch Coreg to 25mg BID, and hydralazine 25 mg x1 NOW and then increase frequency to TID. Will continue to monitor.
[2018-09-19] MEDS ORDERED: hydrALAZINE 25 MG TABLET PO ONE (15:15)
--- NOTE | 2018-09-19 17:07 | PATHOLOGY ---
Note [facility] Accession Number: [id number] TESTS RESULT FLAG UNITS REF RANGE LAB Clinician Provided Cytology Information No. of containers..01 Other (Miscellaneous) Source: [A] 01 RT PLEURAL FLUID DIAGNOSIS: [A] 02 RT PLEURAL FLUID POSITIVE FOR MALIGNANT CELLS. SMALL CELL CARCINOMA IS PRESENT. THIS INTERPRETATION INCLUDES EVALUATION OF A CELL BLOCK. Signed out by: 02 Logan Hamilton MD, Pathologist NPI- [id number] Performed by: Janee Caldwell, Brand Planner ([facility]) Gross description: 01 30ML, YELLOW, CLEAR /LCS FLAG LEGEND: L-Low Normal,H-High Normal,LL-Alert Low,HH-Alert High <-Panic Low,>-Panic High,A-Abnormal,AA-Critical Abnormal Performed at: 01 [facility] [address] [place] [address] Yobany Dobson MD, 02 [facility] [address] [place] [address] Logan Hamilton MD, Specimen Comment: A courtesy copy of this report has been sent to Specimen Comment: [phone], , . Specimen Comment: Report sent to DR HAMPTON,DR VELÁZQUEZ / DR STEVENSON Specimen Comment: A duplicate report has been generated due to demographic updates. Performed at: 01 [facility] [address], [place], [place] [id number] MD Yobany Dobson MD Phone: [phone]
[2018-09-19] MEDS: HYDROcodone/APAP 7.5/325MG 1 TAB TABLET PO PRN (17:32)
[2018-09-19 19:00] VITALS: BP 172/101
[2018-09-19] MEDS: SENNOSIDES/DOCUSATE 8.6/50MG TABLET. PO SCH (20:23)
[2018-09-19 22:44] VITALS: BP 162/91
[2018-09-20 03:00] VITALS: BP 169/96
[2018-09-20] MEDS: methylPREDNISolone SOD SUCC PF 40 MG/ML VIAL. IV SCH ×3 (05:20→21:00)
[2018-09-20] MEDS: PIPERACILLIN/TAZOBACTAM 3.375 GM in IV NORMAL SALINE 100ML 100 ML IV SCH (05:20)
[2018-09-20 05:45] LABS: BASO % 0 % (0-3); EOS % 0 % (0-3); HEMATOCRIT 25.7 % (39.0-53.0); HEMOGLOBIN 8.2 g/dL (13.0-17.5); LYMPH # 0.2 x10^3/uL (1.0-4.8); LYMPH % 1 % (24-48); MEAN CORPUSCULAR HEMOGLOBIN 26 pg (25-35); MEAN CORPUSCULAR HGB CONC 32 g/dL (31-37); MEAN CORPUSCULAR VOLUME 81 fL (79-100); MONO # 0.4 x10^3/uL (0.0-1.1); MONO % 3 % (0-9); NEUT # 12.1 x10^3uL (1.8-7.7); NEUT % 95 % (31-73); PLATELET COUNT 274 x10^3/uL (140-400); RED BLOOD COUNT 3.18 x10^6/uL (4.30-5.70); RED CELL DISTRIBUTION WIDTH 20.2 % (11.5-14.5); WHITE BLOOD COUNT 12.7 x10^3/uL (4.0-11.0)
[2018-09-20 07:00] VITALS: BP 167/101
[2018-09-20] MEDS: BUDESONIDE 0.5 MG/2 ML NEBU. NEB SCH ×2 (07:44→20:34)
[2018-09-20] MEDS: IPRATRPIUM/ALBUTEROL 0.5/2.5MG 3 ML NEBU. NEB SCH ×4 (07:44→20:34)
[2018-09-20] MEDS: NICOTINE 14MG PATCH. TD SCH (08:08)
[2018-09-20] MEDS: PANTOPRAZOLE 40 MG TABLET.DR. PO SCH (08:08)
[2018-09-20] MEDS: hydrALAZINE 25 MG TABLET PO SCH ×3 (08:09→20:59)
[2018-09-20] MEDS: busPIRone 5 MG TABLET. PO SCH ×2 (08:09→20:59)
[2018-09-20] MEDS: CARVEDILOL 12.5 MG TABLET. PO SCH ×2 (08:10→17:16)
[2018-09-20] MEDS: amLODIPine BESYLATE 10 MG TABLET PO SCH (08:10)
[2018-09-20] MEDS: HEPARIN for SUB-Q USE 5,000 UNIT/ML VIAL. SQ SCH ×2 (08:17→21:10)
--- NOTE | 2018-09-20 09:41 | PDOC ---
PROGRESS NOTES Subjective Subjective feels better today Objective Objective Vital Signs Date Time Temp Pulse Resp B/P (MAP) Pulse Ox O2 Delivery O2 Flow Rate FiO2 09/20/18 08:31 Nasal Cannula 3.0 09/20/18 08:10 77 167/101 09/20/18 07:45 98 09/20/18 07:00 98.0 18 98.0 Physical Exam Abdomen: Soft Heart: Normal S1, Normal S2 Extremities: No cyanosis, Other (leg swelling) General: Alert, Oriented X3 HEENT: Atraumatic Lungs: Other (dec breath sounds) MUSCULOSKELETAL: No deformity Neuro: Normal speech Psych/Mental Status: Mental status NL Diagnosis Problem List Problems Medical Problems: (1) Pleural effusion Status: Acute Assessment Assessment IMP:Pleural effusion rt 1. Postobstructive pneumonia. 2. History of lung cancer.,METASTATIC SMALL CELL CARCINOMA,stage 4 has completed 4 cycles of chemotherapy 3. Mild heart failure.55% ejf 4. Right pleural effusion/ infiltrate/ PNEUMONIA 5. Acute hypoxic resp failure 6. COPD 7, Tobacco abuse 8. diabetes 9. hypertension 10. inc troponin 1, demand ischemia 11. anemia, cytopenia on chemotherapy 12. worsening kidney failure, cr 2.4 Plan- wbc down to 13 with antibiotics cxr today. 1 L fluid drained from rt pleura space spoke with pulmonary CT chest reviewed , worsening lesions continue breathing treatment, IV zyvox and Zosyn+levaquin. renal consult appreciated venous doppler neg procalcitonin high 20 lactic acid down 1.0. crf stage 3 ,cr 2.1 sono kidneys ,no obstruction poor prognosis Plan Plan of Care Problems Medical Problems: (1) Pleural effusion Status: Acute Comment Review of Relevant I have reviewed the following items nayana (where applicable) has been applied. Labs Laboratory Tests Test 09/20/18 05:23 White Blood Count 12.7 x10^3/uL (4.0-11.0) Red Blood Count 3.18 x10^6/uL (4.30-5.70) Hemoglobin 8.2 g/dL (13.0-17.5) Hematocrit 25.7 % (39.0-53.0) Mean Corpuscular Volume 81 fL (79-100) Mean Corpuscular Hemoglobin 26 pg (25-35) Mean Corpuscular Hemoglobin Concent 32 g/dL (31-37) Red Cell Distribution Width 20.2 % (11.5-14.5) Platelet Count 274 x10^3/uL (140-400) Neutrophils (%) (Auto) 95 % (31-73) Lymphocytes (%) (Auto) 1 % (24-48) Monocytes (%) (Auto) 3 % (0-9) Eosinophils (%) (Auto) 0 % (0-3) Basophils (%) (Auto) 0 % (0-3) Neutrophils # (Auto) 12.1 x10^3uL (1.8-7.7) Lymphocytes # (Auto) 0.2 x10^3/uL (1.0-4.8) Monocytes # (Auto) 0.4 x10^3/uL (0.0-1.1) Eosinophils # (Auto) 0.0 x10^3/uL (0.0-0.7) Basophils # (Auto) 0.0 x10^3/uL (0.0-0.2) Microbiology 09/16/18 Blood Culture - Preliminary, Resulted NO GROWTH AFTER 4 DAYS 09/18/18 Anaerobic/Aerobic Culture, Resulted Pending 09/18/18 Anaerobic Culture Result 1 (EDWARDO), Resulted Pending 09/18/18 Aerobic Culture, Resulted Pending 09/18/18 Aerobic Culture Result 1 (EDWARDO), Resulted Pending 09/18/18 Gram Stain - Final, Resulted 09/18/18 Gram Stain Result 1 (EDWARDO) - Final, Resulted 09/18/18 Gram Stain Result 2 (EDWARDO) - Final, Resulted Medications Current Medications Carvedilol (Coreg) 25 mg BIDWMEALS PO Last administered on 09/20/18at 08:10; Start 09/19/18 at 17:00 Hydralazine HCl (Apresoline) 25 mg 1X ONCE PO Last administered on 09/19/18at 15:32; Start 09/19/18 at 15:15; Stop 09/19/18 at 15:16; Status DC Hydralazine HCl (Apresoline) 25 mg TID PO Last administered on 09/20/18at 08:09 ; Start 09/19/18 at 21:00 Vitals/I & O Vital Sign - Last 24 Hours 09/19/18 09/19/18 09/19/18 09/19/18 11:00 11:30 14:36 15:00 Temp 98.2 98.1 98.2 98.1 Pulse 78 86 Resp 18 18 B/P (MAP) 162/91 (114) 173/95 (121) Pulse Ox 100 97 O2 Delivery Nasal Cannula Nasal Cannula Nasal Cannula Nasal Cannula O2 Flow Rate 3.0 3.0 3.0 09/19/18 09/19/18 09/19/18 09/19/18 15:32 15:58 17:33 19:00 Temp 97.7 97.7 Pulse 86 86 83 Resp 18 B/P (MAP) 173/95 173/95 172/101 (124) Pulse Ox 97 O2 Delivery Nasal Cannula Nasal Cannula O2 Flow Rate 3.0 3.0 09/19/18 09/19/18 09/19/18 09/19/18 19:46 19:49 19:52 20:12 Pulse 86 B/P (MAP) 173/95 O2 Delivery Nasal Cannula Nasal Cannula Nasal Cannula O2 Flow Rate 3.0 3.0 3.0 09/19/18 09/20/18 09/20/18 09/20/18 22:44 00:00 00:49 03:00 Temp 98.2 98.0 98.2 98.0 Pulse 77 73 Resp 18 19 B/P (MAP) 162/91 (114) 169/96 (120) Pulse Ox 96 97 O2 Delivery Nasal Cannula Nasal Cannula Nasal Cannula Nasal Cannula O2 Flow Rate 3.0 3.0 3.0 3.0 09/20/18 09/20/18 09/20/18 09/20/18 07:00 07:45 08:09 08:10 Temp 98.0 98.0 Pulse 77 77 77 Resp 18 B/P (MAP) 167/101 (123) 167/101 167/101 Pulse Ox 99 98 O2 Delivery Nasal Cannula Nasal Cannula O2 Flow Rate 3.0 3.0 09/20/18 09/20/18 08:10 08:31 Pulse 77 B/P (MAP) 167/101 O2 Delivery Nasal Cannula O2 Flow Rate 3.0 IZAIAH STEVENSON MD Sep 20, 2018 09:41
--- NOTE | 2018-09-20 09:41 | PDOC ---
SUBJECTIVE ROS No new concerns OBJECTIVE Vital Signs Vital Signs Date Time Temp Pulse Resp B/P (MAP) Pulse Ox O2 Delivery O2 Flow Rate FiO2 09/20/18 08:31 Nasal Cannula 3.0 09/20/18 08:10 77 167/101 09/20/18 07:45 98 09/20/18 07:00 98.0 18 98.0 PHYSICAL EXAM Physical Exam GENERAL: no acute distress HEENT: OM moist NECK: Supple. LUNGS: Decreased breath sounds. A few expiratory wheezes. HEART: S1, S2. ABDOMEN: Soft, nontender, nondistended, EXTREMITIES: trace LE edema bilaterally, compression stockings+ DERM: no generalized rash. NEUROLOGIC: Alert and oriented x 3, grossly nonfocal. - No watters, No SP or CVA tenderness DIAGNOSIS/ASSESSMENT Assessment & Plan USAMA- ATN UA unremarkable , renal US cw chr Med disease E-Lytes stable, Vol status stable Renal function stabilized, No labs this am CKD stage 3- based on the labs in [facility] Cr 1.6-1.8 since Apr 2018 HTN - On antihypertensives Anemia- Hgb stable Stage 4 small cell lung cancer with extensive metastatic disease Plan to start him on chemotherapy with topotecan after discharge . Dyspnea secondary to COPD /pneumonia /pulmonary hypertension and lung cancer. Pleural effusion- S/P thoracentesis 1 lts removed Post obstructive pneumonia - On Abx COMMENT/RELEVANT DATA Meds Current Medications Medications (Trade) Dose Ordered Sig/Precious Start Time Stop Time Status Last Admin Dose Admin Acetaminophen (Tylenol) 650 mg PRN Q4HRS PRN 09/15/18 19:00 09/16/18 18:59 DC Acetaminophen/ Hydrocodone Bitart (Lortab 5/325) 1 tab PRN Q6HRS PRN 09/15/18 20:30 09/18/18 08:22 1 TAB Acetaminophen/ Hydrocodone Bitart (Lortab 7.5/325) 1 tab PRN Q6HRS PRN 09/16/18 21:45 09/19/18 17:32 1 TAB Albuterol Sulfate (Ventolin Neb Soln) 2.5 mg PRN Q4HRS PRN 09/15/18 20:30 09/17/18 03:37 2.5 MG Albuterol/ Ipratropium (Duoneb) 3 ml RTQID 09/16/18 08:00 09/20/18 07:44 3 ML Amlodipine Besylate (Norvasc) 10 mg DAILY 09/16/18 09:00 09/20/18 08:10 10 MG Budesonide (Pulmicort) 0.5 mg RTBID 09/16/18 08:00 09/20/18 07:44 0.5 MG Buspirone HCl (Buspar) 5 mg BID 09/15/18 21:00 09/20/18 08:09 5 MG Carvedilol (Coreg) 25 mg BIDWMEALS 09/19/18 17:00 09/20/18 08:10 25 MG Furosemide (Lasix) 20 mg 1X ONCE 09/17/18 15:00 09/17/18 15:01 DC 09/17/18 14:58 20 MG Heparin Sodium (Porcine) (Heparin Sodium) 5,000 unit Q12HR 09/16/18 21:00 09/20/18 08:17 5,000 UNIT Hydralazine HCl (Apresoline) 25 mg 1X ONCE 09/19/18 15:15 09/19/18 15:16 DC 09/19/18 15:32 25 MG Levofloxacin (Levaquin) 250 mg DAILY06 09/19/18 06:00 09/20/18 06:25 250 MG Linezolid/Dextrose 300 ml @ 300 mls/hr Q12HR 09/17/18 21:00 09/20/18 08:07 300 MLS/HR Methylprednisolone Sodium Succinate (SOLU-Medrol 40MG VIAL) 40 mg Q8HRS 09/16/18 07:30 09/20/18 05:20 40 MG Methylprednisolone Sodium Succinate (SOLU-Medrol 125MG VIAL) 125 mg 1X ONCE 09/15/18 17:45 09/15/18 17:48 DC 09/15/18 17:20 125 MG Morphine Sulfate (Morphine Sulfate) 2 mg PRN Q4HRS PRN 09/16/18 21:45 09/20/18 00:00 2 MG Nicotine (Nicoderm Cq 14mg) 1 patch DAILY 09/16/18 09:00 09/20/18 08:08 1 PATCH Pantoprazole Sodium (Protonix) 40 mg DAILYAC 09/16/18 07:30 09/20/18 08:08 40 MG Piperacillin Sod/ Tazobactam Sod (Zosyn Per Pharmacy) 1 each PRN DAILY PRN 09/15/18 18:45 Piperacillin Sod/ Tazobactam Sod 3.375 gm/Sodium Chloride 100 ml @ 200 mls/hr Q6HRS 09/17/18 13:00 09/20/18 05:20 200 MLS/HR Piperacillin Sod/ Tazobactam Sod 4.5 gm/Sodium Chloride 100 ml @ 200 mls/hr Q6HRS 09/16/18 00:00 09/17/18 12:24 DC 09/17/18 06:39 200 MLS/HR Senna/Docusate Sodium (Senna Plus) 2 tab HS 09/16/18 21:00 09/18/18 20:51 2 TAB Sodium Chloride (NORMAL SALINE FLUSH for STERILE FIELD) 10 ml STK-MED ONCE 09/15/18 17:45 09/15/18 17:46 DC Vancomycin HCl (Vanco Per Pharmacy) 1 each PRN DAILY PRN 09/15/18 18:45 09/17/18 12:21 DC 09/16/18 09:42 1 EACH Vancomycin HCl (Vancomycin Trough Level) 1 each 1X ONCE 09/17/18 20:30 09/17/18 20:30 DC Vancomycin HCl 1.5 gm/Sodium Chloride 500 ml @ 250 mls/hr Q24H 09/16/18 21:00 09/17/18 12:21 DC 09/16/18 21:54 250 MLS/HR Vancomycin HCl 2 gm/Sodium Chloride 500 ml @ 250 mls/hr 1X ONCE 09/15/18 19:00 09/15/18 20:59 DC 09/15/18 20:43 250 MLS/HR Lab Laboratory Tests Test 09/20/18 05:23 White Blood Count 12.7 x10^3/uL (4.0-11.0) Red Blood Count 3.18 x10^6/uL (4.30-5.70) Hemoglobin 8.2 g/dL (13.0-17.5) Hematocrit 25.7 % (39.0-53.0) Mean Corpuscular Volume 81 fL (79-100) Mean Corpuscular Hemoglobin 26 pg (25-35) Mean Corpuscular Hemoglobin Concent 32 g/dL (31-37) Red Cell Distribution Width 20.2 % (11.5-14.5) Platelet Count 274 x10^3/uL (140-400) Neutrophils (%) (Auto) 95 % (31-73) Lymphocytes (%) (Auto) 1 % (24-48) Monocytes (%) (Auto) 3 % (0-9) Eosinophils (%) (Auto) 0 % (0-3) Basophils (%) (Auto) 0 % (0-3) Neutrophils # (Auto) 12.1 x10^3uL (1.8-7.7) Lymphocytes # (Auto) 0.2 x10^3/uL (1.0-4.8) Monocytes # (Auto) 0.4 x10^3/uL (0.0-1.1) Eosinophils # (Auto) 0.0 x10^3/uL (0.0-0.7) Basophils # (Auto) 0.0 x10^3/uL (0.0-0.2) Results All relevant outside records, renal labs, imaging studies, telemetry/EKG's were reviewed. MARTHA BRASWELL MD Sep 20, 2018 09:41
[2018-09-20 11:00] VITALS: BP 156/91
--- NOTE | 2018-09-20 11:23 | PDOC ---
PULMONARY PROGRESS NOTES Subjective NO SOA Vitals Vital Signs Date Time Temp Pulse Resp B/P (MAP) Pulse Ox O2 Delivery O2 Flow Rate FiO2 09/20/18 11:00 98.1 77 18 156/91 (112) 99 Nasal Cannula 3.0 98.1 General: Alert, Oriented X4, No acute distress Lungs: Other (decrease bs right) Cardiovascular: S1, S2 Abdomen: Soft Extremities: No Edema Skin: Warm Labs Laboratory Tests Test 09/18/18 17:26 09/19/18 04:20 09/20/18 05:23 Urine Color Yellow Urine Clarity Clear Urine pH 5.0 Urine Specific [place] 1.020 Urine Protein >=300 mg/dL (NEG-TRACE) Urine Glucose (UA) Negative mg/dL (NEG) Urine Ketones (Stick) Negative mg/dL (NEG) Urine Blood Negative (NEG) Urine Nitrite Negative (NEG) Urine Bilirubin Negative (NEG) Urine Urobilinogen Dipstick 0.2 mg/dL (0.2 mg/dL) Urine Leukocyte Esterase Negative (NEG) Urine RBC Occ /HPF (0-2) Urine WBC Occ /HPF (0-4) Urine Squamous Epithelial Cells Occ /LPF Urine Amorphous Sediment Present /HPF Urine Bacteria 0 /HPF (0-FEW) Sodium Level 141 mmol/L (136-145) Potassium Level 4.4 mmol/L (3.5-5.1) Chloride Level 106 mmol/L (98-107) Carbon Dioxide Level 27 mmol/L (21-32) Anion Gap 8 (6-14) Blood Urea Nitrogen 39 mg/dL (8-26) Creatinine 2.1 mg/dL (0.7-1.3) Estimated GFR (Cockcroft-Gault) 38.5 Glucose Level 224 mg/dL (70-99) Calcium Level 8.7 mg/dL (8.5-10.1) Magnesium Level 1.9 mg/dL (1.8-2.4) White Blood Count 12.7 x10^3/uL (4.0-11.0) Red Blood Count 3.18 x10^6/uL (4.30-5.70) Hemoglobin 8.2 g/dL (13.0-17.5) Hematocrit 25.7 % (39.0-53.0) Mean Corpuscular Volume 81 fL (79-100) Mean Corpuscular Hemoglobin 26 pg (25-35) Mean Corpuscular Hemoglobin Concent 32 g/dL (31-37) Red Cell Distribution Width 20.2 % (11.5-14.5) Platelet Count 274 x10^3/uL (140-400) Neutrophils (%) (Auto) 95 % (31-73) Lymphocytes (%) (Auto) 1 % (24-48) Monocytes (%) (Auto) 3 % (0-9) Eosinophils (%) (Auto) 0 % (0-3) Basophils (%) (Auto) 0 % (0-3) Neutrophils # (Auto) 12.1 x10^3uL (1.8-7.7) Lymphocytes # (Auto) 0.2 x10^3/uL (1.0-4.8) Monocytes # (Auto) 0.4 x10^3/uL (0.0-1.1) Eosinophils # (Auto) 0.0 x10^3/uL (0.0-0.7) Basophils # (Auto) 0.0 x10^3/uL (0.0-0.2) Laboratory Tests Test 09/20/18 05:23 White Blood Count 12.7 x10^3/uL (4.0-11.0) Red Blood Count 3.18 x10^6/uL (4.30-5.70) Hemoglobin 8.2 g/dL (13.0-17.5) Hematocrit 25.7 % (39.0-53.0) Mean Corpuscular Volume 81 fL (79-100) Mean Corpuscular Hemoglobin 26 pg (25-35) Mean Corpuscular Hemoglobin Concent 32 g/dL (31-37) Red Cell Distribution Width 20.2 % (11.5-14.5) Platelet Count 274 x10^3/uL (140-400) Neutrophils (%) (Auto) 95 % (31-73) Lymphocytes (%) (Auto) 1 % (24-48) Monocytes (%) (Auto) 3 % (0-9) Eosinophils (%) (Auto) 0 % (0-3) Basophils (%) (Auto) 0 % (0-3) Neutrophils # (Auto) 12.1 x10^3uL (1.8-7.7) Lymphocytes # (Auto) 0.2 x10^3/uL (1.0-4.8) Monocytes # (Auto) 0.4 x10^3/uL (0.0-1.1) Eosinophils # (Auto) 0.0 x10^3/uL (0.0-0.7) Basophils # (Auto) 0.0 x10^3/uL (0.0-0.2) Medications Active Scripts Medications Dose Route/Sig Max Daily Dose Days Date Category Prednisone 50 Mg Tablet 1 Tab PO DAILY 08/15/18 Rx Doxycycline Monohydrate 100 Mg Capsule 1 Cap PO BID 08/15/18 Rx Hydrocodone-Apap 5-325 (Hydrocodone Bit/Acetaminophen) 1 Tab Tablet 1 Tab PO PRN Q6HRS PRN 05/25/18 Reported Buspirone Hcl 5 Mg Tablet 1 Tab PO BID 05/25/18 Reported Trelegy Ellipta 100-62.5-25 (Fluticasone/Umeclidin/Vilanter) 1 Each Blst.w.dev 1 Each IH QHS PRN 05/16/18 Reported Carvedilol 25 Mg Tablet 12.5 Mg PO BIDWMEALS 05/16/18 Reported Proair Hfa Inhaler (Albuterol Sulfate) 8.5 Gm Hfa.aer.ad 1 Puff INH PRN Q6HRS PRN 04/20/18 Reported Albuterol Sulfate Neb Soln (Albuterol Sulfate) 2.5 Mg/3 Ml Vial.neb 1 Vial NEB PRN Q4HRS 04/20/18 Reported Amlodipine Besylate 10 Mg Tablet 10 Mg PO DAILY 04/05/[address] CHEST Impression: Right hilar mass is increase in size in the interval. New right pulmonary nodules. Increased size of pulmonary nodules. Marked increase in right pleural effusion and atelectasis. Marked increase in superior mediastinal and right axillary lymphadenopathy. Extensive osseous metastases. Impression . 1. Acute on chronic respiratory failure secondary to acute exacerbation of chronic obstructive pulmonary disease, Post-obstructive pneumonia, progressing lung cancer, acute diastolic congestive heart failure 2. Abnormal chest x-ray. Chest x-ray showed right hilar mass with right lower lobe infiltrate/atelectasis/effusion. His heart is not shifted to the left, so I suspect most of his chest x-ray abnormality is secondary to atelectasis probably secondary to progressing lung cancer and endobronchial lesion, he may have postobstructive pneumonia 3. Stage 4 small cell lung cancer, progressing. 4. Chronic kidney disease. 5. Hypertension. 6. Elevated troponin? non-ST elevation myocardial infarction. 7. Tobacco habituation. 8. Acute exacerbation of chronic obstructive pulmonary disease. Plan . 1. Titrate FiO2 to keep O2 saturation 92%.May need 3 litres with exertion per PT 2. Continue bronchodilator. 3. TAPER STEROID 4. Continue Rocephin and vancomycin. 5. Protonix for stress ulcer prophylaxis. 6. CT of the chest reviewed. Progressive right hilar mass, increase adenopathy , increase right effusion and increase nodules.there is enough pleural fluid, S/ P RIGHT thoracentesis fluid / confirmed malignant and WOULD LIKELY re-accumulate, would need pleurodesis in future 7. dc plans per PCP MARIOLA VELÁZQUEZ MD Sep 20, 2018 11:23
--- NOTE | 2018-09-20 11:52 | PDOC ---
Infectious Disease Note Subjective: Subjective Pt is feeling better since thoracocentesis less cough,sob and chestpain on the rt side no f/cn/v/d ROS: ROS Negative except for above. Vital Signs: Vital Signs Vital Signs Date Time Temp Pulse Resp B/P (MAP) Pulse Ox O2 Delivery O2 Flow Rate FiO2 09/20/18 11:00 98.1 77 18 156/91 (112) 99 Nasal Cannula 3.0 98.1 Physical Exam: PHYSICAL EXAM HEENT: Pupils are equal and reactive to light. Extraocular movements intact. No lesions, no thrush. NECK: Supple. LUNGS: Decreased breath sounds. A few expiratory wheezes. HEART: S1, S2. ABDOMEN: Soft, nontender, nondistended, no rebound or guarding. EXTREMITIES: 1+ pedal edema bilaterally. DERMATOLOGIC: Warm, dry, no generalized rash. NEUROLOGIC: Alert and oriented x 3, grossly nonfocal. LINES: Left chest wall Port-A-Cath access without signs of any complications. Medications: Inpatient Meds: Current Medications Medications (Trade) Dose Ordered Sig/Precious Start Time Stop Time Status Last Admin Dose Admin Acetaminophen (Tylenol) 650 mg PRN Q4HRS PRN 09/15/18 19:00 09/16/18 18:59 DC Acetaminophen/ Hydrocodone Bitart (Lortab 5/325) 1 tab PRN Q6HRS PRN 09/15/18 20:30 09/18/18 08:22 1 TAB Acetaminophen/ Hydrocodone Bitart (Lortab 7.5/325) 1 tab PRN Q6HRS PRN 09/16/18 21:45 09/19/18 17:32 1 TAB Albuterol Sulfate (Ventolin Neb Soln) 2.5 mg PRN Q4HRS PRN 09/15/18 20:30 09/17/18 03:37 2.5 MG Albuterol/ Ipratropium (Duoneb) 3 ml RTQID 09/16/18 08:00 09/20/18 07:44 3 ML Amlodipine Besylate (Norvasc) 10 mg DAILY 09/16/18 09:00 09/20/18 08:10 10 MG Budesonide (Pulmicort) 0.5 mg RTBID 09/16/18 08:00 09/20/18 07:44 0.5 MG Buspirone HCl (Buspar) 5 mg BID 09/15/18 21:00 09/20/18 08:09 5 MG Carvedilol (Coreg) 25 mg BIDWMEALS 09/19/18 17:00 09/20/18 08:10 25 MG Furosemide (Lasix) 20 mg 1X ONCE 09/17/18 15:00 09/17/18 15:01 DC 09/17/18 14:58 20 MG Heparin Sodium (Porcine) (Heparin Sodium) 5,000 unit Q12HR 09/16/18 21:00 09/20/18 08:17 5,000 UNIT Hydralazine HCl (Apresoline) 25 mg 1X ONCE 09/19/18 15:15 09/19/18 15:16 DC 09/19/18 15:32 25 MG Levofloxacin (Levaquin) 250 mg DAILY06 09/19/18 06:00 09/20/18 06:25 250 MG Linezolid/Dextrose 300 ml @ 300 mls/hr Q12HR 09/17/18 21:00 09/20/18 08:07 300 MLS/HR Methylprednisolone Sodium Succinate (SOLU-Medrol 40MG VIAL) 40 mg Q8HRS 09/16/18 07:30 09/20/18 05:20 40 MG Methylprednisolone Sodium Succinate (SOLU-Medrol 125MG VIAL) 125 mg 1X ONCE 09/15/18 17:45 09/15/18 17:48 DC 09/15/18 17:20 125 MG Morphine Sulfate (Morphine Sulfate) 2 mg PRN Q4HRS PRN 09/16/18 21:45 09/20/18 00:00 2 MG Nicotine (Nicoderm Cq 14mg) 1 patch DAILY 09/16/18 09:00 09/20/18 08:08 1 PATCH Pantoprazole Sodium (Protonix) 40 mg DAILYAC 09/16/18 07:30 09/20/18 08:08 40 MG Piperacillin Sod/ Tazobactam Sod (Zosyn Per Pharmacy) 1 each PRN DAILY PRN 09/15/18 18:45 Piperacillin Sod/ Tazobactam Sod 3.375 gm/Sodium Chloride 100 ml @ 200 mls/hr Q6HRS 09/17/18 13:00 09/20/18 05:20 200 MLS/HR Piperacillin Sod/ Tazobactam Sod 4.5 gm/Sodium Chloride 100 ml @ 200 mls/hr Q6HRS 09/16/18 00:00 09/17/18 12:24 DC 09/17/18 06:39 200 MLS/HR Senna/Docusate Sodium (Senna Plus) 2 tab HS 09/16/18 21:00 09/18/18 20:51 2 TAB Sodium Chloride (NORMAL SALINE FLUSH for STERILE FIELD) 10 ml STK-MED ONCE 09/15/18 17:45 09/15/18 17:46 DC Vancomycin HCl (Vanco Per Pharmacy) 1 each PRN DAILY PRN 09/15/18 18:45 09/17/18 12:21 DC 09/16/18 09:42 1 EACH Vancomycin HCl (Vancomycin Trough Level) 1 each 1X ONCE 09/17/18 20:30 09/17/18 20:30 DC Vancomycin HCl 1.5 gm/Sodium Chloride 500 ml @ 250 mls/hr Q24H 09/16/18 21:00 09/17/18 12:21 DC 09/16/18 21:54 250 MLS/HR Vancomycin HCl 2 gm/Sodium Chloride 500 ml @ 250 mls/hr 1X ONCE 09/15/18 19:00 09/15/18 20:59 DC 09/15/18 20:43 250 MLS/HR Labs: Lab Laboratory Tests Test 09/20/18 05:23 White Blood Count 12.7 x10^3/uL (4.0-11.0) Red Blood Count 3.18 x10^6/uL (4.30-5.70) Hemoglobin 8.2 g/dL (13.0-17.5) Hematocrit 25.7 % (39.0-53.0) Mean Corpuscular Volume 81 fL (79-100) Mean Corpuscular Hemoglobin 26 pg (25-35) Mean Corpuscular Hemoglobin Concent 32 g/dL (31-37) Red Cell Distribution Width 20.2 % (11.5-14.5) Platelet Count 274 x10^3/uL (140-400) Neutrophils (%) (Auto) 95 % (31-73) Lymphocytes (%) (Auto) 1 % (24-48) Monocytes (%) (Auto) 3 % (0-9) Eosinophils (%) (Auto) 0 % (0-3) Basophils (%) (Auto) 0 % (0-3) Neutrophils # (Auto) 12.1 x10^3uL (1.8-7.7) Lymphocytes # (Auto) 0.2 x10^3/uL (1.0-4.8) Monocytes # (Auto) 0.4 x10^3/uL (0.0-1.1) Eosinophils # (Auto) 0.0 x10^3/uL (0.0-0.7) Basophils # (Auto) 0.0 x10^3/uL (0.0-0.2) Micro RUN DATE: 09/19/18 PAGE 1 RUN TIME: 4265 [facility] [address] [place] [address] Logan Hamilton M.D., Risk And Insurance Manager PATIENT: JESSICA MEDINA ACCT: [id number] LOC: [address] [place] [address] U : [id number] AGE/SX: 63/M ROOM: [facility] REG : 09/15/[address]: IZAIAH STEVENSON MD : 1955 BED: 1 DIS : STATUS: ADM IN TLOC: SPEC #: [id number] ROSALIA: 09/18/18-1010 STATUS: RES REQ #: [id number] RECD: 09/18/18-[address]: MARIOLA VELÁZQUEZ MD SOURCE: PLEURAL FL ENTR: 09/18/[address] [facility] [address]: SHERRIE SLOAN [facility]: KELY CERVANTES MD, SHIRLEY STEVENSON,MARGARET LANE MD, MD, VINAY MD ORDERED: ANAER/AEROB/GS Procedure Result ANAEROBIC-AEROBIC CULTURE PENDING ANAEROBIC RES 1 PENDING AEROBIC CULT PENDING AEROBIC RES 1 PENDING GRAM STAIN Final Final report GRAM STAIN RES 1 Final Comment Few white blood cells. GRAM STAIN RES 2 Final No organisms seen Performed at: - [facility], [place], [place] [id number] District Scout Executive: JEREMY Mcknight MD, Phone: [phone] Objective: Assessment: 1. Acute on chronic respiratory failure secondary to progressive lung cancer with likely postobstructive pneumonia and right pleural effusion. 2. Progressive metastatic small cell carcinoma stage [address] chest today. 3. Mild cardiac failure. 4. Right pleural effusion, could have underlying infiltrate. 5. Chronic obstructive pulmonary disease, oxygen dependent. 6. Tobacco abuse. 7. Diabetes mellitus type 2. 8. Polyclonal gammopathy. 9. Chronic kidney disease. 10. History of seizures. Plan: Plan of Care linezolid/levofloxacin DC Zosyn Follow up cultures and lab in a.m. Continue supportive care. ALCIDES CERVANTES MD Sep 20, 2018 11:51
--- NOTE | 2018-09-20 12:02 | PDOC ---
PROGRESS NOTES Subjective Subjective HPI - f/u of Stage 4 small cell lung cancer with extensive metastatic disease\ ROS - dyspnea is better Objective Objective Vital Signs Date Time Temp Pulse Resp B/P (MAP) Pulse Ox O2 Delivery O2 Flow Rate FiO2 09/20/18 11:54 98 Nasal Cannula 3.0 09/20/18 11:00 98.1 77 18 156/91 (112) 98.1 Intake and Output 09/20/18 06:59 # Voids 7 # Bowel Movements 1 Physical Exam Heart: Normal S1, Normal S2 General: Alert, Oriented X3 Lungs: Clear to auscultation Neuro: Normal speech Psych/Mental Status: Mental status NL Assessment Assessment Problems Medical Problems: (1) Pleural effusion Status: Acute IMPRESSION AND PLAN: 1. Stage 4 small cell lung cancer with extensive metastatic disease as described above. Plan to start him on chemotherapy using topotecan as outpt after he is discharged. 2. Dyspnea secondary to chronic obstructive pulmonary disease/pneumonia and pulmonary hypertension and lung cancer. Appreciate Cardiology and Pulmonary management. 3. Pleural effusion. Management per Pulmonary Medicine. s/p rt thoracentesis on 09/18/18: 1.1 L of serosanguineous pleural fluid was removed. I d/w Dr Viveros. Comment Review of Relevant I have reviewed the following items nayana (where applicable) has been applied. Labs Laboratory Tests Test 09/18/18 17:26 09/19/18 04:20 09/20/18 05:23 Urine Color Yellow Urine Clarity Clear Urine pH 5.0 Urine Specific [place] 1.020 Urine Protein >=300 mg/dL (NEG-TRACE) Urine Glucose (UA) Negative mg/dL (NEG) Urine Ketones (Stick) Negative mg/dL (NEG) Urine Blood Negative (NEG) Urine Nitrite Negative (NEG) Urine Bilirubin Negative (NEG) Urine Urobilinogen Dipstick 0.2 mg/dL (0.2 mg/dL) Urine Leukocyte Esterase Negative (NEG) Urine RBC Occ /HPF (0-2) Urine WBC Occ /HPF (0-4) Urine Squamous Epithelial Cells Occ /LPF Urine Amorphous Sediment Present /HPF Urine Bacteria 0 /HPF (0-FEW) Sodium Level 141 mmol/L (136-145) Potassium Level 4.4 mmol/L (3.5-5.1) Chloride Level 106 mmol/L (98-107) Carbon Dioxide Level 27 mmol/L (21-32) Anion Gap 8 (6-14) Blood Urea Nitrogen 39 mg/dL (8-26) Creatinine 2.1 mg/dL (0.7-1.3) Estimated GFR (Cockcroft-Gault) 38.5 Glucose Level 224 mg/dL (70-99) Calcium Level 8.7 mg/dL (8.5-10.1) Magnesium Level 1.9 mg/dL (1.8-2.4) White Blood Count 12.7 x10^3/uL (4.0-11.0) Red Blood Count 3.18 x10^6/uL (4.30-5.70) Hemoglobin 8.2 g/dL (13.0-17.5) Hematocrit 25.7 % (39.0-53.0) Mean Corpuscular Volume 81 fL (79-100) Mean Corpuscular Hemoglobin 26 pg (25-35) Mean Corpuscular Hemoglobin Concent 32 g/dL (31-37) Red Cell Distribution Width 20.2 % (11.5-14.5) Platelet Count 274 x10^3/uL (140-400) Neutrophils (%) (Auto) 95 % (31-73) Lymphocytes (%) (Auto) 1 % (24-48) Monocytes (%) (Auto) 3 % (0-9) Eosinophils (%) (Auto) 0 % (0-3) Basophils (%) (Auto) 0 % (0-3) Neutrophils # (Auto) 12.1 x10^3uL (1.8-7.7) Lymphocytes # (Auto) 0.2 x10^3/uL (1.0-4.8) Monocytes # (Auto) 0.4 x10^3/uL (0.0-1.1) Eosinophils # (Auto) 0.0 x10^3/uL (0.0-0.7) Basophils # (Auto) 0.0 x10^3/uL (0.0-0.2) Laboratory Tests Test 09/20/18 05:23 White Blood Count 12.7 x10^3/uL (4.0-11.0) Red Blood Count 3.18 x10^6/uL (4.30-5.70) Hemoglobin 8.2 g/dL (13.0-17.5) Hematocrit 25.7 % (39.0-53.0) Mean Corpuscular Volume 81 fL (79-100) Mean Corpuscular Hemoglobin 26 pg (25-35) Mean Corpuscular Hemoglobin Concent 32 g/dL (31-37) Red Cell Distribution Width 20.2 % (11.5-14.5) Platelet Count 274 x10^3/uL (140-400) Neutrophils (%) (Auto) 95 % (31-73) Lymphocytes (%) (Auto) 1 % (24-48) Monocytes (%) (Auto) 3 % (0-9) Eosinophils (%) (Auto) 0 % (0-3) Basophils (%) (Auto) 0 % (0-3) Neutrophils # (Auto) 12.1 x10^3uL (1.8-7.7) Lymphocytes # (Auto) 0.2 x10^3/uL (1.0-4.8) Monocytes # (Auto) 0.4 x10^3/uL (0.0-1.1) Eosinophils # (Auto) 0.0 x10^3/uL (0.0-0.7) Basophils # (Auto) 0.0 x10^3/uL (0.0-0.2) Microbiology 09/16/18 Blood Culture - Preliminary, Resulted NO GROWTH AFTER 4 DAYS 09/18/18 Anaerobic/Aerobic Culture, Resulted Pending 09/18/18 Anaerobic Culture Result 1 (EDWARDO), Resulted Pending 09/18/18 Aerobic Culture, Resulted Pending 09/18/18 Aerobic Culture Result 1 (EDWARDO), Resulted Pending 09/18/18 Gram Stain - Final, Resulted 09/18/18 Gram Stain Result 1 (EDWARDO) - Final, Resulted 09/18/18 Gram Stain Result 2 (EDWARDO) - Final, Resulted Medications Current Medications Albuterol/ Ipratropium (Duoneb) 3 ml 1X ONCE NEB Last administered on at 18:08; Start 09/15/18 at 17:45; Stop 09/15/18 at 17:48; Status DC Methylprednisolone Sodium Succinate (SOLU-Medrol 125MG VIAL) 125 mg 1X ONCE IV Last administered on 09/15/18at 17:20; Start 09/15/18 at 17:45; Stop 09/15/18 at 17:48; Status DC Sodium Chloride (NORMAL SALINE FLUSH for STERILE FIELD) 10 ml STK-MED ONCE .ROUTE ; Start 09/15/18 at 17:45; Stop 09/15/18 at 17:46; Status DC Vancomycin HCl (Vanco Per Pharmacy) 1 each PRN DAILY PRN MC SEE COMMENTS Last administered on 09/16/18at 09:42; Start 09/15/18 at 18:45; Stop 09/17/18 at 12:21 ; Status DC Piperacillin Sod/ Tazobactam Sod (Zosyn Per Pharmacy) 1 each PRN DAILY PRN MC SEE COMMENTS; Start 09/15/18 at 18:45 Vancomycin HCl 2 gm/Sodium Chloride 500 ml @ 250 mls/hr 1X ONCE IV Last administered on 09/15/18at 20:43; Start 09/15/18 at 19:00; Stop 09/15/18 at 20:59 ; Status DC Piperacillin Sod/ Tazobactam Sod 4.5 gm/Sodium Chloride 100 ml @ 200 mls/hr 1X ONCE IV Last administered on 09/15/18at 19:04; Start 09/15/18 at 19:00; Stop 09/15/18 at 19:29; Status DC Acetaminophen (Tylenol) 650 mg PRN Q4HRS PRN PO FEVER; Start 09/15/18 at 19:00 ; Stop 09/16/18 at 18:59; Status DC Albuterol/ Ipratropium (Duoneb) 3 ml RTQID NEB Last administered on 09/15/18at 20:22; Start 09/15/18 at 20:00; Stop 09/15/18 at 21:08; Status DC Albuterol Sulfate (Ventolin Neb Soln) 2.5 mg PRN Q4HRS PRN NEB SHORTNESS OF BREATH Last administered on 09/17/18at 03:37; Start 09/15/18 at 20:30 Amlodipine Besylate (Norvasc) 10 mg DAILY PO Last administered on 09/20/18at 08: 10; Start 09/16/18 at 09:00 Buspirone HCl (Buspar) 5 mg BID PO Last administered on 09/20/18at 08:09; Start 09/15/18 at 21:00 Acetaminophen/ Hydrocodone Bitart (Lortab 5/325) 1 tab PRN Q6HRS PRN PO MODERATE PAIN Last administered on 09/18/18 08:22; Start 09/15/18 at 20:30 Carvedilol (Coreg) 12.5 mg BIDWMEALS PO Last administered on 09/19/18 09:15; Start 09/16/18 at 08:00; Stop 09/19/18 at 15:07; Status DC Albuterol/ Ipratropium (Duoneb) 3 ml RTQID NEB Last administered on 09/20/18 11:53; Start 09/16/18 at 08:00 Piperacillin Sod/ Tazobactam Sod 4.5 gm/Sodium Chloride 100 ml @ 200 mls/hr Q6HRS IV Last administered on 09/17/18 06:39; Start 09/16/18 at 00:00; Stop at 12:24; Status DC Vancomycin HCl 1.5 gm/Sodium Chloride 500 ml @ 250 mls/hr Q24H IV Last administered on 09/16/18 21:54; Start 09/16/18 at 21:00; Stop 09/17/18 at 12:21 ; Status DC Vancomycin HCl (Vancomycin Trough Level) 1 each 1X ONCE MC ; Start 09/17/18 at 20:30; Stop 09/17/18 at 20:30; Status DC Budesonide (Pulmicort) 0.5 mg RTBID NEB Last administered on 09/20/18 07:44; Start 09/16/18 at 08:00 Nicotine (Nicoderm Cq 14mg) 1 patch DAILY TD Last administered on 09/20/18 08: 08; Start 09/16/18 at 09:00 Methylprednisolone Sodium Succinate (SOLU-Medrol 40MG VIAL) 40 mg Q8HRS IV Last administered on 09/20/18 05:20; Start 09/16/18 at 07:30 Pantoprazole Sodium (Protonix) 40 mg DAILYAC PO Last administered on 09/20/18 08:08; Start 09/16/18 at 07:30 Heparin Sodium (Porcine) (Heparin Sodium) 5,000 unit Q12HR SQ Last administered on 09/20/18 08:17; Start 09/16/18 at 21:00 Hydralazine HCl (Apresoline) 25 mg BID PO Last administered on 09/19/18 09:15 ; Start 09/16/18 at 21:00; Stop 09/19/18 at 15:07; Status DC Furosemide (Lasix) 20 mg 1X ONCE IVP Last administered on 09/16/18 12:56; Start 09/16/18 at 11:30; Stop 09/16/18 at 11:31; Status DC Senna/Docusate Sodium (Senna Plus) 2 tab HS PO Last administered on 09/18/18 20:51; Start 09/16/18 at 21:00 Morphine Sulfate (Morphine Sulfate) 2 mg PRN Q4HRS PRN IV SEVERE PAIN Last administered on 09/20/18 00:00; Start 09/16/18 at 21:45 Acetaminophen/ Hydrocodone Bitart (Lortab 7.5/325) 1 tab PRN Q6HRS PRN PO SEVERE PAIN Last administered on 09/19/18 17:32; Start 09/16/18 at 21:45 Linezolid/Dextrose 300 ml @ 300 mls/hr Q12HR IV Last administered on 08:07; Start 09/17/18 at 21:00 Piperacillin Sod/ Tazobactam Sod 3.375 gm/Sodium Chloride 100 ml @ 200 mls/hr Q6HRS IV Last administered on 09/20/18 05:20; Start 09/17/18 at 13:00 Levofloxacin (Levaquin) 500 mg DAILY06 PO Last administered on 09/18/18 06:27 ; Start 09/17/18 at 13:00; Stop 09/18/18 at 11:25; Status DC Furosemide (Lasix) 20 mg 1X ONCE IVP Last administered on 09/17/18 14:58; Start 09/17/18 at 15:00; Stop 09/17/18 at 15:01; Status DC Levofloxacin (Levaquin) 250 mg DAILY06 PO Last administered on 09/20/18 06:25 ; Start 09/19/18 at 06:00 Carvedilol (Coreg) 25 mg BIDWMEALS PO Last administered on 09/20/18 08:10; Start 09/19/18 at 17:00 Hydralazine HCl (Apresoline) 25 mg TID PO Last administered on 09/20/18 08:09 ; Start 09/19/18 at 21:00 Hydralazine HCl (Apresoline) 25 mg 1X ONCE PO Last administered on 09/19/18at 15:32; Start 09/19/18 at 15:15; Stop 09/19/18 at 15:16; Status DC Active Scripts Active Prednisone 50 Mg Tablet 1 Tab PO DAILY Doxycycline Monohydrate 100 Mg Capsule 1 Cap PO BID Reported Hydrocodone-Apap 5-325 (Hydrocodone Bit/Acetaminophen) 1 Tab Tablet 1 Tab PO PRN Q6HRS PRN Buspirone Hcl 5 Mg Tablet 1 Tab PO BID Trelegy Ellipta 100-62.5-25 (Fluticasone/Umeclidin/Vilanter) 1 Each Blst.w.dev 1 Each IH QHS PRN Carvedilol 25 Mg Tablet 12.5 Mg PO BIDWMEALS Proair Hfa Inhaler (Albuterol Sulfate) 8.5 Gm Hfa.aer.ad 1 Puff INH PRN Q6HRS PRN Albuterol Sulfate Neb Soln (Albuterol Sulfate) 2.5 Mg/3 Ml Vial.neb 1 Vial NEB PRN Q4HRS Amlodipine Besylate 10 Mg Tablet 10 Mg PO DAILY Vitals/I & O Vital Sign - Last 24 Hours 09/19/18 09/19/18 09/19/18 09/19/18 14:36 15:00 15:32 15:58 Temp 98.1 98.1 Pulse 86 86 Resp 18 B/P (MAP) 173/95 (121) 173/95 Pulse Ox 97 O2 Delivery Nasal Cannula Nasal Cannula Nasal Cannula O2 Flow Rate 3.0 3.0 09/19/18 09/19/18 09/19/18 09/19/18 17:33 19:00 19:46 19:49 Temp 97.7 97.7 Pulse 86 83 Resp 18 B/P (MAP) 173/95 172/101 (124) Pulse Ox 97 O2 Delivery Nasal Cannula Nasal Cannula Nasal Cannula O2 Flow Rate 3.0 3.0 3.0 09/19/18 09/19/18 09/19/18 09/20/18 19:52 20:12 22:44 00:00 Temp 98.2 98.2 Pulse 86 77 Resp 18 B/P (MAP) 173/95 162/91 (114) Pulse Ox 96 O2 Delivery Nasal Cannula Nasal Cannula Nasal Cannula O2 Flow Rate 3.0 3.0 3.0 09/20/18 09/20/18 09/20/18 09/20/18 00:49 03:00 07:00 07:45 Temp 98.0 98.0 98.0 98.0 Pulse 73 77 Resp 19 18 B/P (MAP) 169/96 (120) 167/101 (123) Pulse Ox 97 99 98 O2 Delivery Nasal Cannula Nasal Cannula Nasal Cannula Nasal Cannula O2 Flow Rate 3.0 3.0 3.0 3.0 09/20/18 09/20/18 09/20/18 09/20/18 08:09 08:10 08:10 08:31 Pulse 77 77 77 B/P (MAP) 167/101 167/101 167/101 O2 Delivery Nasal Cannula O2 Flow Rate 3.0 09/20/18 09/20/18 11:00 11:54 Temp 98.1 98.1 Pulse 77 Resp 18 B/P (MAP) 156/91 (112) Pulse Ox 99 98 O2 Delivery Nasal Cannula Nasal Cannula O2 Flow Rate 3.0 3.0 DANIELLE BURNETT MD Sep 20, 2018 12:02
--- NOTE | 2018-09-20 13:13 | RAD ---
Chest, 2 views, 09/20/2018: HISTORY: Pneumonia Comparison is made to a study from 09/18/2018. A left Port-A-Cath remains in place extending into the inferior aspect of the inferior vena cava. The heart size is unchanged. Mediastinal prominence in the right paratracheal regions due to the patient's known adenopathy. There is a persistent large mass at the right hilum with adjacent pulmonary infiltrate. There is a small amount of right-sided pleural fluid. Similar findings were present on the previous study. There is only minimal streaky atelectasis or scarring in the left base. There is no evidence of pneumothorax. IMPRESSION: Persistent large right hilar mass with moderate adjacent right lower lobe opacities compatible with pneumonia and atelectasis on a postobstructive basis, with a small right pleural effusion. Electronically signed by: Jack Conroy MD (09/20/2018 1:11 PM) [facility]
[2018-09-20 15:00] VITALS: BP 171/99
--- NOTE | 2018-09-20 15:19 | PDOC ---
Provider Note Provider Note Full consult to follow 63 yo man with extensive SCLA of right lung with bx proven axillary met disease and extensive mets elsewhere. Now with central disease progression and pleural effusion/ S/P 1.1L thoracentesis 09/18/2018 with improved aeration twin on CXR today and improved SOB. Recommend short course of palliative radiation to central disease of involving right lung and mediastinum to preserve and hopefully improve airway. We will simulate for treatment either on 09/21 or 09/24/2018 with treatment to follow. Discussed with patient Lisa Bartlett and Rickey. BALA MOBLEY MD Sep 20, 2018 15:19
[2018-09-20 19:25] VITALS: BP 170/96
[2018-09-20] MEDS: SENNOSIDES/DOCUSATE 8.6/50MG TABLET. PO SCH (21:00)
[2018-09-20] MEDS: MORPHINE SULFATE 2 MG/ML VIAL. IV PRN ×2 (21:00)
[2018-09-20 23:25] VITALS: BP 165/90
[2018-09-21 03:25] VITALS: BP 179/96
[2018-09-21] MEDS: methylPREDNISolone SOD SUCC PF 40 MG/ML VIAL. IV SCH (06:21)
[2018-09-21 06:58] LABS: BASO % 0 % (0-3); EOS % 0 % (0-3); HEMATOCRIT 26.6 % (39.0-53.0); HEMOGLOBIN 8.2 g/dL (13.0-17.5); LYMPH # 0.1 x10^3/uL (1.0-4.8); LYMPH % 1 % (24-48); MEAN CORPUSCULAR HEMOGLOBIN 25 pg (25-35); MEAN CORPUSCULAR HGB CONC 31 g/dL (31-37); MEAN CORPUSCULAR VOLUME 80 fL (79-100); MONO # 0.6 x10^3/uL (0.0-1.1); MONO % 5 % (0-9); NEUT # 11.1 x10^3uL (1.8-7.7); NEUT % 93 % (31-73); PLATELET COUNT 278 x10^3/uL (140-400); RED BLOOD COUNT 3.31 x10^6/uL (4.30-5.70); RED CELL DISTRIBUTION WIDTH 20.9 % (11.5-14.5); WHITE BLOOD COUNT 11.9 x10^3/uL (4.0-11.0)
[2018-09-21 07:00] VITALS: BP 167/91
[2018-09-21 07:06] LABS: CALCIUM 8.7 mg/dL (8.5-10.1); GFR 40.8; POTASSIUM 4.6 mmol/L (3.5-5.1)
[2018-09-21] MEDS: PANTOPRAZOLE 40 MG TABLET.DR. PO SCH (07:30)
[2018-09-21] MEDS: IPRATRPIUM/ALBUTEROL 0.5/2.5MG 3 ML NEBU. NEB SCH ×3 (07:45→15:41)
[2018-09-21] MEDS: BUDESONIDE 0.5 MG/2 ML NEBU. NEB SCH (07:45)
[2018-09-21] MEDS: NICOTINE 14MG PATCH. TD SCH (08:45)
[2018-09-21] MEDS: hydrALAZINE 25 MG TABLET PO SCH ×2 (08:46→14:40)
[2018-09-21] MEDS: CARVEDILOL 12.5 MG TABLET. PO SCH (08:46)
[2018-09-21] MEDS: amLODIPine BESYLATE 10 MG TABLET PO SCH (08:47)
[2018-09-21] MEDS: busPIRone 5 MG TABLET. PO SCH (08:47)
[2018-09-21] MEDS: HEPARIN for SUB-Q USE 5,000 UNIT/ML VIAL. SQ SCH (09:28)
--- NOTE | 2018-09-21 09:35 | PDOC ---
PROGRESS NOTES Subjective Subjective plans for radiation treatment Objective Objective Vital Signs Date Time Temp Pulse Resp B/P (MAP) Pulse Ox O2 Delivery O2 Flow Rate FiO2 09/21/18 08:47 90 167/91 09/21/18 07:50 98 Nasal Cannula 3.0 09/21/18 07:00 98.1 20 98.1 Intake and Output 09/21/18 07:00 Intake Total 540 ml Output Total 225 ml Balance 315 ml Intake Oral 540 ml Output Urine Total 225 ml # Voids 3 Physical Exam Abdomen: Soft Heart: Normal S1, Normal S2 Extremities: No cyanosis, Other (leg swelling) General: Alert, Oriented X3 HEENT: Atraumatic Lungs: Clear to auscultation MUSCULOSKELETAL: No deformity Neuro: Normal speech Psych/Mental Status: Mental status NL Diagnosis Problem List Problems Medical Problems: (1) Pleural effusion Status: Acute Assessment Assessment IMP: Malignant Pleural effusion rt side 1. Postobstructive pneumonia. 2. History of lung cancer.,METASTATIC SMALL CELL CARCINOMA,stage 4 has completed 4 cycles of chemotherapy 3. Mild heart failure.55% ejf 4. Right pleural effusion/ infiltrate/ PNEUMONIA 5. Acute hypoxic resp failure 6. COPD 7, Tobacco abuse 8. diabetes 9. hypertension 10. inc troponin 1, demand ischemia 11. anemia, cytopenia on chemotherapy 12. worsening kidney failure, cr 2.4 Plan: plans for radiation to chest ,seen by radiation oncology. . wbc down to 12 with antibiotics cxr noted post obstructive pneumonia 1 L fluid drained from rt pleura space, positive for lung cancer cells spoke with pulmonary CT chest reviewed , worsening lesions continue breathing treatment, IV zyvox and Zosyn+levaquin. renal consult appreciated venous doppler neg procalcitonin high 20 lactic acid down 1.0. crf stage 3 ,cr 2.0 sono kidneys ,no obstruction poor prognosis Plan Plan of Care Problems Medical Problems: (1) Pleural effusion Status: Acute Comment Review of Relevant I have reviewed the following items nayana (where applicable) has been applied. Labs Laboratory Tests Test 09/21/18 06:27 White Blood Count 11.9 x10^3/uL (4.0-11.0) Red Blood Count 3.31 x10^6/uL (4.30-5.70) Hemoglobin 8.2 g/dL (13.0-17.5) Hematocrit 26.6 % (39.0-53.0) Mean Corpuscular Volume 80 fL (79-100) Mean Corpuscular Hemoglobin 25 pg (25-35) Mean Corpuscular Hemoglobin Concent 31 g/dL (31-37) Red Cell Distribution Width 20.9 % (11.5-14.5) Platelet Count 278 x10^3/uL (140-400) Neutrophils (%) (Auto) 93 % (31-73) Lymphocytes (%) (Auto) 1 % (24-48) Monocytes (%) (Auto) 5 % (0-9) Eosinophils (%) (Auto) 0 % (0-3) Basophils (%) (Auto) 0 % (0-3) Neutrophils # (Auto) 11.1 x10^3uL (1.8-7.7) Lymphocytes # (Auto) 0.1 x10^3/uL (1.0-4.8) Monocytes # (Auto) 0.6 x10^3/uL (0.0-1.1) Eosinophils # (Auto) 0.0 x10^3/uL (0.0-0.7) Basophils # (Auto) 0.0 x10^3/uL (0.0-0.2) Sodium Level 140 mmol/L (136-145) Potassium Level 4.6 mmol/L (3.5-5.1) Chloride Level 104 mmol/L (98-107) Carbon Dioxide Level 28 mmol/L (21-32) Anion Gap 8 (6-14) Blood Urea Nitrogen 47 mg/dL (8-26) Creatinine 2.0 mg/dL (0.7-1.3) Estimated GFR (Cockcroft-Gault) 40.8 Glucose Level 371 mg/dL (70-99) Calcium Level 8.7 mg/dL (8.5-10.1) Microbiology 09/16/18 Blood Culture - Final, Complete NO GROWTH AFTER 5 DAYS 09/18/18 Anaerobic/Aerobic Culture, Resulted Pending 09/18/18 Anaerobic Culture Result 1 (EDWARDO), Resulted Pending 09/18/18 Aerobic Culture - Preliminary, Resulted 09/18/18 Aerobic Culture Result 1 (EDWARDO) - Preliminary, Resulted 09/18/18 Gram Stain - Final, Resulted 09/18/18 Gram Stain Result 1 (EDWARDO) - Final, Resulted 09/18/18 Gram Stain Result 2 (EDWARDO) - Final, Resulted Vitals/I & O Vital Sign - Last 24 Hours 09/20/18 09/20/18 09/20/18 09/20/18 11:00 11:54 15:00 15:44 Temp 98.1 97.9 98.1 97.9 Pulse 77 78 78 Resp 18 18 B/P (MAP) 156/91 (112) 171/99 (123) 171/99 Pulse Ox 99 98 98 O2 Delivery Nasal Cannula Nasal Cannula Nasal Cannula O2 Flow Rate 3.0 3.0 3.0 09/20/18 09/20/18 09/20/18 09/20/18 16:19 17:16 19:25 20:29 Temp 98.1 98.1 Pulse 78 83 Resp 18 B/P (MAP) 171/99 170/96 (120) Pulse Ox 97 O2 Delivery Nasal Cannula Nasal Cannula Nasal Cannula O2 Flow Rate 3.0 3.0 3.0 09/20/18 09/20/18 09/20/18 09/20/18 20:36 20:36 20:59 21:00 Pulse 83 B/P (MAP) 170/96 Pulse Ox 98 98 O2 Delivery Nasal Cannula Nasal Cannula Nasal Cannula O2 Flow Rate 3.0 3.0 3.0 09/20/18 09/20/18 09/21/18 09/21/18 21:39 23:25 03:25 07:00 Temp 97.9 98.2 98.1 97.9 98.2 98.1 Pulse 84 82 90 Resp 18 18 20 B/P (MAP) 165/90 (115) 179/96 (123) 167/91 (116) Pulse Ox 98 96 98 O2 Delivery Nasal Cannula Nasal Cannula Nasal Cannula Nasal Cannula O2 Flow Rate 3.0 3.0 3.0 3.0 09/21/18 09/21/18 09/21/18 09/21/18 07:50 08:46 08:46 08:47 Pulse 90 90 90 B/P (MAP) 167/91 167/91 167/91 Pulse Ox 98 O2 Delivery Nasal Cannula O2 Flow Rate 3.0 Intake and Output 09/20/18 09/20/18 09/21/18 15:00 23:00 07:00 Intake Total 300 ml 240 ml Output Total 225 ml Balance 75 ml 240 ml IZAIAH STEVENSON MD Sep 21, 2018 09:35
--- NOTE | 2018-09-21 10:29 | PDOC ---
Infectious Disease Note Subjective: Subjective Pt feels better eager for dc home today no f/cn/v/d ROS: ROS Negative except for above. Vital Signs: Vital Signs Vital Signs Date Time Temp Pulse Resp B/P (MAP) Pulse Ox O2 Delivery O2 Flow Rate FiO2 09/21/18 08:47 90 167/91 09/21/18 08:00 Nasal Cannula 3.0 09/21/18 07:50 98 09/21/18 07:00 98.1 20 98.1 Physical Exam: PHYSICAL EXAM HEENT: Pupils are equal and reactive to light. Extraocular movements intact. No lesions, no thrush. NECK: Supple. LUNGS: Decreased breath sounds. A few expiratory wheezes. HEART: S1, S2. ABDOMEN: Soft, nontender, nondistended, no rebound or guarding. EXTREMITIES: 1+ pedal edema bilaterally. DERMATOLOGIC: Warm, dry, no generalized rash. NEUROLOGIC: Alert and oriented x 3, grossly nonfocal. LINES: Left chest wall Port-A-Cath access without signs of any complications. Medications: Inpatient Meds: Current Medications Medications (Trade) Dose Ordered Sig/Precious Start Time Stop Time Status Last Admin Dose Admin Acetaminophen (Tylenol) 650 mg PRN Q4HRS PRN 09/15/18 19:00 09/16/18 18:59 DC Acetaminophen/ Hydrocodone Bitart (Lortab 5/325) 1 tab PRN Q6HRS PRN 09/15/18 20:30 09/18/18 08:22 1 TAB Acetaminophen/ Hydrocodone Bitart (Lortab 7.5/325) 1 tab PRN Q6HRS PRN 09/16/18 21:45 09/19/18 17:32 1 TAB Albuterol Sulfate (Ventolin Neb Soln) 2.5 mg PRN Q4HRS PRN 09/15/18 20:30 09/17/18 03:37 2.5 MG Albuterol/ Ipratropium (Duoneb) 3 ml RTQID 09/16/18 08:00 09/21/18 07:45 3 ML Amlodipine Besylate (Norvasc) 10 mg DAILY 09/16/18 09:00 09/21/18 08:47 10 MG Budesonide (Pulmicort) 0.5 mg RTBID 09/16/18 08:00 09/21/18 07:45 0.5 MG Buspirone HCl (Buspar) 5 mg BID 09/15/18 21:00 09/21/18 08:47 5 MG Carvedilol (Coreg) 25 mg BIDWMEALS 09/19/18 17:00 09/21/18 08:46 25 MG Furosemide (Lasix) 20 mg 1X ONCE 09/17/18 15:00 09/17/18 15:01 DC 09/17/18 14:58 20 MG Heparin Sodium (Porcine) (Heparin Sodium) 5,000 unit Q12HR 09/16/18 21:00 09/21/18 09:28 5,000 UNIT Hydralazine HCl (Apresoline) 25 mg 1X ONCE 09/19/18 15:15 09/19/18 15:16 DC 09/19/18 15:32 25 MG Levofloxacin (Levaquin) 250 mg DAILY06 09/19/18 06:00 09/21/18 06:21 250 MG Linezolid/Dextrose 300 ml @ 300 mls/hr Q12HR 09/17/18 21:00 09/21/18 08:45 300 MLS/HR Methylprednisolone Sodium Succinate (SOLU-Medrol 40MG VIAL) 40 mg Q8HRS 09/16/18 07:30 09/21/18 06:21 40 MG Methylprednisolone Sodium Succinate (SOLU-Medrol 125MG VIAL) 125 mg 1X ONCE 09/15/18 17:45 09/15/18 17:48 DC 09/15/18 17:20 125 MG Morphine Sulfate (Morphine Sulfate) 2 mg PRN Q4HRS PRN 09/16/18 21:45 09/20/18 21:00 2 MG Nicotine (Nicoderm Cq 14mg) 1 patch DAILY 09/16/18 09:00 09/21/18 08:45 1 PATCH Pantoprazole Sodium (Protonix) 40 mg DAILYAC 09/16/18 07:30 09/20/18 08:08 40 MG Piperacillin Sod/ Tazobactam Sod (Zosyn Per Pharmacy) 1 each PRN DAILY PRN 09/15/18 18:45 09/20/18 17:19 DC Piperacillin Sod/ Tazobactam Sod 3.375 gm/Sodium Chloride 100 ml @ 200 mls/hr Q6HRS 09/17/18 13:00 09/20/18 12:23 DC 09/20/18 05:20 200 MLS/HR Piperacillin Sod/ Tazobactam Sod 4.5 gm/Sodium Chloride 100 ml @ 200 mls/hr Q6HRS 09/16/18 00:00 09/17/18 12:24 DC 09/17/18 06:39 200 MLS/HR Senna/Docusate Sodium (Senna Plus) 2 tab HS 09/16/18 21:00 09/18/18 20:51 2 TAB Sodium Chloride (NORMAL SALINE FLUSH for STERILE FIELD) 10 ml STK-MED ONCE 09/15/18 17:45 09/15/18 17:46 DC Vancomycin HCl (Vanco Per Pharmacy) 1 each PRN DAILY PRN 09/15/18 18:45 09/17/18 12:21 DC 09/16/18 09:42 1 EACH Vancomycin HCl (Vancomycin Trough Level) 1 each 1X ONCE 09/17/18 20:30 09/17/18 20:30 DC Vancomycin HCl 1.5 gm/Sodium Chloride 500 ml @ 250 mls/hr Q24H 09/16/18 21:00 09/17/18 12:21 DC 09/16/18 21:54 250 MLS/HR Vancomycin HCl 2 gm/Sodium Chloride 500 ml @ 250 mls/hr 1X ONCE 09/15/18 19:00 09/15/18 20:59 DC 09/15/18 20:43 250 MLS/HR Labs: Lab Laboratory Tests Test 09/21/18 06:27 White Blood Count 11.9 x10^3/uL (4.0-11.0) Red Blood Count 3.31 x10^6/uL (4.30-5.70) Hemoglobin 8.2 g/dL (13.0-17.5) Hematocrit 26.6 % (39.0-53.0) Mean Corpuscular Volume 80 fL (79-100) Mean Corpuscular Hemoglobin 25 pg (25-35) Mean Corpuscular Hemoglobin Concent 31 g/dL (31-37) Red Cell Distribution Width 20.9 % (11.5-14.5) Platelet Count 278 x10^3/uL (140-400) Neutrophils (%) (Auto) 93 % (31-73) Lymphocytes (%) (Auto) 1 % (24-48) Monocytes (%) (Auto) 5 % (0-9) Eosinophils (%) (Auto) 0 % (0-3) Basophils (%) (Auto) 0 % (0-3) Neutrophils # (Auto) 11.1 x10^3uL (1.8-7.7) Lymphocytes # (Auto) 0.1 x10^3/uL (1.0-4.8) Monocytes # (Auto) 0.6 x10^3/uL (0.0-1.1) Eosinophils # (Auto) 0.0 x10^3/uL (0.0-0.7) Basophils # (Auto) 0.0 x10^3/uL (0.0-0.2) Sodium Level 140 mmol/L (136-145) Potassium Level 4.6 mmol/L (3.5-5.1) Chloride Level 104 mmol/L (98-107) Carbon Dioxide Level 28 mmol/L (21-32) Anion Gap 8 (6-14) Blood Urea Nitrogen 47 mg/dL (8-26) Creatinine 2.0 mg/dL (0.7-1.3) Estimated GFR (Cockcroft-Gault) 40.8 Glucose Level 371 mg/dL (70-99) Calcium Level 8.7 mg/dL (8.5-10.1) Micro RUN DATE: 09/19/18 PAGE 1 RUN TIME: 1711 [facility] [address] [place] [address] Logan Hamilton M.D., Cosmetics Supervisor ---- PATIENT: JESSICA MEDINA ACCT: [id number] LOC: [address] [place] [address] U: [id number] AGE/SX: 63/M ROOM: [facility] RE09/15/[address]: IZAIAH STEVENSON MD : 1955 BED: 1 DIS: STATUS: ADM IN TLOC: SPEC #: [id number] ROSALIA: 09/18/18 STATUS: RES REQ #: [id number] RECD: 09/18/18 [facility] DR: MARIOLA VELÁZQUEZ MD SOURCE: PLEURAL [place] ENTR: 09/18/[address]: SHERRIE SLOAN [facility]: KELY CERVANTES MD,IZAIAH SAVAGE MD, MD,DANIELLE MERIDA MD, MD ORDERED: ANAER/AEROB/GS Procedure Result ANAEROBIC-AEROBIC CULTURE PENDING ANAEROBIC RES 1 PENDING AEROBIC CULT PENDING AEROBIC RES 1 PENDING GRAM STAIN Final Final report GRAM STAIN RES 1 Final Comment Few white blood cells. GRAM STAIN RES 2 Final No organisms seen Performed at: - [facility], [place], [place] [id number] Floor Associate: JEREMY Mcknight MD, Phone: [phone] --------- Objective: Assessment: 1. Acute on chronic respiratory failure secondary to progressive lung cancer with likely postobstructive pneumonia and right pleural effusion. 2. Progressive metastatic small cell carcinoma stage [address] chest 3. Mild cardiac failure. 4. Right pleural effusion from underlying malgnancy 5. Chronic obstructive pulmonary disease, oxygen dependent. 6. Tobacco abuse. 7. Diabetes mellitus type 2. 8. Polyclonal gammopathy. 9. Chronic kidney disease. 10. History of seizures. Plan: Plan of Care linezolid/levofloxacin dc home on augmentin for 7 days awaiting Radiation therapy ALCIDES CERVANTES MD Sep 21, 2018 10:29
--- NOTE | 2018-09-21 10:30 | PDOC ---
SUBJECTIVE ROS No new concerns OBJECTIVE Vital Signs Vital Signs Date Time Temp Pulse Resp B/P (MAP) Pulse Ox O2 Delivery O2 Flow Rate FiO2 09/21/18 08:47 90 167/91 09/21/18 08:00 Nasal Cannula 3.0 09/21/18 07:50 98 09/21/18 07:00 98.1 20 98.1 I & 0 Intake and Output 09/21/18 06:59 Intake Total 540 ml Output Total 225 ml Balance 315 ml Intake Oral 540 ml Output Urine Total 225 ml # Voids 3 PHYSICAL EXAM Physical Exam GENERAL: no acute distress HEENT: OM moist NECK: Supple. LUNGS: Decreased breath sounds. A few expiratory wheezes. HEART: S1, S2. ABDOMEN: Soft, nontender, nondistended, EXTREMITIES: trace LE edema bilaterally, compression stockings+ DERM: no generalized rash. NEUROLOGIC: Alert and oriented x 3, grossly nonfocal. - No watters, No SP or CVA tenderness DIAGNOSIS/ASSESSMENT Assessment & Plan USAMA- ATN UA unremarkable , renal US cw chr Med disease E-Lytes stable, Vol status stable Renal function improving CKD stage 3- based on the labs in [facility] Cr 1.6-1.8 since Apr 2018 HTN - On antihypertensives Anemia- Hgb stable Stage 4 small cell lung cancer with extensive metastatic disease Plan to start him on chemotherapy with topotecan after discharge . Dyspnea secondary to COPD /pneumonia /pulmonary hypertension and lung cancer. Pleural effusion- S/P thoracentesis 1 lts removed Post obstructive pneumonia - On Abx COMMENT/RELEVANT DATA Meds Current Medications Medications (Trade) Dose Ordered Sig/Precious Start Time Stop Time Status Last Admin Dose Admin Acetaminophen (Tylenol) 650 mg PRN Q4HRS PRN 09/15/18 19:00 09/16/18 18:59 DC Acetaminophen/ Hydrocodone Bitart (Lortab 5/325) 1 tab PRN Q6HRS PRN 09/15/18 20:30 09/18/18 08:22 1 TAB Acetaminophen/ Hydrocodone Bitart (Lortab 7.5/325) 1 tab PRN Q6HRS PRN 09/16/18 21:45 09/19/18 17:32 1 TAB Albuterol Sulfate (Ventolin Neb Soln) 2.5 mg PRN Q4HRS PRN 09/15/18 20:30 09/17/18 03:37 2.5 MG Albuterol/ Ipratropium (Duoneb) 3 ml RTQID 09/16/18 08:00 09/21/18 07:45 3 ML Amlodipine Besylate (Norvasc) 10 mg DAILY 09/16/18 09:00 09/21/18 08:47 10 MG Budesonide (Pulmicort) 0.5 mg RTBID 09/16/18 08:00 09/21/18 07:45 0.5 MG Buspirone HCl (Buspar) 5 mg BID 09/15/18 21:00 09/21/18 08:47 5 MG Carvedilol (Coreg) 25 mg BIDWMEALS 09/19/18 17:00 09/21/18 08:46 25 MG Furosemide (Lasix) 20 mg 1X ONCE 09/17/18 15:00 09/17/18 15:01 DC 09/17/18 14:58 20 MG Heparin Sodium (Porcine) (Heparin Sodium) 5,000 unit Q12HR 09/16/18 21:00 09/21/18 09:28 5,000 UNIT Hydralazine HCl (Apresoline) 25 mg 1X ONCE 09/19/18 15:15 09/19/18 15:16 DC 09/19/18 15:32 25 MG Levofloxacin (Levaquin) 250 mg DAILY06 09/19/18 06:00 09/21/18 06:21 250 MG Linezolid/Dextrose 300 ml @ 300 mls/hr Q12HR 09/17/18 21:00 09/21/18 08:45 300 MLS/HR Methylprednisolone Sodium Succinate (SOLU-Medrol 40MG VIAL) 40 mg Q8HRS 09/16/18 07:30 09/21/18 06:21 40 MG Methylprednisolone Sodium Succinate (SOLU-Medrol 125MG VIAL) 125 mg 1X ONCE 09/15/18 17:45 09/15/18 17:48 DC 09/15/18 17:20 125 MG Morphine Sulfate (Morphine Sulfate) 2 mg PRN Q4HRS PRN 09/16/18 21:45 09/20/18 21:00 2 MG Nicotine (Nicoderm Cq 14mg) 1 patch DAILY 09/16/18 09:00 09/21/18 08:45 1 PATCH Pantoprazole Sodium (Protonix) 40 mg DAILYAC 09/16/18 07:30 09/20/18 08:08 40 MG Piperacillin Sod/ Tazobactam Sod (Zosyn Per Pharmacy) 1 each PRN DAILY PRN 09/15/18 18:45 09/20/18 17:19 DC Piperacillin Sod/ Tazobactam Sod 3.375 gm/Sodium Chloride 100 ml @ 200 mls/hr Q6HRS 09/17/18 13:00 09/20/18 12:23 DC 09/20/18 05:20 200 MLS/HR Piperacillin Sod/ Tazobactam Sod 4.5 gm/Sodium Chloride 100 ml @ 200 mls/hr Q6HRS 09/16/18 00:00 09/17/18 12:24 DC 09/17/18 06:39 200 MLS/HR Senna/Docusate Sodium (Senna Plus) 2 tab HS 09/16/18 21:00 09/18/18 20:51 2 TAB Sodium Chloride (NORMAL SALINE FLUSH for STERILE FIELD) 10 ml STK-MED ONCE 09/15/18 17:45 09/15/18 17:46 DC Vancomycin HCl (Vanco Per Pharmacy) 1 each PRN DAILY PRN 09/15/18 18:45 09/17/18 12:21 DC 09/16/18 09:42 1 EACH Vancomycin HCl (Vancomycin Trough Level) 1 each 1X ONCE 09/17/18 20:30 09/17/18 20:30 DC Vancomycin HCl 1.5 gm/Sodium Chloride 500 ml @ 250 mls/hr Q24H 09/16/18 21:00 09/17/18 12:21 DC 09/16/18 21:54 250 MLS/HR Vancomycin HCl 2 gm/Sodium Chloride 500 ml @ 250 mls/hr 1X ONCE 09/15/18 19:00 09/15/18 20:59 DC 09/15/18 20:43 250 MLS/HR Lab Laboratory Tests Test 09/21/18 06:27 White Blood Count 11.9 x10^3/uL (4.0-11.0) Red Blood Count 3.31 x10^6/uL (4.30-5.70) Hemoglobin 8.2 g/dL (13.0-17.5) Hematocrit 26.6 % (39.0-53.0) Mean Corpuscular Volume 80 fL (79-100) Mean Corpuscular Hemoglobin 25 pg (25-35) Mean Corpuscular Hemoglobin Concent 31 g/dL (31-37) Red Cell Distribution Width 20.9 % (11.5-14.5) Platelet Count 278 x10^3/uL (140-400) Neutrophils (%) (Auto) 93 % (31-73) Lymphocytes (%) (Auto) 1 % (24-48) Monocytes (%) (Auto) 5 % (0-9) Eosinophils (%) (Auto) 0 % (0-3) Basophils (%) (Auto) 0 % (0-3) Neutrophils # (Auto) 11.1 x10^3uL (1.8-7.7) Lymphocytes # (Auto) 0.1 x10^3/uL (1.0-4.8) Monocytes # (Auto) 0.6 x10^3/uL (0.0-1.1) Eosinophils # (Auto) 0.0 x10^3/uL (0.0-0.7) Basophils # (Auto) 0.0 x10^3/uL (0.0-0.2) Sodium Level 140 mmol/L (136-145) Potassium Level 4.6 mmol/L (3.5-5.1) Chloride Level 104 mmol/L (98-107) Carbon Dioxide Level 28 mmol/L (21-32) Anion Gap 8 (6-14) Blood Urea Nitrogen 47 mg/dL (8-26) Creatinine 2.0 mg/dL (0.7-1.3) Estimated GFR (Cockcroft-Gault) 40.8 Glucose Level 371 mg/dL (70-99) Calcium Level 8.7 mg/dL (8.5-10.1) Results All relevant outside records, renal labs, imaging studies, telemetry/EKG's were reviewed. MARTHA BRASWELL MD Sep 21, 2018 10:30
--- NOTE | 2018-09-21 11:28 | PDOC ---
PROGRESS NOTES Subjective Subjective HPI - f/u of Stage 4 small cell lung cancer with extensive metastatic disease ROS - dyspnea better Objective Objective Vital Signs Date Time Temp Pulse Resp B/P (MAP) Pulse Ox O2 Delivery O2 Flow Rate FiO2 09/21/18 08:47 90 167/91 09/21/18 08:00 Nasal Cannula 3.0 09/21/18 07:50 98 09/21/18 07:00 98.1 20 98.1 Intake and Output 09/21/18 07:00 Intake Total 540 ml Output Total 225 ml Balance 315 ml Intake Oral 540 ml Output Urine Total 225 ml # Voids 3 Physical Exam Heart: Normal S1, Normal S2 General: Alert, Oriented X3 Lungs: Clear to auscultation Neuro: Normal speech Psych/Mental Status: Mental status NL Assessment Assessment Problems Medical Problems: (1) Pleural effusion Status: Acute IMPRESSION AND PLAN: 1. 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 Plan to start him on chemotherapy using topotecan as outpt after he is discharged. Agree with palliative radiation to lung mass - I d/w Dr Steward. 2. Dyspnea secondary to chronic obstructive pulmonary disease/pneumonia and pulmonary hypertension and lung cancer. Appreciate Cardiology and Pulmonary management. 3. Pleural effusion. Management per Pulmonary Medicine. s/p rt thoracentesis on 09/18/18: 1.1 L of serosanguineous pleural fluid was removed. I d/w Dr Viveros. Comment Review of Relevant I have reviewed the following items nayana (where applicable) has been applied. Labs Laboratory Tests Test 09/20/18 05:23 09/21/18 06:27 White Blood Count 12.7 x10^3/uL (4.0-11.0) 11.9 x10^3/uL (4.0-11.0) Red Blood Count 3.18 x10^6/uL (4.30-5.70) 3.31 x10^6/uL (4.30-5.70) Hemoglobin 8.2 g/dL (13.0-17.5) 8.2 g/dL (13.0-17.5) Hematocrit 25.7 % (39.0-53.0) 26.6 % (39.0-53.0) Mean Corpuscular Volume 81 fL (79-100) 80 fL (79-100) Mean Corpuscular Hemoglobin 26 pg (25-35) 25 pg (25-35) Mean Corpuscular Hemoglobin Concent 32 g/dL (31-37) 31 g/dL (31-37) Red Cell Distribution Width 20.2 % (11.5-14.5) 20.9 % (11.5-14.5) Platelet Count 274 x10^3/uL (140-400) 278 x10^3/uL (140-400) Neutrophils (%) (Auto) 95 % (31-73) 93 % (31-73) Lymphocytes (%) (Auto) 1 % (24-48) 1 % (24-48) Monocytes (%) (Auto) 3 % (0-9) 5 % (0-9) Eosinophils (%) (Auto) 0 % (0-3) 0 % (0-3) Basophils (%) (Auto) 0 % (0-3) 0 % (0-3) Neutrophils # (Auto) 12.1 x10^3uL (1.8-7.7) 11.1 x10^3uL (1.8-7.7) Lymphocytes # (Auto) 0.2 x10^3/uL (1.0-4.8) 0.1 x10^3/uL (1.0-4.8) Monocytes # (Auto) 0.4 x10^3/uL (0.0-1.1) 0.6 x10^3/uL (0.0-1.1) Eosinophils # (Auto) 0.0 x10^3/uL (0.0-0.7) 0.0 x10^3/uL (0.0-0.7) Basophils # (Auto) 0.0 x10^3/uL (0.0-0.2) 0.0 x10^3/uL (0.0-0.2) Sodium Level 140 mmol/L (136-145) Potassium Level 4.6 mmol/L (3.5-5.1) Chloride Level 104 mmol/L (98-107) Carbon Dioxide Level 28 mmol/L (21-32) Anion Gap 8 (6-14) Blood Urea Nitrogen 47 mg/dL (8-26) Creatinine 2.0 mg/dL (0.7-1.3) Estimated GFR (Cockcroft-Gault) 40.8 Glucose Level 371 mg/dL (70-99) Calcium Level 8.7 mg/dL (8.5-10.1) Laboratory Tests Test 09/21/18 06:27 White Blood Count 11.9 x10^3/uL (4.0-11.0) Red Blood Count 3.31 x10^6/uL (4.30-5.70) Hemoglobin 8.2 g/dL (13.0-17.5) Hematocrit 26.6 % (39.0-53.0) Mean Corpuscular Volume 80 fL (79-100) Mean Corpuscular Hemoglobin 25 pg (25-35) Mean Corpuscular Hemoglobin Concent 31 g/dL (31-37) Red Cell Distribution Width 20.9 % (11.5-14.5) Platelet Count 278 x10^3/uL (140-400) Neutrophils (%) (Auto) 93 % (31-73) Lymphocytes (%) (Auto) 1 % (24-48) Monocytes (%) (Auto) 5 % (0-9) Eosinophils (%) (Auto) 0 % (0-3) Basophils (%) (Auto) 0 % (0-3) Neutrophils # (Auto) 11.1 x10^3uL (1.8-7.7) Lymphocytes # (Auto) 0.1 x10^3/uL (1.0-4.8) Monocytes # (Auto) 0.6 x10^3/uL (0.0-1.1) Eosinophils # (Auto) 0.0 x10^3/uL (0.0-0.7) Basophils # (Auto) 0.0 x10^3/uL (0.0-0.2) Sodium Level 140 mmol/L (136-145) Potassium Level 4.6 mmol/L (3.5-5.1) Chloride Level 104 mmol/L (98-107) Carbon Dioxide Level 28 mmol/L (21-32) Anion Gap 8 (6-14) Blood Urea Nitrogen 47 mg/dL (8-26) Creatinine 2.0 mg/dL (0.7-1.3) Estimated GFR (Cockcroft-Gault) 40.8 Glucose Level 371 mg/dL (70-99) Calcium Level 8.7 mg/dL (8.5-10.1) Microbiology 09/16/18 Blood Culture - Final, Complete NO GROWTH AFTER 5 DAYS 09/18/18 Anaerobic/Aerobic Culture, Resulted Pending 09/18/18 Anaerobic Culture Result 1 (EDWARDO), Resulted Pending 09/18/18 Aerobic Culture - Preliminary, Resulted 09/18/18 Aerobic Culture Result 1 (EDWARDO) - Preliminary, Resulted 09/18/18 Gram Stain - Final, Resulted 09/18/18 Gram Stain Result 1 (EDWARDO) - Final, Resulted 09/18/18 Gram Stain Result 2 (EDWARDO) - Final, Resulted Medications Current Medications Albuterol/ Ipratropium (Duoneb) 3 ml 1X ONCE NEB Last administered on at 18:08; Start 09/15/18 at 17:45; Stop 09/15/18 at 17:48; Status DC Methylprednisolone Sodium Succinate (SOLU-Medrol 125MG VIAL) 125 mg 1X ONCE IV Last administered on 09/15/18at 17:20; Start 09/15/18 at 17:45; Stop 09/15/18 at 17:48; Status DC Sodium Chloride (NORMAL SALINE FLUSH for STERILE FIELD) 10 ml STK-MED ONCE .ROUTE ; Start 09/15/18 at 17:45; Stop 09/15/18 at 17:46; Status DC Vancomycin HCl (Vanco Per Pharmacy) 1 each PRN DAILY PRN MC SEE COMMENTS Last administered on 09/16/18at 09:42; Start 09/15/18 at 18:45; Stop 09/17/18 at 12:21 ; Status DC Piperacillin Sod/ Tazobactam Sod (Zosyn Per Pharmacy) 1 each PRN DAILY PRN MC SEE COMMENTS; Start 09/15/18 at 18:45; Stop 09/20/18 at 17:19; Status DC Vancomycin HCl 2 gm/Sodium Chloride 500 ml @ 250 mls/hr 1X ONCE IV Last administered on 09/15/18at 20:43; Start 09/15/18 at 19:00; Stop 09/15/18 at 20:59 ; Status DC Piperacillin Sod/ Tazobactam Sod 4.5 gm/Sodium Chloride 100 ml @ 200 mls/hr 1X ONCE IV Last administered on 09/15/18at 19:04; Start 09/15/18 at 19:00; Stop 09/15/18 at 19:29; Status DC Acetaminophen (Tylenol) 650 mg PRN Q4HRS PRN PO FEVER; Start 09/15/18 at 19:00 ; Stop 09/16/18 at 18:59; Status DC Albuterol/ Ipratropium (Duoneb) 3 ml RTQID NEB Last administered on 09/15/18 20:22; Start 09/15/18 at 20:00; Stop 09/15/18 at 21:08; Status DC Albuterol Sulfate (Ventolin Neb Soln) 2.5 mg PRN Q4HRS PRN NEB SHORTNESS OF BREATH Last administered on 09/17/18 03:37; Start 09/15/18 at 20:30 Amlodipine Besylate (Norvasc) 10 mg DAILY PO Last administered on 09/21/18 08: 47; Start 09/16/18 at 09:00 Buspirone HCl (Buspar) 5 mg BID PO Last administered on 09/21/18 08:47; Start 09/15/18 at 21:00 Acetaminophen/ Hydrocodone Bitart (Lortab 5/325) 1 tab PRN Q6HRS PRN PO MODERATE PAIN Last administered on 09/18/18 08:22; Start 09/15/18 at 20:30 Carvedilol (Coreg) 12.5 mg BIDWMEALS PO Last administered on 09/19/18 09:15; Start 09/16/18 at 08:00; Stop 09/19/18 at 15:07; Status DC Albuterol/ Ipratropium (Duoneb) 3 ml RTQID NEB Last administered on 09/21/18at 07:45; Start 09/16/18 at 08:00 Piperacillin Sod/ Tazobactam Sod 4.5 gm/Sodium Chloride 100 ml @ 200 mls/hr Q6HRS IV Last administered on 09/17/18 06:39; Start 09/16/18 at 00:00; Stop at 12:24; Status DC Vancomycin HCl 1.5 gm/Sodium Chloride 500 ml @ 250 mls/hr Q24H IV Last administered on 09/16/18at 21:54; Start 09/16/18 at 21:00; Stop 09/17/18 at 12:21 ; Status DC Vancomycin HCl (Vancomycin Trough Level) 1 each 1X ONCE MC ; Start 09/17/18 at 20:30; Stop 09/17/18 at 20:30; Status DC Budesonide (Pulmicort) 0.5 mg RTBID NEB Last administered on 09/21/18 07:45; Start 09/16/18 at 08:00 Nicotine (Nicoderm Cq 14mg) 1 patch DAILY TD Last administered on 09/21/18 08: 45; Start 09/16/18 at 09:00 Methylprednisolone Sodium Succinate (SOLU-Medrol 40MG VIAL) 40 mg Q8HRS IV Last administered on 09/21/18 06:21; Start 09/16/18 at 07:30 Pantoprazole Sodium (Protonix) 40 mg DAILYAC PO Last administered on 09/20/18 08:08; Start 09/16/18 at 07:30 Heparin Sodium (Porcine) (Heparin Sodium) 5,000 unit Q12HR SQ Last administered on 09/21/18 09:28; Start 09/16/18 at 21:00 Hydralazine HCl (Apresoline) 25 mg BID PO Last administered on 09/19/18 09:15 ; Start 09/16/18 at 21:00; Stop 09/19/18 at 15:07; Status DC Furosemide (Lasix) 20 mg 1X ONCE IVP Last administered on 09/16/18 12:56; Start 09/16/18 at 11:30; Stop 09/16/18 at 11:31; Status DC Senna/Docusate Sodium (Senna Plus) 2 tab HS PO Last administered on 09/18/18at 20:51; Start 09/16/18 at 21:00 Morphine Sulfate (Morphine Sulfate) 2 mg PRN Q4HRS PRN IV SEVERE PAIN Last administered on 09/20/18 21:00; Start 09/16/18 at 21:45 Acetaminophen/ Hydrocodone Bitart (Lortab 7.5/325) 1 tab PRN Q6HRS PRN PO SEVERE PAIN Last administered on 09/19/18 17:32; Start 09/16/18 at 21:45 Linezolid/Dextrose 300 ml @ 300 mls/hr Q12HR IV Last administered on 08:45; Start 09/17/18 at 21:00 Piperacillin Sod/ Tazobactam Sod 3.375 gm/Sodium Chloride 100 ml @ 200 mls/hr Q6HRS IV Last administered on 09/20/18at 05:20; Start 09/17/18 at 13:00; Stop at 12:23; Status DC Levofloxacin (Levaquin) 500 mg DAILY06 PO Last administered on 09/18/18at 06:27 ; Start 09/17/18 at 13:00; Stop 09/18/18 at 11:25; Status DC Furosemide (Lasix) 20 mg 1X ONCE IVP Last administered on 09/17/18at 14:58; Start 09/17/18 at 15:00; Stop 09/17/18 at 15:01; Status DC Levofloxacin (Levaquin) 250 mg DAILY06 PO Last administered on 09/21/18at 06:21 ; Start 09/19/18 at 06:00 Carvedilol (Coreg) 25 mg BIDWMEALS PO Last administered on 09/21/18at 08:46; Start 09/19/18 at 17:00 Hydralazine HCl (Apresoline) 25 mg TID PO Last administered on 09/21/18at 08:46 ; Start 09/19/18 at 21:00 Hydralazine HCl (Apresoline) 25 mg 1X ONCE PO Last administered on 09/19/18at 15:32; Start 09/19/18 at 15:15; Stop 09/19/18 at 15:16; Status DC Active Scripts Active Prednisone 50 Mg Tablet 1 Tab PO DAILY Doxycycline Monohydrate 100 Mg Capsule 1 Cap PO BID Reported Hydrocodone-Apap 5-325 (Hydrocodone Bit/Acetaminophen) 1 Tab Tablet 1 Tab PO PRN Q6HRS PRN Buspirone Hcl 5 Mg Tablet 1 Tab PO BID Trelegy Ellipta 100-62.5-25 (Fluticasone/Umeclidin/Vilanter) 1 Each Blst.w.dev 1 Each IH QHS PRN Carvedilol 25 Mg Tablet 12.5 Mg PO BIDWMEALS Proair Hfa Inhaler (Albuterol Sulfate) 8.5 Gm Hfa.aer.ad 1 Puff INH PRN Q6HRS PRN Albuterol Sulfate Neb Soln (Albuterol Sulfate) 2.5 Mg/3 Ml Vial.neb 1 Vial NEB PRN Q4HRS Amlodipine Besylate 10 Mg Tablet 10 Mg PO DAILY Vitals/I & O Vital Sign - Last 24 Hours 09/20/18 09/20/18 09/20/18 09/20/18 11:54 15:00 15:44 16:19 Temp 97.9 97.9 Pulse 78 78 Resp 18 B/P (MAP) 171/99 (123) 171/99 Pulse Ox 98 98 O2 Delivery Nasal Cannula Nasal Cannula Nasal Cannula O2 Flow Rate 3.0 3.0 3.0 09/20/18 09/20/18 09/20/18 09/20/18 17:16 19:25 20:29 20:36 Temp 98.1 98.1 Pulse 78 83 Resp 18 B/P (MAP) 171/99 170/96 (120) Pulse Ox 97 98 O2 Delivery Nasal Cannula Nasal Cannula Nasal Cannula O2 Flow Rate 3.0 3.0 3.0 09/20/18 09/20/18 09/20/18 09/20/18 20:36 20:59 21:00 21:39 Pulse 83 B/P (MAP) 170/96 Pulse Ox 98 O2 Delivery Nasal Cannula Nasal Cannula Nasal Cannula O2 Flow Rate 3.0 3.0 3.0 09/20/18 09/21/18 09/21/18 09/21/18 23:25 03:25 07:00 07:50 Temp 97.9 98.2 98.1 97.9 98.2 98.1 Pulse 84 82 90 Resp 18 18 20 B/P (MAP) 165/90 (115) 179/96 (123) 167/91 (116) Pulse Ox 98 96 98 98 O2 Delivery Nasal Cannula Nasal Cannula Nasal Cannula Nasal Cannula O2 Flow Rate 3.0 3.0 3.0 3.0 09/21/18 09/21/18 09/21/18 09/21/18 08:00 08:46 08:46 08:47 Pulse 90 90 90 B/P (MAP) 167/91 167/91 167/91 O2 Delivery Nasal Cannula O2 Flow Rate 3.0 Intake and Output 09/20/18 09/20/18 09/21/18 15:00 23:00 07:00 Intake Total 300 ml 240 ml Output Total 225 ml Balance 75 ml 240 ml DANIELLE BURNETT MD Sep 21, 2018 11:28
--- NOTE | 2018-09-21 11:40 | PDOC ---
Provider Note Provider Note pt not seen. not in room MARIOLA VELÁZQUEZ MD Sep 21, 2018 11:40
[2018-09-21 12:31] VITALS: BP 193/85
--- NOTE | 2018-09-21 12:45 | PDOC ---
Provider Note Provider Note 63 yo man with extensive SCLA of right lung with bx proven axillary met disease and extensive mets elsewhere. Now with central disease progression and pleural effusion/ S/P 1.1L thoracentesis 09/18/2018 with improved aeration seen on CXR 09/20/2018 and improved SOB. Stable improvement since procedure done. Recommend short course of palliative radiation to central disease of involving right lung and mediastinum to preserve and hopefully improve airway. Simulated today with first treatment to follow on 09/25/2018 Appointment given to patient. OK to DC at anytime prior to beginning treatment from my perspective. Discussed again with Dr. Lang as well. BALA MOBLEY MD Sep 21, 2018 12:45
--- NOTE | 2018-09-21 13:24 | PDOC2 ---
PALLIATIVE CARE Palliative Care Note Palliative Care Consult requested by Dr. Bartlett to address goals of care. Medical Assessment per medical record 1. 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 Plan to start him on chemotherapy using topotecan as outpt after he is discharged. palliative radiation to lung mass - Dr Steward. 2. Dyspnea secondary to chronic obstructive pulmonary disease/pneumonia and pulmonary hypertension and lung cancer. 3. Pleural effusion. s/p rt thoracentesis on 09/18/18: 1.1 L of serosanguineous pleural Patient alert. Sitting up in chair. Denies pain or SOB Patient is able to verbalize his medical condition and the plan States he lives with is daughter and is planning to go home. Will be starting rad tx. Monday. Discussed Code Status; Patient requests DNR/DNI. Understands without this attempt he likely would . Outside the Hospital DNR/DNI signed by patient. Discussed plan for chemotherapy and radiation therapy. Reviewed Hospice Services and likely benefit after treatments are complete. Spoke with Yaneth MI who will assist with AD. RN aware of request for DNR/DNI--- will call primary for orders. SIDNEY BAILEY Sep 21, 2018 13:24
[2018-09-21] MEDS ORDERED: DEXTROSE 50% 25 GM / 50ML DISP.SYRIN. IV PRN (13:45)
[2018-09-21 15:00] VITALS: BP 154/95
[2018-09-21] MEDS ORDERED: HEPARIN PF 500 UNIT/5 ML DISP.SYRIN. IV ONE (16:15)
--- NOTE | 2018-09-21 16:22 | NUR ---
Patient signed DNR/DNI today at hospital, patient was discharged. Per Dr. Steward he will sign this form at Patients Appt. on Monday. Patient advised and verbalized understanding.
[2018-09-21] MEDS ORDERED: AMOX1TAB61 PO (16:37)
--- NOTE | 2018-09-21 16:43 | PDOC ---
Provider Note Provider Note Discharge summary dictated. #[id number] IZAIAH STEVENSON MD Sep 21, 2018 16:43
[2018-09-21] MEDS ORDERED: INSULIN LISPRO 300 UNITS/3 ML INSULN.PEN. SQ SCH (17:00)
--- NOTE | 2018-09-21 17:14 | NUR ---
Discharge instructions and belongings reviewed with patient, verbalized understanding. Patient was escorted out via wheelchair by Luz Maria STOVER.
[2018-09-21] MEDS ORDERED: methylPREDNISolone SOD SUCC PF 40 MG/ML VIAL. IV SCH (21:00)
--- NOTE | 2018-09-21 23:48 | DS ---
DATE OF DISCHARGE: 09/21/2018 REASON FOR ADMISSION TO THE HOSPITAL: 1. Postobstructive pneumonia; history of lung cancer, metastatic, stage 4. 2. Pleural effusion. CONSULTATIONS: 1. Dr. Lang, Pulmonology. 2. Dr. Bartlett, Oncology. 3. Dr. Pitts, Renal. 4. Dr. Fernandes, Infectious Disease. HOSPITAL COURSE: The patient is a 63-year-old male with stage 4 metastatic lung cancer, small cell, and he finished chemotherapy, but there was no improvement. He was supposed to go with another course of chemotherapy. In the meantime, he got short of breath with cough, was admitted to the hospital for postobstructive pneumonia, was treated with Zyvox, Zosyn, Levaquin. Seen by Infectious Diseases. He also has a chronic kidney disease. Creatinine was climbing up to 2, was seen by Renal. Ultrasound of the kidneys was negative. The patient has a history of chronic diastolic heart failure, had a slight elevation in troponin secondary to demand ischemia, seen by Cardiology. Because of his poor prognosis, decided to treat medically. The patient had a CT scan, which shows right pleural effusion. Thoracentesis was done, 1 liter was drained. Cytology was positive for small cell cancer cells. Because of the metastatic disease, Radiation Oncology was consulted and palliative team was consulted. The patient will be given palliative radiation testing to size of the tumor so that the pneumonia may get better. Otherwise, prognosis is poor. Palliative team was consulted. He is outside of the hospital DNR. FINAL DIAGNOSES: 1. Post obstructive pneumonia, obstruction due to lung mass. 2. Stage 4 metastatic lung cancer.getting chemo as out pt. 3. Malignant right pleural effusion, 1 liter was drained. 4. Hwpzv-bl-dkxtvzp kidney disease. 5. Chronic diastolic heart failure. 6. Slight elevation in troponin secondary to demand ischemia. 7. Steroid-induced diabetes. DISPOSITION: Home and is scheduled for outpatient palliative radiation next week. Poor prognosis. The patient understands.Pt is supposed to start new course of chemotherapy out pt with dr Bartlett IZAIAH STEVENSON MD DR: CHRIS/mayra JOB#: [id number] / [id number] ecc SHERRIE SLOAND
--- NOTE | 2018-09-22 06:30 | CONS ---
DATE OF CONSULTATION: 09/20/2018 REFERRING PHYSICIAN: Dr. Ronald Lang. DIAGNOSIS: Extensive stage 4 (T3 N2, M1) small cell carcinoma of the central right lung with extensive subcutaneous hepatic distal joaquín and osseous metastatic disease at diagnosis. Diagnosis was made at bronchoscopy on 04/05/2018. He has had four cycles of carboplatin, etoposide and nivolumab through 07/2018. He has had disease progression associated with right lung progression associated with pleural effusion. He has had right thoracentesis removing 1.1 liters on 09/18/2018. We were asked to see him regarding the role of palliative radiation therapy to his local disease progression to preserve airway function. ICD-10: C34.31, C77.3. C 78.7 C 79.89 C79.70 HISTORY OF PRESENT ILLNESS: The patient is a 63-year-old gentleman who was seen in 03/2018, following which he was found to have a right hilar mass. He underwent bronchoscopy here on 04/05/2018, which revealed infiltrating tumor of the right upper lobe, right bronchus intermedius, right middle lobe and right lower lobe airways. Biopsy did confirm small cell lung carcinoma. Staging evaluation revealed extensive disease including axillary, mediastinal, retroperitoneal adenopathy with metastatic subcutaneous nodules; liver, splenic and adrenal metastasis. He also underwent biopsy of the right axillary adenopathy, which confirmed malignancy. He then received 4 cycles of carboplatin, etoposide and nivolumab receiving his fourth cycle through 07/2018. He then developed progressive disease. Plan to initiate topotecan. He then was admitted here for increasing shortness of breath. CT scan on 09/17/2018 revealed progressive disease in the central right lung, perihilar region now encasing and obliterating the lumen of the right lower lobe; multiple pulmonary nodules noted; right middle lobe postobstructive atelectasis was noted; extensive osteoblastic metastatic disease and right pleural effusion, which had increased in size. He underwent ultrasound-guided thoracentesis on 09/18/2018, 1.1 liters of fluid were removed. Cytology was positive for metastatic small cell carcinoma. Since his thoracentesis, he is feeling much better. His shortness of breath has significantly improved. During his entire illness his weight and appetite have been stable. He has not had anorexia or weight loss. He has had no nausea, vomiting or headaches at this time and denies any significant real pain. PAST MEDICAL HISTORY: Remarkable for chronic obstructive lung disease, diabetes mellitus, gastroesophageal reflux disease, hypertension, congestive heart failure. FAMILY HISTORY: Father had colon and prostate carcinoma and from metastatic disease at age 79. SOCIAL HISTORY: , has 5 children, 2 in [place], 1 in [place], 1 in [place] and 1 lives with his daughter. 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 He smoked one or more packs per day for 50 years, quit 1 month ago. PHYSICAL EXAMINATION: GENERAL: Revealed a pleasant, articulate gentleman in no overt distress. HEENT: Unremarkable. LYMPH NODES: He had no palpable cervical or supraclavicular adenopathy. LUNGS: Breath sounds present in all aparicio with faint wheezes in the right field on expiration. HEART: Regular. No gallop or murmur. EXTREMITIES: Reveal no clubbing or cyanosis. Modest pedal edema. NEUROLOGIC: Revealed no deficits. LABORATORY STUDIES: From 09/21/2018: Hemoglobin 8.2, white count 11,900, platelet count 278,000. Chemistry panel revealed normal electrolytes, creatinine 2.0, blood sugar 371. Calcium 8.7. ASSESSMENT AND PLAN: In summary, my impression is that of extensive small cell carcinoma of the lung with central disease progression in the right lung causing loss of the right lower lobe airway. He had significant shortness of breath, necessitating admission. This has been partially improved with successful thoracentesis with reinflation of the lung seen on post-thoracentesis chest x-ray. A short course of radiation to his right central disease is rational. This can be done in conjunction with topotecan. Goal of treatment is to preserve airway and hopefully reverse right lower lobe obstruction and contribute to his improved respiratory status. I reviewed this with the patient as well as with Dr. Bartlett and Dr. Lang. I anticipate simulation to occur on 09/21/2018 with treatment to occur on 09/24/2018 or 09/25/2018. I anticipate a 5-day course of treatment initially followed by reassessment. Thank you again for allowing us to participate in his evaluation. BALA MOBLEY MD DR: TORRES/mayra JOB#: [id number] / [id number] IZAIAH Pinedo MD, VINAY MD MTDD
== END 2018-09-21 17:22 | disposition home or self-care (01) | DRG 871 ==
LOC: ER 17:32 → 1 WEST ICU 18:55 → 6 SOUTH 09-16 13:50
PROVIDERS: ADMIT Internal Medicine; ATTEND Internal Medicine
PROC: 0W993ZZ Drainage of Right Pleural Cavity, Percutaneous Approach (ICD-10-PCS; principal; 2018-09-18)
DX: A41.9 Sepsis, unspecified organism (principal); J18.9 Pneumonia, unspecified organism; J96.21 Acute and chronic respiratory failure with hypoxia; I21.A1 Myocardial infarction type 2; I50.33 Acute on chronic diastolic (congestive) heart failure; J44.0 Chronic obstructive pulmonary disease with (acute) lower respiratory infection; I13.0 Hypertensive heart and chronic kidney disease with heart failure and stage 1 through stage 4 chronic kidney disease, or unspecified chronic kidney disease; J44.1 Chronic obstructive pulmonary disease with (acute) exacerbation; C34.90 Malignant neoplasm of unspecified part of unspecified bronchus or lung; C77.9 Secondary and unspecified malignant neoplasm of lymph node, unspecified; C78.6 Secondary malignant neoplasm of retroperitoneum and peritoneum; C78.7 Secondary malignant neoplasm of liver and intrahepatic bile duct; C79.51 Secondary malignant neoplasm of bone; C79.70 Secondary malignant neoplasm of unspecified adrenal gland; J91.0 Malignant pleural effusion; J98.11 Atelectasis; N17.9 Acute kidney failure, unspecified; N18.9 Chronic kidney disease, unspecified; Z91.010 Allergy to peanuts; Z91.018 Allergy to other foods; D89.0 Polyclonal hypergammaglobulinemia; D63.8 Anemia in other chronic diseases classified elsewhere; E09.9 Drug or chemical induced diabetes mellitus without complications; E78.5 Hyperlipidemia, unspecified; F41.9 Anxiety disorder, unspecified; K57.90 Diverticulosis of intestine, part unspecified, without perforation or abscess without bleeding; M19.90 Unspecified osteoarthritis, unspecified site; F17.210 Nicotine dependence, cigarettes, uncomplicated; I27.20 Pulmonary hypertension, unspecified; K21.9 Gastro-esophageal reflux disease without esophagitis; N18.3 Chronic kidney disease, stage 3 (moderate); T38.0X5A Adverse effect of glucocorticoids and synthetic analogues, initial encounter; Z66 Do not resuscitate; Z80.0 Family history of malignant neoplasm of digestive organs; Z80.3 Family history of malignant neoplasm of breast; Z80.42 Family history of malignant neoplasm of prostate; Z82.49 Family history of ischemic heart disease and other diseases of the circulatory system; Z85.118 Personal history of other malignant neoplasm of bronchus and lung; Z99.81 Dependence on supplemental oxygen; Z92.21 Personal history of antineoplastic chemotherapy
CPT/HCPCS: 32555; 36415; 71045; 71046; 71250; 76770; 77290; 77334; 80048; 80053; 81001; 83605; 83615; 83735; 83880; 84145; 84157; 84484; 85007; 85025; 85610; 87040; 87071; 87075; 87641; 87804; 88112; 88305; 93005; 93970; 94640; 94760; 96365; 96375; J1644; J1815; J1940; J2020; J2270; J2543; J2920; J2930; J3370; J7040; J7613; J7620; J7626; 97110; 97116; 97530; 99285-25

== ENCOUNTER 2018-10-08 19:37 | Inpatient (IN) | payer OTHER ==
[~2018-10-08] VITALS: Ht 177.8 cm; Wt 103.0 kg
[~2018-10-08 19:37] MED LIST changes: +AMOX1TAB61 PO
--- NOTE | 2018-10-08 20:43 | RAD ---
EXAM: Head CT without contrast. HISTORY: Dizziness. TECHNIQUE: Computed tomographic images of the head were obtained without contrast. *One or more of the following individualized dose reduction techniques were utilized for this examination: 1. Automated exposure control. 2. Adjustment of the mA and/or kV according to patient size. 3. Use of iterative reconstruction technique. COMPARISON: Brain MRI dated 05/24/2018. FINDINGS: There is no acute or subacute extra-axial or intraparenchymal hemorrhage. There is no mass effect or midline shift. There is no hydrocephalus. There are areas of decreased attenuation within the cerebral white matter, nonspecific and likely related to chronic small vessel disease. The visualized portions of the orbits, paranasal sinuses and mastoid air cells are unremarkable. No suspicious calvarial lesion is seen. IMPRESSION: No acute intracranial findings. Electronically signed by: Shannan Dominguez MD (10/08/2018 8:41 PM) [facility]
[2018-10-08 20:57] LABS: BASO % 0 % (0-3); EOS % 0 % (0-3); LYMPH # 0.6 x10^3/uL (1.0-4.8); LYMPH % 10 % (24-48); MEAN CORPUSCULAR HEMOGLOBIN 25 pg (25-35); MEAN CORPUSCULAR HGB CONC 32 g/dL (31-37); MEAN CORPUSCULAR VOLUME 79 fL (79-100); MONO # 0.7 x10^3/uL (0.0-1.1); MONO % 14 % (0-9); NEUT % 75 % (31-73); PLATELET COUNT 37 x10^3/uL (140-400); RED CELL DISTRIBUTION WIDTH 21.7 % (11.5-14.5); WHITE BLOOD COUNT 5.3 x10^3/uL (4.0-11.0)
[2018-10-08 21:04] LABS: HEMATOCRIT 15.7 % (39.0-53.0)
[2018-10-08 21:11] LABS: ALBUMIN 2.2 g/dL (3.4-5.0); ALBUMIN/GLOBULIN RATIO 0.6 (1.0-1.7); CALCIUM 8.3 mg/dL (8.5-10.1); GFR 40.8; MAGNESIUM 1.2 mg/dL (1.8-2.4); POTASSIUM 3.4 mmol/L (3.5-5.1); TOTAL BILIRUBIN 0.2 mg/dL (0.2-1.0); TOTAL PROTEIN 6.2 g/dL (6.4-8.2)
--- NOTE | 2018-10-08 21:13 | PHYS DOC ---
Past Medical History Past Medical History: Cancer, COPD, Diabetes-Type II, Hypertension Additional Past Medical Histor: STAGE 4 LUNG CANCER, LAST RADIATION AND CHEMO 10/05/18 Past Surgical History: Cholecystectomy Additional Past Surgical Histo: L knee, power port L chest for chemo Alcohol Use: None Drug Use: None Adult General Chief Complaint Chief Complaint: MECHANICAL FALL HPI HPI Patient is a 63 year old [f__sex] who presents with [] Review of Systems Review of Systems Constitutional: Denies fever or chills [] Eyes: Denies change in visual acuity, redness, or eye pain [] HENT: Denies nasal congestion or sore throat [] Respiratory: Denies cough or shortness of breath [] Cardiovascular: No additional information not addressed in HPI [] GI: Denies abdominal pain, nausea, vomiting, bloody stools or diarrhea [] : Denies dysuria or hematuria [] Musculoskeletal: Denies back pain or joint pain [] Integument: Denies rash or skin lesions [] Neurologic: Denies headache, focal weakness or sensory changes [] Endocrine: Denies polyuria or polydipsia [] All other systems were reviewed and found to be within normal limits, except as documented in this note. Allergies Allergies Allergies Coded Allergies Type Severity Reaction Last Updated Verified chocolate flavor Allergy Intermediate 07/16/18 Yes peanut Allergy Intermediate HIVES 07/16/18 Yes Physical Exam Physical Exam Constitutional: Well developed, well nourished, no acute distress, non-toxic appearance. [] HENT: Normocephalic, atraumatic, bilateral external ears normal, oropharynx moist, no oral exudates, nose normal. [] Eyes: PERRLA, EOMI, conjunctiva normal, no discharge. [] Neck: Normal range of motion, no tenderness, supple, no stridor. [] Cardiovascular:Heart rate regular rhythm, no murmur [] Lungs & Thorax: Bilateral breath sounds clear to auscultation [] Abdomen: Bowel sounds normal, soft, no tenderness, no masses, no pulsatile masses. [] Skin: Warm, dry, no erythema, no rash. [] Back: No tenderness, no CVA tenderness. [] Extremities: No tenderness, no cyanosis, no clubbing, ROM intact, no edema. [] Neurologic: Alert and oriented X 3, normal motor function, normal sensory functi on, no focal deficits noted. [] Psychologic: Affect normal, judgement normal, mood normal. [] Current Patient Data Vital Signs Vital Signs Date Time Temp Pulse Resp B/P (MAP) Pulse Ox O2 Delivery O2 Flow Rate FiO2 10/08/18 20:36 90 15 96 10/08/18 19:40 98.8 106/60 (75) Room Air 98.8 Lab Values Laboratory Tests Test 10/08/18 20:30 10/08/18 20:45 White Blood Count 5.3 x10^3/uL (4.0-11.0) Red Blood Count 2.00 x10^6/uL (4.30-5.70) L Hemoglobin 5.0 g/dL (13.0-17.5) *L Hematocrit 15.7 % (39.0-53.0) *L Mean Corpuscular Volume 79 fL (79-100) Mean Corpuscular Hemoglobin 25 pg (25-35) Mean Corpuscular Hemoglobin Concent 32 g/dL (31-37) Red Cell Distribution Width 21.7 % (11.5-14.5) H Platelet Count 37 x10^3/uL (140-400) L Neutrophils (%) (Auto) 75 % (31-73) H Lymphocytes (%) (Auto) 10 % (24-48) L Monocytes (%) (Auto) 14 % (0-9) H Eosinophils (%) (Auto) 0 % (0-3) Basophils (%) (Auto) 0 % (0-3) Neutrophils # (Auto) 4.0 x10^3uL (1.8-7.7) Lymphocytes # (Auto) 0.6 x10^3/uL (1.0-4.8) L Monocytes # (Auto) 0.7 x10^3/uL (0.0-1.1) Eosinophils # (Auto) 0.0 x10^3/uL (0.0-0.7) Basophils # (Auto) 0.0 x10^3/uL (0.0-0.2) Platelet Estimate Pending Sodium Level 140 mmol/L (136-145) Potassium Level 3.4 mmol/L (3.5-5.1) L Chloride Level 105 mmol/L (98-107) Carbon Dioxide Level 28 mmol/L (21-32) Anion Gap 7 (6-14) Blood Urea Nitrogen 18 mg/dL (8-26) Creatinine 2.0 mg/dL (0.7-1.3) H Estimated GFR (Cockcroft-Gault) 40.8 BUN/Creatinine Ratio 9 (6-20) Glucose Level 97 mg/dL (70-99) Calcium Level 8.3 mg/dL (8.5-10.1) L Magnesium Level 1.2 mg/dL (1.8-2.4) L Total Bilirubin 0.2 mg/dL (0.2-1.0) Aspartate Amino Transferase (AST) 14 U/L (15-37) L Alanine Aminotransferase (ALT) 9 U/L (16-63) L Alkaline Phosphatase 81 U/L (46-116) Total Protein 6.2 g/dL (6.4-8.2) L Albumin 2.2 g/dL (3.4-5.0) L Albumin/Globulin Ratio 0.6 (1.0-1.7) L Laboratory Tests 10/08/18 20:30 Laboratory Tests 10/08/18 20:45 EKG EKG [] Radiology/Procedures Radiology/Procedures [] Impressions: PROCEDURE: CT HEAD WO CONTRAST EXAM: Head CT without contrast. HISTORY: Dizziness. TECHNIQUE: Computed tomographic images of the head were obtained without contrast. *One or more of the following individualized dose reduction techniques were utilized for this examination: 1. Automated exposure control. 2. Adjustment of the mA and/or kV according to patient size. 3. Use of iterative reconstruction technique. COMPARISON: Brain MRI dated 05/24/2018. FINDINGS: There is no acute or subacute extra-axial or intraparenchymal hemorrhage. There is no mass effect or midline shift. There is no hydrocephalus. There are areas of decreased attenuation within the cerebral white matter, nonspecific and likely related to chronic small vessel disease. The visualized portions of the orbits, paranasal sinuses and mastoid air cells are unremarkable. No suspicious calvarial lesion is seen. IMPRESSION: No acute intracranial findings. Electronically signed by: Shannan Dominguez MD (10/08/2018 8:41 PM) [facility] Course & Med Decision Making Course & Med Decision Making Pertinent Labs and Imaging studies reviewed. (See chart for details) [] Dragon Disclaimer Dragon Disclaimer This electronic medical record was generated, in whole or in part, using a voice recognition dictation system. Departure Departure Impression: Primary Impression: Symptomatic anemia Disposition: 09 ADMITTED INPATIENT Admitting Physician: Twin English Condition: GOOD Referrals: SHERRIE SLOAN (PCP) MANN LABOY Jr. DO October 08, 2018 21:13
--- NOTE | 2018-10-08 21:45 | RAD ---
EXAM: Pelvis and left hip, 2 views; left femur, 2 views. HISTORY: Fall. COMPARISON: None. FINDINGS: A frontal view the pelvis and frontal and frog-leg views left hip are obtained. 2 views of the left femur are also obtained. There is no fracture, dislocation or subluxation. There is minimal degenerative subchondral sclerosis and marginal spurring involving the acetabulum. There are degenerative changes involving the lower lumbar spine. There is no periosteal reaction. There is a corticated enthesophytes along the anterior tibial tubercle. There is mild medial compartment joint space narrowing and tricompartmental spurring involving the knee. IMPRESSION: No acute osseous finding. Electronically signed by: Shannan Dominguez MD (10/08/2018 9:43 PM) [facility]
--- NOTE | 2018-10-08 21:50 | RAD ---
EXAM: Chest and left ribs, 4 views. HISTORY: Pain. Fall. COMPARISON: 09/20/2018. FINDINGS: A frontal view of the chest and 3 views of the left ribs are obtained. There has been slight interval decrease in a right hilar mass. There is stable diffuse increased opacity within the right middle and lower lobe due to postobstructive infiltrate or lymphangitic spread of tumor. There is a stable small right pleural effusion. There is stable diffuse increased interstitial opacity. There is a stable prominent cardiac silhouette. There is a port catheter with the tip in the superior cavoatrial junction. No displaced fracture is seen. IMPRESSION: 1. Slight interval decrease in a right hilar mass. There is stable associated right mid and lower lung postobstructive infiltrate or lymphangitic spread of tumor. There is also a stable small right pleural effusion. 2. Stable diffuse increased interstitial opacity likely due to interstitial infiltrate. 3. No acute osseous finding. Electronically signed by: Shannan Dominguez MD (10/08/2018 9:47 PM) [facility]
[2018-10-08] MEDS ORDERED: ONDANSETRON PF 4 MG/2 ML VIAL. IV PRN (22:00)
[2018-10-08] MEDS ORDERED: ACETAMINOPHEN 325 MG TABLET. PO PRN (22:00)
[2018-10-08] MEDS: MORPHINE SULFATE 2 MG/ML VIAL. IV PRN (22:15)
[2018-10-08 22:27] LABS: % BANDS 13 % (0-9); % LYMPHS 13 % (24-48); % METAS 1 % (0-0); % MONOS 8 % (0-10); % MYELOS 1 % (0-0); % SEGS 64 % (35-66); PLT ESTIMATE DECREASED (ADEQUATE)
[2018-10-08 22:28] LABS: ANISOCYTOSIS MOD; HYPOCHROMIA MOD; POLYCHROMASIA SLIGHT; TOXIC GRANULATION MARKED; TOXIC VACUOLATION SLIGHT
[2018-10-08 22:54] VITALS: BP 121/71
[2018-10-08 23:16] VITALS: BP 115/71
--- NOTE | 2018-10-08 23:52 | NUR ---
Pt.just arrived via bed from ED w/ Anemia. He is A/O andwill make needs known.
[2018-10-08 23:55] VITALS: BP 120/68
[2018-10-09] VITALS (14 sets, daily range): BP systolic 101–140; BP diastolic 54–79
[2018-10-09] MEDS: IV NORMAL SALINE 1000ML BAG 1,000 ML IV SCH ×3 (01:09→20:56)
[2018-10-09] MEDS ORDERED: HYDROcodone/APAP 5/325MG 1 TAB TABLET PO PRN (02:15)
[2018-10-09] MEDS ORDERED: ALBUTEROL SULFATE 2.5 MG/3 ML NEBU. INH PRN (02:15)
[2018-10-09] MEDS ORDERED: NON FORMULARY ITEM (Fluticasone/Umeclidin/Vilanter (Trelegy Ellipta 100-62.5-25) 1 EACH) IH PRN (02:15)
[2018-10-09] MEDS ORDERED: ALBUTEROL SULFATE 2.5 MG/3 ML NEBU. NEB PRN ×2 (02:15→03:00)
[2018-10-09 04:02] LABS: BASO % 0 % (0-3); EOS % 0 % (0-3); LYMPH # 0.5 x10^3/uL (1.0-4.8); LYMPH % 7 % (24-48); MEAN CORPUSCULAR HEMOGLOBIN 25 pg (25-35); MEAN CORPUSCULAR HGB CONC 32 g/dL (31-37); MEAN CORPUSCULAR VOLUME 80 fL (79-100); MONO # 0.8 x10^3/uL (0.0-1.1); MONO % 11 % (0-9); NEUT % 82 % (31-73); PLATELET COUNT 48 x10^3/uL (140-400); RED BLOOD COUNT 2.44 x10^6/uL (4.30-5.70); RED CELL DISTRIBUTION WIDTH 20.9 % (11.5-14.5); WHITE BLOOD COUNT 7.3 x10^3/uL (4.0-11.0)
[2018-10-09 04:18] LABS: CALCIUM 8.2 mg/dL (8.5-10.1); CREATININE 2.1 mg/dL (0.7-1.3); GFR 38.5; POTASSIUM 3.4 mmol/L (3.5-5.1)
[2018-10-09 04:24] LABS: HEMATOCRIT 19.4 % (39.0-53.0); HEMOGLOBIN 6.2 g/dL (13.0-17.5)
--- NOTE | 2018-10-09 04:49 | NUR ---
At 0423 lab called w/ a critical Hgb of 6.2 and Hct of 19.4. Notified @ 0431 and gave orders to infuse 1 unit of PRBS. Will continue to monitor.
--- NOTE | 2018-10-09 06:59 | EKG ---
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
--- NOTE | 2018-10-09 07:24 | NUR ---
Just notified Dr. Bartlett's answering service about consult
[2018-10-09] MEDS ORDERED: BUDESONIDE 0.5 MG/2 ML NEBU. NEB PRN (08:00)
[2018-10-09] MEDS: CARVEDILOL 12.5 MG TABLET. PO SCH ×2 (08:36→16:55)
[2018-10-09] MEDS: busPIRone 5 MG TABLET. PO SCH ×2 (08:36→20:54)
[2018-10-09] MEDS: amLODIPine BESYLATE 10 MG TABLET PO SCH (08:37)
[2018-10-09] MEDS: NICOTINE 21MG PATCH. TD SCH (08:37)
[2018-10-09] MEDS: ALBUTEROL SULFATE 2.5 MG/3 ML NEBU. NEB SCH ×4 (09:10→19:15)
[2018-10-09] MEDS: BUDESONIDE 0.5 MG/2 ML NEBU. NEB SCH ×2 (09:19→19:15)
[2018-10-09] MEDS ORDERED: MAGNESIUM SULFATE 2GM 50 ML IV ONE ×2 (10:30→23:45)
[2018-10-09] MEDS ORDERED: POTASSIUM CHLORIDE 20 MEQ TABLET.ER. PO ONE (10:30)
--- NOTE | 2018-10-09 10:35 | PDOC ---
Provider Note Provider Note Pt seen.H&P dictated. #[id number]. IZAIAH STEVENSON MD October 09, 2018 10:35
--- NOTE | 2018-10-09 10:52 | HP ---
ADMIT DATE: 10/08/2018 LOCATION: [facility]. REASON FOR ADMISSION TO THE HOSPITAL: Anemia. The patient is getting chemo for lung cancer. HISTORY OF PRESENT ILLNESS: The patient is a 63-year-old male who has history of metastatic stage 4 lung cancer and is getting chemotherapy from Dr. Bartlett. He got a chemo a week ago. He was feeling weak, tired, came to the ER, was found to have hemoglobin between 5 and 6. The patient was admitted, was given transfusion, went up to 6.4 after 2 units. PAST MEDICAL HISTORY: He has history of COPD, lung cancer, has a stage 4 with metastasis to the lung and possibly to the liver, and the patient is getting chemotherapy, and he also had radiation therapy for lung cancer. He got last chemo a week ago. PAST SURGICAL HISTORY: He had a gallbladder surgery, Port-A-Cath for chemo. ALLERGIES: PEANUT ALLERGY, CHOCOLATE. MEDICATIONS AT HOME: Oxygen at home, is on amlodipine 10 mg daily, budesonide nebulizer machine twice a day, buspirone 5 mg twice a day, Coreg 12.5 daily, Zofran for nausea. PERSONAL HISTORY: Smoked for many years, quit couple of years ago. Denies alcohol or drug abuse. FAMILY HISTORY: Positive for hypertension. REVIEW OF SYSTEMS: CARDIAC: No chest pain. Has some swelling in the legs. No fever, no chills. Rest of her systems was reviewed and negative. PHYSICAL EXAMINATION: GENERAL: The patient is chronically ill. VITAL SIGNS: Temperature 99.9, pulse 95, respirations 16, blood pressure 140/79, 95% on 3 liters. HEENT: Head is atraumatic. Pupils equal. No jaundice. Oral cavity: No congestion. NECK: Supple. CHEST: Symmetrical. CARDIOVASCULAR: S1, S2, few crackles at the base. LUNGS: Decreased breath sounds. ABDOMEN: Soft, no masses palpable. EXTERNAL GENITALIA: No Contreras. RECTAL: Deferred. EXTREMITIES: 1-2+ edema in lower extremities. NEUROLOGIC: Moving all extremities. No focal deficits noted. LABORATORY DATA: Shows a white count of 5, hemoglobin 5, platelets 37. Electrolytes show sodium 140, potassium 3.4, chloride 105, bicarbonate 28, BUN 18, creatinine 2.0, glucose 97, magnesium low at 1.2. CT head negative. Chest x-ray shows slight decrease in the hilar mass. FINAL IMPRESSION: 1. Severe Anemia secondary to chemo.HB 5,.0 2. Stage 4 metastatic lung cancer.small cell. s/p radiation +chemo 3. Chronic kidney disease stage between 3 and 4. 4. Chronic systolic heart failure, ejection fraction 40%. 5. Low platelets secondary to chemo. 6. Hypertension. 7. Hyperlipidemia. PLAN: At this time, was admit to hospital, transfused 2 units. Consultation with Hematology/Oncology. The patient has chronic kidney disease, around 2 is baseline,. also had a workup done with Cardiology for heart failure, right now stable. Continue the present treatment and see how he improves. IZAIAH STEVENSON MD DR: CHRIS/mayra JOB#: [id number] / [id number] elma SLOAN DR MTDD
[2018-10-09] MEDS: MORPHINE SULFATE 2 MG/ML VIAL. IV PRN ×2 (12:20→16:55)
--- NOTE | 2018-10-09 15:58 | NUR ---
SW following pt for anticipated dc needs. Chart reviewed. Pt lives at home with family. Pt was also recently discharged home after declining to go to SNU. PT/OT is ordered and on hold today. SW will await for PT/OT recommendation to assess skilled needs. Will continue to follow.
[2018-10-09 21:29] LABS: MAGNESIUM 1.5 mg/dL (1.8-2.4); POTASSIUM 3.7 mmol/L (3.5-5.1)
--- NOTE | 2018-10-10 02:00 | CONS ---
DATE OF CONSULTATION: 10/09/2018 REQUESTING PHYSICIAN: Dr. Johnnie Viveros. REASON FOR CONSULTATION: Metastatic small cell lung cancer, on chemotherapy, now admitted with severe anemia. HISTORY OF PRESENT ILLNESS: The patient is a 63-year-old -[place] gentleman who was diagnosed with small cell lung cancer and he had a bronchoscopy on 04/05/2018, which revealed infiltrating tumor of the right upper lobe, right bronchus intermedius, right middle lobe and right lower lobe. Biopsy revealed small cell carcinoma. He had evidence of metastatic disease to the hilar lymph nodes, multiple mediastinal lymph nodes, bilateral axillary lymph nodes and subcutaneous metastatic nodules and metastasis in the hepatic, splenic and left adrenal gland and perinephric metastasis and abdominal lymph nodes. He underwent chemotherapy with carboplatin, etoposide, nivolumab on a clinical trial from 05/02/2018. He completed 4 cycles on 07/04/2018. Followup CAT scan revealed significant worsening of his malignancy. He underwent palliative radiation therapy. He was hospitalized to [facility] in 09/2018 and he had pleural effusion and he underwent thoracentesis on the right side on 09/18/2018 and 1.1 liter of fluid was removed and the pathology was positive for small cell carcinoma. He was started on palliative chemotherapy with topotecan on 09/24/2018. He received the fifth day of treatment on 09/28/2018. His hemoglobin was 8.0 on 09/24/2018. He came to the hospital on 10/08/2018 following a mechanical fall. He was noted to have a hemoglobin of 5 on 10/08/2018 and he received 1 unit of PRBC. Hemoglobin improved to 6.2 on 10/09/2018 and he received a second unit of PRBC after that. PAST MEDICAL HISTORY: Back pain, arthritis, diabetes mellitus, hypertension, GERD. FAMILY HISTORY: Positive for colon cancer, prostate cancer and breast cancer. SOCIAL HISTORY: He has history of smoking 2 packs of cigarettes per day. REVIEW OF SYSTEMS: A 12-point review of system was performed. Pertinent positives are mentioned in the history of present illness. Rest of the system review is negative. PHYSICAL EXAMINATION: GENERAL APPEARANCE: The patient is a 63-year-old gentleman who is in no acute cardiorespiratory distress. VITAL SIGNS: Blood pressure 127/67, temperature 98.7. HEENT: Head: Atraumatic, normocephalic. Yes: No icterus. NECK: Supple. CHEST: Bilaterally symmetrical. HEART: S1, S2 normal. ABDOMEN: Soft, nontender. CENTRAL NERVOUS SYSTEM: No focal deficits. LYMPHATICS: No lymphadenopathy. SKIN: No rashes. PSYCHOLOGIC: Mood and affect are appropriate. LABORATORY DATA: From 10/08/2018. WBC 5.3, hemoglobin 5, platelet count 37,000. RADIOLOGICAL STUDIES: Chest x-ray on 10/08/2018 revealed slight interval decrease in the right hilar mass and stable small right pleural effusion. CT scan of the head on 10/08/2018 was unremarkable. IMPRESSION AND PLAN: 1. Stage IV small cell lung cancer diagnosed on 04/12/2018 with extensive metastatic disease to the hilar, mediastinal, abdominal lymph nodes in addition to hepatic, splenic and adrenal metastases. He also has malignant pleural effusion. He was started on second line chemotherapy with topotecan on 09/24/2018. We will continue to monitor for toxicities. He will return for followup for continuation of chemotherapy. 2. Anemia, significantly worse. No evidence of bleeding. Hence, the etiology is thought to be due to malignancy and chemotherapy. I agreed to transfuse as needed to keep the hemoglobin more than 7. I will initiate Aranesp as an outpatient for management of chemotherapy heparin-induced anemia. 3. Fall. He had a CT scan of the head that was unremarkable. 4. Thrombocytopenia due to chemotherapy. No signs of bleeding. Continue to monitor. 5. Malignant pleural effusion, stable. DANIELLE BURNETT MD DR: VIKASH/mayra JOB#: [id number] / [id number]
[2018-10-10 03:26] VITALS: BP 118/67
[2018-10-10 06:57] LABS: BASO % 0 % (0-3); EOS % 0 % (0-3); HEMATOCRIT 22.2 % (39.0-53.0); HEMOGLOBIN 7.1 g/dL (13.0-17.5); LYMPH # 0.5 x10^3/uL (1.0-4.8); LYMPH % 4 % (24-48); MEAN CORPUSCULAR HEMOGLOBIN 26 pg (25-35); MEAN CORPUSCULAR HGB CONC 32 g/dL (31-37); MEAN CORPUSCULAR VOLUME 80 fL (79-100); MONO # 1.2 x10^3/uL (0.0-1.1); MONO % 10 % (0-9); NEUT % 85 % (31-73); PLATELET COUNT 67 x10^3/uL (140-400); RED BLOOD COUNT 2.76 x10^6/uL (4.30-5.70); RED CELL DISTRIBUTION WIDTH 20.5 % (11.5-14.5); WHITE BLOOD COUNT 11.7 x10^3/uL (4.0-11.0)
[2018-10-10 07:00] VITALS: BP 130/72
[2018-10-10 07:03] LABS: CALCIUM 8.2 mg/dL (8.5-10.1); CREATININE 1.9 mg/dL (0.7-1.3); GFR 43.3; POTASSIUM 3.7 mmol/L (3.5-5.1)
[2018-10-10] MEDS: BUDESONIDE 0.5 MG/2 ML NEBU. NEB SCH (07:29)
[2018-10-10] MEDS: ALBUTEROL SULFATE 2.5 MG/3 ML NEBU. NEB SCH (07:29)
--- NOTE | 2018-10-10 07:41 | NUR ---
Pt rested during the noc pt was able to answer some of admission questions. Pt able to tell me where she was and alert and oriented and able to sign form for blood transfusion. Pt received 1 unit of blood without complications. Vitals within normal limits. Bp slightly elevated however pt asymptomatic. Pt rested with eyes closed during the noc. Pt with bed alarm on since pt not asking to get up with assist. Pt woke up this am wanting to leave the hospital. Pt grabbed her clothes out of her personal belongings bag and started getting dressed. Pt states she had to go to the dining [employer] for breakfast. Attempted to reorient pt to surroundings however pt still insisted on leaving and needing to go to the third floor. Two staff members had to stay in the room since pt wanting to leave and not easily oriented to surroundings. Pt attempting to push staff out of the way and pulled out IV, removed telemonitor and still states she was leaving. Pt called her daughter however pt still refusing plan of care. Daughter called hospital and states she will come by and sit with pt. Report given to day nurse and at this time nurse in room until daughter arrives. No further complaints at this time. Addendum: 10/10/18 at 0751 by SUELLEN VARGAS RN wrong chart
[2018-10-10] MEDS: busPIRone 5 MG TABLET. PO SCH (08:28)
[2018-10-10] MEDS: CARVEDILOL 12.5 MG TABLET. PO SCH (08:28)
[2018-10-10] MEDS: NICOTINE 21MG PATCH. TD SCH (08:29)
[2018-10-10] MEDS: amLODIPine BESYLATE 10 MG TABLET PO SCH (08:29)
--- NOTE | 2018-10-10 09:13 | PDOC ---
PROGRESS NOTES Subjective Subjective FEELING BETTER ,WANT TO GO HOME Objective Objective Vital Signs Date Time Temp Pulse Resp B/P (MAP) Pulse Ox O2 Delivery O2 Flow Rate FiO2 10/10/18 08:29 84 130/72 10/10/18 07:30 97 Nasal Cannula 3.0 10/10/18 07:00 98.3 16 98.3 Intake and Output 10/10/18 07:00 Intake Total 2070 ml Output Total 851 ml Balance 1219 ml Intake Oral 1720 ml Blood Product IV Normal Saline Flush 350 ml Output Urine Total 850 ml Stool Total 1 ml # Voids 1 Physical Exam Abdomen: Normal bowel sounds, Soft Heart: Regular rate, Normal S1 Extremities: No clubbing General: Alert HEENT: Atraumatic MUSCULOSKELETAL: No deformity Neck: Supple Neuro: Normal speech Psych/Mental Status: Mental status NL Skin: No breakdown COMMENT mild swelling legs Diagnosis Problem List Problems Medical Problems: (1) Symptomatic anemia Status: Acute Assessment Assessment Problems Medical Problems: (1) Symptomatic anemia Status: Acute FINAL IMPRESSION:non sustained v tachycardia, last night , mag was low ,replaced 8 beat 1. Anemia secondary to chemo. 2. Stage 4 metastatic lung cancer.small cell . 3. Chronic kidney disease stage between 3 and 4. 4. Chronic systolic heart failure, ejection fraction 40%. 5. Low platelets secondary to chemo. 6. Hypertension. 7. Hyperlipidemia. PLAN: hb 7.1 mag replaced pot replaced wbc 11. hb 7.1 platelets 60 non sustained v tachycardia 8 beat ,due to low mag ,replaced. d/c home today. At this time, was admit to hospital, transfused 2 units. Consultation with Hematology/Oncology. The patient has chronic kidney disease, around 2 is baseline,. also had a workup done with Cardiology for heart failure, right now stable. Continue the present treatment and see how he improves. Plan Plan of Care Problems Medical Problems: (1) Symptomatic anemia Status: Acute Comment Review of Relevant I have reviewed the following items nayana (where applicable) has been applied. Labs Laboratory Tests Test 10/09/18 21:09 10/10/18 05:55 Potassium Level 3.7 mmol/L (3.5-5.1) 3.7 mmol/L (3.5-5.1) Magnesium Level 1.5 mg/dL (1.8-2.4) 2.0 mg/dL (1.8-2.4) White Blood Count 11.7 x10^3/uL (4.0-11.0) Red Blood Count 2.76 x10^6/uL (4.30-5.70) Hemoglobin 7.1 g/dL (13.0-17.5) Hematocrit 22.2 % (39.0-53.0) Mean Corpuscular Volume 80 fL (79-100) Mean Corpuscular Hemoglobin 26 pg (25-35) Mean Corpuscular Hemoglobin Concent 32 g/dL (31-37) Red Cell Distribution Width 20.5 % (11.5-14.5) Platelet Count 67 x10^3/uL (140-400) Neutrophils (%) (Auto) 85 % (31-73) Lymphocytes (%) (Auto) 4 % (24-48) Monocytes (%) (Auto) 10 % (0-9) Eosinophils (%) (Auto) 0 % (0-3) Basophils (%) (Auto) 0 % (0-3) Neutrophils # (Auto) 10.0 x10^3uL (1.8-7.7) Lymphocytes # (Auto) 0.5 x10^3/uL (1.0-4.8) Monocytes # (Auto) 1.2 x10^3/uL (0.0-1.1) Eosinophils # (Auto) 0.0 x10^3/uL (0.0-0.7) Basophils # (Auto) 0.0 x10^3/uL (0.0-0.2) Sodium Level 139 mmol/L (136-145) Chloride Level 104 mmol/L (98-107) Carbon Dioxide Level 26 mmol/L (21-32) Anion Gap 9 (6-14) Blood Urea Nitrogen 14 mg/dL (8-26) Creatinine 1.9 mg/dL (0.7-1.3) Estimated GFR (Cockcroft-Gault) 43.3 Glucose Level 91 mg/dL (70-99) Calcium Level 8.2 mg/dL (8.5-10.1) Medications Current Medications Magnesium Sulfate 50 ml @ 25 mls/hr 1X ONCE IV Last administered on 10/09/18at 12:20; Start 10/09/18 at 10:30; Stop 10/09/18 at 12:29; Status DC Magnesium Sulfate 50 ml @ 25 mls/hr 1X ONCE IV Last administered on 10/10/18at 00:56; Start 10/09/18 at 23:45; Stop 10/10/18 at 01:44; Status DC Potassium Chloride (Klor-Con) 20 meq 1X ONCE PO Last administered on 10/09/18at 12:19; Start 10/09/18 at 10:30; Stop 10/09/18 at 10:38; Status DC Vitals/I & O Vital Sign - Last 24 Hours 10/09/18 10/09/18 10/09/18 10/09/18 09:14 10:06 11:25 13:36 Temp 99.6 98.7 99.6 98.7 Pulse 84 98 Resp 16 20 B/P (MAP) 109/64 127/67 (87) Pulse Ox 95 94 O2 Delivery Nasal Cannula Room Air Nasal Cannula O2 Flow Rate 3.0 3.0 10/09/18 10/09/18 10/09/18 10/09/18 15:00 15:50 16:55 19:15 Temp 99.1 99.1 Pulse 97 97 Resp 18 B/P (MAP) 121/72 (88) 121/72 Pulse Ox 95 O2 Delivery Room Air Nasal Cannula Nasal Cannula O2 Flow Rate 3.0 3.0 10/09/18 10/09/18 10/09/18 10/10/18 19:51 20:00 23:43 03:26 Temp 99.1 99.5 98.8 99.1 99.5 98.8 Pulse 89 87 85 Resp 18 18 20 B/P (MAP) 123/71 (88) 126/73 (90) 118/67 (84) Pulse Ox 95 95 100 O2 Delivery Nasal Cannula Nasal Cannula Nasal Cannula Nasal Cannula O2 Flow Rate 3.0 3.0 3.0 3.0 10/10/18 10/10/18 10/10/18 10/10/18 07:00 07:30 08:28 08:29 Temp 98.3 98.3 Pulse 84 84 84 Resp 16 B/P (MAP) 130/72 (91) 130/72 130/72 Pulse Ox 98 97 O2 Delivery Nasal Cannula Nasal Cannula O2 Flow Rate 3.0 3.0 Intake and Output 10/09/18 10/09/18 10/10/18 15:00 23:00 07:00 Intake Total 1200 ml 410 ml 460 ml Output Total 301 ml 200 ml 350 ml Balance 899 ml 210 ml 110 ml IZAIAH STEVENSON MD October 10, 2018 09:13
[2018-10-10] MEDS ORDERED: HEPARIN PF 500 UNIT/5 ML DISP.SYRIN. IV ONE (10:00)
--- NOTE | 2018-10-10 10:30 | NUR ---
heparin flush not administered, aceves needle bent and and almost out of the port. Addendum: 10/10/18 at 1212 by ISREAL DELUNA RN discussed with charge nurse
[2018-10-10 11:00] VITALS: BP 133/73
--- NOTE | 2018-10-10 12:07 | NUR ---
Discharge Note: JESSICA MEDINA [address] Discharge instructions and discharge home medications reviewed with patient and a copy given. All questions have been answered and understanding verbalized. The following instructions and handouts were given: Anemia and blood transfusion handout. To ff up with PCP in 1 week FF up with oncology in 1 to 2weeks. Educated about fall precautions. Discontinued lines and drains: aceves needle tip bent but intact, patient tolerated removal, no complications noted. Patient discharged to home accompanied by family member via wheelchair at 1115.
--- NOTE | 2018-10-11 13:41 | PDOC ---
Provider Note Provider Note Discharge summary dictated. #[id number]. IZAIAH SETVENSON MD October 11, 2018 13:41
--- NOTE | 2018-10-11 16:57 | DS ---
DATE OF DISCHARGE: 10/10/2018 REASON FOR ADMISSION TO THE HOSPITAL: Severe anemia. The patient is getting chemotherapy for stage IV small cell lung CA; anemia secondary to chemotherapy. CONSULTATION: Dr. Bartlett. PROCEDURES DONE: Transfusion 2 units. HOSPITAL COURSE: The patient is a 63-year-old male with history of small cell lung CA, has metastasis to the lung and to the liver and he is getting chemotherapy. His hemoglobin dropped down to 5 after chemotherapy, was brought to the hospital, platelets were low, was given transfusion, was seen by Dr. Bartlett. The patient has chronic kidney disease, creatinine 2, stayed around the same. He has also chronic systolic heart failure, ejection fraction of 40%. The patient remained stable. Hemoglobin improved to 7.6 after 2 units of transfusion and the patient was discharged. He is supposed to see Dr. Bartlett in the office in a week and maybe another course of chemo in a couple of weeks. FINAL DIAGNOSES: 1. Severe anemia secondary to chemotherapy. 2. Stage IV lung carcinoma small cell, getting chemo. 3. Chronic kidney disease stage 3. 4. Hypertension. 5. Chronic obstructive pulmonary disease. 6. Chronic systolic heart failure. DISPOSITION: Home. DISCHARGE MEDICATIONS: See MRAD for discharge medications. IZAIAH STEVENSON MD DR: CHRIS/mayra JOB#: [id number] / [id number] SHERRIE Haley
== END 2018-10-10 11:15 | disposition home or self-care (01) | DRG 811 ==
LOC: ER 19:37 → 6 SOUTH 21:54
PROVIDERS: ADMIT Internal Medicine; ATTEND Internal Medicine
PROC: 30233N1 Transfusion of Nonautologous Red Blood Cells into Peripheral Vein, Percutaneous Approach (ICD-10-PCS; principal; 2018-10-08)
DX: D64.81 Anemia due to antineoplastic chemotherapy (principal); E43 Unspecified severe protein-calorie malnutrition; I13.0 Hypertensive heart and chronic kidney disease with heart failure and stage 1 through stage 4 chronic kidney disease, or unspecified chronic kidney disease; C79.70 Secondary malignant neoplasm of unspecified adrenal gland; C34.90 Malignant neoplasm of unspecified part of unspecified bronchus or lung; J91.0 Malignant pleural effusion; I50.22 Chronic systolic (congestive) heart failure; C78.00 Secondary malignant neoplasm of unspecified lung; C78.7 Secondary malignant neoplasm of liver and intrahepatic bile duct; K21.9 Gastro-esophageal reflux disease without esophagitis; D69.59 Other secondary thrombocytopenia; N18.3 Chronic kidney disease, stage 3 (moderate); E11.22 Type 2 diabetes mellitus with diabetic chronic kidney disease; M19.90 Unspecified osteoarthritis, unspecified site; J44.9 Chronic obstructive pulmonary disease, unspecified; E78.5 Hyperlipidemia, unspecified; T45.1X5A Adverse effect of antineoplastic and immunosuppressive drugs, initial encounter; W18.30XA Fall on same level, unspecified, initial encounter; Y93.89 Activity, other specified; Y92.89 Other specified places as the place of occurrence of the external cause; Y99.8 Other external cause status; Z87.891 Personal history of nicotine dependence; Z91.018 Allergy to other foods; Z91.010 Allergy to peanuts; Z92.3 Personal history of irradiation; Z80.42 Family history of malignant neoplasm of prostate; Z80.3 Family history of malignant neoplasm of breast; Z80.0 Family history of malignant neoplasm of digestive organs; Z82.49 Family history of ischemic heart disease and other diseases of the circulatory system
CPT/HCPCS: 36415; 70450; 71101; 73502; 73552; 80048; 80053; 83735; 84132; 85007; 85025; 86850; 86900; 86901; 86920; 93005; 94640; 94760; J2270; J3475; J7030; J7613; J7626; P9016; 97530; 99285-25